=== PATIENT | female | born 1945 | race Caucasian/White ===

== ENCOUNTER → 2016-03-05 | Outpatient (CLI) | payer MEDICARE | LOC: RAD 14:49 | PROVIDERS: ATTEND Specialist | DX: M54.5 Low back pain (principal); R53.1 Weakness; S09.90XA Unspecified injury of head, initial encounter; W18.39XA Other fall on same level, initial encounter | CPT/HCPCS: 70450; 72158 ==

== ENCOUNTER → 2016-03-20 | Outpatient (CLI) | payer MEDICARE | LOC: RAD 10:24 | PROVIDERS: ATTEND Internal Medicine | DX: C34.31 Malignant neoplasm of lower lobe, right bronchus or lung (principal) | CPT/HCPCS: 78815; A9552 ==

== ENCOUNTER 2016-04-21 17:36 | Emergency (ER) | payer MEDICARE ==
--- NOTE | 2016-04-21 17:56 | ER Document Report ---
ED Medical Screen (RME) - General Stated Complaint: CHEST PAIN/CANCER PATIENT Mode of Arrival: Ambulatory Information source: Patient Notes: Patient presents with cough, chest pain and upper back pain that started yesterday. Patient reports fever of 100.4. Pt has been avised against taking ASA. hx: Lung CA chemotherapy every 2 weeks, last treatment was 10 days ago, hypertension, diabetes I have greeted and performed a rapid initial assessment of this patient. A comprehensive ED assessment and evaluation of the patient, analysis of test results and completion of the medical decision making process will be conducted by additional ED providers. TRAVEL OUTSIDE OF THE [place] IN LAST 30 DAYS: No - Related Data Allergies/Adverse Reactions: nickel [Nickel] Adverse Reaction (Severe, Verified 04/21/16 17:52) RASH Past Medical History - Past Medical History Cardiac Medical History: Reports: Hx Hypercholesterolemia, Hx Hypertension - ON MEDS Denies: Hx Coronary Artery Disease, Hx Heart Attack Pulmonary Medical History: Reports: Hx Bronchitis, Hx COPD, Hx Pneumonia Denies: Hx Asthma Neurological Medical History: Denies: Hx Cerebrovascular Accident, Hx Seizures Endocrine Medical History: Reports: Hx Diabetes Mellitus Type 2, Hx Hypothyroidism Malignancy Medical History: Reports: Hx Lung Cancer - R lower lobe GI Medical History: Reports: Hx Diverticulitis, Hx Gastroesophageal Reflux Disease, Hx Hiatal Hernia, Hx Colonoscopy, Hx Endoscopic Retrograde Cholangio, Hx Endoscopy Musculoskeltal Medical History: Reports Hx Arthritis - GENERALIZED, Reports Hx Musculoskeletal Deformity, Reports Hx Musculoskeletal Trauma Psychiatric Medical History: Reports: Hx Anxiety Past Surgical History: Reports: Hx Cardiac Catheterization, Hx Cardiac Surgery - subclavian stent, Hx Hysterectomy, Hx Nose Surgery, Hx Thyroid Surgery. Denies: Hx Pacemaker - Immunizations Immunizations up to date: Yes Hx Diphtheria, Pertussis, Tetanus Vaccination: Yes - 11/29/2006 Physical Exam - Vital signs Vitals: Temp Pulse Resp BP Pulse Ox 99.6 F 89 14 127/61 H 94 04/21/16 17:49 04/21/16 17:49 04/21/16 17:49 04/21/16 17:49 04/21/16 17:49 - Respiratory Respiratory status: No respiratory distress Breath sounds: Nonproductive cough, Rhonchi Course - Vital Signs Vital signs: Temp Pulse Resp BP Pulse Ox 99.6 F 89 14 127/61 H 94 04/21/16 17:49 04/21/16 17:49 02/21/17 17:49 04/21/16 17:49 04/21/16 17:49
[2016-04-21 18:23] LABS: ABSOLUTE BASOPHILS # (AUTO) 0.1 10^3/uL (0.0-0.2); ABSOLUTE EOSINOPHILS # (AUTO) 0.1 10^3/uL (0.0-0.6); ABSOLUTE LYMPHOCYTES (AUTO) 0.7 10^3/uL (0.5-4.7); ABSOLUTE MONOCYTES (AUTO) 0.6 10^3/uL (0.1-1.4); ABSOLUTE NEUT (AUTO) 7.3 10^3/uL (1.7-8.2); BASOPHILS % (AUTO) 1.1 % (0-2); EOSINOPHILS % (AUTO) 1.5 % (0-6); HEMATOCRIT 38.4 % (36.0-47.0); HEMOGLOBIN 13.5 g/dL (12.0-15.5); HGB HCT DIFFERENCE 2.1; LYMPHOCYTES % (AUTO) 7.9 % (13-45); MEAN CORPUSCULAR VOLUME 91 fl (80-97); RED BLOOD COUNT 4.21 10^6/uL (3.72-5.28); RED CELL DISTRIBUTION WIDTH 13.6 % (11.5-14.0); SEGMENTED NEUTROPHILS % (AUTO) 82.5 % (42-78); WHITE BLOOD COUNT 8.8 10^3/uL (4.0-10.5)
[2016-04-21 18:42] LABS: ALANINE AMINOTRANSFERASE 26 U/L (9-52); ALBUMIN 3.6 g/dL (3.5-5.0); ALKALINE PHOSPHATASE 96 U/L (38-126); ANION GAP 10 (5-19); ASPARTATE AMINO TRANSFERASE 12 U/L (14-36); BILIRUBIN,TOTAL 0.4 mg/dL (0.2-1.3); BLOOD UREA NITROGEN 15 mg/dL (7-20); CALCIUM 9.3 mg/dL (8.4-10.2); CARBON DIOXIDE 28 mmol/L (22-30); CHLORIDE 96 mmol/L (98-107); CREATINE KINASE 28 U/L (30-135); CREATININE RESULT 0.62 mg/dL (0.52-1.25); GLUCOSE 135 mg/dL (75-110); MAGNESIUM 1.4 mg/dL (1.6-2.3); POTASSIUM 3.8 mmol/L (3.6-5.0); SODIUM 134.1 mmol/L (137-145); TOTAL PROTEIN 6.5 g/dL (6.3-8.2)
[2016-04-21 18:54] LABS: CREATINE KINASE MB 0.29 ng/mL (<4.55); TROPONIN I < 0.012 ng/mL
--- NOTE | 2016-04-21 22:03 | EKG REPORT ---
SEVERITY:- NORMAL ECG - SINUS RHYTHM : Confirmed by: Latesha Elmore MD 21-Apr-2016 22:03:12
[2016-04-21] MEDS ORDERED: BENZONATATE 100 MG CAPSULE PO ONE (23:35)
[2016-04-21] MEDS ORDERED: IPRATROPIUM/ALBUTEROL 0.5-2.5 MG/3 ML AMPUL NEB ONE (23:35)
--- NOTE | 2016-04-21 23:35 | ER Document Report ---
ED General - General Chief Complaint: Cough Stated Complaint: CHEST PAIN/CANCER PATIENT Mode of Arrival: Ambulatory Notes: Patient is a 70-year-old female past medical history of stage IV metastatic lung cancer actively on chemotherapy at this time presents with 2 days of cough and increased sputum production. She probably did have a recorded oral temperature 100.3F yesterday. Was seen in urgent care earlier today and diagnosed with likely bronchitis and started on azithromycin. States this has not improved her symptoms. Nothing worsens or symptoms. States she's had similar symptoms in the past when she's had bronchitis. She does continue to smoke. Denies any shortness of breath beyond her baseline. She does use oxygen at night. Denies any history of DVT or pulmonary embolus. She denies any pleuritic pain but notes that she does have a diffuse chest wall, burning pain that is worsened by coughing or applying pressure to the chest. States this pain only started after multiple episodes of severe coughing earlier today. TRAVEL OUTSIDE OF THE [place] IN LAST 30 DAYS: No - Related Data Allergies/Adverse Reactions: nickel [Nickel] Adverse Reaction (Severe, Verified 04/21/16 17:57) RASH Home Medications: Current Home Medications Azilsartan Med/Chlorthalidone [Edarbyclor 40-12.5 mg Tablet] 1 tab PO DAILY [History] Metoprolol Tartrate [Metoprolol Tartrate] 1 tab PO BID 04/22/16 [History] Nifedipine [Nifedipine ER] 1 tab PO DAILY 04/22/16 [History] Ondansetron [Zofran Odt 4 mg Tablet] 1 tab PO Q6HP PRN 04/22/16 [History] Oxycodone HCl [Oxy-Ir 5 mg Tablet] 5 mg PO Q6HP PRN 04/22/16 [History] Promethazine HCl [Phenergan 25 mg Tablet] 25 mg PO Q6HP PRN 04/22/16 [History] Past Medical History - General Information source: Patient - Social History Smoking Status: Current Every Day Smoker Chew tobacco use (# tins/day): Yes Frequency of alcohol use: None Drug Abuse: None Lives with: Family Family History: Reviewed & Not Pertinent, Arthritis, CAD, CVA, DM, Hyperlipidemia, Hypertension, Malignancy, Thyroid Disfunction Patient has suicidal ideation: No Patient has homicidal ideation: No - Past Medical History Cardiac Medical History: Reports: Hx Hypercholesterolemia, Hx Hypertension - ON MEDS Denies: Hx Coronary Artery Disease, Hx Heart Attack Pulmonary Medical History: Reports: Hx Bronchitis, Hx COPD, Hx Pneumonia Denies: Hx Asthma Neurological Medical History: Denies: Hx Cerebrovascular Accident, Hx Seizures Endocrine Medical History: Reports: Hx Diabetes Mellitus Type 2, Hx Hypothyroidism Renal/ Medical History: Denies: Hx Peritoneal Dialysis Malignancy Medical History: Reports: Hx Lung Cancer - R lower lobe GI Medical History: Reports: Hx Diverticulitis, Hx Gastroesophageal Reflux Disease, Hx Hiatal Hernia, Hx Colonoscopy, Hx Endoscopic Retrograde Cholangio, Hx Endoscopy Musculoskeltal Medical History: Reports Hx Arthritis - GENERALIZED, Reports Hx Musculoskeletal Deformity, Reports Hx Musculoskeletal Trauma Psychiatric Medical History: Reports: Hx Anxiety Past Surgical History: Reports: Hx Cardiac Catheterization, Hx Cardiac Surgery - subclavian stent, Hx Hysterectomy, Hx Nose Surgery, Hx Thyroid Surgery. Denies: Hx Pacemaker - Immunizations Immunizations up to date: Yes Hx Diphtheria, Pertussis, Tetanus Vaccination: Yes - 11/29/2006 Hx Pneumococcal Vaccination: 03/01/12 Review of Systems - Review of Systems Notes: Constitutional: Negative for fever. HENT: Negative for sore throat. Eyes: Negative for visual changes. Cardiovascular: Negative for chest pain. Respiratory: Negative for shortness of breath. Positive for persistent cough Gastrointestinal: Negative for abdominal pain, positive for posttussive emesis Genitourinary: Negative for dysuria. Musculoskeletal: Negative for back pain. Skin: Negative for rash. Neurological: Negative for headaches, weakness or numbness. 10 point ROS negative except as marked above and in HPI. Physical Exam - Vital signs Vitals: Temp Pulse Resp BP Pulse Ox 99.6 F 89 14 127/61 H 94 04/21/16 17:49 04/21/16 17:49 04/21/16 17:49 04/21/16 17:49 04/21/16 17:49 Notes: PHYSICAL EXAMINATION: GENERAL: Well-appearing, well-nourished and in no acute distress. HEAD: Atraumatic, normocephalic. EYES: Pupils equal round and reactive to light, extraocular movements intact, sclera anicteric, conjunctiva are normal. ENT: nares patent, oropharynx clear without exudates. Moist mucous membranes. NECK: Normal range of motion, supple without lymphadenopathy LUNGS: Breath sounds clear to auscultation bilaterally and equal. Scattered wheezing in all lung laurent. HEART: Regular tachycardia without murmurs ABDOMEN: Soft, nontender, normoactive bowel sounds. No guarding, no rebound. No masses appreciated. EXTREMITIES: Normal range of motion, no pitting or edema. No cyanosis. NEUROLOGICAL: No focal neurological deficits. Moves all extremities spontaneously and on command. PSYCH: Normal mood, normal affect. SKIN: Warm, Dry, normal turgor, no rashes or lesions noted. Course - Re-evaluation Re-evalutation: 04/21/16 23:33 Patient presents with a cough and diffuse chest wall pain worsened by coughing or movement. She arrives tachycardic although she notes that she has a long- standing history of tachycardia and requires metoprolol 100 mg twice a day for this tachycardia. She has not taken this tonight. Initial pulse ox is 94% and patient does normally have a nighttime oxygen dependence all she does not have any normal daytime requirement. She is 97% on room air at the time of my assessment. No respiratory distress. Her clinical history is not consistent with ACS and a troponin is negative, EKG without any concerning ST changes. Rest x-ray shows chronic pleural effusion and scarring in the right lower lobe. I do have some degree of concern for possible pulmonary embolus given that patient is unable both chest pain, shortness of breath, is tachycardic, and is actively receiving chemotherapy at this time. I will therefore attempt to exclude this diagnosis with a d-dimer although I suspect it may be chronically elevated due to her malignancy. If this is elevated will require CT of the chest to further exclude an acute pulmonary embolus. 04/22/16 00:27 D-dimer using an age-adjusted cutoff of 0.68 is negative at 0.51. Patient's heart rate has now normalized after taking her normal home dose of metoprolol. States she feels improved after receiving Tessalon Perles and an albuterol inhaler. At this time, I suspect the patient likely has an upper respiratory infection. Have instructed her follow up very closely with her primary care physician.At this time will discharge with return precautions and follow-up recommendations. Verbal discharge instructions given a the bedside and opportunity for questions given. Medication warnings reviewed. Patient is in agreement with this plan and has verbalized understanding of return precautions and the need for primary care follow-up in the next 24-72 hours. - Vital Signs Vital signs: Temp Pulse Resp BP Pulse Ox 99.6 F 89 21 H 152/74 H 92 04/21/16 17:49 04/21/16 17:49 04/22/16 00:30 04/22/16 00:01 04/22/16 00:30 - Laboratory Result Diagrams: 04/21/16 18:05 04/21/16 18:05 Laboratory results interpreted by me: 04/21/16 04/21/16 04/21/16 18:05 18:05 18:05 Seg Neutrophils % 82.5 H Lymphocytes % 7.9 L D-Dimer 0.51 H Sodium 134.1 L Chloride 96 L Glucose 135 H Magnesium 1.4 L AST 12 L Creatine Kinase 28 L - Diagnostic Test Radiology reviewed: Image reviewed, Reports reviewed Radiology results interpreted by me: 04/22/16 04:23 Chest x-ray: Right pleural effusion - EKG Interpretation by Me Additional EKG results interpreted by me: 04/22/16 04:22 Sinus rhythm. Rate 89. No ST elevations or depressions. QTC is 429. Discharge - Discharge Clinical Impression: Cough, Chest wall discomfort Condition: Good Disposition: HOME, SELF-CARE Additional Instructions: Your symptoms today are most likely due to a viral infection and should resolve in the next several weeks. Please follow closely with her primary care doctor in the next 1-2 days. Please also notify your oncologist about your symptoms. Return to emergency department immediately if you have worsening of your cough, shortness of breath and began coughing blood, pass out, or have any other symptoms that are worrisome to you. Prescriptions: Benzonatate [Tessalon Perle 100 mg Capsule] 100 mg PO Q8HP PRN #40 cap PRN Reason: Referrals: ISABEL PEGUERO FNP [Primary Care Provider] - Follow up tomorrow
[2016-04-22 00:04] VITALS: BP 152/74
== END 2016-04-22 00:48 | disposition home or self-care (01) ==
LOC: ER 17:36
DX: R07.89 Other chest pain (principal); R05 Cough; J44.9 Chronic obstructive pulmonary disease, unspecified; R06.02 Shortness of breath; C34.31 Malignant neoplasm of lower lobe, right bronchus or lung; J90 Pleural effusion, not elsewhere classified; R00.0 Tachycardia, unspecified; Z79.899 Other long term (current) drug therapy; F17.200 Nicotine dependence, unspecified, uncomplicated; I10 Essential (primary) hypertension; E11.9 Type 2 diabetes mellitus without complications; Z87.01 Personal history of pneumonia (recurrent); Z98.61 Coronary angioplasty status; Z99.81 Dependence on supplemental oxygen
CPT/HCPCS: 93005; 94640; 99284; 36415; 87040; 87070; 87205; 82553; 82550; 83735; 85025; 80053; 84484; 85379; 87804; 71020; 93010; A9270 ×2; J7620

== ENCOUNTER 2016-04-27 13:38 | Inpatient (IN) | payer MEDICARE ==
[2016-04-27] MEDS ORDERED: IPRATROPIUM/ALBUTEROL 0.5-2.5 MG/3 ML AMPUL NEB ONE ×2 (14:29→14:30)
[2016-04-27] MEDS ORDERED: METHYLPREDNISOLONE INJ 125 MG/2 ML SDV IV ONE (15:24)
[2016-04-27 15:28] LABS: ABSOLUTE LYMPHOCYTES (AUTO) 1.7 10^3/uL (0.5-4.7); ABSOLUTE MONOCYTES (AUTO) 0.5 10^3/uL (0.1-1.4); ABSOLUTE NEUT (AUTO) 2.9 10^3/uL (1.7-8.2); BASOPHILS % (AUTO) 0.4 % (0-2); EOSINOPHILS % (AUTO) 0.8 % (0-6); HEMATOCRIT 37.7 % (36.0-47.0); HEMOGLOBIN 12.8 g/dL (12.0-15.5); HGB HCT DIFFERENCE 0.7; MEAN CORPUSCULAR HEMOGLOBIN 30.9 pg (27.0-33.4); MEAN CORPUSCULAR VOLUME 91 fl (80-97); MONOCYTES % (AUTO) 10.3 % (3-13); RED BLOOD COUNT 4.14 10^6/uL (3.72-5.28); RED CELL DISTRIBUTION WIDTH 13.3 % (11.5-14.0); SEGMENTED NEUTROPHILS % (AUTO) 56.5 % (42-78); WHITE BLOOD COUNT 5.2 10^3/uL (4.0-10.5)
[2016-04-27 15:38] LABS: ALANINE AMINOTRANSFERASE 21 U/L (9-52); ALBUMIN 3.9 g/dL (3.5-5.0); ALKALINE PHOSPHATASE 86 U/L (38-126); ANION GAP 9 (5-19); ASPARTATE AMINO TRANSFERASE 13 U/L (14-36); BILIRUBIN,TOTAL 0.5 mg/dL (0.2-1.3); BLOOD UREA NITROGEN 12 mg/dL (7-20); CALCIUM 9.4 mg/dL (8.4-10.2); CARBON DIOXIDE 36 mmol/L (22-30); CHLORIDE 92 mmol/L (98-107); CREATINE KINASE 30 U/L (30-135); CREATININE RESULT 0.68 mg/dL (0.52-1.25); GLUCOSE 155 mg/dL (75-110); SODIUM 137.2 mmol/L (137-145); TOTAL PROTEIN 6.5 g/dL (6.3-8.2)
[2016-04-27 15:52] LABS: CREATINE KINASE MB < 0.22 ng/mL (<4.55); TROPONIN I < 0.012 ng/mL
[2016-04-27] MEDS ORDERED: CEFTRIAXONE 1 GM/D5W RTU 50 ML IV ONE (15:54)
--- NOTE | 2016-04-27 16:00 | ER Document Report ---
ED General - General Chief Complaint: Breathing Difficulty Stated Complaint: SHORTNESS OF BREATH Mode of Arrival: Ambulatory Information source: Patient Notes: 62-year-old female history of COPD who was seen here one week prior told she had viral syndrome presents with continued shortness of breath wheezing difficulty breathing. Patient admits to fevers and nausea denies any vomiting TRAVEL OUTSIDE OF THE [place] IN LAST 30 DAYS: No - HPI Onset: Last week Onset/Duration: Persistent Quality of pain: No pain Severity: Moderate Pain Level: 1 Associated symptoms: Productive cough, Fever, Shortness of breath Exacerbated by: Walking Relieved by: Denies Similar symptoms previously: Yes Recently seen / treated by doctor: Yes - Related Data Allergies/Adverse Reactions: nickel [Nickel] Adverse Reaction (Severe, Verified 04/21/16 17:57) RASH Home Medications: Current Home Medications Alprazolam [Xanax 0.25 mg Tablet] 0.25 mg PO DAILYP PRN 04/27/16 [History] Azilsartan Med/Chlorthalidone [Edarbyclor 40-12.5 mg Tablet] 1 tab PO DAILY [History] Benzonatate [Tessalon Perles 100 mg Capsule] 100 mg PO Q8HP PRN 04/27/16 [ History] Fluticasone/Salmeterol [Advair 250-50 Diskus 28 dose] 1 inh IH Q12 04/27/16 [ History] Folic Acid 1 mg PO DAILY 04/27/16 [History] Metformin HCl [Glucophage] 1,000 mg PO BIDACBS 04/27/16 [History] Ondansetron [Zofran Odt 4 mg Tablet] 4 mg PO Q6HP PRN 04/27/16 [History] Oxycodone HCl [Oxy-Ir 5 mg Tablet] 5 mg PO Q6HP PRN 04/27/16 [History] Pantoprazole Sodium [Protonix] 40 mg PO DAILY 04/27/16 [History] Promethazine HCl 25 mg PO Q6HP PRN 04/27/16 [History] Past Medical History - Social History Smoking Status: Current Every Day Smoker Cigarette use (# per day): Yes Chew tobacco use (# tins/day): No Smoking Education Provided: Yes - Patient counselled regarding cessation for 4 minutes Family History: Reviewed & Not Pertinent, Arthritis, CAD, CVA, DM, Hyperlipidemia, Hypertension, Malignancy, Thyroid Disfunction - Past Medical History Cardiac Medical History: Reports: Hx Hypercholesterolemia, Hx Hypertension - ON MEDS Denies: Hx Coronary Artery Disease, Hx Heart Attack Pulmonary Medical History: Reports: Hx Bronchitis, Hx COPD, Hx Pneumonia Denies: Hx Asthma Neurological Medical History: Denies: Hx Cerebrovascular Accident, Hx Seizures Endocrine Medical History: Reports: Hx Diabetes Mellitus Type 2, Hx Hypothyroidism Renal/ Medical History: Denies: Hx Peritoneal Dialysis Malignancy Medical History: Reports: Hx Lung Cancer - R lower lobe GI Medical History: Reports: Hx Diverticulitis, Hx Gastroesophageal Reflux Disease, Hx Hiatal Hernia, Hx Colonoscopy, Hx Endoscopic Retrograde Cholangio, Hx Endoscopy Musculoskeltal Medical History: Reports Hx Arthritis - GENERALIZED, Reports Hx Musculoskeletal Deformity, Reports Hx Musculoskeletal Trauma Psychiatric Medical History: Reports: Hx Anxiety Past Surgical History: Reports: Hx Cardiac Catheterization, Hx Cardiac Surgery - subclavian stent, Hx Hysterectomy, Hx Nose Surgery, Hx Thyroid Surgery. Denies: Hx Pacemaker - Immunizations Immunizations up to date: Yes Hx Diphtheria, Pertussis, Tetanus Vaccination: Yes - 11/29/2006 Hx Pneumococcal Vaccination: 03/01/12 Review of Systems - Review of Systems Notes: REVIEW OF SYSTEMS: CONSTITUTIONAL : Admits to productive cough EENT: Denies eye, ear, throat, or mouth pain or symptoms. Denies nasal or sinus congestion or discharge. Denies throat, tongue, or mouth swelling or difficulty swallowing. CARDIOVASCULAR: Denies chest pain. Denies palpitations or racing or irregular heart beat. Denies ankle edema. RESPIRATORY: shortness breath difficulty breathing GASTROINTESTINAL: Denies abdominal pain or distention. Denies nausea, vomiting , or diarrhea. Denies blood in vomitus, stools, or per rectum. Denies black, tarry stools. Denies constipation. GENITOURINARY: Denies difficulty urinating, painful urination, burning, frequency, blood in urine, or discharge. FEMALE GENITOURINARY: Denies vaginal bleeding, heavy or abnormal periods, irregular periods. Denies vaginal discharge or odor. MUSCULOSKELETAL: Denies back or neck pain or stiffness. Denies joint pain or swelling. SKIN: Denies rash, lesions or sores. HEMATOLOGIC : Denies easy bruising or bleeding. LYMPHATIC: Denies swollen, enlarged glands. NEUROLOGICAL: Denies confusion or altered mental status. Denies passing out or loss of consciousness. Denies dizziness or lightheadedness. Denies headache. Denies weakness or paralysis or loss of use of either side. Denies problems with gait or speech. Denies sensory loss, numbness, or tingling. Denies seizures. PSYCHIATRIC: Denies anxiety or stress. Denies depression, suicidal ideation, or homicidal ideation. ALL OTHER SYSTEMS REVIEWED AND NEGATIVE. Dictation was performed using [employer] voice recognition software PHYSICAL EXAMINATION: GENERAL: Well-appearing, well-nourished and in mild respiratory distress, satting 80% on 4 L nasal cannula HEAD: Atraumatic, normocephalic. EYES: Pupils equal round and reactive to light, extraocular movements intact, conjunctiva are normal. ENT: Nares patent, oropharynx clear without exudates. Moist mucous membranes. NECK: Normal range of motion, supple without lymphadenopathy LUNGS: Coarse rhonchi all throughout HEART: Tachycardic ABDOMEN: Soft, nontender, nondistended abdomen. No guarding, no rebound. No masses appreciated. Female : deferred Musculoskeletal: Normal range of motion, no pitting or edema. No cyanosis. NEUROLOGICAL: Cranial nerves grossly intact. Normal speech, normal gait. Normal sensory, motor exams PSYCH: Normal mood, normal affect. SKIN: Warm, Dry, normal turgor, no rashes or lesions noted. Physical Exam - Vital signs Vitals: Temp Pulse Resp BP Pulse Ox 98.0 F 70 18 114/41 L 93 04/27/16 14:09 04/27/16 14:09 04/27/16 14:09 04/27/16 14:09 04/27/16 14:09 Course - Re-evaluation Re-evalutation: 04/27/16 18:37 Physical examination is concerning for pneumonia, chest x-ray does confirm this. Patient started on antibiotics will be continued on breathing treatments. Given the patient is hypoxic still on nasal cannula at rest I do believe is appropriate for inpatient admission due to respiratory distress - Vital Signs Vital signs: Temp Pulse Resp BP Pulse Ox 98.0 F 81 21 H 125/62 93 04/27/16 14:09 04/27/16 16:37 04/27/16 16:37 04/27/16 16:37 04/27/16 16:37 - Laboratory Result Diagrams: 04/27/16 15:15 04/27/16 15:15 Laboratory results interpreted by me: 04/27/16 15:15 Chloride 92 L Carbon Dioxide 36 H Glucose 155 H AST 13 L - Diagnostic Test Radiology reviewed: Image reviewed, Reports reviewed - Pneumonia - EKG Interpretation by Me EKG shows normal: Sinus rhythm, Babcock, Intervals, QRS Complexes Critical Care Note - Critical Care Note Total time excluding time spent on procedures (mins): 31 Comments: 31 minutes of critical care time spent in direct contact evaluating and reevaluating the patient, treating symptoms, reviewing labs and studies and speaking with family and consultants excluding any procedures Discharge - Discharge Clinical Impression: Hypoxemia, Encounter for smoking cessation counseling Pneumonia Qualifiers: Pneumonia type: due to unspecified organism Laterality: bilateral Lung location : lower lobe of lung Qualified Code(s): J18.9 - Pneumonia, unspecified organism Condition: Stable Disposition: ADMITTED INPATIENT Admitting Provider: Hospitalist Unit Admitted: Telemetry
[2016-04-27] MEDS ORDERED: ACETAMINOPHEN 325 MG TABLET PO PRN (17:29)
[2016-04-27] MEDS ORDERED: DEXTROSE 50%-WATER 25 GM/50 ML DISP.SYRIN IV PRN ×2 (18:10)
[2016-04-27] MEDS ORDERED: GLUCAGON,HUMAN RECOMB 1 MG INJ IM PRN (18:10)
[2016-04-27] MEDS ORDERED: DEXTROSE 40% GEL 15 GM TUBE PO PRN ×2 (18:10)
--- NOTE | 2016-04-27 18:18 | PDOC H&P ---
History of Present Illness Admission Date/PCP: 04/27/16 16:13 JERRY VELEZ Patient complains of: Cough, shortness of breath, weakness History of Present Illness: GOKUL SALAZAR is a 70 year old female presents to the emergency department from home with a one-week history of progressive cough and wheeze with worsening shortness of breath. She was seen in the emergency department on the and diagnosed with an upper respiratory viral infection and sent home after nebulizer treatments and IV fluids. She screen negative for influenza at that time. Since then though she has had progressive weakness, shortness of breath, dry hacking cough, worsening wheeze, worsening hypoxia now requiring her to utilize her nocturnal oxygen continuously upwards of 4 L/m, increased use of her home nebulizers to every 4 hours without relief. Evaluation in the emergency department shows worsening right airspace disease in the area of scar tissue from her prior lung resection for non-small cell lung cancer. She is hypoxic at 88% on 4 L according to the emergency department physician and so we were asked to admit for further evaluation and management. She is followed by Dr. Rohan Nolan, oncology and is receiving continuous cycles of biweekly chemotherapy just performed approximately 3 weeks ago having missed her last dose due to her illness. She reports a PET CT scan in August 2015 showed metastatic disease to a T10 vertebrae, previous to that the cancer had been localized to the right lower lobe. She underwent resection of a portion of the right lower lobe in 2006 and received chemotherapy at that time but no external beam radiation. She was found to have recurrence last year and began chemotherapy. She sees Dr. Hernandez as her PCP. she is not on chronic steroids and only uses nocturnal O2 usually with nebulizer's prn normally. Past Medical History Cardiac Medical History: Reports: Hyperlipidema, Hypertension - ON MEDS Denies: Coronary Artery Disease, Myocardial Infarction Pulmonary Medical History: Reports: Bronchitis, Chronic Obstructive Pulmonary Disease (COPD), Pneumonia Denies: Asthma Neurological Medical History: Denies: Seizures Endocrine Medical History: Reports: Diabetes Mellitus Type 2, Hypothyroidism Malignancy Medical History: Reports: Lung Cancer - R lower lobe GI Medical History: Reports: Diverticulitis, Gastroesophageal Reflux Disease, Hiatal Hernia Musculoskeltal Medical History: Reports: Arthritis - GENERALIZED Hematology: Denies: Anemia Past Surgical History Past Surgical History: Reports: Cardiac Catheterization, Hysterectomy Denies: Pacemaker Social History Smoking Status: Current Every Day Smoker Cigarettes Packs Per Day: 1 Frequency of Alcohol Use: Occasional Hx Recreational Drug Use: No Hx Prescription Drug Abuse: No - Advance Directive Resuscitation Status: Full Code Family History Family History: Reviewed & Not Pertinent, Arthritis, CAD, CVA, DM, Hyperlipidemia, Hypertension, Malignancy, Thyroid Disfunction Parental Family History Reviewed: Yes Children Family History Reviewed: Yes Sibling(s) Family History Reviewed.: Yes Medication/Allergy Allergies/Adverse Reactions: nickel [Nickel] Adverse Reaction (Severe, Verified 04/21/16 17:57) RASH Review of Systems Constitutional: PRESENT: chills. ABSENT: fever(s), headache(s), weight gain, weight loss Eyes: ABSENT: visual disturbances Ears: ABSENT: hearing changes Cardiovascular: PRESENT: dyspnea on exertion. ABSENT: chest pain, edema, orthropnea, palpitations Respiratory: PRESENT: cough, dyspnea. ABSENT: hemoptysis, sputum Gastrointestinal: PRESENT: nausea - Chronic and related to her chemotherapy. ABSENT: abdominal pain, constipation, diarrhea, hematemesis, hematochezia, vomiting Genitourinary: ABSENT: dysuria, hematuria Musculoskeletal: ABSENT: joint swelling Integumentary: ABSENT: rash, wounds Neurological: ABSENT: abnormal gait, abnormal speech, confusion, dizziness, focal weakness, syncope Psychiatric: ABSENT: anxiety, depression, homidical ideation, suicidal ideation Endocrine: ABSENT: cold intolerance, heat intolerance, polydipsia, polyuria Hematologic/Lymphatic: ABSENT: easy bleeding, easy bruising Physical Exam Vital Signs: Temp Pulse Resp BP Pulse Ox 98.0 F 81 21 H 125/62 93 04/27/16 14:09 04/27/16 16:37 04/27/16 16:37 04/27/16 16:37 04/27/16 16:37 PHYSICAL EXAM GENERAL: NAD; well developed, well nourished; no obese; alert and oriented to person, place, time, situation HEENT: normocephalic, atraumatic; EOMI, PERRLA, no conjunctival injection, no scleral icterus; oral mucosa moist; neck supple, no LAD, normal ROM RESPIRATORY: Intercostal accessory muscle use, mild increased WOB, poor air entry right base; no wheezes, or rhonchi; right basilar inspiratory crackles and rales CARDIO: no JVD; RRR; no systolic murmur; no tachycardia VASCULAR: no carotid bruit; no abdominal bruit; no pallor; 2+ radial, DP pulse ; normal capillary refill GI: soft; nondistended; normal bowel sounds; no hepato spleno megaly; no rebound, rigidity, guarding; nontender NEURO: normal patella reflexes; normal sensation; normal motor function; no dysarthria; no nystagmus; tongue protrudes midline; MSK: 5/5 strength; normal ROM hips; ambulatory without assistance; no tenderness EXTREMITIES: no calf tender; no palpable cords in calf; no clubbing, cyanosis , pedal edema PSYCH: normal affect, normal mood SKIN: warm; moist; no petechiae; no telengectasias; no jaundice; no rash Results Laboratory Results: Labs reviewed, CBC is within normal limits, chemistries show a mild metabolic alkalosis with a carbon dioxide of 36 and are otherwise unremarkable, her glucose is elevated at 155, LFTs are unremarkable, first set cardiac enzymes negative and bnp only 168. EKG Comments: EKG shows a normal sinus rhythm with a corrected QT interval of 426 and an axis of 35 Impressions: Chest X-Ray 04/27/16 14:16 IMPRESSION: Slight increase in right basilar airspace disease compared to prior study. Small right pleural effusion remains. Status: Image reviewed by me - Agree with radiology Assessment & Plan - Diagnosis (1) Pneumonia Qualifiers: Pneumonia type: due to unspecified organism Laterality: bilateral Lung location: lower lobe of lung Qualified Code(s): J18.9 - Pneumonia, unspecified organism Is this a current diagnosis for this admission?: YesPlan: She is immunocompromised from her lung cancer as well as recent chemotherapy and with her fixed lung disease she is at grave risk for gram-negative organisms. She warrants inpatient hospitalization for treatment against Pseudomonas and the typical community-acquired pathogens. We'll send sputum and blood cultures in an attempt to wean antibiotics. Supplemental O2, nebulizer therapy, supportive care, incentive spirometer. (2) Acute and chronic respiratory failure with hypoxia Is this a current diagnosis for this admission?: YesPlan: Continue supplemental O2, incentive spirometer, may need flutter valve, nebulizers as needed. (3) Lung cancer Qualifiers: Laterality: right Lung location: lower lobe of lung Qualified Code(s): C34.31 - Malignant neoplasm of lower lobe, right bronchus or lung Is this a current diagnosis for this admission?: YesPlan: Consult oncology who know her well. (4) Tobacco dependence Is this a current diagnosis for this admission?: YesPlan: Nicotine replacement and tobacco cessation counseling. - Time Time Spent: 50 to 70 Minutes Medications reviewed and adjusted accordingly: Yes Anticipated discharge: Home Within: within 48 hours - Inpatient Certification Medical Necessity: Significant Comorbidiites Make Outpatient Treatment Too Risky , Need For IV Fluids, Need for IV Antibiotics, Risk of Complication if Not Cared For in Hospital
[2016-04-27] MEDS ORDERED: ONDANSETRON HCL INJ/PF 4 MG/2 ML SDV ONE (18:23)
[2016-04-27] MEDS ORDERED: NICOTINE 21 MG/24 HR PATCH.TD24 TD ONE (19:30)
[2016-04-27] MEDS: IPRATROPIUM/ALBUTEROL 0.5-2.5 MG/3 ML AMPUL NEB PRN (20:32)
--- NOTE | 2016-04-27 21:04 | EKG REPORT ---
SEVERITY:- NORMAL ECG - SINUS RHYTHM : Confirmed by: Tejas Ray MD 27-Apr-2016 21:03:55
[2016-04-27] MEDS ORDERED: CEFEPIME 2 GM/D5W RTU 2 GM/50 ML RTUPB IV SCH (22:00)
[2016-04-27] MEDS: FAMOTIDINE 20 MG TABLET PO SCH (22:15)
[2016-04-27] MEDS: OXYCODONE HCL IR 5 MG TABLET PO PRN (22:20)
[2016-04-27] MEDS: INSULIN LISPRO 100 UNIT/ML 3 ML VIAL SUBCUT PRN (22:22)
[2016-04-27] MEDS: LEVOFLOXACIN 750 MG/D5W RTU 750 MG/150 ML RTUPB IV SCH (23:46)
[2016-04-28] MEDS: ONDANSETRON HCL INJ/PF 4 MG/2 ML SDV IV PRN ×2 (01:46→13:54)
[2016-04-28] MEDS: NORMAL SALINE 1000 ML 1,000 ML IV PRN ×2 (01:46→11:04)
[2016-04-28] MEDS: OXYCODONE HCL IR 5 MG TABLET PO PRN ×2 (04:30→11:05)
[2016-04-28 07:18] LABS: ABSOLUTE LYMPHOCYTES (AUTO) 1.3 10^3/uL (0.5-4.7); ABSOLUTE MONOCYTES (AUTO) 0.5 10^3/uL (0.1-1.4); ABSOLUTE NEUT (AUTO) 2.4 10^3/uL (1.7-8.2); BASOPHILS % (AUTO) 0.6 % (0-2); EOSINOPHILS % (AUTO) 0.1 % (0-6); HEMATOCRIT 34.7 % (36.0-47.0); HEMOGLOBIN 11.9 g/dL (12.0-15.5); LYMPHOCYTES % (AUTO) 31.8 % (13-45); MEAN CORPUSCULAR HGB CONC 34.4 g/dL (32.0-36.0); MEAN CORPUSCULAR VOLUME 90 fl (80-97); MONOCYTES % (AUTO) 11.1 % (3-13); RED BLOOD COUNT 3.85 10^6/uL (3.72-5.28); RED CELL DISTRIBUTION WIDTH 13.5 % (11.5-14.0); SEGMENTED NEUTROPHILS % (AUTO) 56.4 % (42-78); WHITE BLOOD COUNT 4.2 10^3/uL (4.0-10.5)
[2016-04-28] MEDS: IPRATROPIUM/ALBUTEROL 0.5-2.5 MG/3 ML AMPUL NEB PRN ×2 (08:23→15:55)
[2016-04-28] MEDS: FAMOTIDINE 20 MG TABLET PO SCH ×2 (11:05→21:22)
[2016-04-28] MEDS: NICOTINE 21 MG/24 HR PATCH.TD24 TD SCH (11:05)
[2016-04-28] MEDS: CEFEPIME HCL 2 GM in DEXTROSE 5%-WATER 50 ML IV SCH ×2 (11:06→21:23)
[2016-04-28] MEDS: ENOXAPARIN SODIUM INJ 40 MG/0.4 ML DISP.SYRIN SUBCUT SCH (11:06)
--- NOTE | 2016-04-28 11:59 | PDOC CONSULTATION ---
Consultation Consult Date: 04/28/16 Attending physician:: JEFF ACEVES Consult reason:: Pt w/ SOB/STANTON, fever, known stage IV lung ca History of Present Illness Admission Date/PCP: 04/27/16 17:25 JERRY VELEZ Patient complains of: SOB/STANTON/fever History of Present Illness: 70 y/o F w/ known hx stage IV lung ca w/ hx of pleural effusion and bone mets. She is currently on immunotherapy (OPDIVO), doing well with it, recent PET in Mar indicated overall stable dx. She comes w/ 1 wk hx of inc SOB/STANTON, fever at home, cough. Of note, her daughter now has similar sx. Was tx here in ED for viral syndrome but sx worsened and pt came back to [facility]. She is currently on broad spec antbx. Feels better today. CXR w/ opacity c/w pneumonia. CT chest done, reviewed images and results, seems to be consolidation noted c/w pneumonia. Per my view does not seem related to OPDIVO, this can cause pneumonitis but imaging not c/w this. Past Medical History Cardiac Medical History: Reports: Hyperlipidema, Hypertension - ON MEDS Denies: Coronary Artery Disease, Myocardial Infarction Pulmonary Medical History: Reports: Bronchitis, Chronic Obstructive Pulmonary Disease (COPD), Pneumonia Denies: Asthma Neurological Medical History: Denies: Seizures Endocrine Medical History: Reports: Diabetes Mellitus Type 2, Hypothyroidism Malignancy Medical History: Reports: Lung Cancer - R lower lobe GI Medical History: Reports: Diverticulitis, Gastroesophageal Reflux Disease, Hiatal Hernia Musculoskeltal Medical History: Reports: Arthritis - GENERALIZED Hematology: Denies: Anemia Past Surgical History Past Surgical History: Reports: Cardiac Catheterization, Hysterectomy Denies: Pacemaker Social History Smoking Status: Current Every Day Smoker Cigarettes Packs Per Day: 1 Number of Years Smokin Last Time Smoked: 04/25/2016 Frequency of Alcohol Use: None Hx Recreational Drug Use: Yes Drugs: None Hx Prescription Drug Abuse: No - Advance Directive Resuscitation Status: Full Code Family History Family History: Reviewed & Not Pertinent, Arthritis, CAD, CVA, DM, Hyperlipidemia, Hypertension, Malignancy, Thyroid Disfunction Parental Family History Reviewed: Yes Children Family History Reviewed: Yes Sibling(s) Family History Reviewed.: Yes Medication/Allergy Home Medications: Alprazolam [Xanax 0.25 mg Tablet] 0.25 mg PO DAILYP PRN 04/27/16 Azilsartan Med/Chlorthalidone [Edarbyclor 40-12.5 mg Tablet] 1 tab PO DAILY Benzonatate [Tessalon Perles 100 mg Capsule] 100 mg PO Q8HP PRN 04/27/16 Fluticasone/Salmeterol [Advair 250-50 Diskus 28 dose] 1 inh IH Q12 04/27/16 Folic Acid 1 mg PO DAILY 04/27/16 Metformin HCl [Glucophage] 1,000 mg PO BIDACBS 04/27/16 Metoprolol Tartrate [Lopressor 100 mg Tablet] 100 mg PO Q12 04/27/16 Nifedipine [Procardia XL 60 mg Tablet] 60 mg PO DAILY 04/27/16 Ondansetron [Zofran Odt 4 mg Tablet] 4 mg PO Q6HP PRN 04/27/16 Oxycodone HCl [Oxy-Ir 5 mg Tablet] 5 mg PO Q6HP PRN 04/27/16 Pantoprazole Sodium [Protonix] 40 mg PO DAILY 04/27/16 Promethazine HCl 25 mg PO Q6HP PRN 04/27/16 Allergies/Adverse Reactions: nickel [Nickel] Adverse Reaction (Severe, Verified 04/21/16 17:57) RASH Review of Systems Constitutional: PRESENT: chills, fever(s), weakness Cardiovascular: PRESENT: dyspnea on exertion Respiratory: PRESENT: cough Gastrointestinal: ABSENT: abdominal pain, constipation, diarrhea, hematemesis, hematochezia, nausea, vomiting Musculoskeletal: ABSENT: joint swelling Physical Exam Vital Signs: Temp Pulse Resp BP Pulse Ox 98.2 F 78 16 151/65 H 99 04/28/16 07:16 04/28/16 08:24 04/28/16 08:24 04/28/16 07:16 04/28/16 08:24 Intake & Output 04/27/16 04/28/16 04/29/16 06:59 06:59 06:59 Intake Total 400 Output Total 500 Balance -100 Weight 80 kg General appearance: PRESENT: mild distress Mouth exam: PRESENT: dry mucosa Respiratory exam: PRESENT: crackles, decreased breath sounds Cardiovascular exam: PRESENT: RRR. ABSENT: diastolic murmur, rubs, systolic murmur GI/Abdominal exam: PRESENT: normal bowel sounds, soft. ABSENT: distended, guarding, mass, organolmegaly, rebound, tenderness Rectal exam: PRESENT: deferred Neurological exam: PRESENT: alert, awake, oriented to person, oriented to place , oriented to time, oriented to situation, CN II-XII grossly intact. ABSENT: motor sensory deficit Results Laboratory Results: 04/28/16 06:58 04/28/16 06:58 WBC 4.2 RBC 3.85 Hgb 11.9 L Hct 34.7 L MCV 90 MCH 31.0 MCHC 34.4 RDW 13.5 Plt Count 251 Seg Neutrophils % 56.4 Lymphocytes % 31.8 Monocytes % 11.1 Eosinophils % 0.1 Basophils % 0.6 Absolute Neutrophils 2.4 Absolute Lymphocytes 1.3 Absolute Monocytes 0.5 Absolute Eosinophils 0.0 Absolute Basophils 0.0 Impressions: Chest X-Ray 04/27/16 14:16 IMPRESSION: Slight increase in right basilar airspace disease compared to prior study. Small right pleural effusion remains. 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 Status: Image reviewed by me Assessment & Plan - Diagnosis (1) Pneumonia Qualifiers: Pneumonia type: due to unspecified organism Laterality: bilateral Lung location: lower lobe of lung Qualified Code(s): J18.9 - Pneumonia, unspecified organism Is this a current diagnosis for this admission?: YesPlan: Appears to be a pneumonia possible viral vs bacterial, con't w/ antbx and other measures per hospitalist team (2) Lung cancer Qualifiers: Laterality: right Lung location: lower lobe of lung Qualified Code(s): C34.31 - Malignant neoplasm of lower lobe, right bronchus or lung Is this a current diagnosis for this admission?: YesPlan: Stage IV lung ca on OPDIVO, will hold rx while pt in hospital, will want full resolution of infection prior to restart. Don't believe opdivo is cause of resp compromise. - Time Time Spent: Greater than 70 Minutes Critical Time spent with patient: 35 or more minutes - Inpatient Certification Based on my medical assessment, after consideration of the patient's comorbidities, presenting symptoms, or acuity I expect that the services needed warrant INPATIENT care.: Yes I certify that my determination is in accordance with my understanding of Medicare's requirements for reasonable and necessary INPATIENT services [42 CFR 412.3e].: Yes Medical Necessity: Failure to Improve With Outpatient Therapy, Need For IV Fluids, Need For Continuous Telemetry Monitoring, Need for IV Antibiotics
[2016-04-28] MEDS ORDERED: PROMETHAZINE HCL 25 MG TABLET PO PRN (16:58)
[2016-04-28] MEDS ORDERED: ONDANSETRON 4 MG TAB.RAPDIS PO PRN (16:58)
[2016-04-28] MEDS ORDERED: BENZONATATE 100 MG CAPSULE PO PRN (16:58)
--- NOTE | 2016-04-28 17:14 | PDOC PROGRESS REPORT ---
Subjective Progress Note for:: 04/28/16 Subjective:: Patient states she feels better Shortness of breath is improved She's had no fever no chills Physical Exam Vital Signs: Temp Pulse Resp BP Pulse Ox 97.7 F 82 16 156/73 H 98 04/28/16 11:49 04/28/16 15:55 04/28/16 15:55 04/28/16 14:29 04/28/16 15:55 Intake & Output 04/27/16 04/28/16 04/29/16 00:59 00:59 00:59 Intake Total 400 Output Total 500 Balance -100 Weight 81.647 kg 80 kg General appearance: PRESENT: no acute distress, well-nourished Head exam: PRESENT: atraumatic, normocephalic Eye exam: PRESENT: conjunctiva pink, EOMI, PERRLA. ABSENT: scleral icterus Neck exam: ABSENT: carotid bruit, JVD, lymphadenopathy, thyromegaly Respiratory exam: PRESENT: decreased breath sounds, wheezes Cardiovascular exam: PRESENT: RRR. ABSENT: diastolic murmur, rubs, systolic murmur GI/Abdominal exam: PRESENT: normal bowel sounds, soft. ABSENT: distended, guarding, mass, organolmegaly, rebound, tenderness Extremities exam: PRESENT: full ROM. ABSENT: calf tenderness, clubbing, pedal edema Neurological exam: PRESENT: alert, awake, oriented to person, oriented to place , oriented to time, oriented to situation, CN II-XII grossly intact. ABSENT: motor sensory deficit Results Laboratory Results: 04/28/16 06:58 04/28/16 06:58 WBC 4.2 RBC 3.85 Hgb 11.9 L Hct 34.7 L MCV 90 MCH 31.0 MCHC 34.4 RDW 13.5 Plt Count 251 Seg Neutrophils % 56.4 Lymphocytes % 31.8 Monocytes % 11.1 Eosinophils % 0.1 Basophils % 0.6 Absolute Neutrophils 2.4 Absolute Lymphocytes 1.3 Absolute Monocytes 0.5 Absolute Eosinophils 0.0 Absolute Basophils 0.0 Impressions: Chest X-Ray 04/27/16 14:16 IMPRESSION: Slight increase in right basilar airspace disease compared to prior study. Small right pleural effusion remains. 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 Assessment & Plan - Diagnosis (1) Acute and chronic respiratory failure with hypoxia Is this a current diagnosis for this admission?: Yes (2) Pneumonia Qualifiers: Pneumonia type: due to unspecified organism Laterality: bilateral Lung location: lower lobe of lung Qualified Code(s): J18.9 - Pneumonia, unspecified organism Is this a current diagnosis for this admission?: Yes (3) Lung cancer Qualifiers: Laterality: right Lung location: lower lobe of lung Qualified Code(s): C34.31 - Malignant neoplasm of lower lobe, right bronchus or lung Is this a current diagnosis for this admission?: YesPlan: Chronic right lower lobe collapse and airway occlusion Patient may have postobstructive pneumonia Continue antibiotic management - Time Time Spent with patient: Continue present medications; overall patient's condition is stable Time Spent with patient: 25-34 minutes
[2016-04-28] MEDS: ALPRAZOLAM 0.25 MG TABLET PO PRN (17:42)
[2016-04-28] MEDS: METOPROLOL TARTRATE 100 MG TABLET PO SCH (21:22)
[2016-04-28] MEDS: LEVOFLOXACIN 750 MG/D5W RTU 750 MG/150 ML RTUPB IV SCH (21:23)
[2016-04-28] MEDS: FLUTICASONE/SALMETEROL DISKUS 250-50 MCG/DOSE IH SCH (22:04)
[2016-04-28 23:54] LABS: APPEARANCE,URINE CLEAR; BILIRUBIN,URINE NEGATIVE (NEGATIVE); GLUCOSE, URINE 50 mg/dL (NEGATIVE); KETONES,URINE NEGATIVE (NEGATIVE); LEUKOCYTE ESTERASE,URINE NEGATIVE (NEGATIVE); NITRITE,URINE NEGATIVE (NEGATIVE); PROTEIN,URINE NEGATIVE (NEGATIVE); URINE SPECIFIC GRAVITY 1.011; UROBILINOGEN,URINE NEGATIVE mg/dL (<2.0)
[2016-04-29] MEDS: OXYCODONE HCL IR 5 MG TABLET PO PRN ×2 (01:53→21:45)
[2016-04-29] MEDS: IPRATROPIUM/ALBUTEROL 0.5-2.5 MG/3 ML AMPUL NEB PRN ×2 (02:03→08:17)
[2016-04-29] MEDS: LANSOPRAZOLE 30 MG TAB.RAP.DR PO SCH (05:30)
[2016-04-29] MEDS: ENOXAPARIN SODIUM INJ 40 MG/0.4 ML DISP.SYRIN SUBCUT SCH (08:39)
[2016-04-29] MEDS ORDERED: ZOLPIDEM TARTRATE 5 MG TABLET PO PRN (09:28)
[2016-04-29] MEDS: FLUTICASONE/SALMETEROL DISKUS 250-50 MCG/DOSE IH SCH ×2 (09:53→21:47)
[2016-04-29] MEDS: FOLIC ACID 1 MG TABLET PO SCH (09:53)
[2016-04-29] MEDS: FAMOTIDINE 20 MG TABLET PO SCH ×2 (09:53→21:45)
[2016-04-29] MEDS: METOPROLOL TARTRATE 100 MG TABLET PO SCH ×2 (09:54→21:46)
[2016-04-29] MEDS: NIFEDIPINE 30 MG TAB.ER.24 PO SCH (09:54)
[2016-04-29] MEDS: CEFEPIME HCL 2 GM in DEXTROSE 5%-WATER 50 ML IV SCH ×2 (09:55→21:46)
[2016-04-29] MEDS: NICOTINE 21 MG/24 HR PATCH.TD24 TD SCH (09:55)
[2016-04-29] MEDS ORDERED: (PENDING PHARMACY ID) (Azilsartan Med/Chlorthalidone [Edarbyclor 40-12.5 Mg Tablet] 1 TAB) PO SCH (10:00)
[2016-04-29] MEDS ORDERED: (PENDING PHARMACY ID) (Nifedipine [Procardia Xl 60 Mg Tablet] 60 MG) PO SCH (10:00)
[2016-04-29] MEDS: INSULIN LISPRO 100 UNIT/ML 3 ML VIAL SUBCUT PRN ×3 (11:58→21:45)
--- NOTE | 2016-04-29 12:09 | PDOC PROGRESS REPORT ---
Subjective Progress Note for:: 04/29/16 Subjective:: Pt doing better, feeling better, energy level improving, discussed CT imaging extensively w/ pt Physical Exam Vital Signs: Temp Pulse Resp BP Pulse Ox 97.7 F 72 18 176/77 H 100 04/29/16 08:19 04/29/16 08:19 04/29/16 08:19 04/29/16 08:19 04/29/16 08:19 Intake & Output 04/28/16 04/29/16 04/30/16 06:59 06:59 06:59 Intake Total 400 2466 Output Total 500 1200 Balance -100 1266 Weight 80 kg 83.5 kg General appearance: PRESENT: no acute distress, well-developed, well-nourished Head exam: PRESENT: atraumatic, normocephalic Eye exam: PRESENT: conjunctiva pink, EOMI, PERRLA. ABSENT: scleral icterus Ear exam: PRESENT: normal external ear exam Mouth exam: PRESENT: moist, tongue midline Neck exam: ABSENT: carotid bruit, JVD, lymphadenopathy, thyromegaly Respiratory exam: PRESENT: clear to auscultation harish. ABSENT: rales, rhonchi, wheezes Cardiovascular exam: PRESENT: RRR. ABSENT: diastolic murmur, rubs, systolic murmur Pulses: PRESENT: normal dorsalis pedis pul Vascular exam: PRESENT: normal capillary refill GI/Abdominal exam: PRESENT: normal bowel sounds, soft. ABSENT: distended, guarding, mass, organolmegaly, rebound, tenderness Rectal exam: PRESENT: deferred Extremities exam: PRESENT: full ROM. ABSENT: calf tenderness, clubbing, pedal edema Neurological exam: PRESENT: alert, awake, oriented to person, oriented to place , oriented to time, oriented to situation, CN II-XII grossly intact. ABSENT: motor sensory deficit Psychiatric exam: PRESENT: appropriate affect, normal mood. ABSENT: homicidal ideation, suicidal ideation Skin exam: PRESENT: dry, intact, warm. ABSENT: cyanosis, rash Results Laboratory Results: 04/28/16 06:58 04/28/16 23:20 Urine Color STRAW Urine Appearance CLEAR Urine pH 7.0 Ur Specific Siler 1.011 Urine Protein NEGATIVE Urine Glucose (UA) 50 H Urine Ketones NEGATIVE Urine Blood NEGATIVE Urine Nitrite NEGATIVE Ur Leukocyte Esterase NEGATIVE Urine WBC (Auto) 0 Urine RBC (Auto) 0 Impressions: Chest X-Ray 04/27/16 14:16 IMPRESSION: Slight increase in right basilar airspace disease compared to prior study. Small right pleural effusion remains. 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 Assessment & Plan - Diagnosis (1) Pneumonia Qualifiers: Pneumonia type: due to unspecified organism Laterality: bilateral Lung location: lower lobe of lung Qualified Code(s): J18.9 - Pneumonia, unspecified organism Is this a current diagnosis for this admission?: YesPlan: Improving, con't atbx today, will need 1 more day atleast atbx and see how pt looks tomorrow, try to have walk today and see how she does (2) Lung cancer Qualifiers: Laterality: right Lung location: lower lobe of lung Qualified Code(s): C34.31 - Malignant neoplasm of lower lobe, right bronchus or lung Is this a current diagnosis for this admission?: YesPlan: Does not look likely recent episode STANTON/SOB related to treatment, no evidence pneumonitis on scan, so plan further chemo/rx as outpt Today spent 45 min in discussion - Time Time Spent with patient: 35 or more minutes Critical Time spent with patient: 35 or more minutes Within: within 48 hours - Inpatient Certification Based on my medical assessment, after consideration of the patient's comorbidities, presenting symptoms, or acuity I expect that the services needed warrant INPATIENT care.: Yes I certify that my determination is in accordance with my understanding of Medicare's requirements for reasonable and necessary INPATIENT services [42 CFR 412.3e].: Yes Medical Necessity: Need for IV Antibiotics
--- NOTE | 2016-04-29 15:42 | PDOC PROGRESS REPORT ---
Subjective Progress Note for:: 04/29/16 Subjective:: Patient is doing very well; Shortness of breath has improved; she has been ambulating She is feeling much better Physical Exam Vital Signs: Temp Pulse Resp BP Pulse Ox 97.7 F 72 18 176/77 H 100 04/29/16 08:19 04/29/16 08:19 04/29/16 08:19 04/29/16 08:19 04/29/16 08:19 Intake & Output 04/28/16 04/29/16 04/30/16 00:59 00:59 00:59 Intake Total 1966 1620 Output Total 500 2500 Balance 1466 -880 Weight 81.647 kg 80 kg 83.5 kg General appearance: PRESENT: no acute distress Head exam: PRESENT: atraumatic, normocephalic Eye exam: PRESENT: conjunctiva pink, EOMI, PERRLA. ABSENT: scleral icterus Neck exam: ABSENT: carotid bruit, JVD, lymphadenopathy, thyromegaly Respiratory exam: PRESENT: decreased breath sounds, wheezes - Occasional. ABSENT: accessory muscle use, rales Cardiovascular exam: PRESENT: RRR. ABSENT: diastolic murmur, rubs, systolic murmur Pulses: PRESENT: normal dorsalis pedis pul GI/Abdominal exam: PRESENT: normal bowel sounds, soft. ABSENT: distended, guarding, mass, organolmegaly, rebound, tenderness Neurological exam: PRESENT: alert, awake, oriented to person, oriented to place , oriented to time, oriented to situation, CN II-XII grossly intact. ABSENT: motor sensory deficit Results Laboratory Results: 04/28/16 06:58 04/28/16 23:20 Urine Color STRAW Urine Appearance CLEAR Urine pH 7.0 Ur Specific Breeding 1.011 Urine Protein NEGATIVE Urine Glucose (UA) 50 H Urine Ketones NEGATIVE Urine Blood NEGATIVE Urine Nitrite NEGATIVE Ur Leukocyte Esterase NEGATIVE Urine WBC (Auto) 0 Urine RBC (Auto) 0 Impressions: Chest X-Ray 04/27/16 14:16 IMPRESSION: Slight increase in right basilar airspace disease compared to prior study. Small right pleural effusion remains. 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 Assessment & Plan - Diagnosis (1) Acute and chronic respiratory failure with hypoxia Is this a current diagnosis for this admission?: YesPlan: Continue supplemental O2 Respiratory failure and hypoxemia secondary to pneumonia and chronic right lower lobe collapse (2) Pneumonia Qualifiers: Pneumonia type: due to unspecified organism Laterality: bilateral Lung location: lower lobe of lung Qualified Code(s): J18.9 - Pneumonia, unspecified organism Is this a current diagnosis for this admission?: YesPlan: Continue present antibiotics (3) Lung cancer Qualifiers: Laterality: right Lung location: lower lobe of lung Qualified Code(s): C34.31 - Malignant neoplasm of lower lobe, right bronchus or lung Is this a current diagnosis for this admission?: Yes - Time Time Spent with patient: We'll discharge patient in a.m. if she remains stable Time Spent with patient: 25-34 minutes
[2016-04-29] MEDS: ALPRAZOLAM 0.25 MG TABLET PO PRN (21:45)
[2016-04-29] MEDS: LEVOFLOXACIN 750 MG/D5W RTU 750 MG/150 ML RTUPB IV SCH (21:46)
[2016-04-30] MEDS: LANSOPRAZOLE 30 MG TAB.RAP.DR PO SCH (05:14)
[2016-04-30] MEDS: ENOXAPARIN SODIUM INJ 40 MG/0.4 ML DISP.SYRIN SUBCUT SCH (07:58)
--- NOTE | 2016-04-30 08:53 | PDOC PROGRESS REPORT ---
Subjective Progress Note for:: 04/30/16 Subjective:: No acute events overnight, pt seems ready for d/c today Physical Exam Vital Signs: Temp Pulse Resp BP Pulse Ox 98.0 F 77 12 147/69 H 98 04/30/16 07:38 04/30/16 07:38 04/30/16 07:38 04/30/16 07:38 04/30/16 07:38 Intake & Output 04/29/16 04/30/16 05/01/16 06:59 06:59 06:59 Intake Total 2466 2020 Output Total 1200 2250 Balance 1266 -230 Weight 83.5 kg 80.5 kg Results Laboratory Results: 04/28/16 06:58 Impressions: Chest X-Ray 04/27/16 14:16 IMPRESSION: Slight increase in right basilar airspace disease compared to prior study. Small right pleural effusion remains. 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 Assessment & Plan - Diagnosis (1) Pneumonia Qualifiers: Qualified Code(s): J18.9 - Pneumonia, unspecified organism Is this a current diagnosis for this admission?: YesPlan: Improved greatly, d/c home today w/ levaquin x 5 days (2) Lung cancer Qualifiers: Qualified Code(s): C34.31 - Malignant neoplasm of lower lobe, right bronchus or lung Is this a current diagnosis for this admission?: YesPlan: further rx as outpt likely next week or following week, pt will see us as outpt - Time Time Spent with patient: 15-24 minutes Critical Time spent with patient: 15-24 minutes Anticipated discharge: Home
--- NOTE | 2016-04-30 08:54 | PDOC DISCHARGE SUMMARY ---
General - Admit/Disc Date/PCP Admission Date/Primary Care Provider: 04/27/16 17:[address] BARRETO Discharge Date: 04/30/16 - Discharge Diagnosis (1) Acute and chronic respiratory failure with hypoxia Is this a current diagnosis for this admission?: YesSummary: Patient to be was admitted with acute on chronic hypoxemic respiratory failure Respiratory failure secondary to lung CA and collapsed right lower lobe, and right lobe pneumonitis Patient was admitted to medical unit, treated with broad-spectrum antibiotics CTA of the chest was negative for PE Patient's condition improved during her short hospital stay and at time of discharge O2 requirements Have decreased She is oxygenating adequately on 2 L/m nasal cannula Patient is to resume supplemental O2 at home (2) Pneumonia Is this a current diagnosis for this admission?: YesSummary: Right upper lobe pneumonia Patient was discharged on Levaquin and duonebs (3) Lung cancer Is this a current diagnosis for this admission?: YesSummary: Stage IV lung cancer with bone metastases and pleural effusion On undergoing chemotherapy - Additional Information Resuscitation Status: Full Code Discharge Diet: Other (Comments) - resume prior diet Discharge Activity: Activity As Tolerated Home Medications: Alprazolam [Xanax 0.25 mg Tablet] 0.25 mg PO DAILYP PRN 04/27/16 Azilsartan Med/Chlorthalidone [Edarbyclor 40-12.5 mg Tablet] 1 tab PO DAILY Benzonatate [Tessalon Perles 100 mg Capsule] 100 mg PO Q8HP PRN 04/27/16 Fluticasone/Salmeterol [Advair 250-50 Diskus 28 dose] 1 inh IH Q12 04/27/16 Folic Acid 1 mg PO DAILY 04/27/16 Metformin HCl [Glucophage] 1,000 mg PO BIDACBS 04/27/16 Metoprolol Tartrate [Lopressor 100 mg Tablet] 100 mg PO Q12 04/27/16 Nifedipine [Procardia XL 60 mg Tablet] 60 mg PO DAILY 04/27/16 Ondansetron [Zofran Odt 4 mg Tablet] 4 mg PO Q6HP PRN 04/27/16 Oxycodone HCl [Oxy-Ir 5 mg Tablet] 5 mg PO Q6HP PRN 04/27/16 Pantoprazole Sodium [Protonix] 40 mg PO DAILY 04/27/16 Promethazine HCl 25 mg PO Q6HP PRN 04/27/16 Acidoph/L.bulg/Bif.b/S.thermop [Bacid Caplet] 1 each PO BID #20 tablet 04/30/16 Ipratropium/Albuterol Sulfate [Duoneb 3 ml Ampul] 3 ml NEB [id number] #30 vial.neb 04/30/16 Levofloxacin [Levaquin 750 mg Tablet] 750 mg PO DAILY #5 tablet 04/30/16 History of Present Illness Patient complains of: Shortness of breath History of Present Illness: GOKUL SALAZAR is a 70 year old female resents to the emergency department from home with a one-week history of progressive cough and wheeze with worsening shortness of breath. She was seen in the emergency department on the and diagnosed with an upper respiratory viral infection and sent home after nebulizer treatments and IV fluids. She screen negative for influenza at that time. Since then though she has had progressive weakness, shortness of breath, dry hacking cough, worsening wheeze, worsening hypoxia now requiring her to utilize her nocturnal oxygen continuously upwards of 4 L/m, increased use of her home nebulizers to every 4 hours without relief. Evaluation in the emergency department shows worsening right airspace disease in the area of scar tissue from her prior lung resection for non-small cell lung cancer. She is hypoxic at 88% on 4 L according to the emergency department physician and so we were asked to admit for further evaluation and management. She is followed by Dr. Rohan Nolan, oncology and is receiving continuous cycles of biweekly chemotherapy just performed approximately 3 weeks ago having missed her last dose due to her illness. She reports a PET CT scan in August 2015 showed metastatic disease to a T10 vertebrae, previous to that the cancer had been localized to the right lower lobe. She underwent resection of a portion of the right lower lobe in 2006 and received chemotherapy at that time but no external beam radiation. She was found to have recurrence last year and began chemotherapy. She sees Dr. Hernandez as her PCP. she is not on chronic steroids and only uses nocturnal O2 usually with nebulizer's prn normally. Hospital Course Hospital Course: See above Physical Exam Vital Signs: Temp Pulse Resp BP Pulse Ox 98.0 F 77 12 147/69 H 98 04/30/16 07:38 04/30/16 07:38 04/30/16 07:38 04/30/16 07:38 04/30/16 07:38 Intake & Output 04/29/16 04/30/16 05/01/16 00:59 00:59 00:59 Intake Total 1966 1670 1250 Output Total 500 2500 950 Balance 1466 -830 300 Weight 80 kg 83.5 kg 80.5 kg General appearance: PRESENT: no acute distress, well-developed, well-nourished Head exam: PRESENT: atraumatic, normocephalic Eye exam: PRESENT: conjunctiva pink, EOMI, PERRLA. ABSENT: scleral icterus Ear exam: PRESENT: normal external ear exam Mouth exam: PRESENT: moist, tongue midline Neck exam: ABSENT: carotid bruit, JVD, lymphadenopathy, thyromegaly Respiratory exam: PRESENT: clear to auscultation harish. ABSENT: rales, rhonchi, wheezes Cardiovascular exam: PRESENT: RRR. ABSENT: diastolic murmur, rubs, systolic murmur Pulses: PRESENT: normal dorsalis pedis pul Vascular exam: PRESENT: normal capillary refill GI/Abdominal exam: PRESENT: normal bowel sounds, soft. ABSENT: distended, guarding, mass, organolmegaly, rebound, tenderness Rectal exam: PRESENT: deferred Extremities exam: PRESENT: full ROM. ABSENT: calf tenderness, clubbing, pedal edema Neurological exam: PRESENT: alert, awake, oriented to person, oriented to place , oriented to time, oriented to situation, CN II-XII grossly intact. ABSENT: motor sensory deficit Psychiatric exam: PRESENT: appropriate affect, normal mood. ABSENT: homicidal ideation, suicidal ideation Skin exam: PRESENT: dry, intact, warm. ABSENT: cyanosis, rash Results Laboratory Results: 04/28/16 06:58 Labs- Entire Visit 04/27/16 04/27/16 04/27/16 15:15 15:15 15:15 WBC 5.2 RBC 4.14 Hgb 12.8 Hct 37.7 MCV 91 MCH 30.9 MCHC 34.0 RDW 13.3 Plt Count 262 Seg Neutrophils % 56.5 Lymphocytes % 32.0 Monocytes % 10.3 Eosinophils % 0.8 Basophils % 0.4 Absolute Neutrophils 2.9 Absolute Lymphocytes 1.7 Absolute Monocytes 0.5 Absolute Eosinophils 0.0 Absolute Basophils 0.0 Sodium 137.2 Potassium 4.0 Chloride 92 L Carbon Dioxide 36 H Anion Gap 9 BUN 12 Creatinine 0.68 Est GFR ( Amer) > 60 Est GFR (Non-Af Amer) > 60 Glucose 155 H POC Glucose Hemoglobin A1c % Calcium 9.4 Total Bilirubin 0.5 Direct Bilirubin 0.0 AST 13 L ALT 21 Alkaline Phosphatase 86 Creatine Kinase 30 CK-MB (CK-2) < 0.22 Troponin I < 0.012 NT-Pro-B Natriuret Pep 168 Total Protein 6.5 Albumin 3.9 Urine Color Urine Appearance Urine pH Ur Specific [place] Urine Protein Urine Glucose (UA) Urine Ketones Urine Blood Urine Nitrite Urine Bilirubin Urine Urobilinogen Ur Leukocyte Esterase Urine WBC (Auto) Urine RBC (Auto) Squamous Epi Cells Auto Urine Ascorbic Acid 04/27/16 04/28/16 04/28/16 22:09 06:58 06:58 WBC 4.2 RBC 3.85 Hgb 11.9 L Hct 34.7 L MCV 90 MCH 31.0 MCHC 34.4 RDW 13.5 Plt Count 251 Seg Neutrophils % 56.4 Lymphocytes % 31.8 Monocytes % 11.1 Eosinophils % 0.1 Basophils % 0.6 Absolute Neutrophils 2.4 Absolute Lymphocytes 1.3 Absolute Monocytes 0.5 Absolute Eosinophils 0.0 Absolute Basophils 0.0 Sodium Potassium Chloride Carbon Dioxide Anion Gap BUN Creatinine Est GFR ( Amer) Est GFR (Non-Af Amer) Glucose POC Glucose 275 H Hemoglobin A1c % 7.1 H Calcium Total Bilirubin Direct Bilirubin AST ALT Alkaline Phosphatase Creatine Kinase CK-MB (CK-2) Troponin I NT-Pro-B Natriuret Pep Total Protein Albumin Urine Color Urine Appearance Urine pH Ur Specific [place] Urine Protein Urine Glucose (UA) Urine Ketones Urine Blood Urine Nitrite Urine Bilirubin Urine Urobilinogen Ur Leukocyte Esterase Urine WBC (Auto) Urine RBC (Auto) Squamous Epi Cells Auto Urine Ascorbic Acid 04/28/16 04/28/16 04/28/16 07:05 11:13 16:28 WBC RBC Hgb Hct MCV MCH MCHC RDW Plt Count Seg Neutrophils % Lymphocytes % Monocytes % Eosinophils % Basophils % Absolute Neutrophils Absolute Lymphocytes Absolute Monocytes Absolute Eosinophils Absolute Basophils Sodium Potassium Chloride Carbon Dioxide Anion Gap BUN Creatinine Est GFR ( Amer) Est GFR (Non-Af Amer) Glucose POC Glucose 182 H 124 H 162 H Hemoglobin A1c % Calcium Total Bilirubin Direct Bilirubin AST ALT Alkaline Phosphatase Creatine Kinase CK-MB (CK-2) Troponin I NT-Pro-B Natriuret Pep Total Protein Albumin Urine Color Urine Appearance Urine pH Ur Specific [place] Urine Protein Urine Glucose (UA) Urine Ketones Urine Blood Urine Nitrite Urine Bilirubin Urine Urobilinogen Ur Leukocyte Esterase Urine WBC (Auto) Urine RBC (Auto) Squamous Epi Cells Auto Urine Ascorbic Acid 04/28/16 04/29/16 04/29/16 23:20 06:31 11:25 WBC RBC Hgb Hct MCV MCH MCHC RDW Plt Count Seg Neutrophils % Lymphocytes % Monocytes % Eosinophils % Basophils % Absolute Neutrophils Absolute Lymphocytes Absolute Monocytes Absolute Eosinophils Absolute Basophils Sodium Potassium Chloride Carbon Dioxide Anion Gap BUN Creatinine Est GFR ( Amer) Est GFR (Non-Af Amer) Glucose POC Glucose 146 H 188 H Hemoglobin A1c % Calcium Total Bilirubin Direct Bilirubin AST ALT Alkaline Phosphatase Creatine Kinase CK-MB (CK-2) Troponin I NT-Pro-B Natriuret Pep Total Protein Albumin Urine Color STRAW Urine Appearance CLEAR Urine pH 7.0 Ur Specific [place] 1.011 Urine Protein NEGATIVE Urine Glucose (UA) 50 H Urine Ketones NEGATIVE Urine Blood NEGATIVE Urine Nitrite NEGATIVE Urine Bilirubin NEGATIVE Urine Urobilinogen NEGATIVE Ur Leukocyte Esterase NEGATIVE Urine WBC (Auto) 0 Urine RBC (Auto) 0 Squamous Epi Cells Auto <1 Urine Ascorbic Acid NEGATIVE 04/29/16 04/29/16 16:15 21:22 WBC RBC Hgb Hct MCV MCH MCHC RDW Plt Count Seg Neutrophils % Lymphocytes % Monocytes % Eosinophils % Basophils % Absolute Neutrophils Absolute Lymphocytes Absolute Monocytes Absolute Eosinophils Absolute Basophils Sodium Potassium Chloride Carbon Dioxide Anion Gap BUN Creatinine Est GFR ( Amer) Est GFR (Non-Af Amer) Glucose POC Glucose 162 H 154 H Hemoglobin A1c % Calcium Total Bilirubin Direct Bilirubin AST ALT Alkaline Phosphatase Creatine Kinase CK-MB (CK-2) Troponin I NT-Pro-B Natriuret Pep Total Protein Albumin Urine Color Urine Appearance Urine pH Ur Specific [place] Urine Protein Urine Glucose (UA) Urine Ketones Urine Blood Urine Nitrite Urine Bilirubin Urine Urobilinogen Ur Leukocyte Esterase Urine WBC (Auto) Urine RBC (Auto) Squamous Epi Cells Auto Urine Ascorbic Acid EKG Comments: Normal sinus rhythm Impressions: Chest X-Ray 04/27/16 14:16 IMPRESSION: Slight increase in right basilar airspace disease compared to prior study. Small right pleural effusion remains. 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 Plan Discharge Plan: Patient was discharged home on Levaquin ,Bacid , duo nebs She is to follow up with in 1 week Time Spent: Less than 30 Minutes
[2016-04-30] MEDS: METOPROLOL TARTRATE 100 MG TABLET PO SCH (09:09)
[2016-04-30] MEDS: FOLIC ACID 1 MG TABLET PO SCH (09:10)
[2016-04-30] MEDS: FAMOTIDINE 20 MG TABLET PO SCH (09:10)
[2016-04-30] MEDS: NIFEDIPINE 30 MG TAB.ER.24 PO SCH (09:10)
[2016-04-30] MEDS: FLUTICASONE/SALMETEROL DISKUS 250-50 MCG/DOSE IH SCH (09:11)
[2016-04-30] MEDS: CEFEPIME HCL 2 GM in DEXTROSE 5%-WATER 50 ML IV SCH (09:12)
[2016-04-30 10:46] VITALS: BP 123/62
[2016-05-01] MEDS ORDERED: LOSARTAN POTASSIUM 50 MG TABLET PO SCH (10:00)
[2016-05-01] MEDS ORDERED: CHLORTHALIDONE 25 MG TABLET PO SCH (10:00)
== END 2016-04-30 11:29 | disposition home or self-care (01) | DRG 193 ==
LOC: ER 13:38 → UNDOADMIN 16:13 → EH 16:13 → 4S 04-28 00:56
PROC: 3E0F73Z Introduction of Anti-inflammatory into Respiratory Tract, Via Natural or Artificial Opening (ICD-10-PCS; principal; 2016-04-27)
DX: J18.1 Lobar pneumonia, unspecified organism (principal); J96.21 Acute and chronic respiratory failure with hypoxia; C34.31 Malignant neoplasm of lower lobe, right bronchus or lung; C79.51 Secondary malignant neoplasm of bone; J44.9 Chronic obstructive pulmonary disease, unspecified; E78.5 Hyperlipidemia, unspecified; I10 Essential (primary) hypertension; E11.9 Type 2 diabetes mellitus without complications; K21.9 Gastro-esophageal reflux disease without esophagitis; K44.9 Diaphragmatic hernia without obstruction or gangrene; M19.90 Unspecified osteoarthritis, unspecified site; F17.210 Nicotine dependence, cigarettes, uncomplicated; E03.9 Hypothyroidism, unspecified; Z79.899 Other long term (current) drug therapy; Z82.49 Family history of ischemic heart disease and other diseases of the circulatory system; Z83.3 Family history of diabetes mellitus; Z82.3 Family history of stroke; Z88.8 Allergy status to other drugs, medicaments and biological substances; Z90.2 Acquired absence of lung [part of]; Z92.25 Personal history of immunosuppression therapy; Z90.710 Acquired absence of both cervix and uterus; Z79.84 Long term (current) use of oral hypoglycemic drugs; Z99.81 Dependence on supplemental oxygen
CPT/HCPCS: 36415; 71010; 71260; 80053; 81001; 82550; 82553; 82962; 83036; 83880; 84484; 85025; 87040; 87070; 87205; 93005; 93010; 94640; 99291; 99406; J0692; J0696; J1650; J1815; J1956; J2405; J2930; J3490; J7030; J7620

== ENCOUNTER → 2016-07-26 | Outpatient (CLI) | payer MEDICARE ==
--- NOTE | 2016-07-28 09:07 | RADIOLOGY REPORT (SQ) ---
EXAM DESCRIPTION: PET CT SKULL/THIGH COMPLETED DATE/TIME: 07/26/2016 8:27 pm REASON FOR STUDY: LUNG CANCER C34.31 MALIGNANT NEOPLASM OF LOWER LOBE, RIGHT BRONCHUS OR L COMPARISON: CT chest 04/28/2016 PET-CT 03/20/2016, 01/25/2015, 01/25/2015, 02/05/2013 RADIONUCLIDE AND DOSE: 12.7 mCi F18 FDG The route of agent administration: Intravenous FASTING BLOOD SUGAR: 100 mg/dl CONTRAST TYPE AND DOSE: No CT contrast given. TECHNIQUE: Blood glucose level was verified. Above dose of FDG was injected intravenously. 2-D seg mented attenuation correction images were obtained from the base of the skull to the midthighs. Nonc ontrast CT images were obtained for attenuation correction and fusion with emission images. CT image s were performed without oral or intravenous contrast and are not sensitive for parenchymal lesions. A series of overlapping emission PET images were obtained. Images reviewed and manipulated at [facility] work station by the radiologist. Images stored on PACS. LIMITATIONS: None. FINDINGS: HEAD AND NECK: No areas of abnormal metabolic activity in the soft tissues of the head and neck. CHEST: Again, there is a sub- carinal and right lower hilar mass obstructing the bronchus intermedius and right lower lobe bronchi with collapse of the right lower lobe. Sub-carinal mass is similar in size compared to 03/20/2016, about 3.5 x 3 cm in size. However, there is slight increase in metabolic activity today with SUV 8 (was SUV of 7 7 on 03/20/2016). In the medial aspect of the right posterior costophrenic sulcus on the staple line, a 4 cm hypermetab olic mass present with SUV of 13 (was SUV of 7 on 03/20/2016). ABDOMEN AND PELVIS: There is a mass along the posterior left mid pole kidney stable compared to 2016 in size and activity with SUV of 8. Other smaller bilateral renal lesions less than 1.5 cm in s ize are slightly more prominent than on 03/20/2016, currently with SUV of 7. PROXIMAL LOWER EXTREMITIES: No areas of abnormal metabolic activity in the soft tissues of the lower extremities. BONES: In the leftward half of the T10 vertebral body, a mixed lytic and sclerotic metastatic lesion is present with SUV of 11.9 (was SUV 7.7 on 03/20/2016). ADDITIONAL CT FINDINGS: For atherosclerotic coronary artery and arterial vascular calcifications with old left subclavian artery stent. Post right lobe thyroidectomy and hysterectomy. Right permanent central line tip superior vena cava. Colonic diverticuli without CT signs acute diverticulitis. OTHER: Blood pool activity 1.7 SUV, liver activity 2.2 SUV IMPRESSION: Increase in metabolic activity of subcarinal/right lower hilar mass, lung mass in the me dial posterior costophrenic sulcus, the T10 vertebral body, and bilateral renal parenchyma TECHNICAL DOCUMENTATION: JOB ID: [id number] [employer]- All Rights Reserved
== END ==
LOC: RAD 16:30
PROVIDERS: ATTEND Internal Medicine
DX: C34.31 Malignant neoplasm of lower lobe, right bronchus or lung (principal)
CPT/HCPCS: 78815; A9552

== ENCOUNTER → 2016-08-27 | Outpatient (CLI) | payer MEDICARE, OTHER ==
--- NOTE | 2016-08-27 14:37 | RADIOLOGY REPORT (SQ) ---
EXAM DESCRIPTION: NM GASTRIC EMPTYING STUDY COMPLETED DATE/TIME: 08/27/2016 1:22 pm REASON FOR STUDY: DYSPEPSIA (R10.13) R10.13 EPIGASTRIC PAIN COMPARISON: None. RADIONUCLIDE AND DOSE: 2.17 millicuries Tc-99m Sulfur Colloid. The route of agent administration: Oral. TECHNIQUE: Serial images acquired to 90 minutes with each image recorded over a 2-minute time frame. Image intensity values plotted with respect to time with linear regression algorithm. LIMITATIONS: None. FINDINGS: CALCULATED VALUE: 34 %. NORMAL VALUE: Greater than 50% emptying at 90 minutes. OTHER: No other significant finding. IMPRESSION: Delayed gastric emptying at 90 minutes. The ejection fraction proximally 34% TECHNICAL DOCUMENTATION: JOB ID: [id number] [employer]- All Rights Reserved
== END ==
LOC: RAD 07:54
PROVIDERS: ATTEND Internal Medicine Gastroenterology
DX: R10.13 Epigastric pain (principal)
CPT/HCPCS: 78264; A9541

== ENCOUNTER → 2016-09-17 | Outpatient (CLI) | payer MEDICARE ==
--- NOTE | 2016-09-17 10:03 | RADIOLOGY REPORT (SQ) ---
EXAM DESCRIPTION: ASIM SWALLOW COMPLETED DATE/TIME: 09/17/2016 9:19 am REASON FOR STUDY: DYSPHAGIA (R13.10) R13.10 DYSPHAGIA, UNSPECIFIED COMPARISON: None. TECHNIQUE: Videofluoroscopic swallowing examination was performed in conjunction with speech patholo gy. Videofluoroscopic imaging was obtained and reviewed and these are the findings: RADIATION DOSE: 1.8 MINUTES OF FLUOROSCOPY WAS USED. 2 Images saved to PACS. LIMITATIONS: None FINDINGS: The patient was brought into the fluoro room and placed upright on a modified barium swall ow chair. The patient was then given multiple consistencies mixed with barium to swallow under live fluoroscopic video guidance. According to the Speech Pathologist there was trace laryngeal penetrati on without aspiration with thin liquids. Patient demonstrates difficulty in initiation of swallow of tablet. IMPRESSION: TRACE LARYNGEAL PENETRATION WITHOUT ASPIRATION WITH THIN LIQUIDS.PLEASE SEE SPEECH PATHO LOGIST REPORT FOR OTHER FINDINGS AND RECOMMENDATIONS. COMMENT: Quality ID [id number]: Final reports for procedures using fluoroscopy that document radiation exp osure indices, or exposure time and number of fluorographic images (if radiation exposure indices are not available) TECHNICAL DOCUMENTATION: JOB ID: [id number] [employer]- All Rights Reserved
--- NOTE | 2016-09-17 11:20 | ST Modified Barium Swallow ---
Recommendation - Recommendations Recommendations: 1) Recommend continued current diet recommended by treating GI , pt reports modified diet (no skins, soft and pureed foods). 2) STRATEGIES: pt reports difficulty swallowing pills. ST recommends crushing pills in puree as able. Pill observed to stick at the level of the valleculae initially, pt coughed and cleared to oral cavity. With second swallow pt able to transition pill from oral cavity through pharyngeal cavity without difficulty. 3) TREATMENT: follow-up with treating ST for brief course of dysphagia treatment to establish home program for swallowing exercises due to mildly reduced base of tongue and to further educate regarding safe feeding recommendations. 4) Follow-up with treating GI. Medical Diagnoses - Medical Diagnoses Medical Diagnosis Description & ICD-10 Code(s): dysphagia r13.10 Other Medical Diagnoses/Co-Morbidities: lung CA, schatcki ring, EGD with dialation. - ICD-10 Tx Diagnosis Coding (1) Dysphagia, oropharyngeal phase ICD-10 Code(s): R13.12 - DYSPHAGIA, OROPHARYNGEAL PHASE ST Modified Barium Swallow - General Date: 09/17/16 Referring Physician: Dr Thompson Risks/Precautions: None Date of Onset: 04/20/16 Reason for Referral: dysphagia - History History obtained from: Patient -: Medical - Pt reports difficulty swallowing began 2016. Pt states was admitted to hospital due to PNA end of April states was discharged on April 30, states symptoms became worse after discharge. Pt referred by Jhon pepper, pt reports has Schatzki's ring. Pt reports has completed EGD with dialation. States had gastric emptying test and states digestion is "slow" and was placed on special diet. Pt provided paperwork for diet, recommended soft and pureed foods. States solids and liquids get stuck in neck resulting in throwing up. Noted pills getting stuck in throat initially, however states has reduced. Pt states improvement in swallowing since EGD with dialation. Reports pills "once in a while get stuck in throat" states not as often. Notes not the same location as the pain that was initially in esophagus which led to the esophageal dialation. Pt reports coughing with solids and liquids. Reports "sometimes" chokes with PO however states is only during times where she needs to "throw up". Pt states after throwing up she feels "normal". States most recent bronchitis was approximately 1 year ago. PMHx: gastroparesis, reflux, lung CA pt reports has moved to T10 was diagnosed 2 years ago; chemo no radiation surgery x1, HTN, anxiety, chronic sinusitis, diabetes Medications: protonix, diovan, advair, albuterol, blood glucose monitor, flonase , lancets, metformin, metoprolol, nifedipine, percocet, proair, xanex, zofran. Pt reports nausea medication however unsure of name. Allergies: nickel - Functional Status Prior Functional Status: INDEPENDENT: feeding Current Functional Limitations: feeding - Subjective Patient/caregiver goal(s): safe swallow, r/o aspiration Cognitive-Linguistic Function: WNL Speech Intelligibility: WNL Current Nutritional Means: PO Current PO diet: Pureed, Mechanical - cut Current symptoms: Coughing, Pneumonia, c/o Globus sensation Pain: 2/5 - "all over" pain - Objective Assessment: Upright, Left Lateral - Food Trials Used Food trials used: Thin liquids, Pureed, Soft solids The patient: Was Able to Self Feed - Oral-Motor Skills Dentition: Partial Velo-pharyngeal function: Unremarkable Laryngeal Function: Volitional Cough, Volitional Swallow - Assessment Oral prep: Normal Labial closure: Adequate Leakage: None Mastication: Adequate Lingual Movement: Normal Oral stage: Normal for this Procedure - Pharyngeal Stage Initiation of Pharyngeal Stage Reflex: Normal Decreased laryngeal elevation: No Reduced Velopharyngeal Closure: no Reduced pressure generation: Yes - mild reduced tongue-based retraction: Yes - mild Pre-swallow pooling in valleculae: None Pre-Swallow pooling in pyriforms: None Reduced Thyro-Hyoid approximation: No Reduced epiglottic excursion: No Reduced pharyngeal peristalsis/contraction: No Post-swallow residulas vallecular: Mild - trace to mild on puree only Post-Swallow residuals in pyriforms: None Reduced Cricopharyngeal opening: No - Fall Risk Assessment Medications/Conditions that increase fall risks include: Antidepressants, sedatives, anti-arrhythmic, diuretic, benzodiazipenes, neuroleptics. BP regulation problems, cardiac problems, balance or gait deficits, neurological problems. Is patient considered at risk for falls: no Fall Risk Actions Taken: No action needed - Behavioral Observations During evaluation process patient: was pleasant, was cooperative, able to answer questions, provided medical history - Treatment / Educational Needs: Treatment/Education Needs: Treatment consisted of patient education on the role of the Speech Pathologist. Patient's plan of care and golas were communicated as well as scheduling and attendance policies. Recommendations for initial home program were shared. Patient demonstrated understanding and verbalized agreement. Initial home program recommendations: ST provided pt with verbal and written education on recommendations from study and for following up with treating ST and GI. - Impression/Summary Laryngeal Penetration: Yes, Flash - x2, Cleared, during swallow Consistency: Thin Tracheal Aspiration: no Productive cough: Yes Patient presents with: Oral-Pharyngeal dysph. - mild Risk of Aspiration: Mild - min-mild - Recommendations NPO: no Pt/Family education and followup with MD: Yes Dysphagia therapy with CHECKER/STOCKER: yes, dysphagia therapy Recommended techniques: Fully Upright During Meal - , second swallow with purees to clear residuals at the level of the valleculae, crushed pill if able. Supervision: Independent Information, Precautions and Recommendations: Patient (Written), Patient (Verbal ) - Time Total Time: 25 - Plan of Care Strategies to optimize patient understanding include:: ongoing assessment of educational needs, implementation of educational strategies, and re-education. - - -: Thank you for the opportunity to work with this patient and his/her family. Should you have any questions about this patient's plan or progress, I can be reached at [phone]. Charge G Code? - - -: Yes [facility] Impairment Category - Rationale Based On Rationale Based On: Clin Find., Obj Measures - Swallowing Current G8996: CI 1-19% Impaired Goal G8997: CI 1-19% Impaired
== END ==
LOC: RAD 08:12
PROVIDERS: ATTEND Internal Medicine Gastroenterology
DX: R13.10 Dysphagia, unspecified (principal); C34.90 Malignant neoplasm of unspecified part of unspecified bronchus or lung
CPT/HCPCS: 74230; 92611; G8996; G8997

== ENCOUNTER → 2016-10-26 | Outpatient (CLI) | payer MEDICARE, OTHER ==
--- NOTE | 2016-10-26 11:54 | RADIOLOGY REPORT (SQ) ---
EXAM DESCRIPTION: CT CHEST WITH COMPLETED DATE/TIME: 10/26/2016 9:32 am REASON FOR STUDY: LUNG CA C34.31 MALIGNANT NEOPLASM OF LOWER LOBE, RIGHT BRONCHUS OR L COMPARISON: 04/28/2016. Correlation: PET-CT 07/26/2016. TECHNIQUE: CT scan of the chest performed using helical scanning technique with dynamic intravenous contrast injection. Images reviewed with lung, soft tissue and bone windows. Reconstructed coronal and sagittal MPR images reviewed. All images stored on PACS. All CT scanners at this facility use dose modulation, iterative reconstruction, and/or weight based d osing when appropriate to reduce radiation dose to as low as reasonably achievable (ALARA). [facility]: Dose Right [facility]: CareDose [facility]: Dose Right [facility]: Teradose 4D [facility]: [employer] CONTRAST TYPE AND DOSE: See separate report of the same date. RENAL FUNCTION: BUN 13 creatinine 0.8 RADIATION DOSE: Up-to-date CT equipment and radiation dose reduction techniques were employed. CTDIv ol: 5.1 - 6.6 mGy. DLP: 851 mGy-cm. . LIMITATIONS: None. FINDINGS: LUNGS AND PLEURA: Postsurgical changes right lower lobectomy. Partially calcified right p osteromedial lung mass contiguous with enlarged subcarinal node measures roughly 7.2 x 5.3 cm. Previ ous 7.3 x 3.8 cm. No new lesions. HILAR AND MEDIASTINAL STRUCTURES: See above. HEART AND VASCULAR STRUCTURES: No aneurysm or dissection. No central pulmonary emboli. No pericardi al effusion. HARDWARE: Right-sided port tip in the SVC. UPPER ABDOMEN: See separate report of the CT of the abdomen. THYROID AND OTHER SOFT TISSUES: No masses. No adenopathy. BONES: Mixed lytic and sclerotic lesion T10 to left of midline unchanged from the PET-CT. OTHER: No other significant finding. IMPRESSION: 1. Slight increase in size of right subcarinal/medial lower lung mass. 2. Stable suspected bone metastasis T10. TECHNICAL DOCUMENTATION: JOB ID: [id number] Quality ID # 436: Final reports with documentation of one or more dose reduction techniques (e.g., Au tomated exposure control, adjustment of the mA and/or kV according to patient size, use of iterative reconstruction technique) 2010 [employer]- All Rights Reserved
--- NOTE | 2016-10-26 13:12 | RADIOLOGY REPORT (SQ) ---
EXAM DESCRIPTION: CT ABD/PELVIS WITH IV ONLY COMPLETED DATE/TIME: 10/26/2016 9:32 am REASON FOR STUDY: LUNG CA C34.31 MALIGNANT NEOPLASM OF LOWER LOBE, RIGHT BRONCHUS OR L COMPARISON: None. TECHNIQUE: CT scan of the abdomen and pelvis performed using helical scanning technique with dynamic intravenous contrast injection. No oral contrast. Images reviewed with lung, soft tissue, and bone windows. Reconstructed coronal and sagittal MPR images reviewed. Delayed images for evaluation of the urinary system also acquired. All images stored on PACS. All CT scanners at this facility use dose modulation, iterative reconstruction, and/or weight based d osing when appropriate to reduce radiation dose to as low as reasonably achievable (ALARA). [facility]: Dose Right [facility]: CareDose [facility]: Dose Right [facility]: Teradose 4D [facility]: [employer] CONTRAST TYPE AND DOSE: contrast/concentration: Isovue 370.00 mg/ml; Total Contrast Delivered: 79.0 ml; Total Saline Delivered: 68.0 ml RENAL FUNCTION: See separate report of the same date. RADIATION DOSE: . LIMITATIONS: None. FINDINGS: LOWER CHEST: See separate report of the CT of the chest. LIVER: Normal size. No masses. No dilated ducts. SPLEEN: Normal size. No focal lesions. PANCREAS: No masses. No significant calcifications. No adjacent inflammation or peripancreatic fluid collections. Pancreatic duct not dilated. GALLBLADDER: No change. ADRENAL GLANDS: Bilateral adrenal nodules are unchanged. RIGHT KIDNEY AND URETER: No solid masses. No significant calcifications. No hydronephrosis or hyd roureter. LEFT KIDNEY AND URETER: No solid masses. No significant calcifications. No hydronephrosis or hydr oureter. AORTA AND VESSELS: No aneurysm. RETROPERITONEUM: No retroperitoneal adenopathy, hemorrhage or masses. BOWEL AND PERITONEAL CAVITY: No masses or inflammatory changes. No free fluid or peritoneal masses. APPENDIX: Normal. PELVIS: No mass. No free fluid. Normal bladder. ABDOMINAL WALL: No masses. No hernias. BONES: No significant or acute findings. OTHER: No other significant finding. IMPRESSION: Stable appearance. No significant change from 11/23/2014. TECHNICAL DOCUMENTATION: JOB ID: [id number] Quality ID # 436: Final reports with documentation of one or more dose reduction techniques (e.g., Au tomated exposure control, adjustment of the mA and/or kV according to patient size, use of iterative reconstruction technique) 2010 [employer]- All Rights Reserved
== END ==
LOC: RAD 08:47
PROVIDERS: ATTEND Internal Medicine
DX: C34.31 Malignant neoplasm of lower lobe, right bronchus or lung (principal)
CPT/HCPCS: 71260; 74177

== ENCOUNTER → 2017-02-05 | Outpatient (CLI) | payer MEDICARE ==
--- NOTE | 2017-02-05 13:11 | RADIOLOGY REPORT (SQ) ---
EXAM DESCRIPTION: CT CHEST WITH COMPLETED DATE/TIME: 02/05/2017 10:02 am REASON FOR STUDY: LUNG CA (C34.31) C34.31 MALIGNANT NEOPLASM OF LOWER LOBE, RIGHT BRONCHUS OR L COMPARISON: September 2016 TECHNIQUE: CT scan of the chest performed using helical scanning technique with dynamic intravenous contrast injection. Images reviewed with lung, soft tissue and bone windows. Reconstructed coronal and sagittal MPR images reviewed. All images stored on PACS. All CT scanners at this facility use dose modulation, iterative reconstruction, and/or weight based d osing when appropriate to reduce radiation dose to as low as reasonably achievable (ALARA). [facility]: Dose Right [facility]: CareDose [facility]: Dose Right [facility]: Teradose 4D [facility]: [employer] CONTRAST TYPE AND DOSE: 77 mL Isovue 370 RENAL FUNCTION: Creatinine 0.4 RADIATION DOSE: . LIMITATIONS: None. FINDINGS: LUNGS AND PLEURA: The previously described right subcarinal/medial lower lobe mass shows o verall interval decrease in size but appears more confluent on the current study. While this may all be related to pleural and parenchymal scarring, I cannot exclude residual or recurrent neoplasm. PE T-CT scan may be of value for further evaluation. Small right pleural effusion is again identified. No acute consolidations are identified. No pneumothorax is seen. Chronic appearing emphysematous c hanges are again identified. HILAR AND MEDIASTINAL STRUCTURES: The previously described subcarinal and right hilar mass shows over all interval decrease in size HEART AND VASCULAR STRUCTURES: No aneurysm or dissection. No central pulmonary emboli. No pericardi al effusion. HARDWARE: None in the chest. UPPER ABDOMEN: See results under abdominal CT scan THYROID AND OTHER SOFT TISSUES: Status post removal of the right thyroid lobe. BONES: The previously described mixed lytic and sclerotic lesion involving the T10 vertebra to the le ft of midline appears unchanged. OTHER: No other significant finding. IMPRESSION: The previously described right subcarinal/ medial lower lobe mass shows overall interval decrease in size but appears more confluent on the current study. While this may all be related to pleural and parenchymal scarring, I cannot exclude residual or recurrent neoplasm. PET-CT scan may b e of value for further evaluation. Small right pleural effusion is again identified. The previously described mixed lytic and sclerotic lesion involving the T10 vertebra appears unchanged. Other find ings as noted above TECHNICAL DOCUMENTATION: JOB ID: [id number] Quality ID # 436: Final reports with documentation of one or more dose reduction techniques (e.g., Au tomated exposure control, adjustment of the mA and/or kV according to patient size, use of iterative reconstruction technique) 2010 [employer] All Rights Reserved
--- NOTE | 2017-02-05 13:20 | RADIOLOGY REPORT (SQ) ---
EXAM DESCRIPTION: CT ABD/PELVIS WITH IV ONLY COMPLETED DATE/TIME: 02/05/2017 10:02 am REASON FOR STUDY: LUNG CA (C34.31) C34.31 MALIGNANT NEOPLASM OF LOWER LOBE, RIGHT BRONCHUS OR L COMPARISON: 10/26/2016 TECHNIQUE: CT scan of the abdomen and pelvis performed using helical scanning technique with dynamic intravenous contrast injection. No oral contrast. Images reviewed with lung, soft tissue, and bone windows. Reconstructed coronal and sagittal MPR images reviewed. Delayed images for evaluation of the urinary system also acquired. All images stored on PACS. All CT scanners at this facility use dose modulation, iterative reconstruction, and/or weight based d osing when appropriate to reduce radiation dose to as low as reasonably achievable (ALARA). [facility]: Dose Right [facility]: CareDose [facility]: Dose Right [facility]: Teradose 4D [facility]: [employer] CONTRAST TYPE AND DOSE: contrast/concentration: Isovue 370.00 mg/ml; Total Contrast Delivered: 76.0 ml; Total Saline Delivered: 67.0 ml RENAL FUNCTION: Creatinine 0.4 RADIATION DOSE: CT Rad equipment meets quality standard of care and radiation dose reduction techniq ues were employed. CTDIvol: 8.2 - 10.7 mGy. DLP: 1401 mGy-cm.. LIMITATIONS: None. FINDINGS: LOWER CHEST: See results under chest CT scan LIVER: Normal size. No masses. No dilated ducts. SPLEEN: Normal size. No focal lesions. PANCREAS: No masses. No significant calcifications. No adjacent inflammation or peripancreatic fluid collections. Pancreatic duct not dilated. GALLBLADDER: No identified stones by CT criteria. No inflammatory changes to suggest cholecystitis. The previously described fundal polyp or soft tissue mass appears unchanged. ADRENAL GLANDS: The previously described bilateral relative low density adrenal masses appear unchang ed. RIGHT KIDNEY AND URETER: No solid masses. No significant calcifications. No hydronephrosis or hyd roureter. LEFT KIDNEY AND URETER: No solid masses. No significant calcifications. No hydronephrosis or hydr oureter. AORTA AND VESSELS: No aneurysm. Again there is some ectasia of the abdominal aorta and iliac vessels with vascular calcifications. No dissection. Renal arteries, SMA, celiac without stenosis. RETROPERITONEUM: No retroperitoneal adenopathy, hemorrhage or masses. BOWEL AND PERITONEAL CAVITY: No masses or inflammatory changes. No free fluid or peritoneal masses. APPENDIX: Normal. PELVIS: No mass. No free fluid. Normal bladder. ABDOMINAL WALL: No masses. No hernias. BONES: No significant or acute findings. OTHER: No other significant finding. IMPRESSION: No significant interval changes compared to the previous study. No evidence for intra-a bdominal or pelvic metastatic disease. Other findings as noted above TECHNICAL DOCUMENTATION: JOB ID: [id number] Quality ID # 436: Final reports with documentation of one or more dose reduction techniques (e.g., Au tomated exposure control, adjustment of the mA and/or kV according to patient size, use of iterative reconstruction technique) 2010 [employer]- All Rights Reserved
== END ==
LOC: RAD 09:10
PROVIDERS: ATTEND Internal Medicine
DX: C34.31 Malignant neoplasm of lower lobe, right bronchus or lung (principal)
CPT/HCPCS: 71260; 74177

== ENCOUNTER → 2017-04-09 | Outpatient (CLI) | payer MEDICARE ==
--- NOTE | 2017-04-09 15:11 | RADIOLOGY REPORT (SQ) ---
EXAM DESCRIPTION: WRIST LEFT 3 VIEWS COMPLETED DATE/TIME: 04/09/2017 2:03 pm REASON FOR STUDY: M25.539 PAIN IN UNSPECIFIED WRIST C34.31 MALIGNANT NEOPLASM OF LOWER LOBE, RIGHT BRONCHUS OR L M25.539 PAIN IN UNSPECIFIED WRIST COMPARISON: None. NUMBER OF VIEWS: Three views. TECHNIQUE: AP, lateral, and oblique radiographic images acquired of the left wrist. LIMITATIONS: None. FINDINGS: MINERALIZATION: Normal. BONES: No acute fracture or dislocation. No worrisome bone lesions. Normal alignment. SOFT TISSUES: No soft tissue swelling. No foreign body. OTHER: No other significant finding. IMPRESSION: NO RADIOGRAPHIC EVIDENCE OF ACUTE INJURY. TECHNICAL DOCUMENTATION: JOB ID: [id number] [place]-72 2010 [employer]- All Rights Reserved
== END ==
LOC: RAD 13:34
PROVIDERS: ATTEND Internal Medicine
DX: C34.31 Malignant neoplasm of lower lobe, right bronchus or lung (principal)

== ENCOUNTER → 2017-04-27 | Outpatient (CLI) | payer MEDICARE ==
--- NOTE | 2017-04-27 15:22 | RADIOLOGY REPORT (SQ) ---
EXAM DESCRIPTION: CT CHEST WITH; CT ABD/PELVIS WITH IV ONLY COMPLETED DATE/TIME: 04/27/2017 1:45 pm REASON FOR STUDY: LUNG CA (C34.31) C34.31 MALIGNANT NEOPLASM OF LOWER LOBE, RIGHT BRONCHUS OR L COMPARISON: PET-CT 03/20/2016, 07/26/2016 CT chest abdomen pelvis 10/26/2016, 02/05/2017 CONTRAST TYPE AND DOSE: contrast/concentration: Isovue 370.00 mg/ml; Total Contrast Delivered: 76.0 ml; Total Saline Delivered: 67.0 ml RENAL FUNCTION: Creatinine 0.5 TECHNIQUE: CT scan of the chest performed using helical scanning technique with dynamic intravenous contrast injection. Images reviewed with lung, soft tissue and bone windows. Reconstructed coronal a nd sagittal MPR images reviewed. All images stored on PACS. CT scan of the abdomen and pelvis performed with intravenous and without oral contrastusing helical s kang technique with dynamic intravenous contrast injection. Images reviewed with lung, soft tissu e and bone windows. Reconstructed coronal and sagittal MPR images reviewed. Delayed images for eval uation of the urinary system also acquired and evaluated. All images stored on PACS. All CT scanners at this facility use dose modulation, iterative reconstruction, and/or weight based d osing when appropriate to reduce radiation dose to as low as reasonably achievable (ALARA). [facility]: Dose Right [facility]: CareDose [facility]: Dose Right [facility]: Teradose 4D [facility]: [employer] RADIATION DOSE: CT Rad equipment meets quality standard of care and radiation dose reduction techniq ues were employed. CTDIvol: 4.5 - 5.6 mGy. DLP: 761 mGy-cm. . LIMITATIONS: None. FINDINGS: CHEST: LUNGS AND PLEURA: Right bronchus intermedius is occluded with right lower lobe collapse. This is unc hanged from 02/05/2017. There has been further volume loss and collapse of the right lower lobe as co mpared to 10/26/2016. On the right side, no significant pleural effusion is present. The right middle and upper lobe are w ell inflated with Camron lines around the periphery, which could indicate inter still shoulder fibros is or edema. Left lung well inflated free of focal infiltrates. No abnormal increased interstitial markings. No left pleural effusion or pneumothorax. HILAR AND MEDIASTINAL STRUCTURES: No identified masses or abnormal nodes. HEART AND VASCULAR STRUCTURES: No aneurysm or dissection. No central pulmonary emboli. No pericardi al effusion. HARDWARE: Right permanent central line tip superior vena cava THYROID AND OTHER SOFT TISSUES: Clips post right lobe thyroidectomy BONES: Unchanged diffuse sclerosis throughout the T12 vertebral body from metastatic disease OTHER: No other significant finding. ABDOMEN AND PELVIS: LIVER: Normal size. No masses. No dilated ducts. SPLEEN: Normal size. No focal lesions. PANCREAS: No masses. No significant calcifications. No adjacent inflammation or peripancreatic fluid collections. Pancreatic duct not dilated. GALLBLADDER: Focal thickening along the gallbladder fundus unchanged from multiple prior studies ADRENAL GLANDS: Diffuse bilateral adrenal gland enlargement is stable RIGHT KIDNEY AND URETER: No solid masses. No significant calcification. No hydronephrosis or hydroure ter. LEFT KIDNEY AND URETER: No solid masses. No significant calcification. No hydronephrosis or hydrouret er. AORTA AND VESSELS: No aneurysm. No dissection. Renal arteries, SMA, celiac without stenosis. RETROPERITONEUM: No retroperitoneal adenopathy, hemorrhage or masses. BOWEL AND PERITONEAL CAVITY: No masses or inflammatory changes. No free fluid or peritoneal masses. APPENDIX: Normal. ABDOMINAL WALL: No masses. No hernias. PELVIS: No mass or free fluid. Normal bladder. Post hysterectomy BONES: Unremarkable lumbar spine and bony pelvis OTHER: No other significant finding. IMPRESSION: Stable appearance of the chest abdomen and pelvis compared to 02/05/2017 TECHNICAL DOCUMENTATION: JOB ID: [id number] Quality ID # 436: Final reports with documentation of one or more dose reduction techniques (e.g., Au tomated exposure control, adjustment of the mA and/or kV according to patient size, use of iterative reconstruction technique) 2010 [employer]- All Rights Reserved Reading location - IP/workstation name: [email or web address]
== END ==
LOC: RAD 13:06
PROVIDERS: ATTEND Internal Medicine
DX: C34.31 Malignant neoplasm of lower lobe, right bronchus or lung (principal)
CPT/HCPCS: 71260; 74177

== ENCOUNTER → 2017-06-15 | Outpatient (CLI) | payer MEDICARE ==
--- NOTE | 2017-06-15 11:24 | RADIOLOGY REPORT (SQ) ---
EXAM DESCRIPTION: MRI CERVICAL SPINE COMBO COMPLETED DATE/TIME: 06/15/2017 9:14 am REASON FOR STUDY: BACK PAIN, LUNG CANCER M54.2 CERVICALGIA C34.31 MALIGNANT NEOPLASM OF LOWER LOBE , RIGHT BRONCHUS OR L COMPARISON: None. TECHNIQUE: Sagittal and Axial imaging includes T1, T2, STIR and gradient echo sequences. T1 post guillermo olinium sequences. CONTRAST TYPE AND DOSE: 15 mL Prohance. RENAL FUNCTION: GFR > 60. LIMITATIONS: None. FINDINGS: ALIGNMENT: Reversal of cervical curvature related to multilevel degenerative disc changes. Minimal grade 1 anterolisthesis of C7 over T1 related to bulky bilateral facet arthropathy VERTEBRAE: Intact. BONE MARROW: Fatty reactive vertebral body endplate changes from the C3-4 through C7-T1 disc. DISCS: Normal. No significant abnormal signal or loss of height. HARDWARE: None in the spine. CORD AND BASE OF BRAIN: Normal in size and signal intensity. No abnormal contrast enhancement SOFT TISSUES: No soft tissue masses. C1-C2: No significant spinal stenosis. C2-C3: Small central posterior disc bulge. No significant central or foraminal encroachment. C3-C4: Mild diffuse posterior disc bulging partially effaces the ventral thecal sac and abuts the gal tral cord without cord flattening or abnormal intrinsic cord signal. No significant central or cynthia inal stenosis C4-C5: Mild diffuse posterior disc bulge and bony spurring partly effaces the ventral thecal sac and abuts the cord without cord flattening or abnormal intrinsic cord signal. No significant central or foraminal stenosis. C5-C6: Moderate-sized left paracentral disc herniation, mildly flattening the leftward ventral cord w ithout abnormal intrinsic cord signal. High-grade left, mild right foraminal narrowing. C6-C7: Asymmetric left facet and uncovertebral hypertrophy causes high-grade left C6-7 foraminal narr owing. No central canal stenosis or right foraminal stenosis C7-T1: Grade 1 anterolisthesis of C7 over T1 is present related to advanced facet arthropathy. Broad diffuse disc bulge and bony spurring. Borderline central canal narrowing. Mild right, moderate to high-grade left foraminal stenosis. UPPER THORACIC: Incompletely imaged. No significant spinal stenosis or exit foraminal stenosis. ENHANCEMENT: No abnormal vertebral body, intervertebral disc, or spinal cord enhancement. OTHER: No other significant finding. IMPRESSION: Degenerative disc changes most pronounced at C5-6 and C6-7 as above COMMENT: None. TECHNICAL DOCUMENTATION: JOB ID: [id number] [employer]- All Rights Reserved Reading location - IP/workstation name: [email or web address]
== END ==
LOC: RAD 08:08
PROVIDERS: ATTEND Internal Medicine
DX: M50.222 Other cervical disc displacement at C5-C6 level (principal); C34.31 Malignant neoplasm of lower lobe, right bronchus or lung
CPT/HCPCS: 82565; 72156; A9577

== ENCOUNTER → 2017-07-21 | Outpatient (CLI) | payer MEDICARE ==
--- NOTE | 2017-07-21 16:02 | RADIOLOGY REPORT (SQ) ---
EXAM DESCRIPTION: CT CHEST WITH COMPLETED DATE/TIME: 07/21/2017 1:51 pm REASON FOR STUDY: C34.31 MALIGNANT NEOPLASM OF LOWER LOBE, RIGHT BRONCHUS OR LUNG C34.31 MALIGNANT NEOPLASM OF LOWER LOBE, RIGHT BRONCHUS OR L COMPARISON: 04/27/2017 TECHNIQUE: CT scan of the chest performed using helical scanning technique with dynamic intravenous contrast injection. Images reviewed with lung, soft tissue and bone windows. Reconstructed coronal and sagittal MPR images reviewed. All images stored on PACS. All CT scanners at this facility use dose modulation, iterative reconstruction, and/or weight based d osing when appropriate to reduce radiation dose to as low as reasonably achievable (ALARA). [facility]: Dose Right [facility]: CareDose [facility]: Dose Right [facility]: Teradose 4D [facility]: [email or web address] CONTRAST TYPE AND DOSE: 74 mL type not recorded here. RENAL FUNCTION: Not recorded here. RADIATION DOSE: . LIMITATIONS: None. FINDINGS: LUNGS AND PLEURA: Centrilobular emphysematous changes. Persistent occlusion of the right lower lobe bronchus with atelectasis of the right lower lobe. Right upper lobe and right middle lobe or well expanded. There is no change in this appearance compared to the earlier study. There is a minimal right pleural effusion. HILAR AND MEDIASTINAL STRUCTURES: Right lower lobe bronchus is obstructed. Confluent soft tissue den sity from this point inferiorly where the lower lobe is atelectatic HEART AND VASCULAR STRUCTURES: No aneurysm or dissection. No central pulmonary emboli. No pericardi al effusion. HARDWARE: None in the chest. UPPER ABDOMEN: See separate report of the CT of the abdomen. THYROID AND OTHER SOFT TISSUES: Surgical clips in the area of the right lobe of the thyroid. The rig ht lobe is absent BONES: Part lytic part sclerotic lesion in the T10 vertebral body that was present on prior study. N o other osseous lesions are seen. OTHER: No other significant finding. IMPRESSION: Stable findings in the thorax with occlusion of the right lower lobe bronchus and atelec tasis in the lower lobes. Pulmonary emphysema is present. Apparent metastatic lesion in the T10 bernarda tebral body. Absence of the right lobe of the thyroid. TECHNICAL DOCUMENTATION: JOB ID: [id number] Quality ID # 436: Final reports with documentation of one or more dose reduction techniques (e.g., Au tomated exposure control, adjustment of the mA and/or kV according to patient size, use of iterative reconstruction technique) 2010 [employer]- All Rights Reserved Reading location - IP/workstation name: [email or web address]
--- NOTE | 2017-07-21 16:11 | RADIOLOGY REPORT (SQ) ---
EXAM DESCRIPTION: CT ABD/PELVIS WITH IV ONLY COMPLETED DATE/TIME: 07/21/2017 1:51 pm REASON FOR STUDY: C34.31 C34.31 MALIGNANT NEOPLASM OF LOWER LOBE, RIGHT BRONCHUS OR L COMPARISON: 04/27/2017 TECHNIQUE: CT scan of the abdomen and pelvis performed using helical scanning technique with dynamic intravenous contrast injection. No oral contrast. Images reviewed with lung, soft tissue, and bone windows. Reconstructed coronal and sagittal MPR images reviewed. Delayed images for evaluation of the urinary system also acquired. All images stored on PACS. All CT scanners at this facility use dose modulation, iterative reconstruction, and/or weight based d osing when appropriate to reduce radiation dose to as low as reasonably achievable (ALARA). [facility]: Dose Right [facility]: CareDose [facility]: Dose Right [facility]: Teradose 4D [facility]: [employer] CONTRAST TYPE AND DOSE: contrast/concentration: Isovue mg/ml; Total Contrast Delivered: 74.0 ml; To nora Saline Delivered: 66.0 ml RENAL FUNCTION: Not recorded here RADIATION DOSE: CT Rad equipment meets quality standard of care and radiation dose reduction techniq ues were employed. CTDIvol: 4.6 - 5.8 mGy. DLP: 784 mGy-cm.. LIMITATIONS: None. FINDINGS: LOWER CHEST: See separate report of the CT of the chest. LIVER: Normal size. No masses. No dilated ducts. SPLEEN: Normal size. No focal lesions. PANCREAS: No masses. No significant calcifications. No adjacent inflammation or peripancreatic fluid collections. Pancreatic duct not dilated. GALLBLADDER: The gallbladder is contracted. There is somewhat nodular appearance of the gallbladder wall possibly suggesting polyps. ADRENAL GLANDS: Stable adrenal enlargement. RIGHT KIDNEY AND URETER: No solid masses. No significant calcifications. No hydronephrosis or hyd roureter. LEFT KIDNEY AND URETER: No solid masses. No significant calcifications. No hydronephrosis or hydr oureter. AORTA AND VESSELS: No aneurysm. No dissection. Renal arteries, SMA, celiac without stenosis. RETROPERITONEUM: No retroperitoneal adenopathy, hemorrhage or masses. BOWEL AND PERITONEAL CAVITY: Sigmoid diverticulosis with no acute inflammatory changes. No bowel mas ses. APPENDIX: Normal. PELVIS: The uterus is absent. The urinary bladder is normal. ABDOMINAL WALL: No masses. No hernias. BONES: Mixed lytic/ sclerotic lesion at T10 is stable. Lumbar degenerative disc changes and spondylo sis. OTHER: No other significant finding. IMPRESSION: Stable findings in the abdomen and pelvis with nodular appearance of the gallbladder wal l, adrenal enlargement, diverticulosis coli, lytic/sclerotic lesion at T10. TECHNICAL DOCUMENTATION: JOB ID: [id number] Quality ID # 436: Final reports with documentation of one or more dose reduction techniques (e.g., Au tomated exposure control, adjustment of the mA and/or kV according to patient size, use of iterative reconstruction technique) 2010 [employer]- All Rights Reserved Reading location - IP/workstation name: [email or web address]
== END ==
LOC: RAD 13:15
PROVIDERS: ATTEND Internal Medicine
DX: C34.31 Malignant neoplasm of lower lobe, right bronchus or lung (principal)
CPT/HCPCS: 71260; 74177

== ENCOUNTER 2017-09-17 21:21 | Emergency (ER) | payer MEDICARE ==
[2017-09-17 21:50] LABS: ABSOLUTE LYMPHOCYTES (AUTO) 0.6 10^3/uL (0.5-4.7); ABSOLUTE NEUT (AUTO) 5.9 10^3/uL (1.7-8.2); BASOPHILS % (AUTO) 0.6 % (0-2); HEMATOCRIT 43.2 % (36.0-47.0); HEMOGLOBIN 14.5 g/dL (12.0-15.5); LYMPHOCYTES % (AUTO) 8.7 % (13-45); MEAN CORPUSCULAR HEMOGLOBIN 30.3 pg (27.0-33.4); MEAN CORPUSCULAR HGB CONC 33.6 g/dL (32.0-36.0); MEAN CORPUSCULAR VOLUME 90 fl (80-97); MONOCYTES % (AUTO) 0.5 % (3-13); PLATELET COUNT 376 10^3/uL (150-450); RED CELL DISTRIBUTION WIDTH 13.6 % (11.5-14.0); SEGMENTED NEUTROPHILS % (AUTO) 90.2 % (42-78); TOTAL CELLS COUNTED % (AUTO) 100 %; WHITE BLOOD COUNT 6.6 10^3/uL (4.0-10.5)
[2017-09-17] MEDS ORDERED: INSULIN REG, HUMAN 100 UNIT/ML 3 ML VIAL (PYX) IV ONE (21:53)
[2017-09-17] MEDS ORDERED: NORMAL SALINE 1000 ML 1,000 ML IV ONE (21:54)
[2017-09-17 22:06] LABS: ALANINE AMINOTRANSFERASE 14 U/L (9-52); ALBUMIN 4.4 g/dL (3.5-5.0); ALKALINE PHOSPHATASE 102 U/L (38-126); ANION GAP 15 (5-19); ASPARTATE AMINO TRANSFERASE 14 U/L (14-36); BILIRUBIN,DIRECT 0.2 mg/dL (0.0-0.4); BILIRUBIN,TOTAL 0.3 mg/dL (0.2-1.3); BLOOD UREA NITROGEN 15 mg/dL (7-20); CALCIUM 9.7 mg/dL (8.4-10.2); CARBON DIOXIDE 27 mmol/L (22-30); CHLORIDE 98 mmol/L (98-107); CREATINE KINASE 28 U/L (30-135); POTASSIUM 4.9 mmol/L (3.6-5.0); SODIUM 140.1 mmol/L (137-145); TOTAL PROTEIN 7.4 g/dL (6.3-8.2)
--- NOTE | 2017-09-17 22:09 | ER Document Report ---
ED General - General Chief Complaint: High Blood Sugar Stated Complaint: CHEST PAIN Time Seen by Provider: 09/17/17 21:33 TRAVEL OUTSIDE OF THE [place] IN LAST 30 DAYS: No - HPI Notes: 71-year-old female with a history of diabetes, hypertension, lung cancer, and COPD presents with elevated blood sugar. She was taking prednisone for about a month for carpal tunnel. She stopped taking this 2 months ago. She received a cortisone injection in her left knee today for swelling and Ramon's cyst. She admits to eating a large dinner with soup, sandwich, and candy. 2 hours later, she developed lightheadedness, chest tightness, and diaphoresis. She checked her blood sugar and it was elevated in the 400's. EMS was called. She was given aspirin and 2 nitroglycerin with resolution of symptoms. Denies similar blood sugar elevations in the past. No recent antibiotics. No nausea, vomiting , diarrhea. No history of coronary disease. - Related Data Allergies/Adverse Reactions: nickel [Nickel] Adverse Reaction (Severe, Verified 04/21/16 17:57) RASH Past Medical History - Social History Smoking Status: Unknown if Ever Smoked Family History: Reviewed & Not Pertinent, Arthritis, CAD, CVA, DM, Hyperlipidemia, Hypertension, Malignancy, Thyroid Disfunction - Past Medical History Cardiac Medical History: Reports: Hx Hypercholesterolemia, Hx Hypertension - ON MEDS Denies: Hx Coronary Artery Disease, Hx Heart Attack Pulmonary Medical History: Reports: Hx Bronchitis, Hx COPD, Hx Pneumonia Denies: Hx Asthma Neurological Medical History: Denies: Hx Cerebrovascular Accident, Hx Seizures Endocrine Medical History: Reports: Hx Diabetes Mellitus Type 2, Hx Hypothyroidism Renal/ Medical History: Denies: Hx Peritoneal Dialysis Malignancy Medical History: Reports: Hx Lung Cancer - R lower lobe GI Medical History: Reports: Hx Diverticulitis, Hx Gastroesophageal Reflux Disease, Hx Hiatal Hernia, Hx Pancreatitis, Hx Colonoscopy, Hx Endoscopic Retrograde Cholangio, Hx Endoscopy Musculoskeletal Medical History: Reports Hx Arthritis - GENERALIZED, Reports Hx Musculoskeletal Deformity, Reports Hx Musculoskeletal Trauma Psychiatric Medical History: Reports: Hx Anxiety Past Surgical History: Reports: Hx Cardiac Catheterization, Hx Cardiac Surgery - subclavian stent, Hx Hysterectomy, Hx Nose Surgery, Hx Thyroid Surgery. Denies: Hx Pacemaker - Immunizations Immunizations up to date: Yes Hx Diphtheria, Pertussis, Tetanus Vaccination: Yes - 11/29/2006 Hx Pneumococcal Vaccination: 03/01/12 Review of Systems - Review of Systems Notes: REVIEW OF SYSTEMS: CONSTITUTIONAL: -fevers, -chills, + fatigue, + lightheadedness EENT: -eye pain, -difficulty swallowing, -nasal congestion CARDIOVASCULAR: +chest pain, -syncope. RESPIRATORY: -cough, -SOB GASTROINTESTINAL: -abdominal pain, -nausea, -vomiting, -diarrhea GENITOURINARY: -dysuria, -hematuria MUSCULOSKELETAL: +back pain, -neck pain, + left knee pain SKIN: -rash or skin lesions. HEMATOLOGIC: -easy bruising or bleeding. LYMPHATIC: -swollen, enlarged glands. NEUROLOGICAL: -altered mental status or loss of consciousness, -headache, - neurologic symptoms PSYCHIATRIC: -anxiety, -depression. Physical Exam - Vital signs Vitals: Resp Pulse Ox 18 95 09/17/17 21:36 09/17/17 21:36 - Notes Notes: PHYSICAL EXAMINATION: GENERAL: Well-appearing, well-nourished and in no acute distress. HEAD: Atraumatic, normocephalic. EYES: Pupils equal round and reactive to light, extraocular movements intact, conjunctiva are normal. ENT: nares patent, oropharynx clear without exudates. Moist mucous membranes. NECK: Normal range of motion, supple without lymphadenopathy LUNGS: Breath sounds clear to auscultation bilaterally and equal. Few scattered wheezes. HEART: Regular rate and rhythm, no chest wall tenderness ABDOMEN: Soft, nontender, normoactive bowel sounds. No guarding, no rebound. No masses appreciated. EXTREMITIES: Normal range of motion, no pitting or edema. No cyanosis. Mild swelling left knee. Band-Aid in place. No erythema or warmth NEUROLOGICAL: Cranial nerves grossly intact. Normal speech, normal gait. Normal sensory and motor exams. PSYCH: Normal mood, normal affect. SKIN: Warm, Dry, normal turgor, no rashes or lesions noted. Course - Re-evaluation Re-evalutation: 09/18/17 00:06 Blood sugar improved. 2 normal troponins. EKG shows sinus tachycardia with QTc 454. No ST depression or elevation. No significant change from prior EKG April 2016 except for elevated rate. She remains asymptomatic. Advise close monitoring of blood sugar at home. No history of coronary disease. Will discharge home with close follow-up. At this time will discharge with return precautions and follow-up recommendations. Verbal discharge instructions given a the bedside and opportunity for questions given. Medication warnings reviewed. Patient is in agreement with this plan and has verbalized understanding of return precautions and the need for primary care follow-up in the next 24-72 hours. - Vital Signs Vital signs: Temp Pulse Resp BP Pulse Ox 16 120/74 95 09/17/17 23:11 09/17/17 23:11 09/17/17 23:11 - Laboratory Result Diagrams: 09/17/17 20:52 09/17/17 20:52 Laboratory results interpreted by me: 09/17/17 09/17/17 09/17/17 20:52 20:52 23:13 Seg Neutrophils % 90.2 H Lymphocytes % 8.7 L Monocytes % 0.5 L Absolute Monocytes 0.0 L Glucose 415 H* POC Glucose 266 H Creatine Kinase 28 L Discharge - Discharge Clinical Impression: Hyperglycemia Chest pain Qualifiers: Chest pain type: unspecified Qualified Code(s): R07.9 - Chest pain, unspecified Condition: Good Disposition: HOME, SELF-CARE Additional Instructions: Monitor blood sugar closely. Return for worsening or concerning symptoms. Follow-up with your doctor for further treatment recommendations. Hyperglycemia (High Blood Sugar) You have an abnormally high blood sugar. Not all high blood sugar requires long-term treatment. High blood sugar can be due to medications, , or the stress of illness. (These cases are "borderline diabetes.") If the doctor feels your high blood sugar might resolve with time, you may not require treatment now. You will be scheduled for further evaluation. It's very important that you follow through, to see if the blood sugar returns to normal levels. Uncontrolled high blood sugar leads to early heart disease, strokes, nerve damage, eye damage, and kidney damage. Call the physician if there is faintness, excess sleepiness, or very rapid breathing. CHEST PAIN OF UNCLEAR CAUSE: The exact cause of your chest pain isn't clear. Fortunately, there is no evidence of a dangerous medical condition. Further testing may be required to find the source of the pain. Most often, we find that this pain is coming from the chest wall -- the muscles or rib joints in the chest. But chest pain can come from the lung and lung lining, the esophagus, the heart valves or heart lining, and even the stomach or gallbladder. Rest. Eat lightly until the pain is gone. We may prescribe medicine for pain and inflammation. You should call the physician immediately if the pain radiates to the shoulder, jaw or arms; if you start to run a fever or develop a cough; or if you develop shortness of breath, or other new or alarming symptoms. NORMAL EXAM AND WORKUP: At this time, your examination and workup show no significant abnormality. No significant abnormal physical findings were noted. All laboratory, EKG, and imaging (x-ray, CT scans, ultrasound) studies that were ordered show no significant abnormality. Although your examination and all studies that were ordered showed no significant abnormal finding, there are no examinations and no studies that are 100% accurate. There is always the possibility that some abnormality could exist and not be detected with physical examination or within the limits and capabilities of laboratory and other studies. You should return or follow up as you were instructed on your visit today for further evaluation if your symptoms do not resolve. FOLLOW-UP CARE: If you have been referred to a physician for follow-up care, call the physician s office for an appointment as you were instructed or within the next two days. If you experience worsening or a significant change in your symptoms, notify the physician immediately or return to the Emergency Department at any time for re-evaluation. Referrals: DARLIN CHAVEZ PA-C [Primary Care Provider] - Follow up as needed
--- NOTE | 2017-09-17 22:14 | EKG REPORT ---
SEVERITY:- OTHERWISE NORMAL ECG - SINUS TACHYCARDIA : Confirmed by: Dejah Ruano 17-Sep-2017 22:13:44
[2017-09-17 22:16] LABS: INTERNATIONAL RATION (INR) 0.91; PROTHROMBIN TIME 12.8 SEC (11.4-15.4)
[2017-09-17 22:17] LABS: CREATINE KINASE MB 0.54 ng/mL (<4.55); TROPONIN I < 0.012 ng/mL
--- NOTE | 2017-09-17 22:23 | RADIOLOGY REPORT (SQ) ---
EXAM DESCRIPTION: CHEST 2 VIEWS COMPLETED DATE/TIME: 09/17/2017 10:10 pm REASON FOR STUDY: chest pain COMPARISON: 07/21/2017 EXAM PARAMETERS: NUMBER OF VIEWS: two views TECHNIQUE: Digital Frontal and Lateral radiographic views of the chest acquired. RADIATION DOSE: NA LIMITATIONS: none FINDINGS: LUNGS AND PLEURA: Stable appearance of right lower lobe atelectasis -effusion. No acute f indings. MEDIASTINUM AND HILAR STRUCTURES: Stable. HEART AND VASCULAR STRUCTURES: Stable. BONES: No acute findings. HARDWARE: Right chest port. OTHER: No other significant finding. IMPRESSION: NO ACUTE RADIOGRAPHIC FINDING IN THE CHEST. TECHNICAL DOCUMENTATION: JOB ID: [id number] [place]-72 2010 [employer]- All Rights Reserved Reading location - IP/workstation name: [email or web address]
[2017-09-17 22:29] LABS: GLUCOSE 415 mg/dL (75-110)
[2017-09-18 00:33] VITALS: BP 152/83
== END 2017-09-18 00:05 | disposition home or self-care (01) ==
LOC: ER 21:21
DX: E11.65 Type 2 diabetes mellitus with hyperglycemia (principal); I10 Essential (primary) hypertension; J44.9 Chronic obstructive pulmonary disease, unspecified; M71.22 Synovial cyst of popliteal space [Baker], left knee; R07.89 Other chest pain; R61 Generalized hyperhidrosis; R42 Dizziness and giddiness; R00.0 Tachycardia, unspecified; R53.83 Other fatigue; M54.9 Dorsalgia, unspecified; Z98.890 Other specified postprocedural states; Z85.118 Personal history of other malignant neoplasm of bronchus and lung
CPT/HCPCS: 93005; 99285; 96360; 96361; 36415; 82553; 82962; 82550; 85025; 85610; 80053; 84484; 71046; 93010; A9270; J7030; J1815

== ENCOUNTER → 2017-10-27 | Outpatient (CLI) | payer MEDICARE ==
--- NOTE | 2017-10-27 14:53 | RADIOLOGY REPORT (SQ) ---
EXAM DESCRIPTION: CT CHEST WITH; CT ABD/PELVIS WITH IV ONLY COMPLETED DATE/TIME: 10/27/2017 2:19 pm REASON FOR STUDY: C34.31 MALIGNANT NEOPLASM OF LOWER LOBE, RIGHT BRONCHUS OR LUNG; C34.31 C34.31 MA LIGNANT NEOPLASM OF LOWER LOBE, RIGHT BRONCHUS OR L COMPARISON: CT chest abdomen and pelvis 07/21/2017, 04/27/2017, 02/05/2017, 10/26/2016 PET-CT 07/26/2016 CONTRAST TYPE AND DOSE: 72 mL of IV Omnipaque 350- low osmolar. RENAL FUNCTION: Creatinine 0.6 TECHNIQUE: CT scan of the chest performed using helical scanning technique with dynamic intravenous contrast injection. Images reviewed with lung, soft tissue and bone windows. Reconstructed coronal a nd sagittal MPR images reviewed. All images stored on PACS. CT scan of the abdomen and pelvis performed with intravenous and without oral contrastusing helical s kang technique with dynamic intravenous contrast injection. Images reviewed with lung, soft tissu e and bone windows. Reconstructed coronal and sagittal MPR images reviewed. Delayed images for eval uation of the urinary system also acquired and evaluated. All images stored on PACS. All CT scanners at this facility use dose modulation, iterative reconstruction, and/or weight based d osing when appropriate to reduce radiation dose to as low as reasonably achievable (ALARA). [facility]: Dose Right [facility]: CareDose [facility]: Dose Right [facility]: Teradose 4D [facility]: [employer] RADIATION DOSE: 15 mGy . LIMITATIONS: None. FINDINGS: CHEST: LUNGS AND PLEURA: New 6 mm spiculated nodule left lung apex image 16. Unchanged chronic appearing collapse and consolidation in the right lower lobe from bronchus intermed ius obstruction. Spotty enlarged airspaces both lungs from obstructive disease. No pleural effusion. No pneumothorax . HILAR AND MEDIASTINAL STRUCTURES: Persistent soft tissue at the right lower hilum, 3.5 x 3 cm in size . This is similar compared to multiple previous studies HEART AND VASCULAR STRUCTURES: No aneurysm or dissection. No central pulmonary emboli. No pericardi al effusion. Moderate coronary artery calcifications. HARDWARE: None. THYROID AND OTHER SOFT TISSUES: Post right lobe thyroidectomy BONES: Stable sclerotic bony metastatic lesion in the left half of the T10 vertebral body. OTHER: No other significant finding. ABDOMEN AND PELVIS: LIVER: Normal size. No masses. No dilated ducts. SPLEEN: Normal size. No focal lesions. PANCREAS: No masses. No significant calcifications. No adjacent inflammation or peripancreatic fluid collections. Pancreatic duct not dilated. GALLBLADDER: Faintly radiopaque stones without gallbladder wall thickening or pericholecystic fluid. ADRENAL GLANDS: Mild bilateral adrenal enlargement, stable stable focal cortical scarring along the RIGHT KIDNEY AND URETER: No solid masses. No significant calcification. No hydronephrosis or hydroure ter. Stable focal cortical scarring along the Right lower pole kidney. LEFT KIDNEY AND URETER: No solid masses. No significant calcification. No hydronephrosis or hydrouret er. Stable focal cortical scarring along the left lower pole kidney. AORTA AND VESSELS: No aneurysm. No dissection. Renal arteries, SMA, celiac without stenosis. RETROPERITONEUM: No retroperitoneal adenopathy, hemorrhage or masses. BOWEL AND PERITONEAL CAVITY: No masses or inflammatory changes. No free fluid or peritoneal masses. APPENDIX: Normal. ABDOMINAL WALL: No masses. No hernias. PELVIS: No mass or free fluid. Normal bladder. Post hysterectomy BONES: No lytic or sclerotic lesions over the lumbar spine bony pelvis or proximal femurs in the fiel d of view. Advanced degenerative disc changes at L3-4 OTHER: No other significant finding. IMPRESSION: Stable appearance of the chest abdomen pelvis TECHNICAL DOCUMENTATION: JOB ID: [id number] Quality ID # [id number]: Final reports with documentation of one or more dose reduction techniques (e.g., Au tomated exposure control, adjustment of the mA and/or kV according to patient size, use of iterative reconstruction technique) 2010 [employer]- All Rights Reserved Reading location - IP/workstation name: [email or web address]
== END ==
LOC: RAD 14:55
PROVIDERS: ATTEND Internal Medicine
DX: C34.31 Malignant neoplasm of lower lobe, right bronchus or lung (principal); I25.10 Atherosclerotic heart disease of native coronary artery without angina pectoris
CPT/HCPCS: 71260; 74177; 82565

== ENCOUNTER 2017-12-19 21:59 | Observation (INO) | payer MEDICARE ==
[2017-12-19] MEDS ORDERED: IPRATROPIUM/ALBUTEROL 0.5-2.5 MG/3 ML AMPUL NEB ONE (22:45)
[2017-12-19] MEDS ORDERED: METHYLPREDNISOLONE INJ 125 MG/2 ML SDV IV ONE (22:45)
--- NOTE | 2017-12-19 22:49 | ER Document Report ---
ED Respiratory Problem - General Chief Complaint: Chest Pain > 30 Stated Complaint: DIFFICULTY BREATHING Time Seen by Provider: 12/19/17 22:30 Mode of Arrival: Ambulatory Information source: Patient, [facility] Records Notes: 9-year-old female patient with past medical history of COPD comes emergency room complaining of pain across her lower posterior thoracic ribs since this morning. She reports she has not been breathing good since this afternoon. She normally uses oxygen 2 L nasal cannula at bedtime only. She has been using her oxygen today. He found her oxygen saturations dropped as low as 88% if she was up walking around. She also notes some pain into her anterior chest when she coughs. She does have recurrent right lower lobe lung cancer and is currently on immunotherapy. She did have a right lower lobe lobectomy in 2006, previously had a scan showing a T10 bony metastasis, did have a CT scan of the chest abdomen and pelvis on 10/27/2017 which was read as stable compared to previous studies. She does not have known coronary artery disease, she did in the past have a cardiac catheterization which did not show coronary artery problems, but was done primarily because of a left subclavian artery stenosis and did have a left subclavian stent placed. She is known to have iliac artery plaque buildup. TRAVEL OUTSIDE OF THE [place] IN LAST 30 DAYS: No - Related Data Allergies/Adverse Reactions: nickel [Nickel] Adverse Reaction (Severe, Verified 04/21/16 17:57) RASH Past Medical History - General Information source: Patient, [facility] Records - Social History Smoking Status: Current Every Day Smoker Cigarette use (# per day): Yes Chew tobacco use (# tins/day): No Smoking Education Provided: No Frequency of alcohol use: Occasional Drug Abuse: None Occupation: Retired Lives with: Family Family History: Reviewed & Not Pertinent, Arthritis, CAD, CVA, DM, Hyperlipidemia, Hypertension, Malignancy, Thyroid Disfunction - Past Medical History Cardiac Medical History: Reports: Hx Hypercholesterolemia, Hx Hypertension Pulmonary Medical History: Reports: Hx Bronchitis, Hx COPD, Hx Pneumonia EENT Medical History: Reports: None Neurological Medical History: Reports: None Endocrine Medical History: Reports: Hx Diabetes Mellitus Type 2 Renal/ Medical History: Reports: None Malignancy Medical History: Reports: Hx Lung Cancer - R lower lobe GI Medical History: Reports: Hx Diverticulitis, Hx Gastroesophageal Reflux Disease, Hx Hiatal Hernia, Hx Pancreatitis, Hx Colonoscopy, Hx Endoscopic Retrograde Cholangio, Hx Endoscopy Musculoskeletal Medical History: Reports Hx Arthritis - GENERALIZED, Reports Hx Musculoskeletal Deformity, Reports Hx Musculoskeletal Trauma Psychiatric Medical History: Reports: Hx Anxiety Past Surgical History: Reports: Hx Cardiac Catheterization - Patient denies CAD seen, cath was related to the L subclavian artery stent., Hx Hysterectomy, Hx Nose Surgery - Nasal septal straightening when sinus surgery was performed, Hx Thyroid Surgery - Thyroid nodule resected, Hx Vascular Surgery - Left subclavian artery stent - Immunizations Immunizations up to date: Yes Hx Diphtheria, Pertussis, Tetanus Vaccination: Yes - 11/29/2006 Hx Pneumococcal Vaccination: 03/01/12 Review of Systems - Review of Systems Constitutional: Weakness EENT: No symptoms reported Cardiovascular: No symptoms reported Respiratory: Cough, Hurts to breathe, Short of breath, Wheezing Gastrointestinal: No symptoms reported Genitourinary: No symptoms reported Female Genitourinary: Post menopausal Musculoskeletal: Back pain Skin: No symptoms reported Hematologic/Lymphatic: No symptoms reported Neurological/Psychological: No symptoms reported Physical Exam - Vital signs Vitals: Temp Pulse BP Pulse Ox 98.0 F 96 131/74 H 95 12/19/17 22:17 12/19/17 22:17 12/19/17 22:17 12/19/17 22:17 Interpretation: Tachypneic - General General appearance: Alert In distress: Mild - HEENT Head: Normocephalic, Atraumatic Eyes: Normal Pupils: PERRL Neck: Normal - Respiratory Respiratory status: Tachypnea Chest status: Tender Breath sounds: Nonproductive cough, Rhonchi - There is a lot of rhonchi and wheezes noted when the patient coughs, Wheezing - There is some air trapping with end expiratory wheezes., Other - There is a percussion dullness and decreased sounds of air movement in the right lower lung area. - Cardiovascular Rhythm: Regular Heart sounds: Normal auscultation Murmur: No - Abdominal Inspection: Normal Bowel sounds: Normal Tenderness: Tender - Patient does complain of a lot of gas - Back Back: Tender - There is some tenderness to palpate across the back in the region of the inferior ribs. She does have a known T10 bony metastasis. - Extremities General upper extremity: Normal inspection General lower extremity: Normal inspection - Neurological Neuro grossly intact: Yes - Psychological Associated symptoms: Normal affect, Normal mood - Skin Skin Temperature: Warm Skin Moisture: Dry Skin Color: Normal Course - Re-evaluation Re-evalutation: 12/20/17 02:00 Patient reports her breathing is better after breathing treatments. The wheezes and rhonchi are much improved, there continues to be decreased breath sounds and dullness in the right lower lung field. - Vital Signs Vital signs: Temp Pulse Resp BP Pulse Ox 98.0 F 96 14 128/66 H 95 12/19/17 22:17 12/19/17 22:17 12/20/17 02:01 12/20/17 02:01 12/20/17 02:01 - Laboratory Result Diagrams: 12/19/17 23:20 12/19/17 23:20 Laboratory results interpreted by me: 12/19/17 12/19/17 12/19/17 23:20 23:20 23:20 Glucose 160 H Hemoglobin A1c % 6.2 H AST 12 L Creatine Kinase < 20 L Ur Leukocyte Esterase SMALL H - Diagnostic Test Radiology reviewed: Image reviewed, Reports reviewed - PA chest x-ray and then a lateral decubitus shows a large right pleural effusion which is partially free -flowing. - EKG Interpretation by Me EKG shows normal: Sinus rhythm, [place], Intervals, QRS Complexes, ST-T Waves Rate: Tachycardia - 102 Rhythm: PVC's P Waves: LAE When compared to previous EKG there are: No significant change - Consults Dr. Barreto Time consulted: 03:10 Consulted provider: will see as inpatient - Requests the patient be admitted to the hospitalist service and he will be consulted. Dr. Garduno Time consulted: 03:15 Consulted provider: will come to ER Critical Care Note - Critical Care Note Total time excluding time spent on procedures (mins): 35 Discharge - Discharge Clinical Impression: COPD exacerbation, Large pleural effusion Condition: Stable Disposition: ADMITTED INPATIENT Admitting Provider: Hospitalist Unit Admitted: Telemetry Referrals: MOHIT BARRETO MD [Primary Care Provider] - Follow up as needed
[2017-12-19 23:47] LABS: ABSOLUTE BASOPHILS # (AUTO) 0.1 10^3/uL (0.0-0.2); ABSOLUTE EOSINOPHILS # (AUTO) 0.3 10^3/uL (0.0-0.6); ABSOLUTE MONOCYTES (AUTO) 0.6 10^3/uL (0.1-1.4); ABSOLUTE NEUT (AUTO) 5.8 10^3/uL (1.7-8.2); BASOPHILS % (AUTO) 0.8 % (0-2); EOSINOPHILS % (AUTO) 3.9 % (0-6); HEMATOCRIT 39.3 % (36.0-47.0); HEMOGLOBIN 13.3 g/dL (12.0-15.5); LYMPHOCYTES % (AUTO) 22.6 % (13-45); MEAN CORPUSCULAR HEMOGLOBIN 29.7 pg (27.0-33.4); MEAN CORPUSCULAR HGB CONC 33.9 g/dL (32.0-36.0); MEAN CORPUSCULAR VOLUME 87 fl (80-97); MONOCYTES % (AUTO) 6.8 % (3-13); PLATELET COUNT 334 10^3/uL (150-450); RED BLOOD COUNT 4.49 10^6/uL (3.72-5.28); SEGMENTED NEUTROPHILS % (AUTO) 65.9 % (42-78); TOTAL CELLS COUNTED % (AUTO) 100 %; WHITE BLOOD COUNT 8.8 10^3/uL (4.0-10.5)
--- NOTE | 2017-12-19 23:54 | RADIOLOGY REPORT (SQ) ---
CLINICAL HISTORY: COPD exacerbation COMPARISON: None. TECHNIQUE: XR CHEST 1 VIEW 12/19/2017 10:44 PM CDT FINDINGS: Cardiac silhouette is enlarged. There is right basilar presumed atelectasis or volume loss with shift of the mediastinum to the right. Right basilar airspace disease is not excluded. Hilar mass. There is a large right pleural effusion. There is no pneumothorax. There are no acute osseous findings. Right chest port catheter tip is in the upper SVC. IMPRESSION: Extensive opacity involving the lower right chest likely combination of atelectasis, effusion and underlying airspace disease. A mass in the right hilar region is possible as well.
[2017-12-19] MEDS ORDERED: ALBUTEROL SULFATE 0.083% NEB 2.5 MG/3 ML AMPUL NEB ONE (23:56)
[2017-12-19 23:59] LABS: ALANINE AMINOTRANSFERASE 9 U/L (9-52); ALBUMIN 3.8 g/dL (3.5-5.0); ALKALINE PHOSPHATASE 83 U/L (38-126); ANION GAP 11 (5-19); ASPARTATE AMINO TRANSFERASE 12 U/L (14-36); BILIRUBIN,DIRECT 0.2 mg/dL (0.0-0.4); BILIRUBIN,TOTAL 0.3 mg/dL (0.2-1.3); BLOOD UREA NITROGEN 13 mg/dL (7-20); CALCIUM 9.1 mg/dL (8.4-10.2); CARBON DIOXIDE 27 mmol/L (22-30); CHLORIDE 100 mmol/L (98-107); GLUCOSE 160 mg/dL (75-110); POTASSIUM 4.4 mmol/L (3.6-5.0); SODIUM 138.3 mmol/L (137-145); TOTAL PROTEIN 6.3 g/dL (6.3-8.2)
[2017-12-20] LABS: CREATINE KINASE < 20 U/L (30-135)
[2017-12-20] MEDS ORDERED: HYDROMORPHONE HCL INJ/PF 2 MG/ML AMPULE IV ONE ×2 (00:02→03:26)
[2017-12-20 00:11] LABS: CREATINE KINASE MB 0.58 ng/mL (<4.55); TROPONIN I 0.012 ng/mL
[2017-12-20 00:15] LABS: APPEARANCE,URINE SLIGHTLY-CLOUDY; BILIRUBIN,URINE NEGATIVE (NEGATIVE); COLOR,URINE YELLOW; GLUCOSE, URINE NEGATIVE (NEGATIVE); KETONES,URINE NEGATIVE (NEGATIVE); LEUKOCYTE ESTERASE,URINE SMALL (NEGATIVE); NITRITE,URINE NEGATIVE (NEGATIVE); PROTEIN,URINE NEGATIVE (NEGATIVE); URINE SPECIFIC GRAVITY 1.011; UROBILINOGEN,URINE NEGATIVE mg/dL (<2.0)
[2017-12-20] MEDS ORDERED: ALBUTEROL SULFATE 0.083% NEB 2.5 MG/3 ML AMPUL NEB ONE (01:08)
--- NOTE | 2017-12-20 02:52 | RADIOLOGY REPORT (SQ) ---
CLINICAL HISTORY: Right lateral decubitus COMPARISON: 12/19/2012. TECHNIQUE: XR CHEST 1 VIEW 12/20/2017 1:56 AM CDT FINDINGS: Cardiac silhouette is normal in size. Right basilar opacity is unchanged. Again noted is the large right pleural effusion which is partially free flowing. There is no pneumothorax. There are no acute osseous findings. Right chest port is present. IMPRESSION: Large right pleural effusion, partially free flowing.
[2017-12-20] MEDS ORDERED: MAG HYDROX/AL HYDROX/SIMETH SUSP 30 ML UDCUP PO PRN (03:51)
[2017-12-20] MEDS ORDERED: PROMETHAZINE HCL 25 MG TABLET PO PRN (03:51)
[2017-12-20] MEDS ORDERED: ACETAMINOPHEN 325 MG TABLET PO PRN (03:51)
[2017-12-20] MEDS ORDERED: PROMETHAZINE HCL INJ 25 MG/1 ML VIAL IV PRN (03:51)
[2017-12-20 05:32] LABS: INTERNATIONAL RATION (INR) 0.92; PROTHROMBIN TIME 12.8 SEC (11.4-15.4)
[2017-12-20 05:33] LABS: PARTIAL THROMBOPLASTIN TIME 28.1 SEC (23.5-35.8)
--- NOTE | 2017-12-20 06:15 | EKG REPORT ---
SEVERITY:- ABNORMAL ECG - SINUS TACHYCARDIA VENTRICULAR BIGEMINY PROBABLE LEFT ATRIAL ABNORMALITY : Confirmed by: Tejas Ray MD 20-Dec-2017 06:14:19
--- NOTE | 2017-12-20 06:20 | PDOC H&P ---
History of Present Illness Admission Date/PCP: 12/20/17 04:[address] [facility] Patient complains of: Right flank pain History of Present Illness: GOKUL SALAZAR is a 72 year old female who comes to the emergency department complaining of pain across her lower posterior thoracic ribs for the last 2 weeks, initially she thought it was a pulled muscle or that it was her right kidney so last Wednesday she went to her primary care physician, she had done x- ray of the hips, urinalysis and blood work and everything was negative. She also noted that she has started being progressively short of breath, tells me that she did not pay attention initially. Patient has chronic respiratory failure on 2 L oxygen at night and today she noted that her oxygenation dropped to 85% on room air associated with worsening right thoracic pain going up to 10/ 10 in intensity related with her breathing. Denies cough, phlegm, nausea, vomiting, fever but complains of chills she had mild wheezing. Patient has history of right lower lobe cancer currently on chemotherapy on Fridays and has a Port-A-Cath. 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 Initially patient diagnosed with COPD exacerbation, treatment given in the ED and patient improved who is patient's oncologist was called and requested admission to the hospitalist service Past Medical History Cardiac Medical History: Reports: Hyperlipidema, Hypertension Pulmonary Medical History: Reports: Bronchitis, Chronic Obstructive Pulmonary Disease (COPD), Pneumonia EENT Medical History: Reports: None Neurological Medical History: Reports: None Endocrine Medical History: Reports: Diabetes Mellitus Type 2 Renal/ Medical History: Reports: None Malignancy Medical History: Reports: Lung Cancer - R lower lobe GI Medical History: Reports: Diverticulitis, Gastroesophageal Reflux Disease, Hiatal Hernia Musculoskeltal Medical History: Reports: Arthritis - GENERALIZED Hematology: Denies: Anemia Past Surgical History Past Surgical History: Reports: Cardiac Catheterization - Patient denies CAD seen, cath was related to the L subclavian artery stent., Hysterectomy, Vascular Surgery - Left subclavian artery stent Denies: Pacemaker Social History Lives with: Family Smoking Status: Current Every Day Smoker Frequency of Alcohol Use: None Hx Recreational Drug Use: Yes Drugs: None Hx Prescription Drug Abuse: No Family History Family History: Reviewed & Not Pertinent, Arthritis, CAD, CVA, DM, Hyperlipidemia, Hypertension, Malignancy, Thyroid Disfunction Parental Family History Reviewed: Yes - As above Children Family History Reviewed: NA Sibling(s) Family History Reviewed.: NA Medication/Allergy Home Medications: Alprazolam [Xanax 0.25 mg Tablet] 0.25 mg PO DAILYP PRN 04/27/16 Azilsartan Med/Chlorthalidone [Edarbyclor 40-12.5 mg Tablet] 1 tab PO DAILY Benzonatate [Tessalon Perles 100 mg Capsule] 100 mg PO Q8HP PRN 04/27/16 Fluticasone/Salmeterol [Advair 250-50 Diskus 28 dose] 1 inh IH Q12 04/27/16 Folic Acid 1 mg PO DAILY 04/27/16 Metformin HCl [Glucophage] 1,000 mg PO BIDACBS 04/27/16 Metoprolol Tartrate [Lopressor 100 mg Tablet] 100 mg PO Q12 04/27/16 Nifedipine [Procardia XL 60 mg Tablet] 60 mg PO DAILY 04/27/16 Ondansetron [Zofran Odt 4 mg Tablet] 4 mg PO Q6HP PRN 04/27/16 Oxycodone HCl [Oxy-Ir 5 mg Tablet] 5 mg PO Q6HP PRN 04/27/16 Pantoprazole Sodium [Protonix] 40 mg PO DAILY 04/27/16 Promethazine HCl 25 mg PO Q6HP PRN 04/27/16 Acidoph/L.bulg/Bif.b/S.thermop [Bacid Caplet] 1 each PO BID #20 tablet 04/30/16 Ipratropium/Albuterol Sulfate [Duoneb 3 ml Ampul] 3 ml [facility] [id number] #[id number] [email or web address] 04/30/16 Levofloxacin [Levaquin 750 mg Tablet] 750 mg PO DAILY #5 tablet 04/30/16 Allergies/Adverse Reactions: nickel [Nickel] Adverse Reaction (Severe, Verified 04/21/16 17:57) RASH Review of Systems Review of Systems: As outlined in the HPI, others negative Physical Exam Vital Signs: Temp Pulse Resp BP Pulse Ox 98.7 F 105 H 17 113/61 96 12/20/17 05:20 12/20/17 05:20 12/20/17 05:20 12/20/17 05:20 12/20/17 05:20 Intake & Output 12/18/17 12/19/17 12/20/17 06:59 06:59 06:59 Intake Total 0 Balance 0 Weight 66.2 kg Additional comments: General appearance: Well-developed, well-nourished, alert and cooperative, and appears to be in no acute distress Head: Normocephalic Eyes: PEERL, EOMI, vision is grossly intact. Ears: External auditory canal and tympanic membranes clear, hearing grossly intact. Nose: No nasal discharge. Throat: Oral cavity and pharynx normal. No inflammation, swelling, exudate or lesions. Neck: Neck supple, nontender without lymphadenopathy, masses or thyromegaly. Cardiac: Normal S1 and S2. No S3, S4 or murmurs. Rhythm is regular and mildly tachycardic. There is no peripheral edema, cyanosis or pallor. Extremities are warm and well perfused. Capillary refill is less than 2 seconds. No carotid bruits. Lungs: Bilateral decreased breath sounds with decreased inspiratory effort, right lower lobe decreased breath sounds with crackles and decreased precaution. Not using accessory muscles. Abdomen: Positive bowel sounds. Soft. Nondistended, nontender. No guarding or rebound. No masses. No hepatosplenomegaly Extremities: No significant deformity or joint abnormality. No edema. Peripheral pulses intact. No varicosities. Neurological: Cranial nerves II through XII grossly intact. Strength and sensation symmetric and intact throughout. Reflexes 2+ throughout. Skin: Skin normal color, texture and turgor with no lesions or eruptions, warm and dry. Psychiatric: The mental examination revealed the patient was oriented to person , place, and time. The patient was able to demonstrate good judgment on recent , without hallucinations, abnormal affect or abnormal behaviors. Results Laboratory Results: 12/19/17 12/19/17 12/19/17 23:20 23:20 23:20 WBC 8.8 RBC 4.49 Hgb 13.3 Hct 39.3 MCV 87 MCH 29.7 MCHC 33.9 RDW 13.0 Plt Count 334 Seg Neutrophils % 65.9 Lymphocytes % 22.6 Monocytes % 6.8 Eosinophils % 3.9 Basophils % 0.8 Absolute Neutrophils 5.8 Absolute Lymphocytes 2.0 Absolute Monocytes 0.6 Absolute Eosinophils 0.3 Absolute Basophils 0.1 PT INR APTT Sodium 138.3 Potassium 4.4 Chloride 100 Carbon Dioxide 27 Anion Gap 11 BUN 13 Creatinine 0.62 Est GFR ( Amer) > 60 Est GFR (Non-Af Amer) > 60 Glucose 160 H Hemoglobin A1c % Calcium 9.1 Total Bilirubin 0.3 Direct Bilirubin 0.2 AST 12 L ALT 9 Alkaline Phosphatase 83 Lactate Dehydrogenase Creatine Kinase < 20 L CK-MB (CK-2) 0.58 Troponin I 0.012 NT-Pro-B Natriuret Pep 176 Total Protein 6.3 Albumin 3.8 Urine Color Urine Appearance Urine pH Ur Specific Freeman Urine Protein Urine Glucose (UA) Urine Ketones Urine Blood Urine Nitrite Urine Bilirubin Urine Urobilinogen Ur Leukocyte Esterase Urine WBC (Auto) Urine RBC (Auto) Urine Bacteria (Auto) Squamous Epi Cells Auto Urine Mucus (Auto) Urine Ascorbic Acid 12/19/17 12/19/17 12/20/17 23:20 23:20 04:57 WBC RBC Hgb Hct MCV MCH MCHC RDW Plt Count Seg Neutrophils % Lymphocytes % Monocytes % Eosinophils % Basophils % Absolute Neutrophils Absolute Lymphocytes Absolute Monocytes Absolute Eosinophils Absolute Basophils PT 12.8 INR 0.92 APTT 28.1 Sodium Potassium Chloride Carbon Dioxide Anion Gap BUN Creatinine Est GFR ( Amer) Est GFR (Non-Af Amer) Glucose Hemoglobin A1c % 6.2 H Calcium Total Bilirubin Direct Bilirubin AST ALT Alkaline Phosphatase Lactate Dehydrogenase Creatine Kinase CK-MB (CK-2) Troponin I NT-Pro-B Natriuret Pep Total Protein Albumin Urine Color YELLOW Urine Appearance SLIGHTLY-CLOUDY Urine pH 6.0 Ur Specific Freeman 1.011 Urine Protein NEGATIVE Urine Glucose (UA) NEGATIVE Urine Ketones NEGATIVE Urine Blood NEGATIVE Urine Nitrite NEGATIVE Urine Bilirubin NEGATIVE Urine Urobilinogen NEGATIVE Ur Leukocyte Esterase SMALL H Urine WBC (Auto) 13 Urine RBC (Auto) 1 Urine Bacteria (Auto) TRACE Squamous Epi Cells Auto 7 Urine Mucus (Auto) RARE Urine Ascorbic Acid NEGATIVE 12/20/17 04:57 WBC RBC Hgb Hct MCV MCH MCHC RDW Plt Count Seg Neutrophils % Lymphocytes % Monocytes % Eosinophils % Basophils % Absolute Neutrophils Absolute Lymphocytes Absolute Monocytes Absolute Eosinophils Absolute Basophils PT INR APTT Sodium Potassium Chloride Carbon Dioxide Anion Gap BUN Creatinine Est GFR ( Amer) Est GFR (Non-Af Amer) Glucose Hemoglobin A1c % Calcium Total Bilirubin Direct Bilirubin AST ALT Alkaline Phosphatase Lactate Dehydrogenase 165 Creatine Kinase CK-MB (CK-2) Troponin I NT-Pro-B Natriuret Pep Total Protein Albumin Urine Color Urine Appearance Urine pH Ur Specific Freeman Urine Protein Urine Glucose (UA) Urine Ketones Urine Blood Urine Nitrite Urine Bilirubin Urine Urobilinogen Ur Leukocyte Esterase Urine WBC (Auto) Urine RBC (Auto) Urine Bacteria (Auto) Squamous Epi Cells Auto Urine Mucus (Auto) Urine Ascorbic Acid EKG Comments: Sinus tachycardia at 102 bpm, some PVCs, not different from prior Impressions: Chest X-Ray 12/20/17 01:56 IMPRESSION: Large right pleural effusion, partially free flowing. Assessment & Plan - Diagnosis (1) Large pleural effusion Is this a current diagnosis for this admission?: Yes Plan: Patient comes with respiratory symptoms and right lower rib cage pleuritic pain secondary to a large pleural effusion, also decided she had lobectomy for lung cancer. We will go ahead and place an order for right thoracentesis with pleural effusion laboratory. Patient tells me that she had thoracentesis 2 or 3 times in the past the last one in [place] more than 1 year ago. Pain medication as needed. Consult for from the oncology service. (2) COPD exacerbation Is this a current diagnosis for this admission?: Yes Plan: The initial diagnosis was COPD exacerbation, after treatment given in the emergency department it has improved, by the time I went to see her she was not in respiratory distress and had minimal expiratory wheezing. Continue with home medications. Nebulizer treatments as needed. (3) Acute and chronic respiratory failure with hypoxia Is this a current diagnosis for this admission?: Yes Plan: Patient has chronic respiratory failure on 2 L oxygen at night and tells me that when she woke saturates 88%, today she was 85% on room air. As above (4) Lung cancer Qualifiers: Laterality: right Lung location: lower lobe of lung Qualified Code(s): C34.31 - Malignant neoplasm of lower lobe, right bronchus or lung Is this a current diagnosis for this admission?: Yes Plan: Patient with diagnosis of lung cancer initially diagnosed in 2006 with recurrence in 2014, currently on chemotherapy. As per oncology CT of the chest done in October 14 showed a new 6mm spiculated mass in the left upper lobe. (5) Tobacco dependence Is this a current diagnosis for this admission?: Yes Plan: Nicotine patch - Time Time Spent: 50 to 70 Minutes Anticipated discharge: Home - Inpatient Certification Based on my medical assessment, after consideration of the patient's comorbidities, presenting symptoms, or acuity I expect that the services needed warrant INPATIENT care.: Yes I certify that my determination is in accordance with my understanding of Medicare's requirements for reasonable and necessary INPATIENT services [42 CFR 412.3e].: Yes Medical Necessity: Risk of Complication if Not Cared For in Hospital
--- NOTE | 2017-12-20 08:25 | PDOC CONSULTATION ---
Consultation Consult Date: 12/20/17 Attending physician:: JOSSIE CONNORS Consult reason:: And history of stage IV lung cancer with malignant pleural effusion history here with increased shortness of breath dyspnea on exertion History of Present Illness Admission Date/PCP: 12/20/17 04:07 MOHIT BARRETO MD Patient complains of: Shortness of breath/dyspnea on exertion History of Present Illness: GOKUL SALAZAR is a 72 year old female with known history of stage IV lung cancer , who presented with disease noted in 2014 with right pleural effusion, at that time there was also mediastinal adenopathy. Cytology was positive at that time for adenocarcinoma, initially patient was on systemic chemotherapy with carbo/ Alimta, and was on that for about 6 months. Thereafter she progressed and we initiated the immunotherapy called ODPIVO, and she is actually had a stable partial response since that time. So she has been stable on immunotherapy for about 2-1/2 years. She has had noted bone metastasis as well. She has been on bone modifying therapy with Zometa/Xgeva. She presents with a 3-day history of increasing shortness of breath, dyspnea on exertion. She was starting to have pain in the right chest. Upon admission chest x-ray was done, which indicated right pleural effusion. She had imaging done 10/27/2017 which indicated stable changes in the right lower lobe, very small right pleural effusion that was stable over the last year. So this is a new finding. The effusion does layer on lateral x-ray so the plan was to do a thoracentesis this morning. Past Medical History Cardiac Medical History: Reports: Hyperlipidema, Hypertension Pulmonary Medical History: Reports: Bronchitis, Chronic Obstructive Pulmonary Disease (COPD), Pneumonia EENT Medical History: Reports: None Neurological Medical History: Reports: None Endocrine Medical History: Reports: Diabetes Mellitus Type 2 Renal/ Medical History: Reports: None Malignancy Medical History: Reports: Lung Cancer - R lower lobe GI Medical History: Reports: Diverticulitis, Gastroesophageal Reflux Disease, Hiatal Hernia Musculoskeltal Medical History: Reports: Arthritis - GENERALIZED Psychiatric Medical History: Denies: Depression Hematology: Denies: Anemia Past Surgical History Past Surgical History: Reports: Cardiac Catheterization - Patient denies CAD seen, cath was related to the L subclavian artery stent., Hysterectomy, Vascular Surgery - Left subclavian artery stent Denies: Pacemaker Social History Information Source: Patient Lives with: Family Smoking Status: Current Every Day Smoker Cigarettes Packs Per Day: 1 Number of Years Smokin Frequency of Alcohol Use: None Hx Recreational Drug Use: Yes Drugs: None Hx Prescription Drug Abuse: No - Advance Directive Resuscitation Status: Full Code Family History Family History: Reviewed & Not Pertinent, Arthritis, CAD, CVA, DM, Hyperlipidemia, Hypertension, Malignancy, Thyroid Disfunction Parental Family History Reviewed: Yes Children Family History Reviewed: Yes Sibling(s) Family History Reviewed.: Yes Medication/Allergy Allergies/Adverse Reactions: nickel [Nickel] Adverse Reaction (Severe, Verified 04/21/16 17:57) RASH Review of Systems Constitutional: PRESENT: anorexia, fatigue, weakness, weight loss Cardiovascular: PRESENT: chest pain, dyspnea on exertion Respiratory: PRESENT: cough, dyspnea Gastrointestinal: ABSENT: abdominal pain, constipation, diarrhea, hematemesis, hematochezia, nausea, vomiting Neurological: ABSENT: abnormal gait, abnormal speech, confusion, dizziness, focal weakness, syncope Psychiatric: PRESENT: anxiety Physical Exam Vital Signs: Temp Pulse Resp BP Pulse Ox 98.7 F 111 H 17 113/61 96 12/20/17 05:20 12/20/17 07:00 12/20/17 05:20 12/20/17 05:20 12/20/17 05:20 Intake & Output 12/19/17 12/20/17 12/21/17 06:59 06:59 06:59 Intake Total 0 Output Total 500 Balance -500 Weight 66.2 kg General appearance: PRESENT: no acute distress Head exam: PRESENT: atraumatic Mouth exam: PRESENT: dry mucosa Respiratory exam: PRESENT: crackles, decreased breath sounds Cardiovascular exam: PRESENT: RRR. ABSENT: diastolic murmur, rubs, systolic murmur GI/Abdominal exam: PRESENT: normal bowel sounds, soft. ABSENT: distended, guarding, mass, organolmegaly, rebound, tenderness Rectal exam: PRESENT: deferred Musculoskeletal exam: PRESENT: ambulatory Neurological exam: PRESENT: alert, awake, oriented to person, oriented to place , oriented to time, oriented to situation, CN II-XII grossly intact. ABSENT: motor sensory deficit Results Impressions: Chest X-Ray 12/20/17 01:56 IMPRESSION: Large right pleural effusion, partially free flowing. Status: Image reviewed by me Assessment & Plan - Diagnosis (1) Malignant pleural effusion Is this a current diagnosis for this admission?: Yes Plan: Likely once again to be a malignant pleural effusion, ultrasound-guided thoracentesis has been ordered, radiology may change it to CT-guided thoracentesis. Cytology has been ordered. Other studies have been ordered. (2) Lung cancer Qualifiers: Laterality: right Lung location: lower lobe of lung Qualified Code(s): C34.31 - Malignant neoplasm of lower lobe, right bronchus or lung Is this a current diagnosis for this admission?: Yes Plan: History of recurrent right lung cancer, stage IV disease, awaiting above studies , plan to continue therapy as an outpatient. She has had an excellent response thus far. - Time Time Spent: Greater than 70 Minutes - Inpatient Certification Based on my medical assessment, after consideration of the patient's comorbidities, presenting symptoms, or acuity I expect that the services needed warrant INPATIENT care.: Yes I certify that my determination is in accordance with my understanding of Medicare's requirements for reasonable and necessary INPATIENT services [42 CFR 412.3e].: Yes Medical Necessity: Need for Nebulizer Therapy and Monitoring of Response, Need for Surgery, Risk of Complication if Not Cared For in Hospital
--- NOTE | 2017-12-20 09:19 | Physician Advisory Note ---
Physician Advisor ProgressNote .: Pursuant to the plan for [facility], I have reviewed the medical record for this patient. Physician Advisor Statement: Addendum 12/21/17 at 7:46AM: Status - Pt w/persistent tachycardia throughout the PM 12/21, despite beta amy, evidencing clinical reason for continued hospital care & monitoring. - Appropriate to change to Inpatient status w/documentation of reason(s) pt still needed to stay in hospital 2nd MN (12/20 PM). Nice documentation of Ac on chr Resp Failure in chart - chr 2L O2 at night at home, came in w/sats 80s RA while awake, (+) labored breathing per nurse & speaking "in short sentences", was tachypneic - & tachycardic despite beta amy. Please consider documenting, if you agree: 1. "Post paracentesis, I am still concerned about - feel pt needs cont 'd hospitalization because " - " not yet back to baseline ..." 2. "tobacco abuse & dependence" Status: 72yo [employer] pt w/DM-2, COPD/chr resp F, ongoing tobacco abuse/ dependence, RLL lung CA w/recurrence on chemotx currently, in w/COPD exac/lg pl effusion w/assoc'd Ac Resp F. Despite tx, having worsening tachycardia this AM so far. For paracentesis today, studies on fluid to incl cytology. If pt, after paracentesis, is not felt safe for d/c w/outpt f/u, (continued acute issues needing ongoing monitoring?, additional w/u needed?, further tx that cannot be done outpt?, O2 needs/___ not back to baseline?, ... ) - please document the continued attending concerns/reasons needing cont'd hospitalization - may become appropriate to change to Inpatient status. Will plan to re-ck case tomorrow AM for status re-determination. Thanks! CK
[2017-12-20] MEDS ORDERED: RINGERS SOLUTION,LACTATED 1,000 ML IV PRN (09:40)
[2017-12-20] MEDS ORDERED: GLUCAGON,HUMAN RECOMB 1 MG INJ IM PRN (11:49)
[2017-12-20] MEDS ORDERED: INSULIN LISPRO 100 UNIT/ML 3 ML VIAL SUBCUT PRN (11:49)
[2017-12-20] MEDS ORDERED: DEXTROSE 50%-WATER 25 GM/50 ML DISP.SYRIN IV PRN ×2 (11:49)
[2017-12-20] MEDS ORDERED: DEXTROSE 40% GEL 15 GM TUBE PO PRN ×2 (11:49)
[2017-12-20] MEDS: ENOXAPARIN SODIUM INJ 40 MG/0.4 ML DISP.SYRIN SUBCUT SCH (12:21)
--- NOTE | 2017-12-20 12:28 | RADIOLOGY REPORT (SQ) ---
EXAM DESCRIPTION: U/S CHEST COMPLETED DATE/TIME: 12/20/2017 10:49 am REASON FOR STUDY: Large right pleural effusion COMPARISON: None. TECHNIQUE: Dynamic and static grayscale images acquired of the localized site of clinical concern an d recorded on PACS. Additional selected color Doppler and spectral images recorded. SITE OF CONCERN: Right pleural space. LIMITATIONS: None. FINDINGS: Patient scheduled for right thoracentesis. No pleural fluid is identified and procedure c anceled. Findings on recent chest x-ray more likely due to consolidation. IMPRESSION: No pleural effusion identified. TECHNICAL DOCUMENTATION: JOB ID: [id number] [employer]- All Rights Reserved Reading location - IP/workstation name: [facility]-[email or web address]
[2017-12-20] MEDS ORDERED: (PENDING PHARMACY ID) (Ondansetron Hcl [Zofran 4 Mg Tablet] 4 MG) PO PRN (17:41)
[2017-12-20] MEDS ORDERED: ONDANSETRON 4 MG TAB.RAPDIS PO PRN (18:01)
[2017-12-20] MEDS: IPRATROPIUM/ALBUTEROL 0.5-2.5 MG/3 ML AMPUL NEB PRN (18:13)
[2017-12-20] MEDS: OXYCODONE HCL IR 5 MG TABLET PO PRN (18:22)
[2017-12-20] MEDS: METFORMIN HCL 500 MG TABLET PO SCH (19:29)
[2017-12-20] MEDS: LANSOPRAZOLE 30 MG TAB.RAP.DR PO SCH (19:29)
[2017-12-20] MEDS: ALPRAZOLAM 0.5 MG TABLET PO PRN (21:39)
[2017-12-20] MEDS: METOPROLOL TARTRATE 50 MG TABLET PO SCH (21:39)
--- NOTE | 2017-12-21 08:13 | PDOC PROGRESS REPORT ---
Subjective Progress Note for:: 12/21/17 Subjective:: Yesterday patient went for chest ultrasound, unfortunately, felt by radiology to be more of a consolidation than pleural fluid so thoracentesis could not be done. Today discussed her case extensively with thoracic surgery, Dr. Kurt Jeter, in [place]. She suggested doing a CT of the chest, I will add CT of the abdomen pelvis so we can go ahead and complete restaging of the lung cancer. And we will get her an outpatient appointment to see them. I believe there is probably either something going on like a mucous plugging or loculated pleural effusion or less likely true pneumonic consolidation. However, she just completed a course of Levaquin just 2 weeks ago. Reason For Visit: RIGHT PLEURAL EFFUSION Physical Exam Vital Signs: Temp Pulse Resp BP Pulse Ox 97.4 F 82 17 135/64 H 97 12/20/17 23:22 12/21/17 07:00 12/20/17 23:22 12/20/17 23:22 12/21/17 01:14 Intake & Output 12/20/17 12/21/17 12/22/17 06:59 06:59 06:59 Intake Total 0 1015 Output Total 500 900 Balance -500 115 Weight 66.2 kg 65.2 kg General appearance: PRESENT: no acute distress, well-developed, well-nourished Head exam: PRESENT: atraumatic, normocephalic Eye exam: PRESENT: conjunctiva pink, EOMI, PERRLA. ABSENT: scleral icterus Ear exam: PRESENT: normal external ear exam Mouth exam: PRESENT: moist, tongue midline Neck exam: ABSENT: carotid bruit, JVD, lymphadenopathy, thyromegaly Respiratory exam: PRESENT: clear to auscultation harish. ABSENT: rales, rhonchi, wheezes Cardiovascular exam: PRESENT: RRR. ABSENT: diastolic murmur, rubs, systolic murmur Pulses: PRESENT: normal dorsalis pedis pul Vascular exam: PRESENT: normal capillary refill GI/Abdominal exam: PRESENT: normal bowel sounds, soft. ABSENT: distended, guarding, mass, organolmegaly, rebound, tenderness Rectal exam: PRESENT: deferred Extremities exam: PRESENT: full ROM. ABSENT: calf tenderness, clubbing, pedal edema Neurological exam: PRESENT: alert, awake, oriented to person, oriented to place , oriented to time, oriented to situation, CN II-XII grossly intact. ABSENT: motor sensory deficit Psychiatric exam: PRESENT: appropriate affect, normal mood. ABSENT: homicidal ideation, suicidal ideation Skin exam: PRESENT: dry, intact, warm. ABSENT: cyanosis, rash Results Impressions: Chest X-Ray 12/20/17 01:56 IMPRESSION: Large right pleural effusion, partially free flowing. Chest Ultrasound 12/20/17 03:58 IMPRESSION: No pleural effusion identified. Assessment & Plan - Diagnosis (1) Malignant pleural effusion Is this a current diagnosis for this admission?: Yes Plan: I still believe it is most likely going to be a malignant pleural effusion is the most likely cause, probably loculated, will need thoracic surgery evaluation , I will set this up as an outpatient. (2) Lung cancer Qualifiers: Laterality: right Lung location: lower lobe of lung Qualified Code(s): C34.31 - Malignant neoplasm of lower lobe, right bronchus or lung Is this a current diagnosis for this admission?: Yes Plan: Restaging imaging pending today. (3) Acute and chronic respiratory failure with hypoxia Is this a current diagnosis for this admission?: Yes Plan: Multifactorial, could be secondary to COPD exacerbation versus pleural effusion versus consolidation versus loculated pleural effusion. She has had nebulizer therapy, is doing much better with nebulizer therapy. She does have a nebulizer at home but needs duo nebs. I believe she would also and if it from a tapering dose of steroid, may be a Medrol Dosepak. I discussed this with hospitalist team. - Time Time Spent with patient: 35 or more minutes
[2017-12-21] MEDS: METFORMIN HCL 500 MG TABLET PO SCH (09:51)
[2017-12-21] MEDS: OXYCODONE HCL IR 5 MG TABLET PO PRN (09:51)
[2017-12-21] MEDS: METOPROLOL TARTRATE 50 MG TABLET PO SCH (09:51)
[2017-12-21] MEDS: LANSOPRAZOLE 30 MG TAB.RAP.DR PO SCH (09:51)
[2017-12-21] MEDS: ENOXAPARIN SODIUM INJ 40 MG/0.4 ML DISP.SYRIN SUBCUT SCH (09:52)
[2017-12-21] MEDS: IPRATROPIUM/ALBUTEROL 0.5-2.5 MG/3 ML AMPUL NEB PRN (09:52)
[2017-12-21] MEDS ORDERED: FLUTICASONE NASAL SPRAY 50 MCG/SPRY 120 SPRAY/16 GM NASL SCH (10:00)
[2017-12-21] MEDS ORDERED: (PENDING PHARMACY ID) (Nifedipine [Nifedipine Er] 90 MG) PO SCH (10:00)
[2017-12-21] MEDS ORDERED: FOLIC ACID 1 MG TABLET PO SCH (10:00)
[2017-12-21] MEDS ORDERED: NIFEDIPINE 30 MG TAB.ER.24 PO SCH (10:00)
--- NOTE | 2017-12-21 11:41 | PDOC DISCHARGE SUMMARY ---
General - Admit/Disc Date/PCP Admission Date/Primary Care Provider: 12/20/17 04:07 MOHIT BARRETO MD Discharge Date: 12/21/17 - Discharge Diagnosis (1) Acute and chronic respiratory failure with hypoxia Is this a current diagnosis for this admission?: Yes (2) Malignant pleural effusion Is this a current diagnosis for this admission?: Yes (3) COPD exacerbation Is this a current diagnosis for this admission?: Yes (4) Hypertension Is this a current diagnosis for this admission?: Yes (5) Diabetes mellitus type 2 in nonobese Is this a current diagnosis for this admission?: Yes (6) Tobacco dependence Is this a current diagnosis for this admission?: Yes - Additional Information Resuscitation Status: Full Code Discharge Activity: Activity As Tolerated Prescriptions: Ipratropium/Albuterol Sulfate [Duoneb 3 ml Ampul] 3 ml NEB RTQ6 #120 vial.neb Methylprednisolone [Medrol Dosepack (4 mg/Tab) 21 Tab/Dosepak] 4 mg PO ASDIR PRN #21 tab.ds.pk PRN Reason: Home Medications: Alprazolam [Xanax 0.5 mg Tablet] 0.5 mg PO Q8HP PRN 12/20/17 Fluticasone Propionate [Flonase Nasal [place] 50 Mcg/[place] 16 gm] 2 sprays NASL DAILY 12/20/17 Folic Acid [Folvite 1 mg Tablet] 1 mg PO DAILY 12/20/17 Hydrocodone/Acetaminophen [Hydrocodone-Acetamin 5-325 mg] 1 tab PO Q6HP PRN Metformin HCl [Glucophage] 1,000 mg PO BIDBS 12/20/17 Metoprolol Tartrate [Lopressor 50 mg Tablet] 50 mg PO Q12 12/20/17 Nifedipine [Nifedipine ER] 90 mg PO DAILY 12/20/17 Ondansetron HCl [Zofran 4 mg Tablet] 4 mg PO Q8HP PRN 12/20/17 Oxycodone HCl [Oxy-Ir 5 mg Tablet] 5 mg PO Q6HP PRN 12/20/17 Pantoprazole Sodium [Protonix] 40 mg PO BID 12/20/17 Acetaminophen [Tylenol 325 mg Tablet] 650 mg PO Q4HP PRN tablet 12/21/17 Ipratropium/Albuterol Sulfate [Duoneb 3 ml Ampul] 3 ml NEB RTQ6 #120 vial.neb Methylprednisolone [Medrol Dosepack (4 mg/Tab) 21 Tab/Dosepak] 4 mg PO ASDIR PRN #21 tab.ds.pk 12/21/17 History of Present Illness Patient complains of: Shortness of breath History of Present Illness: GOKUL SALAZAR is a 72 year old female who comes to the emergency department complaining of pain across her lower posterior thoracic ribs for the last 2 weeks, initially she thought it was a pulled muscle or that it was her right kidney so last Wednesday she went to her primary care physician, she had done x- ray of the hips, urinalysis and blood work and everything was negative. She also noted that she has started being progressively short of breath, tells me that she did not pay attention initially. Patient has chronic respiratory failure on 2 L oxygen at night and today she noted that her oxygenation dropped to 85% on room air associated with worsening right thoracic pain going up to 10/ 10 in intensity related with her breathing. Denies cough, phlegm, nausea, vomiting, fever but complains of chills she had mild wheezing. Patient has history of right lower lobe cancer currently on chemotherapy on Fridays and has a Port-A-Cath. 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 Initially patient diagnosed with COPD exacerbation, treatment given in the ED and patient improved who is patient's oncologist was called and requested admission to the hospitalist service Hospital Course Hospital Course: Patient was admitted to a telemetry bed and a consultation with her treating oncologist Dr. Barreto. Patient was scheduled to undergo a thoracentesis of a suspected right malignant effusion. X-ray showed portions of it free-flowing. An ultrasound was done at the time of the thoracentesis was to be done which could not identify clearly the effusion. A CT of the chest was ordered to define the effusion. Patient had received nebulizing treatments and steroids while in the hospital. It was Dr. Barreto's opinion the patient can be discharged after the CAT scan performed and would follow-up in the office for referral to thoracic surgery for drainage and treatment of the effusion. The patient was at her baseline O2 requirements of 2 L/min without any complaints and was agreeable to this plan. She was discharged on a Medrol Dosepak and was given a prescription for DuoNeb's which her COPD appeared to respond better to than just albuterol neb Physical Exam Vital Signs: Temp Pulse Resp BP Pulse Ox 97.7 F 85 18 174/82 H 97 12/21/17 07:48 12/21/17 09:52 12/21/17 09:52 12/21/17 07:48 12/21/17 09:52 Intake & Output 12/20/17 12/21/17 12/22/17 06:59 06:59 06:59 Intake Total 0 1015 Output Total 500 900 Balance -500 115 Weight 66.2 kg 65.2 kg General appearance: PRESENT: no acute distress, well-developed, well-nourished Eye exam: PRESENT: conjunctiva pink, EOMI, PERRLA. ABSENT: scleral icterus Neck exam: ABSENT: carotid bruit, JVD, lymphadenopathy, thyromegaly Respiratory exam: PRESENT: clear to auscultation harish, decreased breath sounds, other - Diminished breath sounds right base. ABSENT: rales, rhonchi, wheezes Cardiovascular exam: PRESENT: RRR. ABSENT: diastolic murmur, rubs, systolic murmur GI/Abdominal exam: PRESENT: normal bowel sounds, soft. ABSENT: distended, guarding, mass, organolmegaly, rebound, tenderness Neurological exam: PRESENT: alert, awake, oriented to person, oriented to place , oriented to time, oriented to situation, CN II-XII grossly intact. ABSENT: motor sensory deficit Skin exam: PRESENT: dry, intact, warm. ABSENT: cyanosis, rash Results Impressions: Chest X-Ray 12/20/17 01:56 IMPRESSION: Large right pleural effusion, partially free flowing. Chest Ultrasound 12/20/17 03:58 IMPRESSION: No pleural effusion identified. Qualifiers - * PATIENT BEING DISCHARGED WITH ANY OF THE FOLLOWING DIAGNOSIS: No Plan Discharge Plan: Outpatient follow-up for thoracic surgical referral Time Spent: Greater than 30 Minutes
[2017-12-21] MEDS: ALPRAZOLAM 0.5 MG TABLET PO PRN (13:58)
[2017-12-21 14:29] VITALS: BP 113/61
--- NOTE | 2017-12-21 15:38 | RADIOLOGY REPORT (SQ) ---
EXAM DESCRIPTION: CT CHEST WITH COMPLETED DATE/TIME: 12/21/2017 2:38 pm REASON FOR STUDY: lung ca R10.10 UPPER ABDOMINAL PAIN, UNSPECIFIED J90 PLEURAL EFFUSION, NOT ELSEW HERE CLASSIFIED COMPARISON: 10/27/2017 TECHNIQUE: CT scan of the chest performed using helical scanning technique with dynamic intravenous contrast injection. Images reviewed with lung, soft tissue and bone windows. Reconstructed coronal and sagittal MPR and MIP images reviewed. All images stored on PACS. All CT scanners at this facility use dose modulation, iterative reconstruction, and/or weight based d osing when appropriate to reduce radiation dose to as low as reasonably achievable (ALARA). [facility]: Dose Right [facility]: CareDose [facility]: Dose Right [facility]: Teradose 4D [facility]: [employer] CONTRAST TYPE AND DOSE: See separate report of the same date. RENAL FUNCTION: See separate report of the same date. RADIATION DOSE: CT Rad equipment meets quality standard of care and radiation dose reduction techniq ues were employed. CTDIvol: 4.5 - 5.2 mGy. DLP: 722 mGy-cm. . LIMITATIONS: None. FINDINGS: LUNGS AND PLEURA: Left upper lobe spiculated nodule measures 8 mm, previously about 6 mm. New right upper lung pleural-based nodule 1.0 x 2.7 cm. Increasing consolidation in the right lower lung with increasing volume loss. No significant pleural fluid. HILAR AND MEDIASTINAL STRUCTURES: No identified masses or abnormal nodes. HEART AND VASCULAR STRUCTURES: No aneurysm or dissection. No central pulmonary emboli. No pericardi al effusion. HARDWARE: None in the chest. UPPER ABDOMEN: See separate report of the CT of the abdomen. THYROID AND OTHER SOFT TISSUES: No masses. No adenopathy. BONES: Stable sclerotic lesion T10. OTHER: No other significant finding. IMPRESSION: New right upper lobe nodule and increasing size of left upper lobe nodule worrisome for metastatic disease. Increasing consolidation right lower lobe cannot exclude local recurrence. No s ignificant pleural effusion. TECHNICAL DOCUMENTATION: JOB ID: [id number] Quality ID # [id number]: Final reports with documentation of one or more dose reduction techniques (e.g., Au tomated exposure control, adjustment of the mA and/or kV according to patient size, use of iterative reconstruction technique) 2010 [employer]- All Rights Reserved Reading location - IP/workstation name: [email or web address]
--- NOTE | 2017-12-21 15:48 | RADIOLOGY REPORT (SQ) ---
EXAM DESCRIPTION: CT ABD/PELVIS WITH IV ONLY COMPLETED DATE/TIME: 12/21/2017 2:38 pm REASON FOR STUDY: lung ca R10.10 UPPER ABDOMINAL PAIN, UNSPECIFIED J90 PLEURAL EFFUSION, NOT ELSEW HERE CLASSIFIED COMPARISON: PET-CT 07/26/2016 CT ABDOMEN PELVIS 02/05/2017, 04/27/2017, 07/21/2017, 10/27/2017 TECHNIQUE: CT scan of the abdomen and pelvis performed using helical scanning technique with dynamic intravenous contrast injection. No oral contrast. Images reviewed with lung, soft tissue, and bone windows. Reconstructed coronal and sagittal MPR images reviewed. Delayed images for evaluation of the urinary system also acquired. All images stored on PACS. All CT scanners at this facility use dose modulation, iterative reconstruction, and/or weight based d osing when appropriate to reduce radiation dose to as low as reasonably achievable (ALARA). [facility]: Dose Right [facility]: CareDose [facility]: Dose Right [facility]: Teradose 4D [facility]: [employer] CONTRAST TYPE AND DOSE: contrast/concentration: Isovue 350.00 mg/ml; Total Contrast Delivered: 70.0 ml; Total Saline Delivered: 66.0 ml RENAL FUNCTION: Creatinine 0.62 RADIATION DOSE: Reported with the CT chest today LIMITATIONS: None. FINDINGS: LOWER CHEST: Please see CT chest dictation for further details LIVER: Normal size. No masses. No dilated ducts. SPLEEN: Normal size. No focal lesions. PANCREAS: No masses. No significant calcifications. No adjacent inflammation or peripancreatic fluid collections. Pancreatic duct not dilated. GALLBLADDER: Stones in the gallbladder without gallbladder wall thickening or pericholecystic fluid. ADRENAL GLANDS: Right adrenal gland unremarkable. Stable left 2.5 x 1.7 cm adrenal adenoma RIGHT KIDNEY AND URETER: No solid masses. No significant calcifications. No hydronephrosis or hyd roureter. LEFT KIDNEY AND URETER: No solid masses. No significant calcifications. No hydronephrosis or hydr oureter. AORTA AND VESSELS: No aneurysm. No dissection. Renal arteries, SMA, celiac without stenosis. RETROPERITONEUM: No retroperitoneal adenopathy, hemorrhage or masses. BOWEL AND PERITONEAL CAVITY: No CT evidence of bowel obstruction or free intraperitoneal air or fluid . Colonic diverticulosis. Moderate stool throughout the colon. APPENDIX: Normal. PELVIS: No mass. No free fluid. Normal bladder. Post hysterectomy ABDOMINAL WALL: No masses. No hernias. BONES: T10 sclerotic metastatic lesion similar compared to previous studies OTHER: No other significant finding. IMPRESSION: Stable T10 sclerotic metastatic lesion. Gallstones in the gallbladder without gallbladder wall thickening or pericholecystic fluid. TECHNICAL DOCUMENTATION: JOB ID: [id number] Quality ID # 436: Final reports with documentation of one or more dose reduction techniques (e.g., Au tomated exposure control, adjustment of the mA and/or kV according to patient size, use of iterative reconstruction technique) 2010 [employer]- All Rights Reserved Reading location - IP/workstation name: [email or web address]
== END 2017-12-21 15:50 | disposition home or self-care (01) ==
LOC: ER 21:59 → EH 12-20 04:07 → 5 12-20 05:13
PROVIDERS: ADMIT Internal Medicine; ATTEND Internal Medicine
DX: J96.21 Acute and chronic respiratory failure with hypoxia (principal); C34.31 Malignant neoplasm of lower lobe, right bronchus or lung; J91.0 Malignant pleural effusion; J44.1 Chronic obstructive pulmonary disease with (acute) exacerbation; I10 Essential (primary) hypertension; E11.9 Type 2 diabetes mellitus without complications; F17.210 Nicotine dependence, cigarettes, uncomplicated; C79.51 Secondary malignant neoplasm of bone; F41.9 Anxiety disorder, unspecified; R68.83 Chills (without fever); R00.0 Tachycardia, unspecified; I49.3 Ventricular premature depolarization; R14.3 Flatulence; Z99.81 Dependence on supplemental oxygen; Z79.899 Other long term (current) drug therapy; Z95.828 Presence of other vascular implants and grafts; Z90.2 Acquired absence of lung [part of]; Z82.49 Family history of ischemic heart disease and other diseases of the circulatory system; Z79.84 Long term (current) use of oral hypoglycemic drugs
CPT/HCPCS: 93005; 36591; 96376; 94640 ×4; 99291; 96374; 96375; 36415 ×2; 87086; 82553; 82962 ×2; 82550; 83615; 85025; 85610; 85730; 80053; 81001; 84484; 83036; 83880; 71045 ×2; 76604; 71260; 74177; 93010; G0378 ×2; A9270 ×19; J2930; J1650 ×2; J1170; J2550; J7120; J1815; J7620

== ENCOUNTER → 2018-03-14 | Outpatient (CLI) | payer MEDICARE ==
--- NOTE | 2018-03-14 15:52 | RADIOLOGY REPORT (SQ) ---
EXAM DESCRIPTION: CT CHEST WITH COMPLETED DATE/TIME: 03/14/2018 3:31 pm REASON FOR STUDY: C34.31 MALIGNANT NEOPLASM OF LOWER LOBE, RIGHT BRONCHUS OR LUNG C34.31 MALIGNANT NEOPLASM OF LOWER LOBE, RIGHT BRONCHUS OR L COMPARISON: 12/21/2017 TECHNIQUE: CT scan of the chest performed using helical scanning technique with dynamic intravenous contrast injection. Images reviewed with lung, soft tissue and bone windows. Reconstructed coronal and sagittal MPR and MIP images reviewed. All images stored on PACS. All CT scanners at this facility use dose modulation, iterative reconstruction, and/or weight based d osing when appropriate to reduce radiation dose to as low as reasonably achievable (ALARA). [facility]: Dose Right [facility]: CareDose [facility]: Dose Right [facility]: Teradose 4D [facility]: [employer] CONTRAST TYPE AND DOSE: 75 mL Omnipaque 350- low osmolar. RENAL FUNCTION: Creatinine 0.6 RADIATION DOSE: . LIMITATIONS: None. FINDINGS: LUNGS AND PLEURA: Reduced volume in the right lung compared to the left. There is conflue nt relatively low density opacification in the medial right base. Spiculated left upper lung nodule is slightly larger and better defined. HILAR AND MEDIASTINAL STRUCTURES: No identified masses or abnormal nodes. HEART AND VASCULAR STRUCTURES: No aneurysm or dissection. Coronary atherosclerosis. HARDWARE: None in the chest. UPPER ABDOMEN: Cholelithiasis. THYROID AND OTHER SOFT TISSUES: No masses. No adenopathy. BONES: There is a sclerotic lesion at T10. OTHER: No other significant finding. IMPRESSION: 1. Reduced volume in the right lung with considerable confluent density in the right ba se medially that likely represents atelectasis versus neoplasm. The right hemithorax generally appea rs better aerated than on the prior study. 2. Left upper lobe spiculated nodule is slightly more prominent than on the prior study. 3. Sclerotic lesion in the L2 in vertebral body. 4. Cholelithiasis. TECHNICAL DOCUMENTATION: JOB ID: [id number] Quality ID # 436: Final reports with documentation of one or more dose reduction techniques (e.g., Au tomated exposure control, adjustment of the mA and/or kV according to patient size, use of iterative reconstruction technique) 2010 [employer]- All Rights Reserved Reading location - IP/workstation name: [email or web address]
--- NOTE | 2018-03-14 16:06 | RADIOLOGY REPORT (SQ) ---
EXAM DESCRIPTION: CT ABD/PELVIS WITH IV ONLY COMPLETED DATE/TIME: 03/14/2018 3:32 pm REASON FOR STUDY: C34.31 MALIGNANT NEOPLASM OF LOWER LOBE, RIGHT BRONCHUS OR LUNG C34.31 MALIGNANT NEOPLASM OF LOWER LOBE, RIGHT BRONCHUS OR L COMPARISON: 12/21/2017 TECHNIQUE: CT scan of the abdomen and pelvis performed using helical scanning technique with dynamic intravenous contrast injection. No oral contrast. Images reviewed with lung, soft tissue, and bone windows. Reconstructed coronal and sagittal MPR images reviewed. Delayed images for evaluation of the urinary system also acquired. All images stored on PACS. All CT scanners at this facility use dose modulation, iterative reconstruction, and/or weight based d osing when appropriate to reduce radiation dose to as low as reasonably achievable (ALARA). [facility]: Dose Right [facility]: CareDose [facility]: Dose Right [facility]: Teradose 4D [facility]: [employer] CONTRAST TYPE AND DOSE: contrast/concentration: Isovue 350.00 mg/ml; Total Contrast Delivered: 75.0 ml; Total Saline Delivered: 57.0 ml RENAL FUNCTION: Creatinine 0.6 RADIATION DOSE: CT Rad equipment meets quality standard of care and radiation dose reduction techniq ues were employed. CTDIvol: 4.4 - 4.9 mGy. DLP: 667 mGy-cm.. LIMITATIONS: None. FINDINGS: LOWER CHEST: See separate report of the CT of the chest. LIVER: Normal size. No masses. No dilated ducts. SPLEEN: Normal size. No focal lesions. PANCREAS: No masses. No significant calcifications. No adjacent inflammation or peripancreatic fluid collections. Pancreatic duct not dilated. GALLBLADDER: Some small gallstones are present. ADRENAL GLANDS: Stable left adrenal nodule. RIGHT KIDNEY AND URETER: No solid masses. No significant calcifications. No hydronephrosis or hyd roureter. LEFT KIDNEY AND URETER: No solid masses. No significant calcifications. No hydronephrosis or hydr oureter. AORTA AND VESSELS: No aneurysm. Atherosclerosis. There is atherosclerosis at the origins of the charlette al arteries. RETROPERITONEUM: No retroperitoneal adenopathy, hemorrhage or masses. BOWEL AND PERITONEAL CAVITY: Sigmoid diverticulosis. No acute inflammation. No obvious osseous lesi on. APPENDIX: Normal. PELVIS: No mass. No free fluid. Normal bladder. ABDOMINAL WALL: No mass. No abdominal wall hernia. BONES: There is sclerosis at T10. Lower lumbar degenerative changes are present. OTHER: No other significant finding. IMPRESSION: Stable left adrenal nodule. Cholelithiasis. Sclerotic lesion at T10. Lower lumbar deg enerative changes. TECHNICAL DOCUMENTATION: JOB ID: [id number] Quality ID # 436: Final reports with documentation of one or more dose reduction techniques (e.g., Au tomated exposure control, adjustment of the mA and/or kV according to patient size, use of iterative reconstruction technique) 2010 [employer]- All Rights Reserved Reading location - IP/workstation name: [email or web address]
== END ==
LOC: RAD 16:23
PROVIDERS: ATTEND Physician Assistant Medical
DX: C34.31 Malignant neoplasm of lower lobe, right bronchus or lung (principal)
CPT/HCPCS: 71260; 74177; 82565

== ENCOUNTER 2018-04-20 21:08 | Emergency (ER) | payer MEDICARE ==
[2018-04-20] MEDS ORDERED: LEVALBUTEROL HCL NEB 0.63 MG/3 ML AMPUL NEB ONE (23:24)
--- NOTE | 2018-04-20 23:27 | ER Document Report ---
ED General - General Chief Complaint: Irregular Pulse Stated Complaint: WEAKNESS Time Seen by Provider: 04/20/18 23:11 Primary Care Provider: JILLIAN TOWNSEND PA-C [Primary Care Provider] - Follow up as needed Notes: Patient is a 72-year-old female presents with complaint of feeling more short of breath than usual. Initial chief complaint was weakness and low heart rate. She says her heart rate usually runs in the 90s to low 100s. She says that she noticed the other day that her heart rate was in the 60s and her blood pressure was 110 over 70s. She said this is little bit lower than normal for her. She called her oncologist, Dr. Esqueda this morning who told her to hold her nighttime dose of metoprolol. She did not take her nighttime dose of metoprolol and her heart rate is in the 90s and her blood pressure is elevated again. No fevers. No vomiting. No chest pain. No abdominal pain. She says she feels more short of breath than normal over last 4 days. She has had some mucousy type cough. She does still smoke. She has a history of lung cancer is on chemotherapy once every 3 weeks. She does have a history of pleural effusion. TRAVEL OUTSIDE OF THE [place] IN LAST 30 DAYS: No - Related Data Allergies/Adverse Reactions: nickel [Nickel] Adverse Reaction (Severe, Verified 04/21/16 17:57) RASH Past Medical History - Social History Smoking Status: Current Every Day Smoker Frequency of alcohol use: None Drug Abuse: None Family History: Reviewed & Not Pertinent, Arthritis, CAD, CVA, DM, Hyperlipidemia, Hypertension, Malignancy, Thyroid Disfunction - Past Medical History Cardiac Medical History: Reports: Hx Hypercholesterolemia, Hx Hypertension Pulmonary Medical History: Reports: Hx Bronchitis, Hx COPD, Hx Pneumonia Endocrine Medical History: Reports: Hx Diabetes Mellitus Type 2 Renal/ Medical History: Denies: Hx Peritoneal Dialysis Malignancy Medical History: Reports: Hx Lung Cancer - R lower lobe GI Medical History: Reports: Hx Diverticulitis, Hx Gastroesophageal Reflux Disease, Hx Hiatal Hernia, Hx Pancreatitis, Hx Colonoscopy, Hx Endoscopic Retrograde Cholangio, Hx Endoscopy Musculoskeletal Medical History: Reports Hx Arthritis - GENERALIZED, Reports Hx Musculoskeletal Deformity, Reports Hx Musculoskeletal Trauma Psychiatric Medical History: Reports: Hx Anxiety Denies: Hx Depression Past Surgical History: Reports: Hx Cardiac Catheterization - Patient denies CAD seen, cath was related to the L subclavian artery stent., Hx Cardiac Surgery - subclavian stent, Hx Hysterectomy, Hx Nose Surgery - Nasal septal straightening when sinus surgery was performed, Hx Thyroid Surgery - Thyroid nodule resected, Hx Vascular Surgery - Left subclavian artery stent. Denies: Hx Pacemaker - Immunizations Immunizations up to date: Yes Hx Diphtheria, Pertussis, Tetanus Vaccination: Yes - 11/29/2006 Hx Pneumococcal Vaccination: 03/01/12 Review of Systems - Review of Systems Notes: My Normal Review Basic REVIEW OF SYSTEMS: CONSTITUTIONAL : Denies fever, chills, or sweats. Denies recent illness. CARDIOVASCULAR: Denies chest pain. RESPIRATORY: Cough. Sensation of difficulty breathing. GASTROINTESTINAL: Denies abdominal pain. Denies nausea, vomiting, or diarrhea. MUSCULOSKELETAL: Denies neck or back pain or joint pain or swelling. SKIN: Denies rash or skin lesions. NEUROLOGICAL: Denies altered mental status or loss of consciousness. Denies headache. Denies weakness or paralysis or loss of use of either side. Denies problems with gait or speech. Denies sensory or motor loss. ALL OTHER SYSTEMS REVIEWED AND NEGATIVE. Physical Exam - Vital signs Vitals: Temp Pulse Resp BP Pulse Ox 98.8 F 100 24 H 134/73 H 98 04/20/18 21:39 04/20/18 21:39 04/20/18 21:39 04/20/18 21:39 04/20/18 21:39 - Notes Notes: General Appearance: Well nourished, alert, cooperative, no acute distress, no obvious discomfort. Well-appearing. Vitals: reviewed, See vital signs table. Head: no swelling or tenderness to the head Eyes: PERRL, EOMI, Conjuctiva clear Mouth: No decreasd moisture Throat: No tonsillar inflammation, No airway obstruction, Neck: Supple, no neck tenderness, No thyromegaly Lungs: No wheezing, No rales, initial rhonchorous breath sounds in the right upper lobe which cleared with coughing. Lungs otherwise clear. Heart: Normal rate, Regular rythm, No murmur, no rub Abdomen: Normal BS, soft, No rigidity, No abdominal tenderness, No guarding, no rebound Extremities: strength 5/5 in all extremities, good pulses in all extremities, no swelling or tenderness in the extremities, no edema. Skin: warm, dry, appropriate color, no rash Neuro: speech clear, oriented x 3, normal affect, responds appropriately to questions. Course - Re-evaluation Re-evalutation: 04/21/18 02:00 On reevaluation Xopenex treatment made her feel much improved. She says Xopenex definitely makes her feel less tremulous than she likes better than albuterol she uses at home. She says since receiving this her breathing feels much better. Vital signs remained stable. She is slightly tachycardic which says is actually her normal. Chest x-ray just shows a very small pleural effusion. I am waiting for chemistry panel come back. 04/21/18 02:45 Patient's chemistry panel did not show any concerning findings. Patient continues to feel improved. She looks well. I informed her she should start taking her metoprolol again. Her heart rate was 60s and she had normal blood pressure with it and therefore does not indication to stop the medication at this time. I suspect she is feeling weak but she felt more short of breath which seemed to be related to her rhonchorous breath sounds which improved with the Xopenex. I did speak with Dr. Levy, patient's oncologist, and she is agreeable with plan has no further recommendations at this time. I informed patient to return to ER immediately if she has difficulty breathing, fevers, or if she is feeling worse in any way. Patient agrees with plan will be discharged home. Dictation of this chart was performed using voice recognition software; therefore, there may be some unintended grammatical errors. - Vital Signs Vital signs: Temp Pulse Resp BP Pulse Ox 98.1 F 100 24 H 134/73 H 98 04/21/18 01:44 04/20/18 21:39 04/20/18 21:39 04/20/18 21:39 04/20/18 21:39 - Laboratory Result Diagrams: 04/21/18 00:53 04/21/18 00:53 Laboratory results interpreted by me: 04/21/18 04/21/18 00:53 00:53 WBC 3.0 L RDW 15.2 H Seg Neuts % (Manual) 11 L Band Neutrophils % 1 L Lymphocytes % (Manual) 67 H Monocytes % (Manual) 17 H Abs Neuts (Manual) 0.4 L Carbon Dioxide 33 H Anion Gap 4 L Creatinine 0.51 L Glucose 120 H Total Protein 5.4 L Albumin 3.3 L - EKG Interpretation by Me Additional EKG results interpreted by me: 04/21/18 01:55 EKG is reviewed and interpreted by me. EKG shows sinus tachycardia with a rate of [address] segment elevation or depression. No ischemic T wave inversions. WV interval, QRS duration, QT intervals are within normal range. Old EKG for comparison is from December 19, 2017. Discharge - Discharge Clinical Impression: Weakness Dyspnea Qualifiers: Dyspnea type: unspecified Qualified Code(s): R06.00 - Dyspnea, unspecified Condition: Good Disposition: HOME, SELF-CARE Additional Instructions: I have prescribed you Xopenex. This will help with your intermittent shortness of breath. Please use your nebulizer machine to take it just like you would with your albuterol. Please continue to take your metoprolol twice a day as prescribed. Please return to the ER immediately if you have fevers, chest pain, worsening difficulty breathing, or if you feel that you are worsening in any way. Please follow-up with Dr. Levy in the next couple of days. Prescriptions: Levalbuterol HCl [Xopenex Neb 0.63 mg/3 ml Ampul] 0.63 mg NEB [id number] PRN #[id number] [email or web address] PRN Reason: Referrals: ASHLY LEVY MD [ACTIVE STAFF] - 04/22/18
--- NOTE | 2018-04-20 23:54 | RADIOLOGY REPORT (SQ) ---
EXAM DESCRIPTION: XR CHEST 1 VIEW COMPLETED DATE/TME: 04/20/2018 23:23 CLINICAL HISTORY: 72 years, Female, cough COMPARISON: 12/20/2017 chest x-ray NUMBER OF VIEWS: 1 TECHNIQUE: Portable chest LIMITATIONS: None. FINDINGS: Heart size is normal. Underlying COPD. Atheromatous change thoracic ureter. [id number] catheter in place. Surgical clips in the right neck. Elevation of the right hemidiaphragm. Small right pleural effusion. No pneumothorax. IMPRESSION: Small right pleural effusion. Underlying COPD. Postsurgical change as above copyright 2010 [employer]- All Rights Reserved
[2018-04-21 01:08] LABS: APPEARANCE,URINE CLEAR; BILIRUBIN,URINE NEGATIVE (NEGATIVE); COLOR,URINE STRAW; GLUCOSE, URINE NEGATIVE (NEGATIVE); KETONES,URINE NEGATIVE (NEGATIVE); LEUKOCYTE ESTERASE,URINE NEGATIVE (NEGATIVE); NITRITE,URINE NEGATIVE (NEGATIVE); PROTEIN,URINE NEGATIVE (NEGATIVE); URINE SPECIFIC GRAVITY 1.005; UROBILINOGEN,URINE NEGATIVE mg/dL (<2.0)
[2018-04-21 01:14] LABS: HEMATOCRIT 36.5 % (36.0-47.0); HEMOGLOBIN 12.3 g/dL (12.0-15.5); MEAN CORPUSCULAR HEMOGLOBIN 29.6 pg (27.0-33.4); MEAN CORPUSCULAR HGB CONC 33.7 g/dL (32.0-36.0); MEAN CORPUSCULAR VOLUME 88 fl (80-97); PLATELET COUNT 292 10^3/uL (150-450); RED BLOOD COUNT 4.15 10^6/uL (3.72-5.28); RED CELL DISTRIBUTION WIDTH 15.2 % (11.5-14.0)
[2018-04-21 01:51] LABS: ABSOLUTE LYMPHOCYTES# (MANUAL) 2.1 10^3/uL (0.5-4.7); ABSOLUTE MONOCYTES # (MANUAL) 0.5 10^3/uL (0.1-1.4); ABSOLUTE NEUTROPHILS# (MANUAL) 0.4 10^3/uL (1.7-8.2); ANISOCYTOSIS SLIGHT; BAND NEUTROPHILS % (MANUAL) 1 % (3-5); BASOPHILS % (MANUAL) 0 % (0-2); EOSINOPHILS % (MANUAL) 2 % (0-6); LYMPHOCYTES % (MANUAL) 67 % (13-45); MONOCYTES % (MANUAL) 17 % (3-13); SEGMENTED NEUTROPHILS % (MAN) 11 % (42-78); TOTAL CELLS COUNTED 100
[2018-04-21 01:52] LABS: HYPOCHROMASIA SLIGHT; PLATELET COMMENT ADEQUATE
[2018-04-21 01:57] LABS: CALCIUM 8.8 mg/dL (8.4-10.2); GLUCOSE 120 mg/dL (75-110)
[2018-04-21 01:58] LABS: ALANINE AMINOTRANSFERASE 38 U/L (9-52); ALBUMIN 3.3 g/dL (3.5-5.0); ALKALINE PHOSPHATASE 80 U/L (38-126); ASPARTATE AMINO TRANSFERASE 18 U/L (14-36); BILIRUBIN,DIRECT 0.1 mg/dL (0.0-0.4); BILIRUBIN,TOTAL 0.2 mg/dL (0.2-1.3); BLOOD UREA NITROGEN 9 mg/dL (7-20); CARBON DIOXIDE 33 mmol/L (22-30); CHLORIDE 100 mmol/L (98-107); POTASSIUM 4.1 mmol/L (3.6-5.0); SODIUM 137.2 mmol/L (137-145)
[2018-04-21 01:59] LABS: TOTAL PROTEIN 5.4 g/dL (6.3-8.2)
[2018-04-21 02:00] LABS: ANION GAP 4 (5-19)
[2018-04-21 06:18] VITALS: BP 163/82
--- NOTE | 2018-04-21 07:43 | EKG REPORT ---
SEVERITY:- OTHERWISE NORMAL ECG - SINUS TACHYCARDIA : Confirmed by: Tejas Ray MD 21-Apr-2018 07:42:09
[2018-04-21 11:35] LABS: PATH REVIEW PATHOLOGIST REVIEWED
== END 2018-04-21 03:25 | disposition home or self-care (01) ==
LOC: ER 21:08
DX: J44.9 Chronic obstructive pulmonary disease, unspecified (principal); C34.90 Malignant neoplasm of unspecified part of unspecified bronchus or lung; J90 Pleural effusion, not elsewhere classified; I10 Essential (primary) hypertension; Z79.899 Other long term (current) drug therapy; R06.02 Shortness of breath; R53.1 Weakness; R00.0 Tachycardia, unspecified; R05 Cough; E11.9 Type 2 diabetes mellitus without complications; F17.200 Nicotine dependence, unspecified, uncomplicated; Z87.01 Personal history of pneumonia (recurrent)
CPT/HCPCS: 93005; 36591; 94640; 99284; 36415; 85025; 80053; 81001; 84484; 71045; 93010; A9270; J7614

== ENCOUNTER → 2018-05-24 | Outpatient (CLI) | payer MEDICARE ==
--- NOTE | 2018-05-24 16:01 | RADIOLOGY REPORT (SQ) ---
EXAM DESCRIPTION: CT CHEST WITH COMPLETED DATE/TIME: 05/24/2018 3:26 pm REASON FOR STUDY: MALIGNANT NEOPLASM OF LOWER LOBE, RIGHT BRONCHUS OR LUNG C34.31 MALIGNANT NEOPLAS M OF LOWER LOBE, RIGHT BRONCHUS OR L COMPARISON: 03/14/2018 TECHNIQUE: CT scan of the chest performed using helical scanning technique with dynamic intravenous contrast injection. Images reviewed with lung, soft tissue and bone windows. Reconstructed coronal and sagittal MPR and MIP images reviewed. All images stored on PACS. All CT scanners at this facility use dose modulation, iterative reconstruction, and/or weight based d osing when appropriate to reduce radiation dose to as low as reasonably achievable (ALARA). [facility]: Dose Right [facility]: CareDose [facility]: Dose Right [facility]: Teradose 4D [facility]: [email or web address] CONTRAST TYPE AND DOSE: 74 ML Omnipaque 300- low osmolar. RENAL FUNCTION: CREATININE 0.6 RADIATION DOSE: . LIMITATIONS: None. FINDINGS: LUNGS AND PLEURA: THE LEFT APICAL LESION HAS SLIGHTLY INCREASED IN SIZE AND NOW MEASURES 1 0.6 MM. BILATERAL EMPHYSEMATOUS CHANGES ARE STABLE. DENSE CONSOLIDATION IN THE RIGHT LOWER LOBE IS STABLE. RIGHT PLEURAL EFFUSION IS SLIGHTLY LARGER IN SIZE. HILAR AND MEDIASTINAL STRUCTURES: SUB- CARINAL FULLNESS REMAINS. HEART AND VASCULAR STRUCTURES: STABLE IN APPEARANCE. HARDWARE: [id number] REMAINS IN PLACE. UPPER ABDOMEN: HETEROGENEOUS ATTENUATION THROUGHOUT THE LIVER. THYROID AND OTHER SOFT TISSUES: THE RIGHT LOBE OF THE THYROID GLAND IS BEEN REMOVED. THE LEFT IS UNR EMARKABLE. BONES: SCLEROTIC L2 LESION IS AGAIN NOTED. OTHER: NONE. IMPRESSION: 1. THE LEFT APICAL NODULE HAS INCREASED IN SIZE AND NOW MEASURES 10.6 MM. NEOPLASM IS SUSPECTED. 2. DENSE CONSOLIDATION IN THE RIGHT LOWER LOBE REMAINS. PERSISTENT RIGHT SIDED VOLUME LOSS. 3. SCLEROTIC LESION IN THE BODY OF L2 IS UNCHANGED. TECHNICAL DOCUMENTATION: JOB ID: [id number] Quality ID # [id number]: Final reports with documentation of one or more dose reduction techniques (e.g., Au tomated exposure control, adjustment of the mA and/or kV according to patient size, use of iterative reconstruction technique) 2010 [employer]- All Rights Reserved Reading location - IP/workstation name: [email or web address]
--- NOTE | 2018-05-24 16:04 | RADIOLOGY REPORT (SQ) ---
EXAM DESCRIPTION: CT ABD/PELVIS WITH IV ONLY COMPLETED DATE/TIME: 05/24/2018 3:26 pm REASON FOR STUDY: MALIGNANT NEOPLASM OF LOWER LOBE, RIGHT BRONCHUS OR LUNG C34.31 MALIGNANT NEOPLAS M OF LOWER LOBE, RIGHT BRONCHUS OR L COMPARISON: 03/14/2018 TECHNIQUE: CT scan of the abdomen and pelvis performed using helical scanning technique with dynamic intravenous contrast injection. No oral contrast. Images reviewed with lung, soft tissue, and bone windows. Reconstructed coronal and sagittal MPR images reviewed. Delayed images for evaluation of the urinary system also acquired. All images stored on PACS. All CT scanners at this facility use dose modulation, iterative reconstruction, and/or weight based d osing when appropriate to reduce radiation dose to as low as reasonably achievable (ALARA). [facility]: Dose Right [facility]: CareDose [facility]: Dose Right [facility]: Teradose 4D [facility]: [place] CONTRAST TYPE AND DOSE: contrast/concentration: Isovue 350.00 mg/ml; Total Contrast Delivered: 74.0 ml; Total Saline Delivered: 67.0 ml RENAL FUNCTION: Creatinine 0.6 RADIATION DOSE: CT Rad equipment meets quality standard of care and radiation dose reduction techniq ues were employed. CTDIvol: 4.4 - 4.6 mGy. DLP: 663 mGy-cm.. LIMITATIONS: None. FINDINGS: LOWER CHEST: Dense consolidation in the right base. Please refer to the chest CT for furt her discussion. LIVER: Mild heterogeneous attenuation. No focal masses. SPLEEN: Normal size. No focal lesions. PANCREAS: No masses. No significant calcifications. No adjacent inflammation or peripancreatic fluid collections. Pancreatic duct not dilated. GALLBLADDER: No identified stones by CT criteria. No inflammatory changes to suggest cholecystitis. ADRENAL GLANDS: There is a stable left adrenal lesion. RIGHT KIDNEY AND URETER: No solid masses. There is a simple right renal cyst. No significant calci fications. No hydronephrosis or hydroureter. LEFT KIDNEY AND URETER: No solid masses. No significant calcifications. No hydronephrosis or hydr oureter. AORTA AND VESSELS: Aorta demonstrates atherosclerotic change. No aneurysmal dilatation. Celiac axis and SMA are widely patent. RETROPERITONEUM: No retroperitoneal adenopathy, hemorrhage or masses. BOWEL AND PERITONEAL CAVITY: Scattered diverticuli. No acute diverticulitis. APPENDIX: Normal. PELVIS: No mass. No free fluid. Normal bladder. ABDOMINAL WALL: No masses. No hernias. BONES: Sclerotic lesion in the body of T10 is unchanged. No additional findings. OTHER: No other significant finding. IMPRESSION: Stable CT abdomen pelvis with persistent left adrenal mass. Sclerotic lesion in the T10 vertebral body is unchanged. TECHNICAL DOCUMENTATION: JOB ID: [id number] Quality ID # [id number]: Final reports with documentation of one or more dose reduction techniques (e.g., Au tomated exposure control, adjustment of the mA and/or kV according to patient size, use of iterative reconstruction technique) 2010 [email or web address]- All Rights Reserved Reading location - IP/workstation name: [email or web address]
== END ==
LOC: RAD 14:52
PROVIDERS: ATTEND Internal Medicine
DX: C34.31 Malignant neoplasm of lower lobe, right bronchus or lung (principal)
CPT/HCPCS: 71260; 74177; 82565

== ENCOUNTER 2018-06-11 19:31 | Emergency (ER) | payer MEDICARE ==
[2018-06-11 20:06] LABS: ABSOLUTE BASOPHILS # (AUTO) 0.2 10^3/uL (0.0-0.2); ABSOLUTE EOSINOPHILS # (AUTO) 0.2 10^3/uL (0.0-0.6); ABSOLUTE LYMPHOCYTES (AUTO) 1.5 10^3/uL (0.5-4.7); BASOPHILS % (AUTO) 0.8 % (0-2); EOSINOPHILS % (AUTO) 0.8 % (0-6); HEMATOCRIT 41.6 % (36.0-47.0); HEMOGLOBIN 13.9 g/dL (12.0-15.5); LYMPHOCYTES % (AUTO) 7.8 % (13-45); MEAN CORPUSCULAR HEMOGLOBIN 29.7 pg (27.0-33.4); MEAN CORPUSCULAR HGB CONC 33.4 g/dL (32.0-36.0); MEAN CORPUSCULAR VOLUME 89 fl (80-97); MONOCYTES % (AUTO) 5.3 % (3-13); PLATELET COUNT 285 10^3/uL (150-450); RED BLOOD COUNT 4.69 10^6/uL (3.72-5.28); RED CELL DISTRIBUTION WIDTH 15.6 % (11.5-14.0); SEGMENTED NEUTROPHILS % (AUTO) 85.3 % (42-78); TOTAL CELLS COUNTED % (AUTO) 100 %; WHITE BLOOD COUNT 19.9 10^3/uL (4.0-10.5)
[2018-06-11 20:18] LABS: ALANINE AMINOTRANSFERASE 26 U/L (9-52); ALBUMIN 3.4 g/dL (3.5-5.0); ALKALINE PHOSPHATASE 76 U/L (38-126); ANION GAP 9 (5-19); ASPARTATE AMINO TRANSFERASE 11 U/L (14-36); BILIRUBIN,DIRECT 0.3 mg/dL (0.0-0.4); BILIRUBIN,TOTAL 0.4 mg/dL (0.2-1.3); BLOOD UREA NITROGEN 16 mg/dL (7-20); CALCIUM 9.3 mg/dL (8.4-10.2); CARBON DIOXIDE 27 mmol/L (22-30); CHLORIDE 97 mmol/L (98-107); GLUCOSE 179 mg/dL (75-110); POTASSIUM 4.4 mmol/L (3.6-5.0); SODIUM 132.5 mmol/L (137-145)
[2018-06-11 20:19] LABS: TOTAL PROTEIN 5.9 g/dL (6.3-8.2)
[2018-06-11 20:20] LABS: CREATINE KINASE < 20 U/L (30-135)
--- NOTE | 2018-06-11 20:22 | RADIOLOGY REPORT (SQ) ---
EXAM DESCRIPTION: XR CHEST 1 VIEW COMPLETED DATE/TME: 06/11/2018 19:47 CLINICAL HISTORY: 72 years, Female, cp COMPARISON: Multiple priors, most recent from 04/20/2018 NUMBER OF VIEWS: One TECHNIQUE: Single frontal view of the chest was obtained portably LIMITATIONS: None. FINDINGS: Surgical clips project about the rightward aspect of the neck. A right IJ approach central venous port catheter is in position with its tip located in the upper SVC. Patient is substantially rotated towards the right, accentuating the right paratracheal stripe. However, the cardiopericardial silhouette appears stable. There is a large right pleural effusion with near-complete passive collapse of the right lung. The left lung is overall clear. No pneumothorax. IMPRESSION: Large right pleural effusion with near complete passive collapse of the right lung. copyright 2010 [employer]- All Rights Reserved
[2018-06-11] MEDS ORDERED: PROMETHAZINE HCL 25 MG TABLET PO ONE (20:23)
[2018-06-11] MEDS ORDERED: LEVALBUTEROL HCL NEB 1.25 MG/3 ML AMPUL NEB ONE (20:23)
[2018-06-11] MEDS ORDERED: MORPHINE SULFATE 10 MG/ML INJ IV ONE ×2 (20:23→23:07)
[2018-06-11 20:29] LABS: CREATINE KINASE MB < 0.22 ng/mL (<4.55); TROPONIN I < 0.012 ng/mL
[2018-06-11] MEDS ORDERED: VANCOMYCIN HCL INJ 1000 MG VIAL IV ONE (20:34)
[2018-06-11] MEDS ORDERED: CEFEPIME 2 GM/D5W RTU 2 GM/50 ML RTUPB IV ONE (20:34)
--- NOTE | 2018-06-11 20:38 | ER Document Report ---
ED Cardiac - General Chief Complaint: Chest Pain Stated Complaint: TROUBLE BREATHING Time Seen by Provider: 06/11/18 20:05 Primary Care Provider: MOHIT TORRES MD [ACTIVE STAFF] - Follow up as needed TRAVEL OUTSIDE OF THE [place] IN LAST 30 DAYS: No - HPI Notes: Patient is a 72-year-old female who presents to the emergency department via EMS with a chief complaint of chest pain and shortness of breath. EMS had given 324 mg of aspirin, 2 sublingual nitro, Zofran. Patient states that the 2 sublingual nitro helped briefly than the chest pain returned. Complaints of midsternal chest pain that started around 9 AM this morning, nonradiating, states nothing has seemed to make it better or worse. Describes the chest pain is sharp in nature. Patient is currently being treated for right lung cancer, with a history of a right lower lobectomy, last chemo treatment was 2 weeks ago. Patient states that she has had a cough with clear sputum, chills, and a fever of 99.3 at home. She also complains of generalized abdominal discomfort, states it feels like gas, did have nausea at home with 6 episodes of vomiting. - Related Data Allergies/Adverse Reactions: nickel [Nickel] Adverse Reaction (Severe, Verified 04/21/16 17:57) RASH Past Medical History - Social History Smoking Status: Unknown if Ever Smoked Family History: Reviewed & Not Pertinent, Arthritis, CAD, CVA, DM, Hyperlipidemia, Hypertension, Malignancy, Thyroid Disfunction - Past Medical History Cardiac Medical History: Reports: Hx Hypercholesterolemia, Hx Hypertension Pulmonary Medical History: Reports: Hx Bronchitis, Hx COPD, Hx Pneumonia Endocrine Medical History: Reports: Hx Diabetes Mellitus Type 2 Renal/ Medical History: Denies: Hx Peritoneal Dialysis Malignancy Medical History: Reports: Hx Lung Cancer - R lower lobe GI Medical History: Reports: Hx Diverticulitis, Hx Gastroesophageal Reflux Disease, Hx Hiatal Hernia, Hx Pancreatitis, Hx Colonoscopy, Hx Endoscopic Retrograde Cholangio, Hx Endoscopy Musculoskeletal Medical History: Reports Hx Arthritis - GENERALIZED, Reports Hx Musculoskeletal Deformity, Reports Hx Musculoskeletal Trauma Psychiatric Medical History: Reports: Hx Anxiety Denies: Hx Depression Past Surgical History: Reports: Hx Cardiac Catheterization - Patient denies CAD seen, cath was related to the L subclavian artery stent., Hx Cardiac Surgery - subclavian stent, Hx Hysterectomy, Hx Nose Surgery - Nasal septal straightening when sinus surgery was performed, Hx Thyroid Surgery - Thyroid nodule resected, Hx Vascular Surgery - Left subclavian artery stent. Denies: Hx Pacemaker - Immunizations Immunizations up to date: Yes Hx Diphtheria, Pertussis, Tetanus Vaccination: Yes - 11/29/2006 Hx Pneumococcal Vaccination: 03/01/12 Review of Systems - Review of Systems Constitutional: See HPI EENT: No symptoms reported Cardiovascular: See HPI Respiratory: See HPI Gastrointestinal: See HPI Genitourinary: No symptoms reported Female Genitourinary: No symptoms reported Musculoskeletal: No symptoms reported Skin: No symptoms reported Hematologic/Lymphatic: No symptoms reported Neurological/Psychological: No symptoms reported Physical Exam - Vital signs Vitals: Resp BP Pulse Ox 25 H 118/70 92 06/11/18 19:36 06/11/18 19:36 06/11/18 19:36 Interpretation: Tachycardic, Tachypneic - Notes Notes: PHYSICAL EXAMINATION: GENERAL: Well-nourished, somewhat ill appearing but not in distress. HEAD: Atraumatic, normocephalic. EYES: Pupils equal round and reactive to light, extraocular movements intact, sclera anicteric, conjunctiva are normal. ENT: nares patent, oropharynx clear without exudates. Moist mucous membranes. NECK: Normal range of motion, supple without lymphadenopathy LUNGS: Tachypneic, lung sounds diminished throughout right lung field. Left lung field clear. No wheezes rales or rhonchi. HEART: Tachycardic rate and rhythm without murmurs. ABDOMEN: Soft, minimally tender throughout, normoactive bowel sounds. No guarding, no rebound. No masses appreciated. EXTREMITIES: Normal range of motion, no pitting or edema. No cyanosis. NEUROLOGICAL: No focal neurological deficits. Moves all extremities spontaneously and on command. PSYCH: Normal mood, normal affect. SKIN: Warm, Dry, normal turgor, no rashes or lesions noted. Course - Re-evaluation Re-evalutation: Chest x-ray showed a large pleural effusion with near complete passive collapse of the right lung. Consulted Dr. Kerr with surgery, who would like a CT without contrast ordered on patient prior to possible thoracentesis. She does report having this procedure done in the past for pleural effusion. Consulted Dr. Owen with hospitalist service for admission, would like intervention for pleural effusion prior to admission. 06/11/18 23:[address] Kerr regarding results of CT scan, to include right pleural effusion which is larger than previous, 1.5 cm AP thickness. Patient also was noted to have broncho-pneumonia, superimposed on the chronic consolidation and atelectasis of the right lower lobe seen on prior exam. Dr. Kerr to come to the ER for thoracentesis procedure. Spoke with Dr. Owen with the hospitalist service to report results of CT. I have also spoken with Dr. Torres, patient's oncologist, is aware that the patient is being seen in the emergency department, aware of plan of care and admission. Dr. Torrse in agreement with plan. 06/12/18 00:[address] with patient and son-in-law. States that she had a thoracentesis here a little over a year ago. Patient agrees with plan of care at this time. 06/12/[address] Kerr at bedside to evaluate patient. States that he spoke with the radiologist and that at this time he does not feel like a thoracentesis is appropriate. States that patient needs to be admitted for pneumonia and potentially have a bronchoscopy. 06/12/18 0222 Spoke with admitting hospitalist Dr. Owen regarding patient's CAT scan and Dr. Kerr's evaluation results. Dr. Owen agrees that patient is going to need pulmonology. Pulmonology is not available at this time at this facility and per Dr. Owen patient needs to be transferred. 06/12/18 03:00 after speaking with patient and son-in-law, they are aware that pulmonology is needed. Patient agrees to be transferred for further care that is not available at this facility. Contacted [facility] for potential transfer. 06/12/18 03:[address] Rhina Rome at [facility], discussed case and patient accepted. 06/12/18 04:15 Patient updated on plan of care, aware that she is accepted at [facility]. Denies questions at this time. 06/12/18 07:57 [facility] at bedside. I personally evaluated this patient prior to transfer, patient in no acute distress at time of transfer. She did complain of chest pain, morphine has been working for her and another dose ordered prior to transport. Patient stable for transport. 06/12/18 08:00 - Vital Signs Vital signs: Temp Pulse Resp BP Pulse Ox 98 F 14 124/73 94 06/12/18 05:42 06/12/18 06:00 06/12/18 06:00 06/12/18 06:00 - Laboratory Result Diagrams: 06/11/18 19:43 06/11/18 19:43 Laboratory results interpreted by me: 06/11/18 06/11/18 19:43 19:43 WBC 19.9 H RDW 15.6 H Seg Neutrophils % 85.3 H Lymphocytes % 7.8 L Absolute Neutrophils 17.0 H Sodium 132.5 L Chloride 97 L Glucose 179 H AST 11 L Creatine Kinase < 20 L Total Protein 5.9 L Albumin 3.4 L - Diagnostic Test Radiology reviewed: Image reviewed, Reports reviewed Discharge - Discharge Clinical Impression: Pleural effusion associated with pulmonary infection, Tachycardia, Hypoxemia Pneumonia Qualifiers: Pneumonia type: due to unspecified organism Laterality: right Lung location: unspecified part of lung Qualified Code(s): J18.9 - Pneumonia, unspecified organism Lung cancer Qualifiers: Laterality: right Lung location: unspecified part of lung Qualified Code(s): C34.91 - Malignant neoplasm of unspecified part of right bronchus or lung Condition: Stable Disposition: [facility] Admitting Provider: DR. RHINA ROME Referrals: MOHIT TORRES MD [ACTIVE STAFF] - Follow up as needed
[2018-06-11 20:50] LABS: VENOUS BLOOD BASE EXCESS 4.9 mmol/L; VENOUS BLOOD HCO3 30.3 mmol/L (20-32); VENOUS BLOOD PCO2 47.4 mmHg (35-63); VENOUS BLOOD PH 7.42 (7.30-7.42)
--- NOTE | 2018-06-11 23:18 | RADIOLOGY REPORT (SQ) ---
EXAM DESCRIPTION: [facility]: CT CHEST WITHOUT IV CONTRAST CLINICAL HISTORY: 72 years Female; large right pleural effusion TECHNIQUE: CT of the chest without contrast All CT scans at this facility use dose modulation, iterative reconstruction, and/or weight based dosing when appropriate to reduce radiation dose to as low as reasonably achievable. COMPARISON: 12/21/2017 FINDINGS: Chest: Lungs: Left lung is hyperinflated with scattered lucencies typical for emphysema. 7 mm airspace nodular density in the left apex is again noted. No new left pulmonary nodules. There is persistent dense consolidation of the right lower lobe. Fluid/debris is seen in the right mainstem bronchus and its branches. There is only partial aeration of the right upper lobe. This is significantly worse than the prior exam. A right pleural effusion is approximately 1.5 cm thick, increased since prior exam. No right pneumothorax. Mediastinum: Right IJ port is in place, tip in the SVC. There is rightward mediastinal shift, as on prior exam. Extensive atherosclerotic changes are again noted. No significant pericardial effusion. Bones: Sclerosis of the T10 body is again noted, unchanged. No acute bone findings. Hyperdense material in the gallbladder is suspicious for layering gallstones. IMPRESSION: 1. Worsening consolidation of the right lung, with aeration of only a small portion of the right upper lobe. Fluid/debris in the right mainstem bronchus and distal bronchi suggests an acute bronchopneumonia, superimposed on the chronic consolidation and atelectasis of the right lower lobe seen on prior exam. 2. Right pleural effusion is larger, 1.5 cm AP thickness 3. Left lung remains clear, with changes consistent with emphysema. 4. 7 mm left apical nodule is unchanged. 5. Sclerotic lesion of T10, suspicious for metastatic disease, has not changed.
[2018-06-12] MEDS ORDERED: AZITHROMYCIN INJ 500 MG VIAL IV ONE ×2 (00:06→01:20)
[2018-06-12] MEDS ORDERED: MORPHINE SULFATE 10 MG/ML INJ IV ONE ×3 (02:12→07:56)
[2018-06-12] MEDS ORDERED: LEVALBUTEROL HCL NEB 1.25 MG/3 ML AMPUL NEB ONE (06:39)
[2018-06-12 08:15] VITALS: BP 110/73
--- NOTE | 2018-06-12 23:43 | EKG REPORT ---
SEVERITY:- ABNORMAL ECG - SINUS TACHYCARDIA CONSIDER LEFT VENTRICULAR HYPERTROPHY : Confirmed by: Dejah Ruano 12-Jun-2018 23:42:42
== END 2018-06-12 08:10 | disposition short-term general hospital (02) ==
LOC: ER 19:31
DX: J18.9 Pneumonia, unspecified organism (principal); J91.8 Pleural effusion in other conditions classified elsewhere; C34.91 Malignant neoplasm of unspecified part of right bronchus or lung; J98.11 Atelectasis; Z90.2 Acquired absence of lung [part of]; R07.9 Chest pain, unspecified; R06.02 Shortness of breath; R05 Cough; R11.2 Nausea with vomiting, unspecified; I10 Essential (primary) hypertension; E11.9 Type 2 diabetes mellitus without complications; R00.0 Tachycardia, unspecified; R09.02 Hypoxemia
CPT/HCPCS: 93005; 36415; 87040; 82553; 82550; 85025; 80053; 84484; 82803; 71045; 71250; 93010; J2270 ×2; A9270; J3370; J0456; J3490 ×2; J0692

== ENCOUNTER → 2018-08-05 | Outpatient (CLI) | payer MEDICARE ==
--- NOTE | 2018-08-05 15:20 | RADIOLOGY REPORT (SQ) ---
EXAM DESCRIPTION: CT CHEST WITH COMPLETED DATE/TIME: 08/05/2018 2:43 pm REASON FOR STUDY: C34.31 MALIGNANT NEOPLASM OF LOWER LOBE, RIGHT BRONCHUS OR LUNG C34.31 MALIGNANT NEOPLASM OF LOWER LOBE, RIGHT BRONCHUS OR L COMPARISON: 06/11/2018, 05/24/2018, and 03/14/2018. TECHNIQUE: CT scan of the chest performed using helical scanning technique with dynamic intravenous contrast injection. Images reviewed with lung, soft tissue and bone windows. Reconstructed coronal and sagittal MPR and MIP images reviewed. All images stored on PACS. All CT scanners at this facility use dose modulation, iterative reconstruction, and/or weight based d osing when appropriate to reduce radiation dose to as low as reasonably achievable (ALARA). [facility]: Dose Right [facility]: CareDose [facility]: Dose Right [facility]: Teradose 4D [facility]: Wami CONTRAST TYPE AND DOSE: 70 mL Omnipaque 350- low osmolar. RENAL FUNCTION: Creatinine 0.6. RADIATION DOSE: . LIMITATIONS: None. FINDINGS: LUNGS AND PLEURA: Chronic emphysematous changes. Improved aeration in the right upper lob e. Persistent dense consolidation of the right lower lobe with endobronchial lesions, probably mucou s plugs. Small right pleural effusion unchanged. The spiculated mass in the left upper lobe has inc reased in size. Current measurement is 11 mm with prior measurement of 7.6 mm. There is a small nod ule in the superior segment of the left lower lobe (axial series 6, image 24) which has increased in size. Current measurement 4 mm with prior measurement of 3 mm. There is a new nodule in the left hugh ng base adjacent to the diaphragm (axial series 6, image 96). This measures 9.4 mm. HILAR AND MEDIASTINAL STRUCTURES: No identified masses or abnormal nodes. HEART AND VASCULAR STRUCTURES: No aneurysm or dissection. No central pulmonary emboli. No pericardi al effusion. HARDWARE: Vascular port. UPPER ABDOMEN: No significant findings. Limited exam. THYROID AND OTHER SOFT TISSUES: No masses. No adenopathy. BONES: Dense sclerotic lesion in the body of T10. OTHER: No other significant finding. IMPRESSION: 1. INTERVAL PROGRESSION OF PULMONARY NODULES IN THE LEFT LUNG DETAILED ABOVE. 2. CHRONIC VOLUME LOSS IN THE RIGHT LUNG. IMPROVED AERATION IN THE RIGHT UPPER LOBE. PERSISTENT DEN SE CONSOLIDATION OF THE RIGHT LOWER LOBE WITH PROBABLE MUCOUS PLUGS. 3. SMALL RIGHT PLEURAL EFFUSION, UNCHANGED. 4. STABLE SCLEROTIC LESION IN THE BODY OF T10. 5. CHRONIC EMPHYSEMATOUS CHANGES. TECHNICAL DOCUMENTATION: JOB ID: [id number] Quality ID # [id number]: Final reports with documentation of one or more dose reduction techniques (e.g., Au tomated exposure control, adjustment of the mA and/or kV according to patient size, use of iterative reconstruction technique) 2010 [employer]- All Rights Reserved Reading location - IP/workstation name: [email or web address]
--- NOTE | 2018-08-05 15:28 | RADIOLOGY REPORT (SQ) ---
EXAM DESCRIPTION: CT ABD/PELVIS WITH IV ONLY COMPLETED DATE/TIME: 08/05/2018 2:44 pm REASON FOR STUDY: C34.31 MALIGNANT NEOPLASM OF LOWER LOBE, RIGHT BRONCHUS OR LUNG C34.31 MALIGNANT NEOPLASM OF LOWER LOBE, RIGHT BRONCHUS OR L COMPARISON: 05/24/2018 and 03/14/2018. TECHNIQUE: CT scan of the abdomen and pelvis performed using helical scanning technique with dynamic intravenous contrast injection. No oral contrast. Images reviewed with lung, soft tissue, and bone windows. Reconstructed coronal and sagittal MPR images reviewed. Delayed images for evaluation of the urinary system also acquired. All images stored on PACS. All CT scanners at this facility use dose modulation, iterative reconstruction, and/or weight based d osing when appropriate to reduce radiation dose to as low as reasonably achievable (ALARA). [facility]: Dose Right [facility]: CareDose [facility]: Dose Right [facility]: Teradose 4D [facility]: [employer]Evidence CONTRAST TYPE AND DOSE: contrast/concentration: Isovue 350.00 mg/ml; Total Contrast Delivered: 70.0 ml; Total Saline Delivered: 65.0 ml RENAL FUNCTION: Creatinine 0.6. RADIATION DOSE: CT Rad equipment meets quality standard of care and radiation dose reduction techniq ues were employed. CTDIvol: 5.1 - 6.7 mGy. DLP: 886 mGy-cm.. LIMITATIONS: None. FINDINGS: LOWER CHEST: See separate report of the CT of the chest. LIVER: Normal size. No masses. No dilated ducts. SPLEEN: Normal size. No focal lesions. PANCREAS: No masses. No significant calcifications. No adjacent inflammation or peripancreatic fluid collections. Pancreatic duct not dilated. GALLBLADDER: No identified stones by CT criteria. No inflammatory changes to suggest cholecystitis. ADRENAL GLANDS: Stable left adrenal nodule. RIGHT KIDNEY AND URETER: No solid masses. No significant calcifications. No hydronephrosis or hyd roureter. LEFT KIDNEY AND URETER: No solid masses. No significant calcifications. No hydronephrosis or hydr oureter. AORTA AND VESSELS: No aneurysm. No dissection. Renal arteries, SMA, celiac without stenosis. RETROPERITONEUM: No retroperitoneal adenopathy, hemorrhage or masses. BOWEL AND PERITONEAL CAVITY: No masses or inflammatory changes. No free fluid or peritoneal masses. APPENDIX: Normal. PELVIS: No mass. No free fluid. Normal bladder. ABDOMINAL WALL: No masses. No hernias. BONES: Degenerative changes in the lumbar spine. OTHER: No other significant finding. IMPRESSION: STABLE APPEARANCE. STABLE NODULE IN THE LEFT ADRENAL GLAND. NO OTHER SIGNIFICANT OR AC TE-MOAK FINDING IN THE ABDOMEN OR PELVIS ON CT SCAN WITH IV CONTRAST. TECHNICAL DOCUMENTATION: JOB ID: [id number] Quality ID # [id number]: Final reports with documentation of one or more dose reduction techniques (e.g., Au tomated exposure control, adjustment of the mA and/or kV according to patient size, use of iterative reconstruction technique) 2010 [employer]- All Rights Reserved Reading location - IP/workstation name: [email or web address]-
== END ==
LOC: RAD 14:03
PROVIDERS: ATTEND Internal Medicine
DX: C34.31 Malignant neoplasm of lower lobe, right bronchus or lung (principal); E27.8 Other specified disorders of adrenal gland
CPT/HCPCS: 71260; 74177; 82565

== ENCOUNTER → 2018-10-25 | Outpatient (CLI) | payer MEDICARE ==
--- NOTE | 2018-10-25 16:27 | RADIOLOGY REPORT (SQ) ---
EXAM DESCRIPTION: CT CHEST WITH; CT ABD/PELVIS WITH IV ONLY COMPLETED DATE/TIME: 10/25/2018 3:56 pm REASON FOR STUDY: C34.31 MALIGNANT NEOPLASM OF LOWER LOBE, RIGHT BRONCHUS OR LUNG C34.31 MALIGNANT NEOPLASM OF LOWER LOBE, RIGHT BRONCHUS OR L CONTRAST TYPE AND DOSE: contrast/concentration: Isovue 350.00 mg/ml; Total Contrast Delivered: 72.7 ml; Total Saline Delivered: 70.0 ml RENAL FUNCTION: Creatinine 0.7 COMPARISON: None. TECHNIQUE: CT scan of the chest performed using helical scanning technique with dynamic intravenous contrast injection. Images reviewed with lung, soft tissue and bone windows. Reconstructed coronal a nd sagittal MPR images reviewed. All images stored on PACS. All CT scanners at this facility use dose modulation, iterative reconstruction, and/or weight based d osing when appropriate to reduce radiation dose to as low as reasonably achievable (ALARA). [facility]: Dose Right [facility]: CareDose [facility]: Dose Right [facility]: Teradose 4D [facility]: Easel RADIATION DOSE: CT Rad equipment meets quality standard of care and radiation dose reduction techniq ues were employed. CTDIvol: 4.6 - 6.4 mGy. DLP: 844 mGy-cm. . LIMITATIONS: None. FINDINGS: AXILLAE: No adenopathy. CHEST WALL: No masses. No subcutaneous air. LUNGS: Persistent consolidation in the right upper lobe posteriorly. This is significantly improved from prior study. Small residual right effusion. Left upper lobe spiculated nodule is slightly smal ler size measured at 9.6 mm compared to approximately 11 mm on prior study. Stable 4.1 mm nodule in the superior segment of the left lower lobe best demonstrated on series 6, image 27. Stable subtle g round-glass nodule on series 6, image 52. This measures 3.8 mm in greatest diameter. Bilateral emph ysematous changes are stable. PLEURA: Small right effusion as above. THYROID: The left lobe appears normal the right appears to been removed. HILAR AND MEDIASTINAL STRUCTURES: Persistent fullness in the subcarinal region stable in appearance. AORTA AND GREAT VESSELS: Atherosclerotic change. No aneurysmal dilatation. PULMONARY ARTERIES: No identified pulmonary emboli. Study not optimized for the pulmonary arteries. HEART: No pericardial effusion. HARDWARE AND LIFELINES: Wrefrc-D-Rlwk is in place. BONES: Stable sclerotic lesion in the body of T10. OTHER: No other significant finding. IMPRESSION: 1. Improved aeration in the right lung when compared to prior study. Stable chronic emp hysematous changes. 2. Small left-sided pulmonary nodules are improved or stable in appearance when compared to previous chest CT. 3. Stable T10 sclerotic lesion. COMPARISON: None. RADIATION DOSE: CT Rad equipment meets quality standard of care and radiation dose reduction techniq ues were employed. CTDIvol: 4.6 - 6.4 mGy. DLP: 844 mGy-cm. mGy. TECHNIQUE: CT scan of the abdomen and pelvis performed with intravenous and oral contrast using dominique nette scanning technique with dynamic intravenous contrast injection. Images reviewed with lung, soft tissue and bone windows. Reconstructed coronal and sagittal MPR images reviewed. Delayed images for evaluation of the urinary system also acquired and evaluated. All images stored on PACS. All CT scanners at this facility use dose modulation, iterative reconstruction, and/or weight based d osing when appropriate to reduce radiation dose to as low as reasonably achievable (ALARA). [facility]: Dose Right [facility]: SureCare [facility]: Dose Right [facility]: Teradose 4D [facility]: Easel FINDINGS: LIVER: Normal size. No masses. No dilated ducts. SPLEEN: Normal size. No focal lesions. PANCREAS: No masses. No significant calcifications. No adjacent inflammation or peripancreatic flui d collections. Pancreatic duct not dilated. GALLBLADDER: No identified stones by CT criteria. No inflammatory changes to suggest cholecystitis. ADRENAL GLANDS: Stable bilateral adrenal lesions left greater than right. The left renal lesion sue ures 3.0 cm. This may be slightly larger when compared to prior study or may be secondary to slight difference in angulation of the gantry. RIGHT KIDNEY AND URETER: No solid masses. No significant calcifications. No hydronephrosis or hyd roureter. LEFT KIDNEY AND URETER: No solid masses. No significant calcifications. No hydronephrosis or hydr oureter. Prominent extrarenal pelvis on the left. AORTA AND VESSELS: The aorta demonstrates atherosclerotic change. No aneurysmal dilatation. RETROPERITONEUM: No retroperitoneal adenopathy, hemorrhage or masses. LARGE AND SMALL BOWEL: No dilatation. No masses. No wall thickening. Moderate constipation. APPENDIX: Normal. ABDOMINAL WALL: No hernias. PERITONEAL CAVITY: No free air. No free fluid. No peritoneal implants or masses. PELVIS: No mass or free fluid. Normal bladder. BONES: No significant or acute findings. OTHER: No other significant finding. IMPRESSION: 1. The left adrenal mass may be slightly larger in size as described. Largest diameter on today's exam is 3.0 cm. Stable fullness in the right adrenal gland. 2. Mild prominence of the left renal pelvis on today's study. This appears to be and extrarenal pel vis no obvious ureteral dilatation. 3. Constipation. TECHNICAL DOCUMENTATION: JOB ID: [id number] Quality ID # 436: Final reports with documentation of one or more dose reduction techniques (e.g., Au tomated exposure control, adjustment of the mA and/or kV according to patient size, use of iterative reconstruction technique) 2010 [employer]- All Rights Reserved Reading location - IP/workstation name: [email or web address]
== END ==
LOC: RAD 14:30
PROVIDERS: ATTEND Physician Assistant Medical
DX: C34.31 Malignant neoplasm of lower lobe, right bronchus or lung (principal); R91.8 Other nonspecific abnormal finding of lung field
CPT/HCPCS: 71260; 74177; 82565

== ENCOUNTER 2018-10-29 19:59 | Emergency (ER) | payer MEDICARE ==
[2018-10-29] MEDS ORDERED: ASPIRIN 81 MG TABLET, CHEWABLE PO ONE (20:20)
--- NOTE | 2018-10-29 20:23 | ER Document Report ---
ED Medical Screen (RME) - General Chief Complaint: Shortness Of Breath Stated Complaint: SHORTNESS OF BREATH Time Seen by Provider: 10/29/18 20:14 Primary Care Provider: JILLIAN TOWNSEND PA-C [Primary Care Provider] - Follow up as needed Notes: Patient presents complaining of shortness of breath for the past 2 days with chest pain that started today. Patient also reports some nausea. Patient denies any fever. Patient is presently being treated for lung cancer and reports that she does have a history of partial collapse of the right lower lobe. hx: COPD, lung cancer, hypertension, diabetes I have greeted and performed a rapid initial assessment of this patient. A comprehensive ED assessment and evaluation of the patient, analysis of test results and completion of the medical decision making process will be conducted by additional ED providers. TRAVEL OUTSIDE OF THE [place] IN LAST 30 DAYS: No - Related Data Allergies/Adverse Reactions: nickel [Nickel] Adverse Reaction (Severe, Verified 04/21/16 17:57) RASH Past Medical History - Social History Frequency of alcohol use: None Drug Abuse: None - Past Medical History Cardiac Medical History: Reports: Hx Hypercholesterolemia, Hx Hypertension Pulmonary Medical History: Reports: Hx Bronchitis, Hx COPD, Hx Pneumonia Endocrine Medical History: Reports: Hx Diabetes Mellitus Type 2 Renal/ Medical History: Denies: Hx Peritoneal Dialysis Malignancy Medical History: Reports: Hx Lung Cancer - R lower lobe GI Medical History: Reports: Hx Diverticulitis, Hx Gastroesophageal Reflux Disease, Hx Hiatal Hernia, Hx Pancreatitis, Hx Colonoscopy, Hx Endoscopic Retrograde Cholangio, Hx Endoscopy Musculoskeltal Medical History: Reports Hx Arthritis - GENERALIZED, Reports Hx Musculoskeletal Deformity, Reports Hx Musculoskeletal Trauma Psychiatric Medical History: Reports: Hx Anxiety Denies: Hx Depression Past Surgical History: Reports: Hx Cardiac Catheterization - Patient denies CAD seen, cath was related to the L subclavian artery stent., Hx Cardiac Surgery - subclavian stent, Hx Hysterectomy, Hx Nose Surgery - Nasal septal straightening when sinus surgery was performed, Hx Thyroid Surgery - Thyroid nodule resected, Hx Vascular Surgery - Left subclavian artery stent. Denies: Hx Pacemaker - Immunizations Immunizations up to date: Yes Hx Diphtheria, Pertussis, Tetanus Vaccination: Yes - 11/29/2006 Physical Exam - Vital signs Vitals: Temp Pulse Resp BP Pulse Ox 98.9 F 104 H 20 135/74 H 98 10/29/18 20:09 10/29/18 20:09 10/29/18 20:09 10/29/18 20:09 10/29/18 20:09 - General Notes: Absent breath sounds right lower lobe, rhonchorous breath sounds in remainder of the lung laurent Course - Vital Signs Vital signs: Temp Pulse Resp BP Pulse Ox 98.9 F 104 H 20 135/74 H 98 10/29/18 20:09 10/29/18 20:09 10/29/18 20:09 10/29/18 20:09 10/29/18 20:09 Doctor's Discharge - Discharge Referrals: JILLIAN TOWNSEND PA-C [Primary Care Provider] - Follow up as needed
--- NOTE | 2018-10-29 21:04 | RADIOLOGY REPORT (SQ) ---
EXAM DESCRIPTION: XR CHEST 2 VIEWS COMPLETED DATE/TME: 10/29/2018 20:21 CLINICAL HISTORY: 72 years, Female, cp, sob, abs breath sounds RLL COMPARISON: None. NUMBER OF VIEWS: TECHNIQUE: LIMITATIONS: None. FINDINGS: There is a small right pleural effusion. Atelectasis or infiltrate at the right lung base cannot be excluded. There is elevation of the right hemidiaphragm. No evidence of acute infiltrate in the remainder of the lungs. The heart and mediastinum are unremarkable. There is a right-sided Port-A-Cath with its tip in the superior vena cava. There are surgical clips in the lower right neck. IMPRESSION: Small right pleural effusion. Atelectasis or infiltrate at the right lung base cannot be excluded. Elevated right hemidiaphragm. copyright 2010 [email or web address]- All Rights Reserved
--- NOTE | 2018-10-29 21:07 | EKG REPORT ---
SEVERITY:- OTHERWISE NORMAL ECG - SINUS TACHYCARDIA POOR R WAVE PROGRESSION ANTERIOR LEADS. : Confirmed by: Tejas Ray MD 29-Oct-2018 21:07:12
[2018-10-29] MEDS ORDERED: IPRATROPIUM/ALBUTEROL 0.5-2.5 MG/3 ML AMPUL NEB ONE (21:43)
[2018-10-29 22:04] LABS: ABSOLUTE EOSINOPHILS # (AUTO) 0.1 10^3/uL (0.0-0.6); ABSOLUTE LYMPHOCYTES (AUTO) 1.4 10^3/uL (0.5-4.7); ABSOLUTE MONOCYTES (AUTO) 0.2 10^3/uL (0.1-1.4); ABSOLUTE NEUT (AUTO) 5.7 10^3/uL (1.7-8.2); BASOPHILS % (AUTO) 0.3 % (0-2); EOSINOPHILS % (AUTO) 1.5 % (0-6); HEMATOCRIT 34.1 % (36.0-47.0); HEMOGLOBIN 11.4 g/dL (12.0-15.5); LYMPHOCYTES % (AUTO) 18.6 % (13-45); MEAN CORPUSCULAR HEMOGLOBIN 31.6 pg (27.0-33.4); MEAN CORPUSCULAR HGB CONC 33.4 g/dL (32.0-36.0); MEAN CORPUSCULAR VOLUME 95 fl (80-97); MONOCYTES % (AUTO) 2.8 % (3-13); PLATELET COUNT 477 10^3/uL (150-450); RED CELL DISTRIBUTION WIDTH 17.4 % (11.5-14.0); SEGMENTED NEUTROPHILS % (AUTO) 76.8 % (42-78); TOTAL CELLS COUNTED % (AUTO) 100 %; WHITE BLOOD COUNT 7.4 10^3/uL (4.0-10.5)
[2018-10-29 22:26] LABS: NT PRO BNP 221 pg/mL (5-900); TROPONIN I < 0.012 ng/mL
[2018-10-29 22:31] LABS: ALBUMIN 3.5 g/dL (3.5-5.0); ALKALINE PHOSPHATASE 88 U/L (38-126); ASPARTATE AMINO TRANSFERASE 16 U/L (14-36); BILIRUBIN,DIRECT 0.3 mg/dL (0.0-0.4); BILIRUBIN,TOTAL 0.3 mg/dL (0.2-1.3); BLOOD UREA NITROGEN 14 mg/dL (7-20); CALCIUM 9.1 mg/dL (8.4-10.2); GLUCOSE 130 mg/dL (75-110); POTASSIUM 4.2 mmol/L (3.6-5.0); TOTAL PROTEIN 5.7 g/dL (6.3-8.2)
[2018-10-29 22:36] LABS: ANION GAP 6 (5-19); CARBON DIOXIDE 33 mmol/L (22-30); CHLORIDE 98 mmol/L (98-107)
[2018-10-29] MEDS ORDERED: ONDANSETRON HCL INJ/PF 4 MG/2 ML SDV IV ONE (23:12)
[2018-10-29] MEDS ORDERED: FENTANYL CITRATE INJ/PF 100 MCG/2 ML AMPUL IV ONE (23:13)
[2018-10-29 23:55] LABS: APPEARANCE,URINE CLEAR; BILIRUBIN,URINE NEGATIVE (NEGATIVE); COLOR,URINE STRAW; GLUCOSE, URINE NEGATIVE (NEGATIVE); KETONES,URINE NEGATIVE (NEGATIVE); LEUKOCYTE ESTERASE,URINE NEGATIVE (NEGATIVE); NITRITE,URINE NEGATIVE (NEGATIVE); PROTEIN,URINE NEGATIVE (NEGATIVE); URINE SPECIFIC GRAVITY 1.005; UROBILINOGEN,URINE NEGATIVE mg/dL (<2.0)
[2018-10-30] MEDS ORDERED: METOPROLOL TARTRATE 50 MG TABLET PO ONE (00:18)
--- NOTE | 2018-10-30 00:50 | RADIOLOGY REPORT (SQ) ---
EXAM DESCRIPTION: CT CHEST ANGIOGRAPHY WITHOUT THEN WITH IV CONTRAST COMPLETED DATE/TME: 10/29/2018 21:43 CLINICAL HISTORY: 72 years Female, hx of lung cancer c/o SOB. creat 0.71 Comparison: 06/11/2018. CR, same day. Technique: IV contrast. Coronal and sagittal reformat. 3d reconstruction. This exam was performed according to our departmental dose-optimization program, which includes automated exposure control, adjustment of the mA and/or kV according to patient size and/or use of iterative reconstruction technique.[facility]: Dose Right [facility]: CareDose [facility]: Dose Right [facility]: Teradose 4D [facility]: HOSTING LIMITATIONS: None Findings: Moderate consolidative mass of the right infrahilar lower lobe consistent with history of lung cancer. Interval increase. 0.6 cm spiculated nodule of the left upper lobe. Moderate rightward cardiac shift. 1.5 cm right adrenal enlargement with punctate calcification. Moderate diffuse sclerosis of the left paracentral T10 vertebral body. Coronary arterial calcification/stent. Atherosclerotic vascular disease. Elevation of the right hemidiaphragm. Right thyroidectomy clips. Heterogeneity of the liver partially imaged. Right jugular central line tip at the SVC. Likely benign renal cyst(s), not definitively characterized. Bilateral perinephric fat stranding, nonspecific. Emphysematous hyperinflation. Atelectasis/scar. No pulmonary embolus. No right ventricular strain. Inferior neck, axillae, mediastinum, airway, lymphatics, heart, vasculature, upper abdomen, and musculoskeleton appear otherwise unremarkable. Impression: 1. Moderate consolidative mass of the right infrahilar lower lobe , 0.6 cm spiculated nodule in the left upper lobe, 1.5 cm right adrenal enlargement, T10 vertebral sclerosis, heterogeneous liver consistent with history of lung cancer. Interval worsening. 2. No evidence of pulmonary embolus.
[2018-10-30] MEDS ORDERED: METHYLPREDNISOLONE INJ 125 MG/2 ML SDV IV ONE (01:44)
--- NOTE | 2018-10-30 02:02 | ER Document Report ---
ED Respiratory Problem - General Chief Complaint: Shortness Of Breath Stated Complaint: SHORTNESS OF BREATH Time Seen by Provider: 10/29/18 20:14 Primary Care Provider: JILLIAN TOWNSEND PA-C [Primary Care Provider] - Follow up as needed Notes: RMCade note: Patient presents complaining of shortness of breath for the past 2 days with chest pain that started today. Patient also reports some nausea. Patient denies any fever. Patient is presently being treated for lung cancer and reports that she does have a history of partial collapse of the right lower lobe. hx: COPD, lung cancer, hypertension, diabetes MY HPI: Patient does state she has lung cancer is currently being treated with chemotherapy by oncologist Dr. Torres. States she started yesterday afternoon with some generalized shortness of breath. Patient states that shortness of has continued and then today she developed a tightness in the center of her chest. States this tightness increases when she coughs or takes a deep breath. Patient is also complaining about a generalized cough and congestion. Patient states "I always have a cough." Patient voices that she continues to smoke cigarettes on a daily basis. Patient's denying any fevers. Patient denies any history of coagulopathies. States she has been taking her albuterol twice in the last 24 hours. Patient is on oxygen 2 L/min all the time. TRAVEL OUTSIDE OF THE [place] IN LAST 30 DAYS: No - Related Data Allergies/Adverse Reactions: nickel [Nickel] Adverse Reaction (Severe, Verified 04/21/16 17:57) RASH Past Medical History - General Information source: Patient - Social History Smoking Status: Current Every Day Smoker Frequency of alcohol use: None Drug Abuse: None Family History: Reviewed & Not Pertinent, Arthritis, CAD, CVA, DM, Hyperlipidemia, Hypertension, Malignancy, Thyroid Disfunction Patient has suicidal ideation: No Patient has homicidal ideation: No - Past Medical History Cardiac Medical History: Reports: Hx Hypercholesterolemia, Hx Hypertension Pulmonary Medical History: Reports: Hx Bronchitis, Hx COPD, Hx Pneumonia Endocrine Medical History: Reports: Hx Diabetes Mellitus Type 2 Renal/ Medical History: Denies: Hx Peritoneal Dialysis Malignancy Medical History: Reports: Hx Lung Cancer - R lower lobe GI Medical History: Reports: Hx Diverticulitis, Hx Gastroesophageal Reflux Disease, Hx Hiatal Hernia, Hx Pancreatitis, Hx Colonoscopy, Hx Endoscopic Retrograde Cholangio, Hx Endoscopy Musculoskeletal Medical History: Reports Hx Arthritis - GENERALIZED, Reports Hx Musculoskeletal Deformity, Reports Hx Musculoskeletal Trauma Psychiatric Medical History: Reports: Hx Anxiety Denies: Hx Depression Past Surgical History: Reports: Hx Cardiac Catheterization - Patient denies CAD seen, cath was related to the L subclavian artery stent., Hx Cardiac Surgery - subclavian stent, Hx Hysterectomy, Hx Nose Surgery - Nasal septal straightening when sinus surgery was performed, Hx Thyroid Surgery - Thyroid nodule resected, Hx Vascular Surgery - Left subclavian artery stent. Denies: Hx Pacemaker - Immunizations Immunizations up to date: Yes Hx Diphtheria, Pertussis, Tetanus Vaccination: Yes - 11/29/2006 Hx Pneumococcal Vaccination: 03/01/12 Review of Systems - Review of Systems Constitutional: denies: Fever EENT: See HPI Cardiovascular: See HPI Respiratory: See HPI Gastrointestinal: No symptoms reported Genitourinary: No symptoms reported Female Genitourinary: No symptoms reported Musculoskeletal: No symptoms reported Skin: No symptoms reported Hematologic/Lymphatic: No symptoms reported Neurological/Psychological: No symptoms reported Physical Exam - Vital signs Vitals: Temp Pulse Resp BP Pulse Ox 98.9 F 104 H 20 135/74 H 98 10/29/18 20:09 10/29/18 20:09 10/29/18 20:09 10/29/18 20:09 10/29/18 20:09 - Notes Notes: GENERAL: Alert, interacts well. HEAD: Normocephalic, atraumatic. EYES: Pupils equal, round, and reactive to light. Extraocular movements intact. ENT: Oral mucosa moist, tongue midline. NECK: Full range of motion. Supple. Trachea midline. LUNGS: Diminished to auscultation bilateral bases, expiratory wheezes bilateral apices, no discernible rales, or rhonchi. Minor tachypnea intermittent coughing noted HEART: Tachycardic rate and rhythm. No murmur ABDOMEN: Soft, non-tender. Non-distended. Bowel sounds present in all 4 quadrants. EXTREMITIES: Moves all 4 extremities spontaneously. No edema, normal radial and dorsalis pedis pulses bilaterally. No cyanosis. BACK: no cervical, thoracic, lumbar midline tenderness. No saddle anesthesia, normal distal neurovascular exam. NEUROLOGICAL: Alert and oriented x3. Normal speech. cranial nerves II through XII grossly intact PSYCH: Normal affect, normal mood. SKIN: Warm, dry, normal turgor. No rashes or lesions noted. Course - Re-evaluation Re-evalutation: 10/30/18 01:57 Laboratory 10/29/18 10/29/18 10/29/18 21:35 21:35 21:35 WBC 7.4 RBC 3.60 L Hgb 11.4 L Hct 34.1 L MCV 95 MCH 31.6 MCHC 33.4 RDW 17.4 H Plt Count 477 H Lymph % (Auto) 18.6 [place] % (Auto) 2.8 L Eos % (Auto) 1.5 Baso % (Auto) 0.3 Absolute Neuts (auto) 5.7 Absolute Lymphs (auto) 1.4 Absolute Monos (auto) 0.2 Absolute Eos (auto) 0.1 Absolute Basos (auto) 0.0 Seg Neutrophils % 76.8 Sodium 136.7 L Potassium 4.2 Chloride 98 Carbon Dioxide 33 H Anion Gap 6 BUN 14 Creatinine 0.71 Est GFR ( Amer) > 60 Est GFR (MDRD) Non-Af > 60 Glucose 130 H Calcium 9.1 Total Bilirubin 0.3 Direct Bilirubin 0.3 Neonat Total Bilirubin Not Reportable Neonat Direct Bilirubin Not Reportable Neonat Indirect Bili Not Reportable AST 16 ALT 21 Alkaline Phosphatase 88 Troponin I < 0.012 NT-Pro-B Natriuret Pep 221 Total Protein 5.7 L Albumin 3.5 Lipase 114.2 Urine Color Urine Appearance Urine pH Ur Specific [place] Urine Protein Urine Glucose (UA) Urine Ketones Urine Blood Urine Nitrite Urine Bilirubin Urine Urobilinogen Ur Leukocyte Esterase Urine WBC (Auto) Urine RBC (Auto) Squamous Epi Cells Auto Urine Mucus (Auto) Urine Ascorbic Acid 10/29/18 23:39 WBC RBC Hgb Hct MCV MCH MCHC RDW Plt Count Lymph % (Auto) [place] % (Auto) Eos % (Auto) Baso % (Auto) Absolute Neuts (auto) Absolute Lymphs (auto) Absolute Monos (auto) Absolute Eos (auto) Absolute Basos (auto) Seg Neutrophils % Sodium Potassium Chloride Carbon Dioxide Anion Gap BUN Creatinine Est GFR ( Amer) Est GFR (MDRD) Non-Af Glucose Calcium Total Bilirubin Direct Bilirubin Neonat Total Bilirubin Neonat Direct Bilirubin Neonat Indirect Bili AST ALT Alkaline Phosphatase Troponin I NT-Pro-B Natriuret Pep Total Protein Albumin Lipase Urine Color STRAW Urine Appearance CLEAR Urine pH 9.0 Ur Specific [place] 1.005 Urine Protein NEGATIVE Urine Glucose (UA) NEGATIVE Urine Ketones NEGATIVE Urine Blood NEGATIVE Urine Nitrite NEGATIVE Urine Bilirubin NEGATIVE Urine Urobilinogen NEGATIVE Ur Leukocyte Esterase NEGATIVE Urine WBC (Auto) 1 Urine RBC (Auto) 0 Squamous Epi Cells Auto 1 Urine Mucus (Auto) RARE Urine Ascorbic Acid NEGATIVE Chest X-Ray 10/29/18 20:21 IMPRESSION: Small right pleural effusion. Atelectasis or infiltrate at the right lung base cannot be excluded. Elevated right hemidiaphragm. copyright 2010 [employer]- All Rights Reserved Patient was noted to be tachycardic at today's visit. States she typically takes metoprolol 50 mg. Metoprolol was administered to the patient. Last heart rate noted by myself was 102. Upon reassessment patient is sleeping in no apparent distress. She is not tachypneic no intercostal muscle use. Patient is easily arousable to verbal stimuli. Patient states her breathing feels a lot better and she no longer has any chest discomfort. Ambulated pulse oxygenation remained stable around 96%. Patient voices that she still smokes cigarettes and has been using her albuterol twice a 24-hour timeframe. I have discussed with her use of albuterol every 4 hours as well as home prednisone. I discussed close follow-up with primary care provider and oncology. At this time will discharge with return precautions and follow-up recommendations. Verbal discharge instructions given a the bedside and opportunity for questions given. Medication warnings reviewed. Patient is in agreement with this plan and has verbalized understanding of return precautions and the need for primary care follow-up in the next 24-72 hours. This medical record was dictated with voice recognizing software. There may be grammatical, syntax errors that are unintended. 10/30/18 02:01 - Vital Signs Vital signs: Temp Pulse Resp BP Pulse Ox 98.9 F 102 H 14 110/60 95 10/29/18 20:09 10/30/18 01:51 10/30/18 01:01 10/30/18 01:01 10/30/18 01:01 - Laboratory Result Diagrams: 10/29/18 21:35 10/29/18 21:35 Laboratory results interpreted by me: 10/29/18 10/29/18 21:35 21:35 RBC 3.60 L Hgb 11.4 L Hct 34.1 L RDW 17.4 H Plt Count 477 H [place] % (Auto) 2.8 L Sodium 136.7 L Carbon Dioxide 33 H Glucose 130 H Total Protein 5.7 L Discharge - Discharge Clinical Impression: Shortness of breath COPD (chronic obstructive pulmonary disease) Qualifiers: COPD type: unspecified COPD Qualified Code(s): J44.9 - Chronic obstructive pulmonary disease, unspecified Lung cancer Qualifiers: Laterality: right Lung location: unspecified part of lung Qualified Code(s): C34.91 - Malignant neoplasm of unspecified part of right bronchus or lung Condition: Stable Disposition: HOME, SELF-CARE Instructions: Chronic Obstructive Lung Disease ([facility]) Additional Instructions: As we discussed you have been seen and treated in the emergency department for your respiratory distress. Please make sure you are using your albuterol treatments every 4 hours for the next 3 days. Please also make sure you are taking steroids as prescribed. Please follow-up with your primary care provider and oncologist in the next 24 to 48 hours. Return to the emergency room for any further concerns. Prescriptions: Prednisone [Deltasone 20 mg Tablet] 3 tab PO DAILY 5 Days tablet Referrals: JILLIAN TOWNSEND PA-C [Primary Care Provider] - Follow up as needed
[2018-10-30 02:27] VITALS: BP 162/98
== END 2018-10-30 02:26 | disposition home or self-care (01) ==
LOC: ER 19:59
DX: C34.91 Malignant neoplasm of unspecified part of right bronchus or lung (principal); R06.02 Shortness of breath; J44.9 Chronic obstructive pulmonary disease, unspecified; R11.0 Nausea; I10 Essential (primary) hypertension; E11.9 Type 2 diabetes mellitus without complications; Z99.81 Dependence on supplemental oxygen
CPT/HCPCS: 93005; 36591; 94640; 99285; 96374; 96375; 36415; 83690; 85025; 80053; 81001; 84484; 83880; 71046; 71275; 93010; J3010; J2930; A9270 ×2; J2405; J1642; J7620

== ENCOUNTER → 2018-12-07 | Outpatient (CLI) | payer MEDICARE | LOC: RAD 15:27 | PROVIDERS: ATTEND Internal Medicine | DX: C34.31 Malignant neoplasm of lower lobe, right bronchus or lung (principal); C79.51 Secondary malignant neoplasm of bone | CPT/HCPCS: 82565 ==

== ENCOUNTER 2018-12-25 11:31 | Observation (INO) | payer MEDICARE ==
[2018-12-25] MEDS ORDERED: ONDANSETRON HCL INJ/PF 4 MG/2 ML SDV IV ONE (11:54)
[2018-12-25] MEDS ORDERED: HYDROMORPHONE HCL INJ/PF 2 MG/ML AMPULE IV ONE (11:54)
[2018-12-25] MEDS ORDERED: LEVALBUTEROL HCL NEB 1.25 MG/3 ML AMPUL NEB ONE (11:55)
--- NOTE | 2018-12-25 11:57 | ER Document Report ---
ED Medical Screen (RME) - General Chief Complaint: Shortness Of Breath Stated Complaint: BACK PAIN/SHORTNESS OF BREATH Time Seen by Provider: 12/25/18 11:46 Primary Care Provider: MOHIT BARRETO MD [Primary Care Provider] - Follow up as needed Information source: Patient, Relative Notes: Patient presents complaining of upper back pain with shortness of breath. Patient states she does have lung cancer and typically has chronic upper back pain due to the cancer although the pain seems to be worse today. Patient denies any fever or chest pain. Patient does complain of some nausea. Patient did take her morphine 30 mg this morning at 10 AM without any improvement of her symptoms. I have greeted and performed a rapid initial assessment of this patient. A comprehensive ED assessment and evaluation of the patient, analysis of test results and completion of the medical decision making process will be conducted by additional ED providers. TRAVEL OUTSIDE OF THE [place] IN LAST 30 DAYS: No - Related Data Allergies/Adverse Reactions: nickel [Nickel] Adverse Reaction (Severe, Verified 04/21/16 17:57) RASH Past Medical History - Social History Frequency of alcohol use: None Drug Abuse: None - Past Medical History Cardiac Medical History: Reports: Hx Hypercholesterolemia, Hx Hypertension Pulmonary Medical History: Reports: Hx Bronchitis, Hx COPD, Hx Pneumonia Endocrine Medical History: Reports: Hx Diabetes Mellitus Type 2 Renal/ Medical History: Denies: Hx Peritoneal Dialysis Malignancy Medical History: Reports: Hx Lung Cancer - R lower lobe GI Medical History: Reports: Hx Diverticulitis, Hx Gastroesophageal Reflux Disease, Hx Hiatal Hernia, Hx Pancreatitis, Hx Colonoscopy, Hx Endoscopic Retrograde Cholangio, Hx Endoscopy Musculoskeltal Medical History: Reports Hx Arthritis - GENERALIZED, Reports Hx Musculoskeletal Deformity, Reports Hx Musculoskeletal Trauma Psychiatric Medical History: Reports: Hx Anxiety Denies: Hx Depression Past Surgical History: Reports: Hx Cardiac Catheterization - Patient denies CAD seen, cath was related to the L subclavian artery stent., Hx Cardiac Surgery - subclavian stent, Hx Hysterectomy, Hx Nose Surgery - Nasal septal straightening when sinus surgery was performed, Hx Thyroid Surgery - Thyroid nodule resected, Hx Vascular Surgery - Left subclavian artery stent. Denies: Hx Pacemaker - Immunizations Immunizations up to date: Yes Hx Diphtheria, Pertussis, Tetanus Vaccination: Yes - 11/29/2006 Physical Exam - Vital signs Vitals: Temp Resp BP Pulse Ox 98.2 F 22 H 121/57 L 97 12/25/18 11:45 12/25/18 11:45 12/25/18 11:45 12/25/18 11:45 - Respiratory Respiratory status: Tachypnea Chest status: Pain with cough Breath sounds: Nonproductive cough, Rhonchi, Wheezing Course - Vital Signs Vital signs: Temp Pulse Resp BP Pulse Ox 98.2 F 22 H 121/57 L 97 12/25/18 11:45 12/25/18 11:45 12/25/18 11:45 12/25/18 11:45 Doctor's Discharge - Discharge Referrals: MOHIT BARRETO MD [Primary Care Provider] - Follow up as needed
--- NOTE | 2018-12-25 12:20 | RADIOLOGY REPORT (SQ) ---
EXAM DESCRIPTION: CHEST 2 VIEWS COMPLETED DATE/TIME: 12/25/2018 12:09 pm REASON FOR STUDY: back pain, cough, lung ca COMPARISON: [id number] EXAM PARAMETERS: NUMBER OF VIEWS: two views TECHNIQUE: Digital Frontal and Lateral radiographic views of the chest acquired. RADIATION DOSE: NA LIMITATIONS: none FINDINGS: LUNGS AND PLEURA: Chronic right lung changes are stable. No pneumothorax. No acute opaci ties. MEDIASTINUM AND HILAR STRUCTURES: No masses or contour abnormalities. HEART AND VASCULAR STRUCTURES: Heart normal size. No evidence for failure. BONES: No acute findings. HARDWARE: Venous access catheter. OTHER: No other significant finding. IMPRESSION: Chronic changes in the right lung. No acute findings. TECHNICAL DOCUMENTATION: JOB ID: [id number] [employer]- All Rights Reserved Reading location - IP/workstation name: [email or web address]
[2018-12-25 12:35] LABS: ARTERIAL BLOOD BASE EXCESS 6.7 mmol/L; ARTERIAL BLOOD H2CO3 1.82 mmol/L (1.05-1.35); ARTERIAL BLOOD HCO3 34.2 mmol/L (20-24); ARTERIAL BLOOD O2 SATURATION 93.5 % (94-98); ARTERIAL BLOOD PCO2 60.6 mmHg (35-45); ARTERIAL BLOOD PH 7.37 (7.35-7.45); ARTERIAL BLOOD PO2 71.3 mmHg (80-100)
[2018-12-25 12:37] LABS: ARTERIAL BLOOD FIO2 2L
[2018-12-25 12:42] LABS: ABSOLUTE BASOPHILS # (AUTO) 0.1 10^3/uL (0.0-0.2); ABSOLUTE EOSINOPHILS # (AUTO) 0.1 10^3/uL (0.0-0.6); ABSOLUTE LYMPHOCYTES (AUTO) 1.3 10^3/uL (0.5-4.7); ABSOLUTE MONOCYTES (AUTO) 0.7 10^3/uL (0.1-1.4); ABSOLUTE NEUT (AUTO) 4.2 10^3/uL (1.7-8.2); BASOPHILS % (AUTO) 0.8 % (0-2); EOSINOPHILS % (AUTO) 1.8 % (0-6); HEMATOCRIT 34.2 % (36.0-47.0); HEMOGLOBIN 11.5 g/dL (12.0-15.5); LYMPHOCYTES % (AUTO) 20.5 % (13-45); MEAN CORPUSCULAR HEMOGLOBIN 31.4 pg (27.0-33.4); MEAN CORPUSCULAR HGB CONC 33.7 g/dL (32.0-36.0); MEAN CORPUSCULAR VOLUME 93 fl (80-97); MONOCYTES % (AUTO) 11.1 % (3-13); PLATELET COUNT 560 10^3/uL (150-450); RED BLOOD COUNT 3.66 10^6/uL (3.72-5.28); RED CELL DISTRIBUTION WIDTH 17.1 % (11.5-14.0); SEGMENTED NEUTROPHILS % (AUTO) 65.8 % (42-78); TOTAL CELLS COUNTED % (AUTO) 100 %; WHITE BLOOD COUNT 6.3 10^3/uL (4.0-10.5)
[2018-12-25 12:52] LABS: ALBUMIN 3.5 g/dL (3.5-5.0); ALKALINE PHOSPHATASE 81 U/L (38-126); ANION GAP 6 (5-19); ASPARTATE AMINO TRANSFERASE 15 U/L (14-36); BILIRUBIN,DIRECT 0.1 mg/dL (0.0-0.4); BILIRUBIN,TOTAL 0.2 mg/dL (0.2-1.3); BLOOD UREA NITROGEN 14 mg/dL (7-20); CALCIUM 9.4 mg/dL (8.4-10.2); CARBON DIOXIDE 36 mmol/L (22-30); CHLORIDE 96 mmol/L (98-107); GLUCOSE 98 mg/dL (75-110); POTASSIUM 4.4 mmol/L (3.6-5.0); TOTAL PROTEIN 5.9 g/dL (6.3-8.2)
[2018-12-25] MEDS ORDERED: MORPHINE SULFATE 10 MG/ML INJ IV ONE (13:27)
--- NOTE | 2018-12-25 14:00 | ER Document Report ---
Entered by ALESSANDRA PANTOJA SCRIBE 12/25/18 1327 Acting as scribe for:JUANI MINA MD ED Respiratory Problem - General Chief Complaint: Shortness Of Breath Stated Complaint: BACK PAIN/SHORTNESS OF BREATH Time Seen by Provider: 12/25/18 11:46 Notes: 73-year-old female patient with a history of lung cancer on chemo immunotherapy complaining of shortness of breath and left upper back pain. She does have a lung cancer. She is normally on 2 L oxygen nasal cannula with pulse ox is 96% at home. This morning her pulse ox was 84% on 2 L. She reports a productive cough with a small amount of sputum with some yellow specks in it. This is worse than her baseline cough. She does smoke 1 pack/day. She is having pain in her left upper back which is worse than baseline. She takes oxycodone 30 mg every 6 hours, and recently had her morphine increased from 15 mg to 30 mg every 8 hours. She states that is still not controlling her pain in her upper back. She does have a known T10 metastatic lesion. EMS brought the patient in on 3 L nasal cannula, and gave her a total of 100 mcg of fentanyl without helping her pain at all. The patient was seen here on 10/29/2018 with nearly identical complaints of the shortness of breath and back pain. She had a CTA chest done at that time but did not show any pulmonary embolus. It did show right infrahilar lobe mass with interval increase. It showed a spiculated nodule left upper lobe. There was a right adrenal enlargement. And heterogeneous liver consistent with the history of lung cancer. TRAVEL OUTSIDE OF THE [place] IN LAST 30 DAYS: No - Related Data Allergies/Adverse Reactions: nickel [Nickel] Adverse Reaction (Severe, Verified 04/21/16 17:57) RASH Past Medical History - General Information source: Patient, Relative - Social History Smoking Status: Current Every Day Smoker Cigarette use (# per day): Yes Chew tobacco use (# tins/day): No Smoking Education Provided: No Frequency of alcohol use: None Drug Abuse: None Lives with: Family Family History: Reviewed & Not Pertinent, Arthritis, CAD, CVA, DM, Hyperlipidemia, Hypertension, Malignancy, Thyroid Disfunction Patient has suicidal ideation: No Patient has homicidal ideation: No - Past Medical History Cardiac Medical History: Reports: Hx Hypercholesterolemia, Hx Hypertension Pulmonary Medical History: Reports: Hx Bronchitis, Hx COPD, Hx Pneumonia Endocrine Medical History: Reports: Hx Diabetes Mellitus Type 2 Malignancy Medical History: Reports: Hx Lung Cancer - R lower lobe GI Medical History: Reports: Hx Diverticulitis, Hx Gastroesophageal Reflux D isease, Hx Hiatal Hernia, Hx Pancreatitis, Hx Colonoscopy, Hx Endoscopic Retrograde Cholangio, Hx Endoscopy Musculoskeletal Medical History: Reports Hx Arthritis - GENERALIZED, Reports Hx Musculoskeletal Deformity, Reports Hx Musculoskeletal Trauma Psychiatric Medical History: Reports: Hx Anxiety Past Surgical History: Reports: Hx Cardiac Catheterization - Patient denies CAD seen, cath was related to the L subclavian artery stent., Hx Hysterectomy, Hx Nose Surgery - Nasal septal straightening when sinus surgery was performed, Hx Thyroid Surgery - Thyroid nodule resected, Hx Vascular Surgery - Left subclavian artery stent, Other - Partial right lower lobe resection in 2006 - Immunizations Immunizations up to date: Yes Hx Diphtheria, Pertussis, Tetanus Vaccination: Yes - 11/29/2006 Hx Pneumococcal Vaccination: 03/01/12 Review of Systems - Review of Systems Constitutional: No symptoms reported EENT: No symptoms reported Cardiovascular: No symptoms reported Respiratory: See HPI, Cough, Short of breath Gastrointestinal: No symptoms reported Genitourinary: No symptoms reported Female Genitourinary: No symptoms reported Musculoskeletal: See HPI, Back pain Skin: No symptoms reported Hematologic/Lymphatic: No symptoms reported Neurological/Psychological: No symptoms reported -: Yes All other systems reviewed and negative Physical Exam - Vital signs Vitals: Temp Resp BP Pulse Ox 98.2 F 22 H 121/57 L 97 12/25/18 11:45 12/25/18 11:45 12/25/18 11:45 12/25/18 11:45 - Notes Notes: Physical Exam: General: Alert, appears chronically ill. HEENT: Normocephalic. Atraumatic. PERRL. Extraocular movements intact. Oropharynx clear. Neck: Supple. Non-tender. Respiratory: Mild respiratory distress. Wheezing and rhonchi bilaterally increased with a cough. Decreased breath sounds at the right base. Cardiovascular: Regular rate and rhythm. Abdominal: Normal Inspection. Non-tender. No distension. Normal Bowel Sounds. Back: No gross abnormalities. Extremities: Moves all four extremities. Upper extremities: Normal inspection. Normal ROM. Lower extremities: Normal inspection. No edema. Normal ROM. Neurological: Normal cognition. AAOx4. Normal speech. Psychological: Normal affect. Normal Mood. Skin: Warm. Dry. Normal color Course - Vital Signs Vital signs: Temp Pulse Resp BP Pulse Ox 98.2 F 12 112/64 95 12/25/18 11:45 12/25/18 15:01 12/25/18 15:00 12/25/18 15:01 - Laboratory Result Diagrams: 12/25/18 12:22 12/25/18 12:22 Laboratory results interpreted by me: 12/25/18 12/25/18 12/25/18 12:22 12:22 12:22 RBC 3.66 L Hgb 11.5 L Hct 34.2 L RDW 17.1 H Plt Count 560 H Carbonic Acid 1.82 H ABG pCO2 60.6 H ABG pO2 71.3 L ABG HCO3 34.2 H ABG Total CO2 36.0 H ABG O2 Saturation 93.5 L Chloride 96 L Carbon Dioxide 36 H Total Protein 5.9 L - Diagnostic Test Radiology reviewed: Image reviewed, Reports reviewed - Chest x-ray shows the chronic changes in the right lung related to the patient's lung cancer with no acute changes. - EKG Interpretation by Me EKG shows normal: Sinus rhythm, [place], Intervals, QRS Complexes, ST-T Waves Rate: Normal - 95 Rhythm: NSR - Consults Dr. Estrella Time consulted: 15:00 Consulted provider: will come to ER Critical Care Note - Critical Care Note Total time excluding time spent on procedures (mins): 35 Discharge - Discharge Clinical Impression: COPD exacerbation, Acute and chronic respiratory failure with hypoxia, Tobacco dependence, Carbon dioxide retention Lung cancer Qualifiers: Laterality: right Lung location: lower lobe of lung Qualified Code(s): C34.31 - Malignant neoplasm of lower lobe, right bronchus or lung Condition: Fair Disposition: ADMITTED OBSERVATION Admitting Provider: Sameer (Hospitalist) Unit Admitted: Medical Floor I personally performed the services described in the documentation, reviewed and edited the documentation which was dictated to the scribe in my presence, and it accurately records my words and actions.
[2018-12-25] MEDS ORDERED: IPRATROPIUM/ALBUTEROL 0.5-2.5 MG/3 ML AMPUL NEB ONE (14:04)
[2018-12-25] MEDS ORDERED: METHYLPREDNISOLONE INJ 125 MG/2 ML SDV IV ONE (14:05)
[2018-12-25] MEDS: MAGNESIUM SULFATE/D5W 1 GM/100 ML RTUPB IV SCH ×2 (14:17→14:50)
--- NOTE | 2018-12-25 14:43 | EKG REPORT ---
SEVERITY:- NORMAL ECG - SINUS RHYTHM : Confirmed by: Latesha Elmore MD 25-Dec-2018 14:42:45
[2018-12-25] MEDS ORDERED: NORMAL SALINE 1000 ML 1,000 ML IV ONE (14:59)
[2018-12-25] MEDS ORDERED: ONDANSETRON HCL INJ/PF 4 MG/2 ML SDV IV PRN (16:11)
[2018-12-25] MEDS ORDERED: PROMETHAZINE HCL 25 MG TABLET PO PRN (16:11)
[2018-12-25] MEDS ORDERED: MORPHINE SULFATE SR 15 MG TABLET PO SCH (16:15)
[2018-12-25] MEDS ORDERED: GLUCAGON,HUMAN RECOMB 1 MG INJ IM PRN (16:39)
[2018-12-25] MEDS ORDERED: DEXTROSE 40% GEL 15 GM TUBE PO PRN ×2 (16:39)
[2018-12-25] MEDS ORDERED: DEXTROSE 50%-WATER 25 GM/50 ML DISP.SYRIN IV PRN ×2 (16:39)
--- NOTE | 2018-12-25 16:39 | PDOC H&P ---
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 Patient states that back pain got worse today and localizes it to her left left side over her rib. States that the pain was more intense than usual. Also states that she is noted increased shortness of breath, increase cough with increased sputum production over the past 2 to 3 days. Family at bedside also confirms that she has been rattling a little more in her upper airway than usual. Patient denies any fevers chills or sick contacts. Patient states her last chemotherapy was 2 weeks ago and that she usually gets chemo for 2 weeks and then takes a one-week break in between. Patient states she has been planned for radiation. Past Medical History Cardiac Medical History: Reports: Hyperlipidema, Hypertension Pulmonary Medical History: Reports: Bronchitis, Chronic Obstructive Pulmonary Disease (COPD), Pneumonia Endocrine Medical History: Reports: Diabetes Mellitus Type 2 Malignancy Medical History: Reports: Lung Cancer - R lower lobe GI Medical History: Reports: Diverticulitis, Gastroesophageal Reflux Disease, Hiatal Hernia Musculoskeltal Medical History: Reports: Arthritis - GENERALIZED Psychiatric Medical History: Denies: Depression Hematology: Denies: Anemia Past Surgical History Past Surgical History: Reports: Cardiac Catheterization - Patient denies CAD seen, cath was related to the L subclavian artery stent., Hysterectomy, Vascular Surgery - Left subclavian artery stent, Other - Partial right lower lobe resection in 2006 Denies: Pacemaker Social History Lives with: Family Smoking Status: Current Every Day Smoker Frequency of Alcohol Use: None Hx Recreational Drug Use: Yes Drugs: None Hx Prescription Drug Abuse: No - Advance Directive Resuscitation Status: Full Code Family History Family History: Reviewed & Not Pertinent, Arthritis, CAD, CVA, DM, Hyperlipidemia, Hypertension, Malignancy, Thyroid Disfunction Parental Family History Reviewed: Yes Children Family History Reviewed: NA Sibling(s) Family History Reviewed.: NA Medication/Allergy Home Medications: Folic Acid [Folvite 1 mg Tablet] 1 mg PO DAILY 12/20/17 Metformin HCl [Glucophage] 1,000 mg PO BIDBS 12/20/17 Metoprolol Tartrate [Lopressor 50 mg Tablet] 50 mg PO Q12 12/20/17 Nifedipine [Nifedipine ER] 90 mg PO DAILY 12/20/17 Ondansetron HCl [Zofran 4 mg Tablet] 4 mg PO Q8HP PRN 12/20/17 Oxycodone HCl [Oxy-Ir 5 mg Tablet] 30 mg PO Q6HP PRN 12/20/17 Pantoprazole Sodium [Protonix] 40 mg PO BID 12/20/17 Levalbuterol HCl [Xopenex Neb 0.63 mg/3 ml Ampul] 0.63 mg NEB RTQ3HP PRN #20 [email or web address] 04/21/18 Prednisone [Deltasone 20 mg Tablet] 3 tab PO DAILY 5 Days tablet 10/30/18 Fluticasone/Umeclidin/Vilanter [Trelegy 100-62.5-25 Mcg Ellipta 14 Dose/Dpi] 1 inh IH DAILY 12/25/18 Morphine Sulfate [Morphine Sulfate ER] 30 mg PO Q8HP PRN 12/25/18 Promethazine HCl [Phenergan 25 mg Tablet] 25 mg PO Q6HP PRN 12/25/18 Allergies/Adverse Reactions: nickel [Nickel] Adverse Reaction (Severe, Verified 04/21/16 17:57) RASH Review of Systems Constitutional: PRESENT: fatigue. ABSENT: fever(s) Eyes: ABSENT: visual disturbances Nose, Mouth, and Throat: ABSENT: sore throat Cardiovascular: ABSENT: chest pain, orthropnea Respiratory: PRESENT: as per HPI, cough, dyspnea, sputum Gastrointestinal: PRESENT: constipation. ABSENT: abdominal pain, diarrhea Genitourinary: ABSENT: difficulty urinating Musculoskeletal: PRESENT: back pain Integumentary: ABSENT: diaphoresis Neurological: ABSENT: confusion Psychiatric: ABSENT: hallucinations Physical Exam Vital Signs: Temp Pulse Resp BP Pulse Ox 98.2 F 12 112/64 95 12/25/18 11:45 12/25/18 15:01 12/25/18 15:00 12/25/18 15:01 Intake & Output 12/24/18 12/25/18 12/26/18 06:59 06:59 06:59 Intake Total 200 Balance 200 Weight 56.82 kg General appearance: PRESENT: no acute distress, thin Eye exam: PRESENT: EOMI Mouth exam: PRESENT: dry mucosa Neck exam: ABSENT: JVD Respiratory exam: PRESENT: rhonchi - History rhonchi in all laurent appears to be mostly upper airway induced, wheezes - Significant expiratory wheezes in both lung laurent Cardiovascular exam: PRESENT: RRR, +S1, +S2 Vascular exam: ABSENT: pallor GI/Abdominal exam: PRESENT: normal bowel sounds, soft. ABSENT: tenderness Rectal exam: PRESENT: deferred Extremities exam: ABSENT: pedal edema Psychiatric exam: PRESENT: other - Very irritable Results Laboratory Results: 12/25/18 12:22 12/25/18 12:22 12/25/18 12/25/18 12/25/18 12:22 12:22 12:22 WBC 6.3 RBC 3.66 L Hgb 11.5 L Hct 34.2 L MCV 93 MCH 31.4 MCHC 33.7 RDW 17.1 H Plt Count 560 H Seg Neutrophils % 65.8 Carbonic Acid 1.82 H HCO3/H2CO3 Ratio 18:1 ABG pH 7.37 ABG pCO2 60.6 H ABG pO2 71.3 L ABG HCO3 34.2 H ABG O2 Saturation 93.5 L ABG Base Excess 6.7 FiO2 2L Sodium 137.7 Potassium 4.4 Chloride 96 L Carbon Dioxide 36 H Anion Gap 6 BUN 14 Creatinine 0.66 Est GFR ( Amer) > 60 Glucose 98 Calcium 9.4 Magnesium 2.0 Total Bilirubin 0.2 AST 15 Alkaline Phosphatase 81 Total Protein 5.9 L Albumin 3.5 12/25/18 12:22 Troponin I < 0.012 Impressions: Chest X-Ray 12/25/18 11:53 IMPRESSION: Chronic changes in the right lung. No acute findings. Assessment and Plan - Diagnosis (1) COPD with acute exacerbation Is this a current diagnosis for this admission?: Yes Plan: Chest x-ray showing chronic findings without new infiltrates Placed on standing nebs every 6 hours, steroids and azithromycin Continue with trelegy (2) Metastatic lung cancer (metastasis from lung to other site) Is this a current diagnosis for this admission?: Yes Plan: Follows with Dr. Jackson (3) Pain due to malignant neoplasm metastatic to bone Is this a current diagnosis for this admission?: Yes Plan: We will increase sustained-release morphine to 45 mg every 8 Continue oxycodone IR 30 mg every 4 as needed Cautioned about increasing pain meds excessively so as not to suppress respiratory drive Dr. Torres consulted (4) Diabetes mellitus type 2 in nonobese Is this a current diagnosis for this admission?: Yes Plan: Continue with metformin, Accu-Cheks, insulin sliding scale, diabetic diet (5) Hypertension Is this a current diagnosis for this admission?: Yes Plan: Continue nifedipine and metoprolol - Time Time Spent with patient: 35 or more minutes
[2018-12-25] MEDS ORDERED: AZITHROMYCIN 250 MG TABLET PO ONE (17:00)
[2018-12-25] MEDS: LIDOCAINE 5% (700 MG) TRANSDERMAL ADH..PATCH TP SCH (17:12)
[2018-12-25] MEDS: METFORMIN HCL 500 MG TABLET PO SCH (17:13)
[2018-12-25] MEDS: MORPHINE SULFATE SR 15 MG TABLET PO SCH (17:13)
[2018-12-25] MEDS: PANTOPRAZOLE SODIUM 40 MG TABLET.DR PO SCH (17:14)
[2018-12-25] MEDS ORDERED: INFLUENZA QUAD (6MOS+) 2019-20 VAC 0.5 ML SYR IM ONE (18:25)
[2018-12-25] MEDS: IPRATROPIUM/ALBUTEROL 0.5-2.5 MG/3 ML AMPUL NEB SCH (20:04)
[2018-12-25] MEDS: METOPROLOL TARTRATE 50 MG TABLET PO SCH (21:16)
[2018-12-25] MEDS: INSULIN LISPRO 100 UNIT/ML 3 ML VIAL SUBCUT SCH (21:17)
[2018-12-25] MEDS ORDERED: LACTULOSE SYRUP 20 GM/30 ML UDCUP PO ONE (22:15)
[2018-12-26] MEDS: IPRATROPIUM/ALBUTEROL 0.5-2.5 MG/3 ML AMPUL NEB SCH ×4 (02:16→19:59)
[2018-12-26 05:15] LABS: HEMATOCRIT 33.2 % (36.0-47.0); HEMOGLOBIN 11.2 g/dL (12.0-15.5); MEAN CORPUSCULAR HEMOGLOBIN 31.4 pg (27.0-33.4); MEAN CORPUSCULAR HGB CONC 33.6 g/dL (32.0-36.0); MEAN CORPUSCULAR VOLUME 93 fl (80-97); PLATELET COUNT 553 10^3/uL (150-450); RED BLOOD COUNT 3.55 10^6/uL (3.72-5.28); RED CELL DISTRIBUTION WIDTH 16.5 % (11.5-14.0); WHITE BLOOD COUNT 5.8 10^3/uL (4.0-10.5)
[2018-12-26 05:32] LABS: BLOOD UREA NITROGEN 11 mg/dL (7-20); CALCIUM 8.7 mg/dL (8.4-10.2); GLUCOSE 98 mg/dL (75-110); PHOSPHORUS 4.6 mg/dL (2.5-4.5); POTASSIUM 4.7 mmol/L (3.6-5.0)
[2018-12-26 05:37] LABS: CARBON DIOXIDE 35 mmol/L (22-30); CHLORIDE 97 mmol/L (98-107)
[2018-12-26 05:40] LABS: ANION GAP 4 (5-19)
[2018-12-26] MEDS: MORPHINE SULFATE SR 15 MG TABLET PO SCH ×3 (05:48→21:28)
[2018-12-26] MEDS: INSULIN LISPRO 100 UNIT/ML 3 ML VIAL SUBCUT SCH ×4 (08:21→21:29)
--- NOTE | 2018-12-26 08:31 | PDOC CONSULTATION ---
Consultation Consult Date: 12/26/18 Attending physician:: RAGINI VEGA Provider Consulted: MOHIT BARRETO Consult reason:: Patient with stage IV lung cancer on chemotherapy with COPD exacerbation, respiratory failure History of Present Illness Admission Date/PCP: 12/25/18 16:08 MOHIT BARRETO MD History of Present Illness: GOKUL SALAZAR is a 73 year old female now with almost 4-1/2-year history of stage IV lung cancer, she has been on a variety of therapies and is currently on fourth line chemotherapy and actually has done well with and most recent imaging shows improvement in disease. However, she does have known bone metastasis especially in the T11 area as well as the left rib and is being planned for radiation however was unable to lay flat on the table without pain so is awaiting pain management for consideration of kyphoplasty as an outpatient to be able to address the T11 area and stabilize it to be able to get radiation. About 48 to 72 hours prior to admission she began experiencing increasing shortness of breath, fatigue, consistent with COPD exacerbation she presented to the ED, and thus far has been treated for COPD exacerbation Past Medical History Cardiac Medical History: Reports: Hyperlipidema, Hypertension Pulmonary Medical History: Reports: Bronchitis, Chronic Obstructive Pulmonary Disease (COPD), Pneumonia Endocrine Medical History: Reports: Diabetes Mellitus Type 2 Malignancy Medical History: Reports: Lung Cancer - R lower lobe GI Medical History: Reports: Diverticulitis, Gastroesophageal Reflux Disease, Hiatal Hernia Musculoskeltal Medical History: Reports: Arthritis Psychiatric Medical History: Denies: Depression Hematology: Denies: Anemia Past Surgical History Past Surgical History: Reports: Cardiac Catheterization - Patient denies CAD seen, cath was related to the L subclavian artery stent., Hysterectomy, Vascular Surgery - Left subclavian artery stent, Other - Partial right lower lobe resection in 2006 Denies: Pacemaker Social History Lives with: Family Smoking Status: Current Every Day Smoker Frequency of Alcohol Use: None Hx Recreational Drug Use: Yes Drugs: None Hx Prescription Drug Abuse: No - Advance Directive Resuscitation Status: Full Code Family History Family History: Reviewed & Not Pertinent, Arthritis, CAD, CVA, DM, Hyperlipidemia, Hypertension, Malignancy, Thyroid Disfunction Parental Family History Reviewed: Yes Children Family History Reviewed: Yes Sibling(s) Family History Reviewed.: Yes Medication/Allergy Allergies/Adverse Reactions: nickel [Nickel] Adverse Reaction (Severe, Verified 04/21/16 17:57) RASH Review of Systems Constitutional: ABSENT: chills, fever(s), headache(s), weight gain, weight loss Eyes: ABSENT: visual disturbances Ears: ABSENT: hearing changes Cardiovascular: ABSENT: chest pain, dyspnea on exertion, edema, orthropnea, palpitations Respiratory: ABSENT: cough, hemoptysis Gastrointestinal: ABSENT: abdominal pain, constipation, diarrhea, hematemesis, hematochezia, nausea, vomiting Genitourinary: ABSENT: dysuria, hematuria Musculoskeletal: ABSENT: joint swelling Integumentary: ABSENT: rash, wounds Neurological: ABSENT: abnormal gait, abnormal speech, confusion, dizziness, focal weakness, syncope Psychiatric: ABSENT: anxiety, depression, homidical ideation, suicidal ideation Endocrine: ABSENT: cold intolerance, heat intolerance, polydipsia, polyuria Hematologic/Lymphatic: ABSENT: easy bleeding, easy bruising Physical Exam Vital Signs: Temp Pulse Resp BP Pulse Ox 97.4 F 78 15 105/60 95 12/25/18 23:32 12/26/18 02:16 12/26/18 02:16 12/25/18 23:32 12/26/18 02:16 Intake & Output 12/25/18 12/26/18 12/27/18 06:59 06:59 06:59 Intake Total 1200 Balance 1200 Weight 56.2 kg General appearance: PRESENT: no acute distress, well-developed, well-nourished Head exam: PRESENT: atraumatic, normocephalic Eye exam: PRESENT: conjunctiva pink, EOMI, PERRLA. ABSENT: scleral icterus Ear exam: PRESENT: normal external ear exam Mouth exam: PRESENT: moist, tongue midline Neck exam: ABSENT: carotid bruit, JVD, lymphadenopathy, thyromegaly Respiratory exam: PRESENT: clear to auscultation harish. ABSENT: rales, rhonchi, wheezes Cardiovascular exam: PRESENT: RRR. ABSENT: diastolic murmur, rubs, systolic murmur Pulses: PRESENT: normal dorsalis pedis pul Vascular exam: PRESENT: normal capillary refill GI/Abdominal exam: PRESENT: normal bowel sounds, soft. ABSENT: distended, guarding, mass, organolmegaly, rebound, tenderness Rectal exam: PRESENT: deferred Extremities exam: PRESENT: full ROM. ABSENT: calf tenderness, clubbing, pedal edema Neurological exam: PRESENT: alert, awake, oriented to person, oriented to place, oriented to time, oriented to situation, CN II-XII grossly intact. ABSENT: motor sensory deficit Psychiatric exam: PRESENT: appropriate affect, normal mood. ABSENT: homicidal ideation, suicidal ideation Skin exam: PRESENT: dry, intact, warm. ABSENT: cyanosis, rash Results Laboratory Results: 12/26/18 04:36 12/26/18 04:36 12/25/18 12/25/18 12/25/18 12:22 12:22 12:22 WBC 6.3 RBC 3.66 L Hgb 11.5 L Hct 34.2 L MCV 93 MCH 31.4 MCHC 33.7 RDW 17.1 H Plt Count 560 H Seg Neutrophils % 65.8 Carbonic Acid 1.82 H HCO3/H2CO3 Ratio 18:1 ABG pH 7.37 ABG pCO2 60.6 H ABG pO2 71.3 L ABG HCO3 34.2 H ABG O2 Saturation 93.5 L ABG Base Excess 6.7 FiO2 2L Sodium 137.7 Potassium 4.4 Chloride 96 L Carbon Dioxide 36 H Anion Gap 6 BUN 14 Creatinine 0.66 Est GFR ( Amer) > 60 Glucose 98 Calcium 9.4 Phosphorus Magnesium 2.0 Total Bilirubin 0.2 AST 15 Alkaline Phosphatase 81 Total Protein 5.9 L Albumin 3.5 12/26/18 12/26/18 04:36 04:36 WBC 5.8 RBC 3.55 L Hgb 11.2 L Hct 33.2 L MCV 93 MCH 31.4 MCHC 33.6 RDW 16.5 H Plt Count 553 H Seg Neutrophils % Carbonic Acid HCO3/H2CO3 Ratio ABG pH ABG pCO2 ABG pO2 ABG HCO3 ABG O2 Saturation ABG Base Excess FiO2 Sodium 136.1 L Potassium 4.7 Chloride 97 L Carbon Dioxide 35 H Anion Gap 4 L BUN 11 Creatinine 0.46 L Est GFR ( Amer) > 60 Glucose 98 Calcium 8.7 Phosphorus 4.6 H Magnesium 2.2 Total Bilirubin AST Alkaline Phosphatase Total Protein Albumin 12/25/18 12:22 Troponin I < 0.012 Impressions: Chest X-Ray 12/25/18 11:53 IMPRESSION: Chronic changes in the right lung. No acute findings. Assessment & Plan - Diagnosis (1) COPD with acute exacerbation Is this a current diagnosis for this admission?: Yes Plan: COPD exacerbation, continue with O2 as well as IV steroids, nebulizer treatments. She will need another 24 to 48 hours and to improve her lung st atus. (2) Metastatic lung cancer (metastasis from lung to other site) Qualifiers: Laterality: right Qualified Code(s): C34.91 - Malignant neoplasm of unspecified part of right bronchus or lung Is this a current diagnosis for this admission?: Yes Plan: We will plan on continued chemotherapy as an outpatient (3) Pain due to malignant neoplasm metastatic to bone Is this a current diagnosis for this admission?: Yes Plan: Continue with current pain regimen, we will optimize it as much as possible while admitted - Time Time Spent: Greater than 70 Minutes - Inpatient Certification Based on my medical assessment, after consideration of the patient's comorbidities, presenting symptoms, or acuity I expect that the services needed warrant INPATIENT care.: Yes I certify that my determination is in accordance with my understanding of Medicare's requirements for reasonable and necessary INPATIENT services [42 CFR 412.3e].: Yes Medical Necessity: Need For Continuous Telemetry Monitoring, Risk of Complication if Not Cared For in Hospital
[2018-12-26] MEDS: NIFEDIPINE 30 MG TAB.ER.24 PO SCH (09:54)
[2018-12-26] MEDS: METFORMIN HCL 500 MG TABLET PO SCH ×2 (09:54→17:13)
[2018-12-26] MEDS: METOPROLOL TARTRATE 50 MG TABLET PO SCH ×2 (09:54→21:29)
[2018-12-26] MEDS: LIDOCAINE 5% (700 MG) TRANSDERMAL ADH..PATCH TP SCH (09:54)
[2018-12-26] MEDS: ENOXAPARIN SODIUM INJ 40 MG/0.4 ML DISP.SYRIN SUBCUT SCH (09:55)
[2018-12-26] MEDS: AZITHROMYCIN 250 MG TABLET PO SCH (09:55)
[2018-12-26] MEDS: FOLIC ACID 1 MG TABLET PO SCH (09:55)
[2018-12-26] MEDS: PANTOPRAZOLE SODIUM 40 MG TABLET.DR PO SCH ×2 (09:55→17:13)
[2018-12-26] MEDS: OXYCODONE HCL IR 5 MG TABLET PO PRN ×2 (09:56→17:15)
[2018-12-26] MEDS ORDERED: NIFEDIPINE 10 MG CAPSULE PO SCH (10:00)
[2018-12-26] MEDS ORDERED: POLYETHYLENE GLYCOL 3350 POWDER 17 GM/1 PACKET PO PRN (12:23)
--- NOTE | 2018-12-26 12:28 | PDOC PROGRESS REPORT ---
Subjective Progress Note for:: 12/26/18 Subjective:: Patient states that she is doing better today. Breathing a lot better. Pain better controlled also in her back. Denies any chest pain. Minimal tightness. Reason For Visit: COPD EXACERBATION Physical Exam Vital Signs: Temp Pulse Resp BP Pulse Ox 97.5 F 87 18 151/75 H 94 12/26/18 07:39 12/26/18 08:40 12/26/18 08:40 12/26/18 07:39 12/26/18 08:40 Intake & Output 12/25/18 12/26/18 12/27/18 06:59 06:59 06:59 Intake Total 1200 480 Balance 1200 480 Weight 56.2 kg General appearance: PRESENT: no acute distress, cooperative, thin Head exam: PRESENT: normocephalic Eye exam: PRESENT: EOMI Neck exam: ABSENT: JVD, tracheal deviation Respiratory exam: PRESENT: wheezes - Still has expiratory wheezing but better compared to yesterday Cardiovascular exam: PRESENT: RRR, +S1, +S2 GI/Abdominal exam: PRESENT: normal bowel sounds, soft. ABSENT: tenderness Rectal exam: PRESENT: deferred Extremities exam: ABSENT: pedal edema Results Laboratory Results: 12/26/18 04:36 12/26/18 04:36 12/25/18 12/25/18 12/25/18 12:22 12:22 12:22 WBC 6.3 RBC 3.66 L Hgb 11.5 L Hct 34.2 L MCV 93 MCH 31.4 MCHC 33.7 RDW 17.1 H Plt Count 560 H Seg Neutrophils % 65.8 Carbonic Acid 1.82 H HCO3/H2CO3 Ratio 18:1 ABG pH 7.37 ABG pCO2 60.6 H ABG pO2 71.3 L ABG HCO3 34.2 H ABG O2 Saturation 93.5 L ABG Base Excess 6.7 FiO2 2L Sodium 137.7 Potassium 4.4 Chloride 96 L Carbon Dioxide 36 H Anion Gap 6 BUN 14 Creatinine 0.66 Est GFR ( Amer) > 60 Glucose 98 Calcium 9.4 Phosphorus Magnesium 2.0 Total Bilirubin 0.2 AST 15 Alkaline Phosphatase 81 Total Protein 5.9 L Albumin 3.5 12/26/18 12/26/18 04:36 04:36 WBC 5.8 RBC 3.55 L Hgb 11.2 L Hct 33.2 L MCV 93 MCH 31.4 MCHC 33.6 RDW 16.5 H Plt Count 553 H Seg Neutrophils % Carbonic Acid HCO3/H2CO3 Ratio ABG pH ABG pCO2 ABG pO2 ABG HCO3 ABG O2 Saturation ABG Base Excess FiO2 Sodium 136.1 L Potassium 4.7 Chloride 97 L Carbon Dioxide 35 H Anion Gap 4 L BUN 11 Creatinine 0.46 L Est GFR ( Amer) > 60 Glucose 98 Calcium 8.7 Phosphorus 4.6 H Magnesium 2.2 Total Bilirubin AST Alkaline Phosphatase Total Protein Albumin 12/25/18 12:22 Troponin I < 0.012 Impressions: Chest X-Ray 12/25/18 11:53 IMPRESSION: Chronic changes in the right lung. No acute findings. Assessment and Plan - Diagnosis (1) COPD with acute exacerbation Is this a current diagnosis for this admission?: Yes Plan: Chest x-ray showing chronic findings without new infiltrates standing nebs every 6 hours, steroids and azithromycin Continue with trelegy (2) Metastatic lung cancer (metastasis from lung to other site) Qualifiers: Laterality: right Qualified Code(s): C34.91 - Malignant neoplasm of unspecified part of right bronchus or lung Is this a current diagnosis for this admission?: Yes Plan: Follows with Dr. Jackson (3) Pain due to malignant neoplasm metastatic to bone Is this a current diagnosis for this admission?: Yes Plan: Increase sustained-release morphine to 45 mg every 8 Continue oxycodone IR 30 mg every 4 as needed Cautioned about increasing pain meds excessively so as not to suppress respiratory drive Dr. Torres consulted. Recommendations appreciated Bowel regimen (4) Diabetes mellitus type 2 in nonobese Is this a current diagnosis for this admission?: Yes Plan: Continue with metformin, Accu-Cheks, insulin sliding scale, diabetic diet (5) Hypertension Is this a current diagnosis for this admission?: Yes Plan: Continue nifedipine and metoprolol - Time Time Spent with patient: 15-24 minutes
[2018-12-26] MEDS ORDERED: ONDANSETRON HCL INJ/PF 4 MG/2 ML SDV IV PRN (14:30)
[2018-12-26] MEDS: FLUTICASONE/UMECLIDIN/VILANTER 100-62.5-25 MCG/DOSE IH SCH (14:30)
[2018-12-26] MEDS: METHYLPREDNISOLONE INJ 40 MG/1 ML SDV IV SCH (21:27)
[2018-12-26] MEDS: PHARMACY COMMUNICATION ORDER MC SCH (21:30)
[2018-12-26] MEDS: PROMETHAZINE HCL 25 MG TABLET PO PRN (23:59)
[2018-12-27] MEDS: IPRATROPIUM/ALBUTEROL 0.5-2.5 MG/3 ML AMPUL NEB SCH ×4 (02:40→19:47)
[2018-12-27 06:02] LABS: BLOOD UREA NITROGEN 11 mg/dL (7-20); CALCIUM 8.9 mg/dL (8.4-10.2); CARBON DIOXIDE 36 mmol/L (22-30); GLUCOSE 155 mg/dL (75-110); POTASSIUM 5.1 mmol/L (3.6-5.0)
[2018-12-27 06:08] LABS: CHLORIDE 97 mmol/L (98-107)
[2018-12-27 06:17] LABS: ANION GAP 4 (5-19)
[2018-12-27] MEDS: MORPHINE SULFATE SR 15 MG TABLET PO SCH ×3 (06:39→22:41)
--- NOTE | 2018-12-27 08:03 | PDOC PROGRESS REPORT ---
Subjective Progress Note for:: 12/27/18 Subjective:: Patient seems to be doing better this morning, she feels ready for discharge. Reason For Visit: COPD EXACERBATION Physical Exam Vital Signs: Temp Pulse Resp BP Pulse Ox 98.1 F 97 18 131/57 H 95 12/26/18 20:19 12/27/18 02:32 12/27/18 02:32 12/26/18 20:19 12/27/18 06:08 Intake & Output 12/26/18 12/27/18 12/28/18 06:59 06:59 06:59 Intake Total 1200 960 Balance 1200 960 Weight 56.2 kg 56.8 kg General appearance: PRESENT: no acute distress, well-developed, well-nourished Head exam: PRESENT: atraumatic, normocephalic Eye exam: PRESENT: conjunctiva pink, EOMI, PERRLA. ABSENT: scleral icterus Ear exam: PRESENT: normal external ear exam Mouth exam: PRESENT: moist, tongue midline Neck exam: ABSENT: carotid bruit, JVD, lymphadenopathy, thyromegaly Respiratory exam: PRESENT: clear to auscultation harish. ABSENT: rales, rhonchi, wheezes Cardiovascular exam: PRESENT: RRR. ABSENT: diastolic murmur, rubs, systolic murmur Pulses: PRESENT: normal dorsalis pedis pul Vascular exam: PRESENT: normal capillary refill GI/Abdominal exam: PRESENT: normal bowel sounds, soft. ABSENT: distended, guarding, mass, organolmegaly, rebound, tenderness Rectal exam: PRESENT: deferred Extremities exam: PRESENT: full ROM. ABSENT: calf tenderness, clubbing, pedal edema Neurological exam: PRESENT: alert, awake, oriented to person, oriented to place, oriented to time, oriented to situation, CN II-XII grossly intact. ABSENT: motor sensory deficit Psychiatric exam: PRESENT: appropriate affect, normal mood. ABSENT: homicidal ideation, suicidal ideation Skin exam: PRESENT: dry, intact, warm. ABSENT: cyanosis, rash Results Laboratory Results: 12/26/18 04:36 12/27/18 05:14 12/27/18 05:14 Sodium 137.1 Potassium 5.1 H Chloride 97 L Carbon Dioxide 36 H Anion Gap 4 L BUN 11 Creatinine 0.51 L Est GFR ( Amer) > 60 Glucose 155 H Calcium 8.9 12/25/18 12:22 Troponin I < 0.012 Impressions: Chest X-Ray 12/25/18 11:53 IMPRESSION: Chronic changes in the right lung. No acute findings. Assessment & Plan - Diagnosis (1) COPD with acute exacerbation Is this a current diagnosis for this admission?: Yes Plan: Improved, I believe patient would benefit from a steroid taper as an outpatient, would also benefit from oral antibiotic for a few days (2) Metastatic lung cancer (metastasis from lung to other site) Qualifiers: Laterality: right Qualified Code(s): C34.91 - Malignant neoplasm of unspecified part of right bronchus or lung Is this a current diagnosis for this admission?: Yes Plan: He has follow-up in our office for treatment next week (3) Pain due to malignant neoplasm metastatic to bone Is this a current diagnosis for this admission?: Yes Plan: She should have oral pain medication at home - Time Time Spent with patient: 35 or more minutes
[2018-12-27] MEDS: INSULIN LISPRO 100 UNIT/ML 3 ML VIAL SUBCUT SCH ×4 (09:18→22:49)
[2018-12-27] MEDS: METHYLPREDNISOLONE INJ 40 MG/1 ML SDV IV SCH ×2 (09:40→22:51)
[2018-12-27] MEDS: ENOXAPARIN SODIUM INJ 40 MG/0.4 ML DISP.SYRIN SUBCUT SCH (09:40)
[2018-12-27] MEDS: PANTOPRAZOLE SODIUM 40 MG TABLET.DR PO SCH ×2 (09:41→17:28)
[2018-12-27] MEDS: FOLIC ACID 1 MG TABLET PO SCH (09:41)
[2018-12-27] MEDS: METOPROLOL TARTRATE 50 MG TABLET PO SCH ×2 (09:41→22:51)
[2018-12-27] MEDS: FLUTICASONE/UMECLIDIN/VILANTER 100-62.5-25 MCG/DOSE IH SCH (09:41)
[2018-12-27] MEDS: NIFEDIPINE 30 MG TAB.ER.24 PO SCH (09:41)
[2018-12-27] MEDS: AZITHROMYCIN 250 MG TABLET PO SCH (09:41)
[2018-12-27] MEDS: METFORMIN HCL 500 MG TABLET PO SCH ×2 (09:42→17:28)
[2018-12-27] MEDS: DOCUSATE SODIUM 100 MG CAPSULE PO SCH (09:42)
[2018-12-27] MEDS: LIDOCAINE 5% (700 MG) TRANSDERMAL ADH..PATCH TP SCH (09:42)
[2018-12-27] MEDS: OXYCODONE HCL IR 5 MG TABLET PO PRN ×2 (09:53→17:26)
[2018-12-27] MEDS: PROMETHAZINE HCL 25 MG TABLET PO PRN (09:53)
--- NOTE | 2018-12-27 13:09 | PDOC PROGRESS REPORT ---
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 Patient states that back pain got worse today and localizes it to her left left side over her rib. States that the pain was more intense than usual. Also states that she is noted increased shortness of breath, increase cough with increased sputum production over the past 2 to 3 days. Family at bedside also confirms that she has been rattling a little more in her upper airway than usual. Patient denies any fevers chills or sick contacts. Patient states her last chemotherapy was 2 weeks ago and that she usually gets chemo for 2 weeks and then takes a one-week break in between. Patient states she has been planned for radiation. 12/27/2017. No acute events overnight. Patient comfortably sitting in bed in no apparent distress, supplemental oxygen 4 L. Denies any fever, chills, nausea, vomiting, diarrhea, constipation or any urinary symptoms. Complaining of chronic lower back pain. Patient was going to be discharged home today how ever still needs 4 L of oxygen dropped into the 90s upon ambulation. Possible discharge tomorrow. Reason For Visit: COPD EXACERBATION Physical Exam Vital Signs: Temp Pulse Resp BP Pulse Ox 98.3 F 89 18 127/74 H 90 L 12/27/18 07:36 12/27/18 07:56 12/27/18 07:56 12/27/18 07:36 12/27/18 07:56 Intake & Output 12/26/18 12/27/18 12/28/18 06:59 06:59 06:59 Intake Total 1200 960 Balance 1200 960 Weight 56.2 kg 56.8 kg General appearance: PRESENT: no acute distress, well-developed, well-nourished Head exam: PRESENT: atraumatic, normocephalic Respiratory exam: PRESENT: clear to auscultation harish. ABSENT: rales, rhonchi, wheezes Cardiovascular exam: PRESENT: RRR. ABSENT: diastolic murmur, rubs, systolic murmur GI/Abdominal exam: PRESENT: normal bowel sounds, soft. ABSENT: distended, guarding, mass, organolmegaly, rebound, tenderness Neurological exam: PRESENT: alert, awake, oriented to person, oriented to place, oriented to time, oriented to situation, CN II-XII grossly intact. ABSENT: motor sensory deficit Results Laboratory Results: 12/26/18 04:36 12/27/18 05:14 12/27/18 05:14 Sodium 137.1 Potassium 5.1 H Chloride 97 L Carbon Dioxide 36 H Anion Gap 4 L BUN 11 Creatinine 0.51 L Est GFR ( Amer) > 60 Glucose 155 H Calcium 8.9 12/25/18 12:22 Troponin I < 0.012 Impressions: Chest X-Ray 12/25/18 11:53 IMPRESSION: Chronic changes in the right lung. No acute findings. Assessment and Plan - Diagnosis (1) Acute and chronic respiratory failure with hypoxia Is this a current diagnosis for this admission?: Yes Plan: Improving. Most likely to COPD exacerbation. 12/25/2018. ABG: pH 7.37, PCO2 60.6, PO2 71.3, FiO2 2 L. SPO2 70789. Continue DuoNeb's, pulmonary toileting, supplemental oxygen, BiPAP, IV steroids, empiric IV antibiotics. (2) COPD with acute exacerbation Is this a current diagnosis for this admission?: Yes Plan: On home O2 2 L/min. Plan as per #1. (3) Metastatic lung cancer (metastasis from lung to other site) Qualifiers: Laterality: right Qualified Code(s): C34.91 - Malignant neoplasm of unspecified part of right bronchus or lung Is this a current diagnosis for this admission?: Yes Plan: Follows with Dr. Jackson (4) Pain due to malignant neoplasm metastatic to bone Is this a current diagnosis for this admission?: Yes Plan: Increase sustained-release morphine to 45 mg every 8 Continue oxycodone IR 30 mg every 4 as needed Patient has a referral by Dr. Diaz to see pain management after discharge. (5) Diabetes mellitus type 2 in nonobese Is this a current diagnosis for this admission?: Yes Plan: Continue with metformin, Accu-Cheks, insulin sliding scale, diabetic diet (6) Hypertension Is this a current diagnosis for this admission?: Yes Plan: Euvolemic, normotensive. Continue current meds. Adjust meds as needed. Outpatient PCP follow-up.
[2018-12-27] MEDS: PHARMACY COMMUNICATION ORDER MC SCH (22:51)
[2018-12-28] MEDS: IPRATROPIUM/ALBUTEROL 0.5-2.5 MG/3 ML AMPUL NEB SCH ×4 (02:00→19:54)
[2018-12-28] MEDS: MORPHINE SULFATE SR 15 MG TABLET PO SCH ×2 (05:25→14:55)
[2018-12-28 07:51] LABS: POTASSIUM 5.2 mmol/L (3.6-5.0)
[2018-12-28] MEDS: INSULIN LISPRO 100 UNIT/ML 3 ML VIAL SUBCUT SCH ×4 (07:57→22:46)
--- NOTE | 2018-12-28 08:08 | Progress Note ---
Provider Note Provider Note: Pt desat on 4L yesterday, so hospitalist team felt another few days of IV steroids may be needed to get her back to baseline, will follow peripherally while here, pt has f/u next week w/ us
[2018-12-28] MEDS ORDERED: ALPRAZOLAM 0.25 MG TABLET PO PRN (08:28)
[2018-12-28] MEDS: FOLIC ACID 1 MG TABLET PO SCH (09:55)
[2018-12-28] MEDS: DOCUSATE SODIUM 100 MG CAPSULE PO SCH (09:55)
[2018-12-28] MEDS: AZITHROMYCIN 250 MG TABLET PO SCH (09:56)
[2018-12-28] MEDS: NIFEDIPINE 30 MG TAB.ER.24 PO SCH (09:56)
[2018-12-28] MEDS: METOPROLOL TARTRATE 50 MG TABLET PO SCH ×2 (09:57→22:50)
[2018-12-28] MEDS: METFORMIN HCL 500 MG TABLET PO SCH ×2 (09:57→18:25)
[2018-12-28] MEDS: PANTOPRAZOLE SODIUM 40 MG TABLET.DR PO SCH ×2 (09:57→18:25)
[2018-12-28] MEDS: LIDOCAINE 5% (700 MG) TRANSDERMAL ADH..PATCH TP SCH (09:57)
[2018-12-28] MEDS: ENOXAPARIN SODIUM INJ 40 MG/0.4 ML DISP.SYRIN SUBCUT SCH (09:58)
[2018-12-28] MEDS: FLUTICASONE/UMECLIDIN/VILANTER 100-62.5-25 MCG/DOSE IH SCH (09:59)
[2018-12-28] MEDS: METHYLPREDNISOLONE INJ 40 MG/1 ML SDV IV SCH ×2 (10:05→22:47)
[2018-12-28] MEDS: OXYCODONE HCL IR 5 MG TABLET PO PRN ×2 (10:20→20:31)
[2018-12-28] MEDS ORDERED: HYDRALAZINE HCL INJ/PF 20 MG/1 ML SDV IV PRN (13:49)
--- NOTE | 2018-12-28 13:53 | PDOC PROGRESS REPORT ---
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 Patient states that back pain got worse today and localizes it to her left left side over her rib. States that the pain was more intense than usual. Also states that she is noted increased shortness of breath, increase cough with increased sputum production over the past 2 to 3 days. Family at bedside also confirms that she has been rattling a little more in her upper airway than usual. Patient denies any fevers chills or sick contacts. Patient states her last chemotherapy was 2 weeks ago and that she usually gets chemo for 2 weeks and then takes a one-week break in between. Patient states she has been planned for radiation. 12/27/2017. No acute events overnight. Patient comfortably sitting in bed in no apparent distress, supplemental oxygen 4 L. Denies any fever, chills, nausea, vomiting, diarrhea, constipation or any urinary symptoms. Complaining of chronic lower back pain. Patient was going to be discharged home today how ever still needs 4 L of oxygen dropped into the 90s upon ambulation. Possible discharge tomorrow. 12/28/2018. No acute events overnight. Patient comfortably resting in bed in no apparent distress. On supplemental oxygen. Denies any fever, chills, nausea, vomiting, diarrhea, constipation or any urinary symptoms. Patient still on 35% FiO2 and lung examination are positive for extensive crackles and wheezing. We will give another day and possibly discharge tomorrow. Reason For Visit: COPD EXACERBATION Physical Exam Vital Signs: Temp Pulse Resp BP Pulse Ox 98.5 F 77 16 165/77 H 98 12/28/18 11:16 12/28/18 11:16 12/28/18 11:16 12/28/18 11:16 12/28/18 11:16 Intake & Output 12/27/18 12/28/18 12/29/18 06:59 06:59 06:59 Intake Total 960 1600 1058 Balance 960 1600 1058 Weight 56.8 kg 55.9 kg General appearance: PRESENT: no acute distress, well-developed, well-nourished Respiratory exam: PRESENT: crackles, wheezes. ABSENT: rales, rhonchi Cardiovascular exam: PRESENT: RRR. ABSENT: diastolic murmur, rubs, systolic murmur GI/Abdominal exam: PRESENT: normal bowel sounds, soft. ABSENT: distended, guarding, mass, organolmegaly, rebound, tenderness Extremities exam: PRESENT: full ROM. ABSENT: calf tenderness, clubbing, pedal edema Neurological exam: PRESENT: alert, awake, oriented to person, oriented to place, oriented to time, oriented to situation, CN II-XII grossly intact. ABSENT: motor sensory deficit Results Laboratory Results: 12/26/18 04:36 12/28/18 06:46 12/28/18 06:46 Potassium 5.2 H Magnesium 1.8 12/25/18 12:22 Troponin I < 0.012 Impressions: Chest X-Ray 12/25/18 11:53 IMPRESSION: Chronic changes in the right lung. No acute findings. Assessment and Plan - Diagnosis (1) Acute and chronic respiratory failure with hypoxia Is this a current diagnosis for this admission?: Yes Plan: Improving. Most likely to COPD exacerbation. 12/25/2018. ABG: pH 7.37, PCO2 60.6, PO2 71.3, FiO2 2 L. SPO2 83284. Continue DuoNeb's, pulmonary toileting, supplemental oxygen, BiPAP, IV steroids, empiric IV antibiotics. (2) COPD with acute exacerbation Is this a current diagnosis for this admission?: Yes Plan: On home O2 2 L/min. Plan as per #1. (3) Metastatic lung cancer (metastasis from lung to other site) Qualifiers: Laterality: right Qualified Code(s): C34.91 - Malignant neoplasm of unspecified part of right bronchus or lung Is this a current diagnosis for this admission?: Yes Plan: Follows with Dr. Jackson (4) Pain due to malignant neoplasm metastatic to bone Is this a current diagnosis for this admission?: Yes Plan: Increase sustained-release morphine to 45 mg every 8 Continue oxycodone IR 30 mg every 4 as needed Patient has a referral by Dr. De to see pain management after discharge. (5) Diabetes mellitus type 2 in nonobese Is this a current diagnosis for this admission?: Yes Plan: Continue with metformin, Accu-Cheks, insulin sliding scale, diabetic diet (6) Hypertension Is this a current diagnosis for this admission?: Yes Plan: Euvolemic, normotensive. Continue current meds. Adjust meds as needed. Outpatient PCP follow-up.
[2018-12-28] MEDS ORDERED: SODIUM POLYSTYRENE SULFONATE 15 GM/60 ML PO ONE ×2 (15:00→19:30)
[2018-12-28] MEDS: PROMETHAZINE HCL 25 MG TABLET PO PRN (20:31)
[2018-12-28] MEDS ORDERED: OXYCODONE HCL SR 10 MG TABLET PO SCH (22:00)
[2018-12-28] MEDS: MORPHINE SULFATE SR 30 MG TABLET PO SCH (22:48)
[2018-12-28] MEDS: PHARMACY COMMUNICATION ORDER MC SCH (22:49)
[2018-12-29] MEDS: IPRATROPIUM/ALBUTEROL 0.5-2.5 MG/3 ML AMPUL NEB SCH ×3 (02:00→13:58)
[2018-12-29] MEDS: OXYCODONE HCL IR 5 MG TABLET PO PRN ×3 (04:46→16:27)
[2018-12-29] MEDS: MORPHINE SULFATE SR 30 MG TABLET PO SCH ×2 (05:32→14:29)
[2018-12-29] MEDS: INSULIN LISPRO 100 UNIT/ML 3 ML VIAL SUBCUT SCH ×3 (08:34→16:48)
[2018-12-29] MEDS: METFORMIN HCL 500 MG TABLET PO SCH (09:54)
[2018-12-29] MEDS: ENOXAPARIN SODIUM INJ 40 MG/0.4 ML DISP.SYRIN SUBCUT SCH (09:54)
[2018-12-29] MEDS: METHYLPREDNISOLONE INJ 40 MG/1 ML SDV IV SCH (09:54)
[2018-12-29] MEDS: METOPROLOL TARTRATE 50 MG TABLET PO SCH (09:55)
[2018-12-29] MEDS: PANTOPRAZOLE SODIUM 40 MG TABLET.DR PO SCH (09:55)
[2018-12-29] MEDS: NIFEDIPINE 30 MG TAB.ER.24 PO SCH (09:55)
[2018-12-29] MEDS: FOLIC ACID 1 MG TABLET PO SCH (09:55)
[2018-12-29] MEDS: DOCUSATE SODIUM 100 MG CAPSULE PO SCH (09:55)
[2018-12-29] MEDS: AZITHROMYCIN 250 MG TABLET PO SCH (09:55)
[2018-12-29] MEDS: FLUTICASONE/UMECLIDIN/VILANTER 100-62.5-25 MCG/DOSE IH SCH (09:56)
[2018-12-29] MEDS: LIDOCAINE 5% (700 MG) TRANSDERMAL ADH..PATCH TP SCH (09:57)
[2018-12-29] MEDS ORDERED: LUBIPROSTONE 8 MCG CAPSULE PO ONE (11:00)
[2018-12-29] MEDS ORDERED: LEVOFLOXACIN 500 MG TABLET PO ONE (13:00)
[2018-12-29 15:28] VITALS: BP 110/61
--- NOTE | 2018-12-29 17:06 | PDOC DISCHARGE SUMMARY ---
Impression - Admit/DC Date/PCP Admission Date/Primary Care Provider: 12/25/18 16:08 MOHIT TORRES MD Discharge Date: 12/29/18 - Discharge Diagnosis (1) Acute and chronic respiratory failure with hypoxia Is this a current diagnosis for this admission?: Yes (2) COPD with acute exacerbation Is this a current diagnosis for this admission?: Yes (3) Metastatic lung cancer (metastasis from lung to other site) Is this a current diagnosis for this admission?: Yes (4) Pain due to malignant neoplasm metastatic to bone Is this a current diagnosis for this admission?: Yes (5) Diabetes mellitus type 2 in nonobese Is this a current diagnosis for this admission?: Yes (6) Hypertension Is this a current diagnosis for this admission?: Yes - Additional Information Resuscitation Status: Full Code Discharge Diet: As Tolerated Discharge Activity: Activity As Tolerated Referrals: [facility] [Other] MOHIT TORRES MD [Primary Care Provider] - 01/04/19 11:30 am (PATIENT HAS A PREVIOUSLY SCHEDULED APPT.) Prescriptions: Prednisone [Deltasone 20 mg Tablet] 40 mg PO DAILY 3 Days #3 tablet Levofloxacin [Levaquin 500 mg Tablet] 500 mg PO DAILY 3 Days #3 tablet Home Medications: Albuterol Sulfate [Proair HFA Inhalation Aerosol 8.5 gm MDI] 2 puff IH QAMP PRN 12/26/18 Fluticasone/Umeclidin/Vilanter [Trelegy 100-62.5-25 Mcg Ellipta 14 Dose/Dpi] 1 puff IH DAILY 12/26/18 Folic Acid [Folvite 1 mg Tablet] 1 mg PO DAILY 12/26/18 Levalbuterol HCl [Xopenex Neb 1.25 mg/3 ml Ampul] 3 ml NEB RTQ8 12/26/18 Metformin HCl [Glucophage] 1,000 mg PO BIDBS 12/26/18 Metoprolol Tartrate [Lopressor 50 mg Tablet] 50 mg PO Q12 12/26/18 Morphine Sulfate [Morphine Sulfate ER] 30 mg PO Q8 12/26/18 Nifedipine [Nifedipine ER] 90 mg PO DAILY 12/26/18 Ondansetron HCl [Zofran 4 mg Tablet] 4 mg PO Q8HP PRN 12/26/18 Oxycodone HCl [Oxy-Ir 5 mg Tablet] 30 mg PO Q4HP PRN 12/26/18 Pantoprazole Sodium [Protonix [address] Tablet] 40 mg PO BID 12/26/18 Prednisone 10 mg PO DAILY 12/26/18 Promethazine HCl [Phenergan 25 mg Tablet] 25 mg PO Q6HP PRN 12/26/18 Levofloxacin [Levaquin 500 mg Tablet] 500 mg PO DAILY 3 Days #3 tablet 12/29/18 Prednisone [Deltasone 20 mg Tablet] 40 mg PO DAILY 3 Days #3 tablet 12/29/18 History of Present Illiness History of Present Illness: GOKUL SALAZAR is a 73 year old female with a history of COPD on 2 L home oxygen, 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 Patient states that back pain got worse today and localizes it to her left left side over her rib. States that the pain was more intense than usual. Also states that she is noted increased shortness of breath, increase cough with increased sputum production over the past 2 to 3 days. Family at bedside also confirms that she has been rattling a little more in her upper airway than usual. Patient denies any fevers chills or sick contacts. Patient states her last chemotherapy was 2 weeks ago and that she usually gets chemo for 2 weeks and then takes a one-week break in between. Patient states she has been planned for radiation. Hospital Course Hospital Course: (1) Acute and chronic respiratory failure with hypoxia Improved. Back to baseline. SPO2 within normal limits on 2 L nasal cannula. Most likely to COPD exacerbation. 12/25/2018. ABG: pH 7.37, PCO2 60.6, PO2 71.3, FiO2 2 L. Was a started on DuoNeb's, pulmonary toileting, supplemental oxygen, BiPAP, IV steroids, empiric IV antibiotics. Discharge on prednisone 40 mg for another 3 days, levofloxacin for another 3 days, and to restart home meds. (2) COPD with acute exacerbation On home O2 2 L/min. Plan as per #1. (3) Metastatic lung cancer (metastasis from lung to other site) Follows with Dr. Jackson Follow-up with Dr. Torres arranged. (4) Pain due to malignant neoplasm metastatic to bone Increase sustained-release morphine to 45 mg every 8 Continue oxycodone IR 30 mg every 4 as needed Patient has a referral by Dr. De to see pain management after discharge. (5) Diabetes mellitus type 2 in nonobese Continue with metformin, Accu-Cheks, insulin sliding scale, diabetic diet (6) Hypertension Euvolemic, normotensive. Continued current meds. Restarted home meds upon discharge. Outpatient PCP follow-up. Physical Exam Vital Signs: Temp Pulse Resp BP Pulse Ox 98.1 F 91 18 110/61 93 12/29/18 15:26 12/29/18 15:26 12/29/18 15:26 12/29/18 15:26 12/29/18 15:26 Intake & Output 12/28/18 12/29/18 12/30/18 06:59 06:59 06:59 Intake Total 1600 1618 Balance 1600 1618 Weight 55.9 kg 56.2 kg Results Laboratory Results: WBC 5.8 10^3/uL (4.0-10.5) 12/26/18 04:36 RBC 3.55 10^6/uL (3.72-5.28) L 12/26/18 04:36 Hgb 11.2 g/dL (12.0-15.5) L 12/26/18 04:36 Hct 33.2 % (36.0-47.0) L 12/26/18 04:36 MCV 93 fl (80-97) 12/26/18 04:36 MCH 31.4 pg (27.0-33.4) 12/26/18 04:36 MCHC 33.6 g/dL (32.0-36.0) 12/26/18 04:36 RDW 16.5 % (11.5-14.0) H 12/26/18 04:36 Plt Count 553 10^3/uL (150-450) H 12/26/18 04:36 Lymph % (Auto) 20.5 % (13-45) 12/25/18 12:22 [place] % (Auto) 11.1 % (3-13) 12/25/18 12:22 Eos % (Auto) 1.8 % (0-6) 12/25/18 12:22 Baso % (Auto) 0.8 % (0-2) 12/25/18 12:22 Absolute Neuts (auto) 4.2 10^uL (1.7-8.2) 12/25/18 12:22 Absolute Lymphs (auto) 1.3 10^3/uL (0.5-4.7) 12/25/18 12:22 Absolute Monos (auto) 0.7 10^3/uL (0.1-1.4) 12/25/18 12:22 Absolute Eos (auto) 0.1 10^3/uL (0.0-0.6) 12/25/18 12:22 Absolute Basos (auto) 0.1 10^3/uL (0.0-0.2) 12/25/18 12:22 Seg Neutrophils % 65.8 % (42-78) 12/25/18 12:22 Carbonic Acid 1.82 mmol/L (1.05-1.35) H 12/25/18 12:22 HCO3/H2CO3 Ratio 18:1 12/25/18 12:22 ABG pH 7.37 (7.35-7.45) 12/25/18 12:22 ABG pCO2 60.6 mmHg (35-45) H 12/25/18 12:22 ABG pO2 71.3 mmHg (80-100) L 12/25/18 12:22 ABG HCO3 34.2 mmol/L (20-24) H 12/25/18 12:22 ABG Total CO2 36.0 mmol/L (21-25) H 12/25/18 12:22 ABG O2 Saturation 93.5 % (94-98) L 12/25/18 12:22 ABG Base Excess 6.7 mmol/L 12/25/18 12:22 FiO2 2L 12/25/18 12:22 Sodium 137.1 mmol/L (137-145) 12/27/18 05:14 Potassium 4.8 mmol/L (3.6-5.0) 12/29/18 04:16 Chloride 97 mmol/L (98-107) L 12/27/18 05:14 Carbon Dioxide 36 mmol/L (22-30) H 12/27/18 05:14 Anion Gap 4 (5-19) L 12/27/18 05:14 BUN 11 mg/dL (7-20) 12/27/18 05:14 Creatinine 0.51 mg/dL (0.52-1.25) L 12/27/18 05:14 Est GFR ( Amer) > 60 (>60) 12/27/18 05:14 Est GFR (MDRD) Non-Af > 60 (>60) 12/27/18 05:14 Glucose 155 mg/dL (75-110) H 12/27/18 05:14 POC Glucose 104 mg/dL (70-110) 12/29/18 11:58 Calcium 8.9 mg/dL (8.4-10.2) 12/27/18 05:14 Phosphorus 4.6 mg/dL (2.5-4.5) H 12/26/18 04:36 Magnesium 1.8 mg/dL (1.6-2.3) 12/28/18 06:46 Total Bilirubin 0.2 mg/dL (0.2-1.3) 12/25/18 12:22 Direct Bilirubin 0.1 mg/dL (0.0-0.4) 12/25/18 12:22 Neonat Total Bilirubin Not Reportable 12/25/18 12:22 Neonat Direct Bilirubin Not Reportable 12/25/18 12:22 Neonat Indirect Bili Not Reportable 12/25/18 12:22 AST 15 U/L (14-36) 12/25/18 12:22 ALT 12 U/L (<35) 12/25/18 12:22 Alkaline Phosphatase 81 U/L (38-126) 12/25/18 12:22 Troponin I < 0.012 ng/mL 12/25/18 12:22 Total Protein 5.9 g/dL (6.3-8.2) L 12/25/18 12:22 Albumin 3.5 g/dL (3.5-5.0) 12/25/18 12:22 12/25/18 12:22 Troponin I < 0.012 Impressions: Chest X-Ray 12/25/18 11:53 IMPRESSION: Chronic changes in the right lung. No acute findings. Stroke Is this a Stroke Patient?: No Acute Heart Failure - Is this a Heart Failure Patient?: No
== END 2018-12-29 17:20 | disposition home health service (06) ==
LOC: ER 11:31 → EH 16:08 → 5 17:53
PROVIDERS: ADMIT Internal Medicine; ATTEND Internal Medicine
DX: J96.21 Acute and chronic respiratory failure with hypoxia (principal); J44.1 Chronic obstructive pulmonary disease with (acute) exacerbation; C34.91 Malignant neoplasm of unspecified part of right bronchus or lung; C79.51 Secondary malignant neoplasm of bone; G89.3 Neoplasm related pain (acute) (chronic); E11.9 Type 2 diabetes mellitus without complications; I10 Essential (primary) hypertension; K59.00 Constipation, unspecified; R45.4 Irritability and anger; F17.210 Nicotine dependence, cigarettes, uncomplicated; M19.90 Unspecified osteoarthritis, unspecified site; G89.29 Other chronic pain; M54.5 Low back pain; E27.8 Other specified disorders of adrenal gland; Z79.899 Other long term (current) drug therapy; Z79.84 Long term (current) use of oral hypoglycemic drugs; Z99.81 Dependence on supplemental oxygen; Z90.2 Acquired absence of lung [part of]; Z95.5 Presence of coronary angioplasty implant and graft
CPT/HCPCS: 93005; 94640 ×7; 99285; 96361; 96375; 96365; 36415 ×5; 82962 ×5; 82803; 83735 ×3; 84100; 84132 ×2; 85025; 85027; 80048 ×2; 80053; 84484; 71046; 93010; 97116; 97161; 97535 ×2; 97165; G0378 ×6; A9270 ×62; J2920 ×4; J2930; J2270; J1650 ×4; J1170; J3475; J3490 ×6; J2405 ×3; J7030; J1815; J7620

== ENCOUNTER → 2019-01-23 | Outpatient (CLI) | payer MEDICARE, OTHER ==
--- NOTE | 2019-01-23 18:43 | RADIOLOGY REPORT (SQ) ---
EXAM DESCRIPTION: CT CHEST WITH COMPLETED DATE/TIME: 01/23/2019 4:28 pm REASON FOR STUDY: C34.31 MALIGNANT NEOPLASM OF LOWER LOBE, RIGHT BRONCHUS OR LUNG C34.31 MALIGNANT NEOPLASM OF LOWER LOBE, RIGHT BRONCHUS OR L COMPARISON: 10/29/2018 TECHNIQUE: CT scan of the chest performed using helical scanning technique with dynamic intravenous contrast injection. Images reviewed with lung, soft tissue and bone windows. Reconstructed coronal and sagittal MPR and MIP images reviewed. All images stored on PACS. All CT scanners at this facility use dose modulation, iterative reconstruction, and/or weight based d osing when appropriate to reduce radiation dose to as low as reasonably achievable (ALARA). [facility]: Dose Right [facility]: CareDose [facility]: Dose Right [facility]: Teradose 4D [facility]: [employer] CONTRAST TYPE AND DOSE: 63 mL Omnipaque 350- low osmolar. RENAL FUNCTION: BUN 11 creatinine 0.51 RADIATION DOSE: CT Rad equipment meets quality standard of care and radiation dose reduction techniq ues were employed. CTDIvol: 4.5 - 4.8 mGy. DLP: 700 mGy-cm. . LIMITATIONS: None. FINDINGS: LUNGS AND PLEURA: Reduced volume in the right hemithorax. Centrilobular emphysema. There is dense, confluent opacification in the right lower lobe at the diaphragm. This is more extensive. 8.2 mm slightly spiculated nodule in the left upper lobe is larger. HILAR AND MEDIASTINAL STRUCTURES: There is a 2 cm precarinal node that is larger. HEART AND VASCULAR STRUCTURES: No aneurysm or dissection. No central pulmonary emboli. Coronary ath erosclerosis. HARDWARE: None in the chest. UPPER ABDOMEN: There is a partially calcified 15 mm right adrenal nodule that is stable. THYROID AND OTHER SOFT TISSUES: No masses. No adenopathy. BONES: There is significant sclerosis in the T10 vertebra. This was present previously. OTHER: No other significant finding. IMPRESSION: Centrilobular emphysema. Reduced volume in the right lung. Dense opacification in the right lower lobe has increased since the prior study. A small left upper lobe pulmonary nodule has i ncreased slightly since the prior study. There is a precarinal lymph node that is larger. There is a stable small right adrenal nodule. There is fairly dense sclerosis in the T10 vertebral body that could represent metastatic disease. TECHNICAL DOCUMENTATION: JOB ID: [id number] Quality ID # [id number]: Final reports with documentation of one or more dose reduction techniques (e.g., Au tomated exposure control, adjustment of the mA and/or kV according to patient size, use of iterative reconstruction technique) 2010 [employer]- All Rights Reserved Reading location - IP/workstation name: [email or web address]
--- NOTE | 2019-01-24 10:15 | RADIOLOGY REPORT (SQ) ---
EXAM DESCRIPTION: CT ABD/PELVIS WITH IV ONLY COMPLETED DATE/TIME: 01/23/2019 4:28 pm REASON FOR STUDY: C34.31 MALIGNANT NEOPLASM OF LOWER LOBE, RIGHT BRONCHUS OR LUNG C34.31 MALIGNANT NEOPLASM OF LOWER LOBE, RIGHT BRONCHUS OR L COMPARISON: 10/25/2018 TECHNIQUE: CT scan of the abdomen and pelvis performed using helical scanning technique with dynamic intravenous contrast injection. No oral contrast. Images reviewed with lung, soft tissue, and bone windows. Reconstructed coronal and sagittal MPR images reviewed. Delayed images for evaluation of the urinary system also acquired. All images stored on PACS. All CT scanners at this facility use dose modulation, iterative reconstruction, and/or weight based d osing when appropriate to reduce radiation dose to as low as reasonably achievable (ALARA). [facility]: Dose Right [facility]: CareDose [facility]: Dose Right [facility]: Teradose 4D [facility]: [employer] CONTRAST TYPE AND DOSE: contrast/concentration: Isovue 350.00 mg/ml; Total Contrast Delivered: 63.0 ml; Total Saline Delivered: 66.0 ml RENAL FUNCTION: 0.5 CREATININE RADIATION DOSE: . LIMITATIONS: None. FINDINGS: LOWER CHEST: See separate report of the CT of the chest. LIVER: Normal size. No masses. No dilated ducts. SPLEEN: Normal size. No focal lesions. PANCREAS: No masses. No significant calcifications. No adjacent inflammation or peripancreatic fluid collections. Pancreatic duct not dilated. GALLBLADDER: Possible small gallstones. No inflammatory change. ADRENAL GLANDS: Stable left adrenal nodule measuring up to 2.7 cm on today's exam. Unchanged appeara nce of the right adrenal gland measuring up to 1.9 x 1.4 cm. RIGHT KIDNEY AND URETER: No solid masses. No significant calcifications. No hydronephrosis or hyd roureter. LEFT KIDNEY AND URETER: No solid masses. Stable lower pole cystic lesion. No significant calcificat ions. Fullness of the extrarenal pelvis. No caliceal or ureteral dilation. AORTA AND VESSELS: Extensive aortoiliac atherosclerosis. No aneurysm. Celiac, SMA are widely patent . Atherosclerosis of the bilateral renal origins. Extensive iliac atherosclerosis. RETROPERITONEUM: No discrete adenopathy. No hemorrhage or mass. BOWEL AND PERITONEAL CAVITY: No focal bowel wall thickening. No evidence of intestinal obstruction. Formed stool throughout the colon. Small hiatal hernia. APPENDIX: Normal. PELVIS: Mildly distended urinary bladder. No pelvic adenopathy or free fluid. ABDOMINAL WALL: No masses. No hernias. BONES: No acute bony abnormality. No discrete lytic or blastic osseous lesions. Multilevel thoracol umbar spondylosis. OTHER: No other significant finding. IMPRESSION: 1. Stable bilateral adrenal lesions as above. No evidence of new intra-abdominal/ pelv ic metastatic disease. 2. No evidence of acute intra-abdominal/pelvic process. 3. Moderate formed stool throughout the colon. TECHNICAL DOCUMENTATION: JOB ID: [id number] Quality ID # [id number]: Final reports with documentation of one or more dose reduction techniques (e.g., Au tomated exposure control, adjustment of the mA and/or kV according to patient size, use of iterative reconstruction technique) 2010 [employer]- All Rights Reserved Reading location - IP/workstation name: [email or web address]
== END ==
LOC: RAD 15:01
PROVIDERS: ATTEND Internal Medicine
DX: C34.31 Malignant neoplasm of lower lobe, right bronchus or lung (principal)
CPT/HCPCS: 71260; 74177

== ENCOUNTER 2019-01-25 13:08 | Inpatient (IN) | payer MEDICARE ==
[2019-01-25] MEDS ORDERED: IPRATROPIUM/ALBUTEROL 0.5-2.5 MG/3 ML AMPUL NEB ONE (13:18)
--- NOTE | 2019-01-25 13:20 | ER Document Report ---
ED Medical Screen (RME) - General Chief Complaint: Breathing Difficulty Stated Complaint: TROUBLE BREATHING Time Seen by Provider: 01/25/19 13:15 Primary Care Provider: MOHIT BARRETO MD [Primary Care Provider] - Follow up as needed Mode of Arrival: Wheelchair Information source: Patient Notes: Patient presents from her oncologist office with concerns about a COPD exacerbation and need for admission. Patient with increased shortness of breath and decreased oxygen saturation. Patient denies any fever. Patient is currently being treated for stage IV lung cancer. I have greeted and performed a rapid initial assessment of this patient. A comprehensive ED assessment and evaluation of the patient, analysis of test results and completion of the medical decision making process will be conducted by additional ED providers. TRAVEL OUTSIDE OF THE [place] IN LAST 30 DAYS: No - Related Data Allergies/Adverse Reactions: nickel [Nickel] Adverse Reaction (Severe, Verified 04/21/16 17:57) RASH Past Medical History - Past Medical History Cardiac Medical History: Reports: Hx Hypercholesterolemia, Hx Hypertension Pulmonary Medical History: Reports: Hx Bronchitis, Hx COPD, Hx Pneumonia Endocrine Medical History: Reports: Hx Diabetes Mellitus Type 2 Renal/ Medical History: Denies: Hx Peritoneal Dialysis Malignancy Medical History: Reports: Hx Lung Cancer - R lower lobe GI Medical History: Reports: Hx Diverticulitis, Hx Gastroesophageal Reflux Disease, Hx Hiatal Hernia, Hx Pancreatitis, Hx Colonoscopy, Hx Endoscopic Retrograde Cholangio, Hx Endoscopy Musculoskeltal Medical History: Reports Hx Arthritis, Reports Hx Musculoskeletal Deformity, Reports Hx Musculoskeletal Trauma Psychiatric Medical History: Reports: Hx Anxiety Denies: Hx Depression Past Surgical History: Reports: Hx Cardiac Catheterization - Patient denies CAD seen, cath was related to the L subclavian artery stent., Hx Cardiac Surgery - subclavian stent, Hx Hysterectomy, Hx Nose Surgery - Nasal septal straightening when sinus surgery was performed, Hx Thyroid Surgery - Thyroid nodule resected, Hx Vascular Surgery - Left subclavian artery stent, Other - Partial right lower lobe resection in 2006. Denies: Hx Pacemaker - Immunizations Immunizations up to date: Yes Hx Diphtheria, Pertussis, Tetanus Vaccination: Yes - 11/29/2006 Physical Exam - Vital signs Vitals: Temp Pulse Resp BP Pulse Ox 97.8 F 83 16 129/55 H 89 L 01/25/19 13:12 01/25/19 13:12 01/25/19 13:12 01/25/19 13:12 01/25/19 13:12 - Respiratory Respiratory status: Tachypnea Breath sounds: Productive cough, Rales, Rhonchi Course - Vital Signs Vital signs: Temp Pulse Resp BP Pulse Ox 97.8 F 83 16 129/55 H 89 L 01/25/19 13:12 01/25/19 13:12 01/25/19 13:12 01/25/19 13:12 01/25/19 13:12 Doctor's Discharge - Discharge Referrals: MOHIT BARRETO MD [Primary Care Provider] - Follow up as needed
[2019-01-25 14:13] LABS: ABSOLUTE EOSINOPHILS # (AUTO) 0.1 10^3/uL (0.0-0.6); ABSOLUTE LYMPHOCYTES (AUTO) 1.2 10^3/uL (0.5-4.7); ABSOLUTE MONOCYTES (AUTO) 0.6 10^3/uL (0.1-1.4); ABSOLUTE NEUT (AUTO) 5.1 10^3/uL (1.7-8.2); BASOPHILS % (AUTO) 0.2 % (0-2); HEMATOCRIT 33.6 % (36.0-47.0); HEMOGLOBIN 11.3 g/dL (12.0-15.5); LYMPHOCYTES % (AUTO) 17.5 % (13-45); MEAN CORPUSCULAR HEMOGLOBIN 30.9 pg (27.0-33.4); MEAN CORPUSCULAR HGB CONC 33.7 g/dL (32.0-36.0); MEAN CORPUSCULAR VOLUME 92 fl (80-97); PLATELET COUNT 736 10^3/uL (150-450); RED BLOOD COUNT 3.66 10^6/uL (3.72-5.28); RED CELL DISTRIBUTION WIDTH 15.9 % (11.5-14.0); SEGMENTED NEUTROPHILS % (AUTO) 73.3 % (42-78); TOTAL CELLS COUNTED % (AUTO) 100 %
--- NOTE | 2019-01-25 14:21 | ER Document Report ---
Entered by ALESSANDRA PANTOJA SCRIBE 01/25/19 1402 Acting as scribe for:JUANI MINA MD ED Respiratory Problem - General Chief Complaint: Breathing Difficulty Stated Complaint: TROUBLE BREATHING Time Seen by Provider: 01/25/19 13:15 Primary Care Provider: MOHIT BARRETO MD [ACTIVE STAFF] - Follow up as needed Mode of Arrival: Wheelchair Information source: Patient Notes: This 73-year-old female patient presents to the emergency department today for complaints of difficulty breathing with a productive cough for the last 3 days. 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 Patient states she is chronically on 3 L of home oxygen but over the last 3 days her breathing has become much worse. Patient has tried at home nebulizer treatments which "worked for a little bit". Patient also complains of constipation stating that she is on opiods and she states nothing [id number] works for her. Patient does mention she received something the last time she was here at the hospital for opioid induced constipation which helped her tremendously(Amitiza). The patient was seen in the oncologist office today, where she was found to have an O2 sat of 82-84% on 2 L nasal cannula. She is normally on 3 L at home accor ding to the family. She was started on a 10-day course of Augmentin 875 mg twice daily on 01/17/2019 for a sinus infection. She has had a poor appetite due to her constipation causing abdominal discomfort and has lost about 13 pounds in the past 2 weeks. She did have a contrasted CT scan of the chest and abdomen on 01/23/2019. Pertinent PMHx/PSHx: Lung cancer with metastasis to bone, COPD - additional PMHx/PSHx not pertinent to this visit as recorded. Oncologist: Dr. Levy TRAVEL OUTSIDE OF THE [place] IN LAST 30 DAYS: No - Related Data Allergies/Adverse Reactions: nickel [Nickel] Adverse Reaction (Severe, Verified 01/25/19 13:21) RASH Past Medical History - General Information source: Patient - Social History Smoking Status: Current Every Day Smoker Cigarette use (# per day): Yes Chew tobacco use (# tins/day): No Frequency of alcohol use: None Drug Abuse: None Lives with: Family Family History: Reviewed & Not Pertinent, Arthritis, CAD, CVA, DM, Hyperlipide laila, Hypertension, Malignancy, Thyroid Disfunction Patient has suicidal ideation: No Patient has homicidal ideation: No - Past Medical History Cardiac Medical History: Reports: Hx Hypercholesterolemia, Hx Hypertension Pulmonary Medical History: Reports: Hx Bronchitis, Hx COPD, Hx Pneumonia Endocrine Medical History: Reports: Hx Diabetes Mellitus Type 2 Malignancy Medical History: Reports: Hx Lung Cancer - R lower lobe. Stage IV with mets to bone GI Medical History: Reports: Hx Diverticulitis, Hx Gastroesophageal Reflux Disease, Hx Hiatal Hernia, Hx Pancreatitis, Hx Colonoscopy, Hx Endoscopic Retrograde Cholangio, Hx Endoscopy Musculoskeletal Medical History: Reports Hx Arthritis, Reports Hx Musculoskeletal Deformity, Reports Hx Musculoskeletal Trauma Psychiatric Medical History: Reports: Hx Anxiety Past Surgical History: Reports: Hx Cardiac Catheterization - Patient denies CAD seen, cath was related to the L subclavian artery stent., Hx Cardiac Surgery - subclavian stent, Hx Hysterectomy, Hx Nose Surgery - Nasal septal straightening when sinus surgery was performed, Hx Thyroid Surgery - Thyroid nodule resected, Hx Vascular Surgery - Left subclavian artery stent, Other - Partial right lower lobe resection in 2006 - Immunizations Immunizations up to date: Yes Hx Diphtheria, Pertussis, Tetanus Vaccination: Yes - 11/29/2006 Hx Pneumococcal Vaccination: 03/01/12 Review of Systems - Review of Systems Constitutional: No symptoms reported EENT: No symptoms reported Cardiovascular: No symptoms reported Respiratory: See HPI, Cough, Short of breath, Sputum, Wheezing Gastrointestinal: See HPI, Constipation Genitourinary: No symptoms reported Female Genitourinary: No symptoms reported Musculoskeletal: No symptoms reported Skin: No symptoms reported Hematologic/Lymphatic: No symptoms reported Neurological/Psychological: No symptoms reported -: Yes All other systems reviewed and negative Physical Exam - Vital signs Vitals: Temp Pulse Resp BP Pulse Ox 97.8 F 83 16 129/55 H 89 L 01/25/19 13:12 01/25/19 13:12 01/25/19 13:12 01/25/19 13:12 01/25/19 13:12 - Notes Notes: Physical Exam: General: Alert, chronically ill-appearing. HEENT: Normocephalic. Atraumatic. PERRL. Extraocular movements intact. Oropharynx clear. Neck: Supple. Non-tender. Respiratory: Mild respiratory distress. Rhonchi with mild wheezing bilaterally. Rattling sounding cough. Cardiovascular: Regular rate and rhythm. Abdominal: Normal Inspection. Non-tender. No distension. Normal Bowel Sounds. Back: No gross abnormalities. Extremities: Moves all four extremities. Upper extremities: Normal inspection. Normal ROM. Lower extremities: Normal inspection. No edema. Normal ROM. Neurological: Normal cognition. AAOx4. Normal speech. Psychological: Normal affect. Normal Mood. Skin: Warm. Dry. Normal color. Course - Re-evaluation Re-evalutation: 01/25/19 16:07 I did discuss the case with Dr. Levy. - Vital Signs Vital signs: Temp Pulse Resp BP Pulse Ox 97.8 F 83 14 104/60 100 01/25/19 13:12 01/25/19 13:12 01/25/19 16:01 01/25/19 16:00 01/25/19 16:01 - Laboratory Result Diagrams: 01/25/19 13:46 01/25/19 13:46 Laboratory results interpreted by me: 01/25/19 01/25/19 01/25/19 13:46 13:46 14:26 RBC 3.66 L Hgb 11.3 L Hct 33.6 L RDW 15.9 H Plt Count 736 H Carbonic Acid 1.62 H ABG pCO2 53.8 H ABG pO2 78.2 L ABG HCO3 32.6 H ABG Total CO2 34.2 H Sodium 135.8 L Chloride 92 L Carbon Dioxide 35 H Creatinine 0.43 L Glucose 137 H Creatine Kinase < 20 L Total Protein 6.2 L - Diagnostic Test Radiology reviewed: Image reviewed, Reports reviewed - Chronic right lower lobe collapse, trace right pleural fluid. No acute findings. - EKG Interpretation by Or EKG shows normal: Sinus rhythm, [place], Intervals, QRS Complexes, ST-T Waves Rate: Normal - 81 Rhythm: NSR - Consults KIMBERLY Aguilar Time consulted: 16:31 Consulted provider: will come to ER Critical Care Note - Critical Care Note Total time excluding time spent on procedures (mins): 35 Discharge - Discharge Clinical Impression: COPD with acute exacerbation, Hypoxemia, Weight loss Metastatic lung cancer (metastasis from lung to other site) Qualifiers: Laterality: right Qualified Code(s): C34.91 - Malignant neoplasm of unspecified part of right bronchus or lung Constipation Qualifiers: Constipation type: drug induced constipation Qualified Code(s): K59.03 - Drug induced constipation Condition: Stable Disposition: ADMITTED INPATIENT Admitting Provider: Fred (Hospitalist) Unit Admitted: Medical Floor Referrals: MOHIT BARRETO MD [ACTIVE STAFF] - Follow up as needed Scribe Attestation: 01/25/19 14:22 I personally performed the services described in the documentation, reviewed and edited the documentation which was dictated to the scribe in my presence, and it accurately records my words and actions. I personally performed the services described in the documentation, reviewed and edited the documentation which was dictated to the scribe in my presence, and it accurately records my words and actions.
--- NOTE | 2019-01-25 14:25 | RADIOLOGY REPORT (SQ) ---
EXAM DESCRIPTION: CHEST SINGLE VIEW COMPLETED DATE/TIME: 01/25/2019 2:07 pm REASON FOR STUDY: Hypoxia, lung cancer, COPD COMPARISON: CT chest 01/23/2019, 10/29/2018 Chest films 12/25/2018, 04/20/2018, 12/20/2017, 04/21/2016 EXAM PARAMETERS: NUMBER OF VIEWS: One view. TECHNIQUE: Single frontal radiographic view of the chest acquired. RADIATION DOSE: NA LIMITATIONS: None. FINDINGS: LUNGS AND PLEURA: Chronic collapse of the right lower lobe is present. Trace right pleura l fluid may be present. This is similar compared to 12/25/2018, and CT chest 01/23/2019 Left lung well inflated and grossly clear. No left pleural effusion. No right or left pneumothorax MEDIASTINUM AND HILAR STRUCTURES: No masses. Contour normal. HEART AND VASCULAR STRUCTURES: Heart normal in size. Normal vasculature. BONES: No acute findings. HARDWARE: Right-sided permanent central line tip superior vena cava. Clips post resection right lobe thyroid OTHER: No other significant finding. IMPRESSION: No acute findings. Chronic right lower lobe collapse. Trace right pleural fluid TECHNICAL DOCUMENTATION: JOB ID: [id number]- All Rights Reserved Reading location - IP/workstation name: [email or web address]
[2019-01-25 14:35] LABS: ALBUMIN 3.5 g/dL (3.5-5.0); ALKALINE PHOSPHATASE 110 U/L (38-126); ANION GAP 9 (5-19); ASPARTATE AMINO TRANSFERASE 14 U/L (14-36); BILIRUBIN,DIRECT 0.2 mg/dL (0.0-0.4); BILIRUBIN,TOTAL 0.4 mg/dL (0.2-1.3); BLOOD UREA NITROGEN 7 mg/dL (7-20); CALCIUM 9.4 mg/dL (8.4-10.2); CARBON DIOXIDE 35 mmol/L (22-30); CHLORIDE 92 mmol/L (98-107); CREATINE KINASE < 20 U/L (30-135); GLUCOSE 137 mg/dL (75-110); POTASSIUM 4.6 mmol/L (3.6-5.0); TOTAL PROTEIN 6.2 g/dL (6.3-8.2)
[2019-01-25 14:48] LABS: ARTERIAL BLOOD BASE EXCESS 6.7 mmol/L; ARTERIAL BLOOD H2CO3 1.62 mmol/L (1.05-1.35); ARTERIAL BLOOD HCO3 32.6 mmol/L (20-24); ARTERIAL BLOOD O2 SATURATION 95.3 % (94-98); ARTERIAL BLOOD PCO2 53.8 mmHg (35-45); ARTERIAL BLOOD PO2 78.2 mmHg (80-100); ARTERIAL BLOOD TOTAL CO2 34.2 mmol/L (21-25)
[2019-01-25 14:53] LABS: ARTERIAL BLOOD FIO2 4L
[2019-01-25] MEDS ORDERED: METHYLPREDNISOLONE INJ 125 MG/2 ML SDV IV ONE (16:19)
[2019-01-25] MEDS ORDERED: ALBUTEROL SULFATE 0.083% NEB 2.5 MG/3 ML AMPUL NEB ONE (16:22)
[2019-01-25] MEDS ORDERED: MORPHINE SULFATE 10 MG/ML INJ IV ONE (17:04)
[2019-01-25] MEDS ORDERED: MAGNESIUM HYDROXIDE SUSP 30 ML UDCUP PO PRN (17:14)
[2019-01-25] MEDS ORDERED: NORMAL SALINE 1000 ML 1,000 ML IV PRN (17:14)
[2019-01-25] MEDS ORDERED: OXYCODONE-ACETAMINOPHEN 5-325 MG TABLET PO PRN (17:14)
[2019-01-25] MEDS ORDERED: DEXTROSE 50%-WATER 25 GM/50 ML DISP.SYRIN IV PRN ×2 (17:28)
[2019-01-25] MEDS ORDERED: DEXTROSE 40% GEL 15 GM TUBE PO PRN ×2 (17:28)
[2019-01-25] MEDS ORDERED: GLUCAGON,HUMAN RECOMB 1 MG INJ IM PRN (17:28)
[2019-01-25] MEDS ORDERED: OXYCODONE HCL IR 5 MG TABLET PO PRN (17:29)
[2019-01-25] MEDS ORDERED: DOCUSATE SODIUM 100 MG CAPSULE PO SCH (18:00)
--- NOTE | 2019-01-25 18:26 | PDOC H&P ---
History of Present Illness Admission Date/PCP: 01/25/19 16:48 DARLIN CHAVEZ PA-C History of Present Illness: GOKUL SALAZAR is a 73 year old female comes into the emergency room with hypoxia secondary to COPD exacerbation. Patient was just in the hospital on 12/25 and discharged on 12/28 prednisone and Levaquin. He was then treated by her local provider with Augmentin sinusitis finishing her prescription on the Patient states that for the last 2 to 3 days she has been more short of breath again. She was seen by her oncologist director phone for shortness of breath and found to have an O2 sat of 82 to 84% on 2 L nasal cannula. States this was due to walking in from the parking lot to the office. States that she normally uses 3 L of oxygen at home and her baseline O2 sat is usually 92/93. Patient denies fever or chills.. She is white count is normal at 7000. Patient's chest x-ray shows no acute findings but she does have a chronic right lower lobe collapse Patient will admitted for COPD exacerbation. Start IV antibiotics but these may be canceled pending cultures Past Medical History Cardiac Medical History: Reports: Hyperlipidema, Hypertension Pulmonary Medical History: Reports: Bronchitis, Chronic Obstructive Pulmonary Disease (COPD), Pneumonia Endocrine Medical History: Reports: Diabetes Mellitus Type 2 Malignancy Medical History: Reports: Lung Cancer - R lower lobe. Stage IV with mets to bone GI Medical History: Reports: Diverticulitis, Gastroesophageal Reflux Disease, Hiatal Hernia Musculoskeltal Medical History: Reports: Arthritis Psychiatric Medical History: Denies: Depression Hematology: Denies: Anemia Past Surgical History Past Surgical History: Reports: Cardiac Catheterization - Patient denies CAD seen, cath was related to the L subclavian artery stent., Hysterectomy, Vascular Surgery - Left subclavian artery stent, Other - Partial right lower lobe resection in 2006 Denies: Pacemaker Social History Lives with: Family Smoking Status: Current Every Day Smoker Electronic Cigarette use?: No Frequency of Alcohol Use: None Hx Recreational Drug Use: Yes Drugs: None Hx Prescription Drug Abuse: No - Advance Directive Resuscitation Status: Do Not Intubate Family History Family History: Reviewed & Not Pertinent, Arthritis, CAD, CVA, DM, Hyperlipidemia, Hypertension, Malignancy, Thyroid Disfunction Parental Family History Reviewed: No Children Family History Reviewed: No Sibling(s) Family History Reviewed.: No Medication/Allergy Home Medications: Albuterol Sulfate [Proair HFA Inhalation Aerosol 8.5 gm MDI] 2 puff IH QAMP PRN 12/26/18 Fluticasone/Umeclidin/Vilanter [Trelegy 100-62.5-25 Mcg Ellipta 14 Dose/Dpi] 1 puff IH DAILY 12/26/18 Folic Acid [Folvite 1 mg Tablet] 1 mg PO DAILY 12/26/18 Levalbuterol HCl [Xopenex Neb 1.25 mg/3 ml Ampul] 3 ml NEB RTQ8 12/26/18 Metformin HCl [Glucophage] 1,000 mg PO BIDBS 12/26/18 Metoprolol Tartrate [Lopressor 50 mg Tablet] 50 mg PO Q12 12/26/18 Morphine Sulfate [Morphine Sulfate ER] 30 mg PO Q8 12/26/18 Nifedipine [Nifedipine ER] 90 mg PO DAILY 12/26/18 Ondansetron HCl [Zofran 4 mg Tablet] 4 mg PO Q8HP PRN 12/26/18 Oxycodone HCl [Oxy-Ir 5 mg Tablet] 30 mg PO Q4HP PRN 12/26/18 Pantoprazole Sodium [Protonix [address] Tablet] 40 mg PO BID 12/26/18 Prednisone 10 mg PO DAILY 12/26/18 Promethazine HCl [Phenergan 25 mg Tablet] 25 mg PO Q6HP PRN 12/26/18 Levofloxacin [Levaquin 500 mg Tablet] 500 mg PO DAILY 3 Days #3 tablet 12/29/18 Prednisone [Deltasone 20 mg Tablet] 40 mg PO DAILY 3 Days #3 tablet 12/29/18 Allergies/Adverse Reactions: nickel [Nickel] Adverse Reaction (Severe, Verified 01/25/19 13:21) RASH Review of Systems Constitutional: PRESENT: weakness Cardiovascular: PRESENT: dyspnea on exertion Respiratory: PRESENT: dyspnea Neurological: ABSENT: abnormal gait, abnormal speech, confusion, dizziness, focal weakness, syncope Psychiatric: ABSENT: anxiety, depression, homidical ideation, suicidal ideation Physical Exam Vital Signs: Temp Pulse Resp BP Pulse Ox 97.8 F 83 14 141/70 H 97 01/25/19 13:12 01/25/19 13:12 01/25/19 17:00 01/25/19 17:00 01/25/19 17:00 Intake & Output 01/24/19 01/25/19 01/26/19 06:59 06:59 06:59 Weight 53.524 kg General appearance: PRESENT: mild distress Respiratory exam: PRESENT: rhonchi, wheezes Cardiovascular exam: PRESENT: RRR. ABSENT: diastolic murmur, rubs, systolic murmur Neurological exam: PRESENT: alert, awake, oriented to person, oriented to place, oriented to time, oriented to situation, CN II-XII grossly intact. ABSENT: motor sensory deficit Psychiatric exam: PRESENT: appropriate affect, normal mood. ABSENT: homicidal ideation, suicidal ideation Results Laboratory Results: 01/25/19 13:46 01/25/19 13:46 01/25/19 01/25/19 01/25/19 13:46 13:46 14:26 WBC 7.0 RBC 3.66 L Hgb 11.3 L Hct 33.6 L MCV 92 MCH 30.9 MCHC 33.7 RDW 15.9 H Plt Count 736 H Seg Neutrophils % 73.3 Carbonic Acid 1.62 H HCO3/H2CO3 Ratio 20:1 ABG pH 7.40 ABG pCO2 53.8 H ABG pO2 78.2 L ABG HCO3 32.6 H ABG O2 Saturation 95.3 ABG Base Excess 6.7 FiO2 4L Sodium 135.8 L Potassium 4.6 Chloride 92 L Carbon Dioxide 35 H Anion Gap 9 BUN 7 Creatinine 0.43 L Est GFR ( Amer) > 60 Glucose 137 H Calcium 9.4 Total Bilirubin 0.4 AST 14 Alkaline Phosphatase 110 Total Protein 6.2 L Albumin 3.5 01/25/19 01/25/19 13:46 13:46 Creatine Kinase < 20 L Troponin I < 0.012 Impressions: Chest X-Ray 01/25/19 13:51 IMPRESSION: No acute findings. Chronic right lower lobe collapse. Trace right pleural fluid Assessment and Plan - Diagnosis (1) COPD with acute exacerbation Is this a current diagnosis for this admission?: Yes (2) Constipation Qualifiers: Constipation type: drug induced constipation Qualified Code(s): K59.03 - Drug induced constipation Is this a current diagnosis for this admission?: Yes (3) Hypoxemia Is this a current diagnosis for this admission?: Yes (4) Metastatic lung cancer (metastasis from lung to other site) Qualifiers: Laterality: right Qualified Code(s): C34.91 - Malignant neoplasm of unspecified part of right bronchus or lung Is this a current diagnosis for this admission?: Yes (5) Diabetes mellitus type 2 in nonobese Is this a current diagnosis for this admission?: Yes (6) Hypertension Is this a current diagnosis for this admission?: Yes (7) Pain due to malignant neoplasm metastatic to bone Is this a current diagnosis for this admission?: Yes (8) Tobacco dependence Is this a current diagnosis for this admission?: Yes - Plan Summary Summary: 01/25/2019 Will be admitted for COPD exacerbation. Start coverage with IV antibiotics as well as IV steroids, nebulizer treatments. Antibiotics may be stopped in the next several days pending sputum cultures and blood cultures - Time Time Spent with patient: 35 or more minutes
[2019-01-25 18:50] LABS: INTERNATIONAL RATION (INR) 1.06; PROTHROMBIN TIME 13.8 SEC (11.4-15.4)
[2019-01-25] MEDS: ACETAMINOPHEN 325 MG TABLET PO PRN (19:36)
[2019-01-25] MEDS: MORPHINE SULFATE SR 30 MG TABLET PO PRN ×2 (19:37→23:37)
[2019-01-25] MEDS: IPRATROPIUM/ALBUTEROL 0.5-2.5 MG/3 ML AMPUL NEB SCH (20:23)
[2019-01-25] MEDS: ENOXAPARIN SODIUM INJ 40 MG/0.4 ML DISP.SYRIN SUBCUT SCH (21:01)
[2019-01-25] MEDS: CEFEPIME 1 GM/D5W RTU 1 GM/50 ML RTUPB IV SCH (21:16)
[2019-01-25] MEDS: FAMOTIDINE 20 MG TABLET PO SCH (21:17)
[2019-01-25] MEDS: METHYLPREDNISOLONE INJ 40 MG/1 ML SDV IV SCH (21:17)
[2019-01-25] MEDS: INSULIN LISPRO 100 UNIT/ML 3 ML VIAL SUBCUT SCH (21:17)
[2019-01-25] MEDS: LUBIPROSTONE 24 MCG CAPSULE PO SCH (21:17)
[2019-01-25 21:40] LABS: APPEARANCE,URINE CLEAR; BILIRUBIN,URINE NEGATIVE (NEGATIVE); COLOR,URINE STRAW; GLUCOSE, URINE >=500 mg/dL (NEGATIVE); KETONES,URINE TRACE mg/dL (NEGATIVE); LEUKOCYTE ESTERASE,URINE NEGATIVE (NEGATIVE); NITRITE,URINE NEGATIVE (NEGATIVE); PROTEIN,URINE NEGATIVE (NEGATIVE); URINE SPECIFIC GRAVITY 1.005; UROBILINOGEN,URINE NEGATIVE mg/dL (<2.0)
--- NOTE | 2019-01-25 23:40 | EKG REPORT ---
SEVERITY:- NORMAL ECG - SINUS RHYTHM : Confirmed by: Dejah Ruano 25-Jan-2019 23:39:39
[2019-01-26] MEDS: CEFEPIME 1 GM/D5W RTU 1 GM/50 ML RTUPB IV SCH ×3 (06:04→21:20)
[2019-01-26] MEDS: MORPHINE SULFATE SR 30 MG TABLET PO PRN ×4 (06:04→20:10)
[2019-01-26] MEDS: METHYLPREDNISOLONE INJ 40 MG/1 ML SDV IV SCH ×3 (06:04→21:21)
[2019-01-26 06:32] LABS: ANION GAP 5 (5-19); BLOOD UREA NITROGEN 9 mg/dL (7-20); CALCIUM 8.8 mg/dL (8.4-10.2); CARBON DIOXIDE 36 mmol/L (22-30); CHLORIDE 96 mmol/L (98-107); GLUCOSE 150 mg/dL (75-110); POTASSIUM 5.2 mmol/L (3.6-5.0)
[2019-01-26 07:05] LABS: HEMATOCRIT 30.3 % (36.0-47.0); HEMOGLOBIN 10.2 g/dL (12.0-15.5); MEAN CORPUSCULAR HEMOGLOBIN 30.5 pg (27.0-33.4); MEAN CORPUSCULAR HGB CONC 33.6 g/dL (32.0-36.0); MEAN CORPUSCULAR VOLUME 91 fl (80-97); PLATELET COUNT 721 10^3/uL (150-450); RED BLOOD COUNT 3.33 10^6/uL (3.72-5.28); RED CELL DISTRIBUTION WIDTH 16.4 % (11.5-14.0); WHITE BLOOD COUNT 5.9 10^3/uL (4.0-10.5)
[2019-01-26 07:12] LABS: ABSOLUTE LYMPHOCYTES# (MANUAL) 0.8 10^3/uL (0.5-4.7); ABSOLUTE MONOCYTES # (MANUAL) 0.6 10^3/uL (0.1-1.4); BAND NEUTROPHILS % (MANUAL) 1 % (3-5); BASOPHILS % (MANUAL) 0 % (0-2); EOSINOPHILS % (MANUAL) 0 % (0-6); LYMPHOCYTES % (MANUAL) 14 % (13-45); MONOCYTES % (MANUAL) 10 % (3-13); SEGMENTED NEUTROPHILS % (MAN) 75 % (42-78); TOTAL CELLS COUNTED 100
[2019-01-26 07:13] LABS: POLYCHROMASIA SLIGHT; TOXIC GRANULATION 1+
[2019-01-26 07:14] LABS: ANISOCYTOSIS SLIGHT; BURR CELLS SLIGHT; OVALOCYTES SLIGHT; PLATELET COMMENT INCREASED; POIKILOCYTOSIS SLIGHT
[2019-01-26] MEDS: IPRATROPIUM/ALBUTEROL 0.5-2.5 MG/3 ML AMPUL NEB SCH ×4 (07:28→19:36)
[2019-01-26] MEDS: INSULIN LISPRO 100 UNIT/ML 3 ML VIAL SUBCUT SCH ×4 (09:12→21:21)
[2019-01-26] MEDS: LUBIPROSTONE 24 MCG CAPSULE PO SCH ×2 (09:13→21:20)
[2019-01-26] MEDS: FAMOTIDINE 20 MG TABLET PO SCH ×2 (09:13→21:20)
[2019-01-26] MEDS: AZITHROMYCIN 250 MG TABLET PO SCH (09:13)
[2019-01-26] MEDS: ACETAMINOPHEN 325 MG TABLET PO PRN ×2 (09:14→14:05)
[2019-01-26] MEDS: ENOXAPARIN SODIUM INJ 40 MG/0.4 ML DISP.SYRIN SUBCUT SCH (09:15)
--- NOTE | 2019-01-26 09:21 | PDOC PROGRESS REPORT ---
Subjective Progress Note for:: 01/26/19 Reason For Visit: COPD EXACERBATION, LUNG CANCER,METS TO THE SPINE 01/26/2019 Recent states that she is much improved, less shortness of breath today Physical Exam Vital Signs: Temp Pulse Resp BP Pulse Ox 98.1 F 87 16 125/66 100 01/26/19 08:17 01/26/19 08:17 01/26/19 08:17 01/26/19 08:17 01/26/19 08:17 Intake & Output 01/25/19 01/26/19 01/27/19 06:59 06:59 06:59 Intake Total 550 Balance 550 Weight 53.2 kg General appearance: PRESENT: mild distress, other - She is speaking in full sentences Respiratory exam: PRESENT: wheezes - Less wheezing today, moving much more air today Cardiovascular exam: PRESENT: RRR. ABSENT: diastolic murmur, rubs, systolic murmur Neurological exam: PRESENT: alert, awake, oriented to person, oriented to place, oriented to time, oriented to situation, CN II-XII grossly intact. ABSENT: motor sensory deficit Psychiatric exam: PRESENT: appropriate affect, normal mood, other - Patient's only complaint is constipation which is a chronic problem. ABSENT: homicidal ideation, suicidal ideation Results Laboratory Results: 01/26/19 06:00 01/26/19 06:00 01/25/19 01/25/19 01/25/19 13:46 13:46 14:26 WBC 7.0 RBC 3.66 L Hgb 11.3 L Hct 33.6 L MCV 92 MCH 30.9 MCHC 33.7 RDW 15.9 H Plt Count 736 H Seg Neutrophils % 73.3 Carbonic Acid 1.62 H HCO3/H2CO3 Ratio 20:1 ABG pH 7.40 ABG pCO2 53.8 H ABG pO2 78.2 L ABG HCO3 32.6 H ABG O2 Saturation 95.3 ABG Base Excess 6.7 FiO2 4L Sodium 135.8 L Potassium 4.6 Chloride 92 L Carbon Dioxide 35 H Anion Gap 9 BUN 7 Creatinine 0.43 L Est GFR ( Amer) > 60 Glucose 137 H Calcium 9.4 Magnesium Total Bilirubin 0.4 AST 14 Alkaline Phosphatase 110 Total Protein 6.2 L Albumin 3.5 Urine Color Urine Appearance Urine pH Ur Specific Counselor Urine Protein Urine Glucose (UA) Urine Ketones Urine Blood Urine Nitrite Ur Leukocyte Esterase Urine WBC (Auto) Urine RBC (Auto) 01/25/19 01/26/19 01/26/19 21:22 06:00 06:00 WBC 5.9 RBC 3.33 L Hgb 10.2 L Hct 30.3 L MCV 91 MCH 30.5 MCHC 33.6 RDW 16.4 H Plt Count 721 H Seg Neutrophils % Not Reportable Carbonic Acid HCO3/H2CO3 Ratio ABG pH ABG pCO2 ABG pO2 ABG HCO3 ABG O2 Saturation ABG Base Excess FiO2 Sodium 136.5 L Potassium 5.2 H Chloride 96 L Carbon Dioxide 36 H Anion Gap 5 BUN 9 Creatinine 0.53 Est GFR ( Amer) > 60 Glucose 150 H Calcium 8.8 Magnesium 2.1 Total Bilirubin AST Alkaline Phosphatase Total Protein Albumin Urine Color STRAW Urine Appearance CLEAR Urine pH 8.0 Ur Specific Counselor 1.005 Urine Protein NEGATIVE Urine Glucose (UA) >=500 H Urine Ketones TRACE H Urine Blood NEGATIVE Urine Nitrite NEGATIVE Ur Leukocyte Esterase NEGATIVE Urine WBC (Auto) 1 Urine RBC (Auto) 1 01/25/19 01/25/19 01/25/19 13:46 13:46 13:46 Creatine Kinase < 20 L Troponin I < 0.012 NT-Pro-B Natriuret Pep 293 H Impressions: Chest X-Ray 01/25/19 13:51 IMPRESSION: No acute findings. Chronic right lower lobe collapse. Trace right pleural fluid Assessment and Plan - Diagnosis (1) COPD with acute exacerbation Is this a current diagnosis for this admission?: Yes (2) Constipation Qualifiers: Constipation type: drug induced constipation Qualified Code(s): K59.03 - Drug induced constipation Is this a current diagnosis for this admission?: Yes (3) Hypoxemia Is this a current diagnosis for this admission?: Yes (4) Metastatic lung cancer (metastasis from lung to other site) Qualifiers: Laterality: right Qualified Code(s): C34.91 - Malignant neoplasm of unspecified part of right bronchus or lung Is this a current diagnosis for this admission?: Yes (5) Diabetes mellitus type 2 in nonobese Is this a current diagnosis for this admission?: Yes (6) Hypertension Is this a current diagnosis for this admission?: Yes (7) Pain due to malignant neoplasm metastatic to bone Is this a current diagnosis for this admission?: Yes (8) Tobacco dependence Is this a current diagnosis for this admission?: Yes - Plan Summary Summary: 01/25/2019 Will be admitted for COPD exacerbation. Start coverage with IV antibiotics as well as IV steroids, nebulizer treatments. Antibiotics may be stopped in the next several days pending sputum cultures and blood cultures 01/26/2019 His O2 sat is 100% on 3 L nasal cannula. Is what patient uses at home, she appears to be at her baseline blood pressure normal ,she is afebrile White count is 5.9 Potassium is slightly high at 5.2 BNP is basically normal at 293 Currently on Zithromax p.o., Maxipime IV, and Solu-Medrol IV Will order fleets enema as well as MiraLAX and magnesium citrate - Time Time Spent with patient: 25-34 minutes
[2019-01-26] MEDS ORDERED: (PENDING PHARMACY ID) (Nifedipine [Nifedipine Er] 90 MG) PO SCH (10:00)
[2019-01-26] MEDS ORDERED: (PENDING PHARMACY ID) (Metformin Hcl [Metformin Hcl] 1,000 MG) PO SCH (10:00)
[2019-01-26] MEDS: NIFEDIPINE 30 MG TAB.ER.24 PO SCH (10:08)
[2019-01-26] MEDS: METOPROLOL TARTRATE 50 MG TABLET PO SCH (10:09)
[2019-01-26] MEDS: FOLIC ACID 1 MG TABLET PO SCH (10:09)
[2019-01-26] MEDS: POLYETHYLENE GLYCOL 3350 POWDER 17 GM/1 PACKET PO SCH (10:14)
[2019-01-26] MEDS: NA PHOS,M-B/NA PHOS,DI-BA (ADULT) 133 ML ENEMA PR SCH (10:14)
--- NOTE | 2019-01-26 10:51 | PDOC CONSULTATION ---
Consultation Consult Date: 01/26/19 Provider Consulted: ASHLY KONG Consult reason:: Hematology/Oncology consultation was requested for patient with cancer who was admitted for dyspnea. History of Present Illness Admission Date/PCP: 01/25/19 16:48 DARLIN CHAVEZ PA-C History of Present Illness: GOKUL SALAZAR is a 73 year old female who was diagnosed with 2006 with lung cancer. Initially an early stage. However in 07/2014 she was found to have metastatic disease, stage IV. Since that time, she has had a variety of treatments. Most recently she has been receiving single agent Gemzar and has had stable disease with this regimen. She presented to the office yesterday after a course of Augmentin for URI. Her breathing was much more labored, her O2 sats were worse than baseline, and patient and family were greatly concerned that she should be started on IV antibiotics. Today, she states that she is feeling much better than yesterday. Her breathing has improved. She was finally able to have a BM after an enema this morning. She is not eating much. Mild back pain, no worse than usual. Past Medical History Cardiac Medical History: Reports: Hyperlipidema, Hypertension Pulmonary Medical History: Reports: Bronchitis, Chronic Obstructive Pulmonary Disease (COPD), Pneumonia Endocrine Medical History: Reports: Diabetes Mellitus Type 2 Malignancy Medical History: Reports: Lung Cancer - R lower lobe. Stage IV with mets to bone GI Medical History: Reports: Diverticulitis, Gastroesophageal Reflux Disease, Hiatal Hernia Musculoskeltal Medical History: Reports: Arthritis Psychiatric Medical History: Denies: Depression Hematology: Denies: Anemia Past Surgical History Past Surgical History: Reports: Cardiac Catheterization - Patient denies CAD seen, cath was related to the L subclavian artery stent., Hysterectomy, Vascular Surgery - Left subclavian artery stent, Other - Partial right lower lobe resection in 2006 Denies: Pacemaker Social History Lives with: Family Smoking Status: Current Every Day Smoker Cigarettes Packs Per Day: 1 Electronic Cigarette use?: No Number of Years Smokin Last Time Smoked: Today 11:00 Frequency of Alcohol Use: None Hx Recreational Drug Use: Yes Drugs: None Hx Prescription Drug Abuse: No - Advance Directive Resuscitation Status: Do Not Intubate Family History Family History: Reviewed & Not Pertinent, Arthritis, CAD, CVA, DM, Hy perlipidemia, Hypertension, Malignancy, Thyroid Disfunction Parental Family History Reviewed: Yes Children Family History Reviewed: Yes Sibling(s) Family History Reviewed.: No Medication/Allergy Home Medications: Albuterol Sulfate [Proair HFA Inhalation Aerosol 8.5 gm MDI] 400 puff IH QAMP PRN 01/25/19 Fluticasone/Umeclidin/Vilanter [Trelegy 100-62.5-25 Mcg Ellipta 14 Dose/Dpi] 1 puff IH DAILY 01/25/19 Folic Acid 1 mg PO DAILY 01/25/19 Levalbuterol HCl [Xopenex Neb 1.25 mg/3 ml Ampul] 1.25 mg NEB RTQ8 01/25/19 Metformin HCl 1,000 mg PO BID 01/25/19 Metoprolol Tartrate [Lopressor 50 mg Tablet] 50 mg PO DAILY 01/25/19 Nifedipine [Nifedipine ER] 90 mg PO DAILY 01/25/19 Ondansetron [Zofran Odt 4 mg Tablet] 4 mg PO Q8HP PRN 01/25/19 Oxycodone HCl [Oxy-Ir 5 mg Tablet] 30 mg PO Q4HP PRN 01/25/19 Pantoprazole Sodium [Protonix [address] Tablet] 40 mg PO BID 01/25/19 Prednisone 10 mg PO DAILY 01/25/19 Promethazine HCl [Phenergan 25 mg Tablet] 25 mg PO Q6HP PRN 01/25/19 Allergies/Adverse Reactions: nickel [Nickel] Adverse Reaction (Severe, Verified 01/25/19 13:21) RASH Review of Systems Constitutional: ABSENT: fever(s), headache(s) Eyes: ABSENT: visual disturbances Ears: ABSENT: hearing changes Nose, Mouth, and Throat: ABSENT: sore throat Respiratory: PRESENT: dyspnea Gastrointestinal: PRESENT: constipation Genitourinary: ABSENT: dysuria Musculoskeletal: PRESENT: back pain Integumentary: ABSENT: rash Neurological: PRESENT: weakness. ABSENT: confusion Hematologic/Lymphatic: ABSENT: easy bleeding Physical Exam Vital Signs: Temp Pulse Resp BP Pulse Ox 98.1 F 87 16 125/66 100 01/26/19 08:17 01/26/19 08:17 01/26/19 08:17 01/26/19 08:17 01/26/19 08:17 Intake & Output 11/27/19 11/28/19 11/29/19 06:59 06:59 06:59 Intake Total 550 Balance 550 Weight 53.2 kg General appearance: PRESENT: mild distress, thin Head exam: PRESENT: normocephalic Eye exam: PRESENT: EOMI Mouth exam: PRESENT: tongue midline Neck exam: ABSENT: lymphadenopathy, tenderness Respiratory exam: PRESENT: other - Decreased breath sounds, but improved air movement on the left. Some wheezing now heard. Cardiovascular exam: PRESENT: RRR GI/Abdominal exam: PRESENT: soft. ABSENT: tenderness Extremities exam: ABSENT: pedal edema Musculoskeletal exam: PRESENT: ambulatory, normal inspection Neurological exam: PRESENT: alert, awake Psychiatric exam: PRESENT: appropriate affect Skin exam: PRESENT: normal color Results Laboratory Results: 01/26/19 06:00 01/26/19 06:00 01/25/19 01/25/19 01/25/19 13:46 13:46 14:26 WBC 7.0 RBC 3.66 L Hgb 11.3 L Hct 33.6 L MCV 92 MCH 30.9 MCHC 33.7 RDW 15.9 H Plt Count 736 H Seg Neutrophils % 73.3 Carbonic Acid 1.62 H HCO3/H2CO3 Ratio 20:1 ABG pH 7.40 ABG pCO2 53.8 H ABG pO2 78.2 L ABG HCO3 32.6 H ABG O2 Saturation 95.3 ABG Base Excess 6.7 FiO2 4L Sodium 135.8 L Potassium 4.6 Chloride 92 L Carbon Dioxide 35 H Anion Gap 9 BUN 7 Creatinine 0.43 L Est GFR ( Amer) > 60 Glucose 137 H Calcium 9.4 Magnesium Total Bilirubin 0.4 AST 14 Alkaline Phosphatase 110 Total Protein 6.2 L Albumin 3.5 Urine Color Urine Appearance Urine pH Ur Specific Bradford Urine Protein Urine Glucose (UA) Urine Ketones Urine Blood Urine Nitrite Ur Leukocyte Esterase Urine WBC (Auto) Urine RBC (Auto) 01/25/19 01/26/19 01/26/19 21:22 06:00 06:00 WBC 5.9 RBC 3.33 L Hgb 10.2 L Hct 30.3 L MCV 91 MCH 30.5 MCHC 33.6 RDW 16.4 H Plt Count 721 H Seg Neutrophils % Not Reportable Carbonic Acid HCO3/H2CO3 Ratio ABG pH ABG pCO2 ABG pO2 ABG HCO3 ABG O2 Saturation ABG Base Excess FiO2 Sodium 136.5 L Potassium 5.2 H Chloride 96 L Carbon Dioxide 36 H Anion Gap 5 BUN 9 Creatinine 0.53 Est GFR ( Amer) > 60 Glucose 150 H Calcium 8.8 Magnesium 2.1 Total Bilirubin AST Alkaline Phosphatase Total Protein Albumin Urine Color STRAW Urine Appearance CLEAR Urine pH 8.0 Ur Specific Bradford 1.005 Urine Protein NEGATIVE Urine Glucose (UA) >=500 H Urine Ketones TRACE H Urine Blood NEGATIVE Urine Nitrite NEGATIVE Ur Leukocyte Esterase NEGATIVE Urine WBC (Auto) 1 Urine RBC (Auto) 1 01/25/19 01/25/19 01/25/19 13:46 13:46 13:46 Creatine Kinase < 20 L Troponin I < 0.012 NT-Pro-B Natriuret Pep 293 H Impressions: Chest X-Ray 01/25/19 13:51 IMPRESSION: No acute findings. Chronic right lower lobe collapse. Trace right pleural fluid Status: Image reviewed by me Assessment & Plan - Diagnosis (1) COPD with acute exacerbation Is this a current diagnosis for this admission?: Yes Plan: Current treatments appear to be working. These should continue. (2) Metastatic lung cancer (metastasis from lung to other site) Qualifiers: Laterality: right Qualified Code(s): C34.91 - Malignant neoplasm of unspecified part of right bronchus or lung Is this a current diagnosis for this admission?: Yes Plan: Treatment on hold during hospitalization. Blood counts are stable. - Plan Summary Plan Summary: Good results from enema.
[2019-01-26] MEDS: FLUTICASONE/UMECLIDIN/VILANTER 100-62.5-25 MCG/DOSE IH SCH (11:56)
[2019-01-26] MEDS: PROMETHAZINE HCL INJ 25 MG/1 ML VIAL IV PRN ×2 (15:38→20:52)
[2019-01-26] MEDS: METFORMIN HCL 500 MG TABLET PO SCH (16:27)
[2019-01-27] MEDS: METHYLPREDNISOLONE INJ 40 MG/1 ML SDV IV SCH ×3 (05:46→21:06)
[2019-01-27] MEDS: CEFEPIME 1 GM/D5W RTU 1 GM/50 ML RTUPB IV SCH ×3 (05:46→21:06)
[2019-01-27] MEDS: MORPHINE SULFATE SR 30 MG TABLET PO PRN ×3 (05:48→14:21)
[2019-01-27] MEDS: IPRATROPIUM/ALBUTEROL 0.5-2.5 MG/3 ML AMPUL NEB SCH ×4 (07:47→19:55)
[2019-01-27] MEDS: INSULIN LISPRO 100 UNIT/ML 3 ML VIAL SUBCUT SCH ×4 (10:00→21:09)
[2019-01-27] MEDS: POLYETHYLENE GLYCOL 3350 POWDER 17 GM/1 PACKET PO SCH (10:02)
[2019-01-27] MEDS: FLUTICASONE/UMECLIDIN/VILANTER 100-62.5-25 MCG/DOSE IH SCH (10:02)
[2019-01-27] MEDS: METFORMIN HCL 500 MG TABLET PO SCH ×2 (10:03→17:21)
[2019-01-27] MEDS: ACETAMINOPHEN 325 MG TABLET PO PRN ×2 (10:04→17:20)
[2019-01-27] MEDS: AZITHROMYCIN 250 MG TABLET PO SCH (10:05)
[2019-01-27] MEDS: FAMOTIDINE 20 MG TABLET PO SCH ×2 (10:05→21:07)
[2019-01-27] MEDS: FOLIC ACID 1 MG TABLET PO SCH (10:05)
[2019-01-27] MEDS: LUBIPROSTONE 24 MCG CAPSULE PO SCH ×2 (10:06→21:07)
[2019-01-27] MEDS: METOPROLOL TARTRATE 50 MG TABLET PO SCH (10:06)
[2019-01-27] MEDS: NIFEDIPINE 30 MG TAB.ER.24 PO SCH (10:06)
[2019-01-27] MEDS: ENOXAPARIN SODIUM INJ 40 MG/0.4 ML DISP.SYRIN SUBCUT SCH (10:09)
[2019-01-27] MEDS: NA PHOS,M-B/NA PHOS,DI-BA (ADULT) 133 ML ENEMA PR SCH (12:50)
--- NOTE | 2019-01-27 13:13 | PDOC PROGRESS REPORT ---
Subjective Progress Note for:: 01/27/19 Reason For Visit: COPD EXACERBATION, LUNG CANCER,METS TO THE SPINE 01/27/2018 Patient admitted for COPD exacerbation and constipation secondary to chronic narcotics. Patient has malignancy with metastatic disease to the bone Physical Exam Vital Signs: Temp Pulse Resp BP Pulse Ox 98.7 F 72 16 126/63 H 93 01/26/19 23:41 01/27/19 11:32 01/27/19 11:32 01/26/19 23:41 01/27/19 11:32 Intake & Output 01/26/19 01/27/19 01/28/19 06:59 06:59 06:59 Intake Total 550 1870 Balance 550 1870 Weight 53.2 kg 54.3 kg General appearance: PRESENT: no acute distress, mild distress, other - Still short of breath but less than yesterday Respiratory exam: PRESENT: decreased breath sounds, rhonchi, wheezes Cardiovascular exam: PRESENT: RRR. ABSENT: diastolic murmur, rubs, systolic murmur Neurological exam: PRESENT: alert, awake, oriented to person, oriented to place, oriented to time, oriented to situation, CN II-XII grossly intact. ABSENT: motor sensory deficit Psychiatric exam: PRESENT: appropriate affect, normal mood. ABSENT: homicidal ideation, suicidal ideation Results Laboratory Results: 01/26/19 06:00 01/26/19 06:00 01/26/19 10:15 Sputum Gram Stain - Final 01/25/19 01/25/19 01/25/19 13:46 13:46 13:46 Creatine Kinase < 20 L Troponin I < 0.012 NT-Pro-B Natriuret Pep 293 H Impressions: Chest X-Ray 01/25/19 13:51 IMPRESSION: No acute findings. Chronic right lower lobe collapse. Trace right pleural fluid Assessment and Plan - Diagnosis (1) COPD with acute exacerbation Is this a current diagnosis for this admission?: Yes (2) Constipation Qualifiers: Constipation type: drug induced constipation Qualified Code(s): K59.03 - Drug induced constipation Is this a current diagnosis for this admission?: Yes (3) Hypoxemia Is this a current diagnosis for this admission?: Yes (4) Metastatic lung cancer (metastasis from lung to other site) Qualifiers: Laterality: right Qualified Code(s): C34.91 - Malignant neoplasm of unspecified part of right bronchus or lung Is this a current diagnosis for this admission?: Yes (5) Diabetes mellitus type 2 in nonobese Is this a current diagnosis for this admission?: Yes (6) Hypertension Is this a current diagnosis for this admission?: Yes (7) Pain due to malignant neoplasm metastatic to bone Is this a current diagnosis for this admission?: Yes (8) Tobacco dependence Is this a current diagnosis for this admission?: Yes - Plan Summary Summary: 01/25/2019 Will be admitted for COPD exacerbation. Start coverage with IV antibiotics as well as IV steroids, nebulizer treatments. Antibiotics may be stopped in the next several days pending sputum cultures and blood cultures 01/26/2019 Her O2 sat is 100% on 3 L nasal cannula. This is what patient uses at home, she appears to be at her baseline blood pressure normal ,she is afebrile White count is 5.9 Potassium is slightly high at 5.2 BNP is basically normal at 293 Currently on Zithromax p.o., Maxipime IV, and Solu-Medrol IV Will order fleets enema as well as MiraLAX and magnesium citrate 01/27/2019 Vital signs are still stable her oxygen saturations between 98-100% on 4 L. Appears to be 93% on 3 L which is what she uses at home We will recheck her labs in the morning She does not need another fleets enema at this time of her we will continue the scheduled daily MiraLAX well as Amitiza every 12 hours Patient is growing out gram-negative rods in her sputum culture Currently she is on day #3 of IV cefepime and p.o. Zithromax Continue Solu-Medrol every 8 hours Appreciate oncology's note - Time Time Spent with patient: 25-34 minutes
[2019-01-27] MEDS ORDERED: IPRATROPIUM/ALBUTEROL 0.5-2.5 MG/3 ML AMPUL NEB PRN (14:55)
[2019-01-27] MEDS: LORAZEPAM 0.5 MG TABLET PO PRN (15:09)
[2019-01-27] MEDS: OXYCODONE HCL IR 5 MG TABLET PO PRN (21:09)
[2019-01-28] MEDS: OXYCODONE HCL IR 5 MG TABLET PO PRN ×3 (04:59→19:59)
[2019-01-28] MEDS ORDERED: OXYCODONE HCL IR 5 MG TABLET ONE (05:01)
[2019-01-28] MEDS: CEFEPIME 1 GM/D5W RTU 1 GM/50 ML RTUPB IV SCH ×3 (05:02→21:05)
[2019-01-28] MEDS: METHYLPREDNISOLONE INJ 40 MG/1 ML SDV IV SCH ×3 (05:02→21:04)
[2019-01-28 05:35] LABS: HEMATOCRIT 33.1 % (36.0-47.0); HEMOGLOBIN 11.1 g/dL (12.0-15.5); MEAN CORPUSCULAR HEMOGLOBIN 30.8 pg (27.0-33.4); MEAN CORPUSCULAR HGB CONC 33.6 g/dL (32.0-36.0); MEAN CORPUSCULAR VOLUME 92 fl (80-97); PLATELET COUNT 868 10^3/uL (150-450); RED BLOOD COUNT 3.62 10^6/uL (3.72-5.28); RED CELL DISTRIBUTION WIDTH 16.8 % (11.5-14.0); WHITE BLOOD COUNT 9.9 10^3/uL (4.0-10.5)
[2019-01-28 05:56] LABS: SEGMENTED NEUTROPHILS % (MAN) 79 % (42-78); TOTAL CELLS COUNTED 100
[2019-01-28 05:57] LABS: ABSOLUTE LYMPHOCYTES# (MANUAL) 0.8 10^3/uL (0.5-4.7); ABSOLUTE MONOCYTES # (MANUAL) 0.2 10^3/uL (0.1-1.4); ANISOCYTOSIS 1+; BASOPHILS % (MANUAL) 0 % (0-2); EOSINOPHILS % (MANUAL) 0 % (0-6); LYMPHOCYTES % (MANUAL) 8 % (13-45); MONOCYTES % (MANUAL) 2 % (3-13); PLATELET COMMENT INCREASED; POLYCHROMASIA 1+
[2019-01-28 05:58] LABS: ANION GAP 8 (5-19); BLOOD UREA NITROGEN 16 mg/dL (7-20); CALCIUM 9.5 mg/dL (8.4-10.2); CARBON DIOXIDE 32 mmol/L (22-30); CHLORIDE 97 mmol/L (98-107); GLUCOSE 153 mg/dL (75-110)
[2019-01-28] MEDS: METFORMIN HCL 500 MG TABLET PO SCH ×2 (08:06→17:36)
[2019-01-28] MEDS: IPRATROPIUM/ALBUTEROL 0.5-2.5 MG/3 ML AMPUL NEB SCH ×4 (08:06→20:31)
[2019-01-28] MEDS: INSULIN LISPRO 100 UNIT/ML 3 ML VIAL SUBCUT SCH ×4 (08:06→21:05)
[2019-01-28] MEDS: LORAZEPAM 0.5 MG TABLET PO PRN (08:50)
[2019-01-28] MEDS: FOLIC ACID 1 MG TABLET PO SCH (09:08)
[2019-01-28] MEDS: NIFEDIPINE 30 MG TAB.ER.24 PO SCH (09:08)
[2019-01-28] MEDS: AZITHROMYCIN 250 MG TABLET PO SCH (09:08)
[2019-01-28] MEDS: FAMOTIDINE 20 MG TABLET PO SCH ×2 (09:08→21:05)
[2019-01-28] MEDS: LUBIPROSTONE 24 MCG CAPSULE PO SCH ×2 (09:08→21:05)
[2019-01-28] MEDS: POLYETHYLENE GLYCOL 3350 POWDER 17 GM/1 PACKET PO SCH (09:08)
[2019-01-28] MEDS: METOPROLOL TARTRATE 50 MG TABLET PO SCH (09:08)
[2019-01-28] MEDS: ENOXAPARIN SODIUM INJ 40 MG/0.4 ML DISP.SYRIN SUBCUT SCH (09:09)
[2019-01-28] MEDS: FLUTICASONE/UMECLIDIN/VILANTER 100-62.5-25 MCG/DOSE IH SCH (09:10)
--- NOTE | 2019-01-28 09:35 | PDOC PROGRESS REPORT ---
Subjective Progress Note for:: 01/28/19 Reason For Visit: COPD EXACERBATION, LUNG CANCER,METS TO THE SPINE 01/28/2019 She is O2 sat is between 93 and 100% on 2 L nasal cannula. Patient COPD exacerbation is getting better Physical Exam Vital Signs: Temp Pulse Resp BP Pulse Ox 98.0 F 98 20 156/70 H 93 01/28/19 07:00 01/28/19 08:06 01/28/19 08:06 01/28/19 07:00 01/28/19 08:06 Intake & Output 01/27/19 01/28/19 01/29/19 06:59 06:59 06:59 Intake Total 1870 1280 Balance 1870 1280 Weight 54.3 kg 56.2 kg General appearance: PRESENT: no acute distress, other - Patient reports that her bowels are back to "normal" for her Respiratory exam: PRESENT: wheezes Cardiovascular exam: PRESENT: RRR. ABSENT: diastolic murmur, rubs, systolic murmur Neurological exam: PRESENT: alert, awake, oriented to person, oriented to place, oriented to time, oriented to situation, CN II-XII grossly intact. ABSENT: motor sensory deficit Psychiatric exam: PRESENT: appropriate affect, normal mood. ABSENT: homicidal ideation, suicidal ideation Results Laboratory Results: 01/28/19 05:00 01/28/19 05:00 01/28/19 01/28/19 05:00 05:00 WBC 9.9 RBC 3.62 L Hgb 11.1 L Hct 33.1 L MCV 92 MCH 30.8 MCHC 33.6 RDW 16.8 H Plt Count 868 H Seg Neutrophils % Not Reportable Sodium 136.6 L Potassium 5.0 Chloride 97 L Carbon Dioxide 32 H Anion Gap 8 BUN 16 Creatinine 0.52 Est GFR ( Amer) > 60 Glucose 153 H Calcium 9.5 01/26/19 10:15 Sputum Gram Stain - Final 01/26/19 10:15 Sputum Sputum Culture - Final Pseudomonas Aeruginosa Normal Alisia Absent 01/25/19 01/25/19 01/25/19 13:46 13:46 13:46 Creatine Kinase < 20 L Troponin I < 0.012 NT-Pro-B Natriuret Pep 293 H Impressions: Chest X-Ray 01/25/19 13:51 IMPRESSION: No acute findings. Chronic right lower lobe collapse. Trace right pleural fluid Assessment and Plan - Diagnosis (1) COPD with acute exacerbation Is this a current diagnosis for this admission?: Yes (2) Constipation Qualifiers: Constipation type: drug induced constipation Qualified Code(s): K59.03 - Drug induced constipation Is this a current diagnosis for this admission?: Yes (3) Hypoxemia Is this a current diagnosis for this admission?: Yes (4) Metastatic lung cancer (metastasis from lung to other site) Qualifiers: Laterality: right Qualified Code(s): C34.91 - Malignant neoplasm of unspecified part of right bronchus or lung Is this a current diagnosis for this admission?: Yes (5) Diabetes mellitus type 2 in nonobese Is this a current diagnosis for this admission?: Yes (6) Hypertension Is this a current diagnosis for this admission?: Yes (7) Pain due to malignant neoplasm metastatic to bone Is this a current diagnosis for this admission?: Yes (8) Tobacco dependence Is this a current diagnosis for this admission?: Yes - Plan Summary Summary: 01/25/2019 Will be admitted for COPD exacerbation. Start coverage with IV antibiotics as well as IV steroids, nebulizer treatments. Antibiotics may be stopped in the next several days pending sputum cultures and blood cultures 01/26/2019 Her O2 sat is 100% on 3 L nasal cannula. This is what patient uses at home, she appears to be at her baseline blood pressure normal ,she is afebrile White count is 5.9 Potassium is slightly high at 5.2 BNP is basically normal at 293 Currently on Zithromax p.o., Maxipime IV, and Solu-Medrol IV Will order fleets enema as well as MiraLAX and magnesium citrate 01/27/2019 Vital signs are still stable her oxygen saturations between 98-100% on 4 L. Appears to be 93% on 3 L which is what she uses at home We will recheck her labs in the morning She does not need another fleets enema at this time of her we will continue the scheduled daily MiraLAX well as Amitiza every 12 hours Patient is growing out gram-negative rods in her sputum culture Currently she is on day #3 of IV cefepime and p.o. Zithromax Continue Solu-Medrol every 8 hours Appreciate oncology's note 01/28/2019 Patient is vital signs are stable her saturations are being well maintained on 2 L cannula which is what she uses at home Sputum is growing out Pseudomonas but it is sensitive to Maxipime that she is on currently. she is also on p.o. Zithromax Continue the MiraLAX daily as well as the Amitiza for her bowels She has Ativan ordered as needed for anxiety Patient and family seems satisfied with her progress Anticipate 2-3 more days of hospitalization - Time Time Spent with patient: 25-34 minutes
[2019-01-28] MEDS: PROMETHAZINE HCL INJ 25 MG/1 ML VIAL IV PRN (10:39)
--- NOTE | 2019-01-28 16:12 | PDOC PROGRESS REPORT ---
Subjective Progress Note for:: 01/28/19 Subjective:: Patient still with some pain, but breathing continues to slowly improve. No new complaints. Anxious to go home, but agrees with hospitalist that a few more days may be beneficial. Reason For Visit: COPD EXACERBATION, LUNG CANCER,METS TO THE SPINE Physical Exam Vital Signs: Temp Pulse Resp BP Pulse Ox 97.8 F 95 18 149/74 H 95 01/28/19 11:00 01/28/19 15:35 01/28/19 15:35 01/28/19 11:00 01/28/19 15:35 Intake & Output 01/27/19 01/28/19 01/29/19 06:59 06:59 06:59 Intake Total 1870 1280 120 Balance 1870 1280 120 Weight 54.3 kg 56.2 kg General appearance: PRESENT: thin Head exam: PRESENT: normocephalic Respiratory exam: PRESENT: other - Much more air movement with wheezes and crackles. Overall improved. Extremities exam: ABSENT: pedal edema Neurological exam: PRESENT: alert, awake Psychiatric exam: PRESENT: appropriate affect Skin exam: PRESENT: normal color Results Laboratory Results: 01/28/19 05:00 01/28/19 05:00 01/28/19 01/28/19 05:00 05:00 WBC 9.9 RBC 3.62 L Hgb 11.1 L Hct 33.1 L MCV 92 MCH 30.8 MCHC 33.6 RDW 16.8 H Plt Count 868 H Seg Neutrophils % Not Reportable Sodium 136.6 L Potassium 5.0 Chloride 97 L Carbon Dioxide 32 H Anion Gap 8 BUN 16 Creatinine 0.52 Est GFR ( Amer) > 60 Glucose 153 H Calcium 9.5 01/26/19 10:15 Sputum Gram Stain - Final 01/26/19 10:15 Sputum Sputum Culture - Final Pseudomonas Aeruginosa Normal Alisia Absent 01/25/19 01/25/19 01/25/19 13:46 13:46 13:46 Creatine Kinase < 20 L Troponin I < 0.012 NT-Pro-B Natriuret Pep 293 H Impressions: Chest X-Ray 01/25/19 13:51 IMPRESSION: No acute findings. Chronic right lower lobe collapse. Trace right pleural fluid Assessment & Plan - Diagnosis (1) COPD with acute exacerbation Is this a current diagnosis for this admission?: Yes Plan: Improving with current treatment. (2) Metastatic lung cancer (metastasis from lung to other site) Qualifiers: Laterality: right Qualified Code(s): C34.91 - Malignant neoplasm of unspecified part of right bronchus or lung Is this a current diagnosis for this admission?: Yes Plan: All cancer treatment currently on hold. Please call me with any concerns. OK with discharge in a few days, when appropriate, and she will continue to follow with Dr. Torres in the office. - Time Time Spent with patient: 15-24 minutes
[2019-01-28] MEDS: NA PHOS,M-B/NA PHOS,DI-BA (ADULT) 133 ML ENEMA PR SCH (16:55)
[2019-01-29] MEDS: OXYCODONE HCL IR 5 MG TABLET PO PRN ×6 (01:42→23:59)
[2019-01-29] MEDS: CEFEPIME 1 GM/D5W RTU 1 GM/50 ML RTUPB IV SCH (05:11)
[2019-01-29] MEDS: METHYLPREDNISOLONE INJ 40 MG/1 ML SDV IV SCH ×3 (05:11→22:47)
[2019-01-29] MEDS: PROMETHAZINE HCL INJ 25 MG/1 ML VIAL IV PRN ×2 (06:14→11:40)
[2019-01-29] MEDS: IPRATROPIUM/ALBUTEROL 0.5-2.5 MG/3 ML AMPUL NEB SCH ×4 (08:13→19:36)
[2019-01-29] MEDS: METFORMIN HCL 500 MG TABLET PO SCH ×2 (08:32→15:35)
[2019-01-29] MEDS: INSULIN LISPRO 100 UNIT/ML 3 ML VIAL SUBCUT SCH ×4 (08:32→22:53)
[2019-01-29] MEDS: FAMOTIDINE 20 MG TABLET PO SCH ×2 (09:29→22:47)
[2019-01-29] MEDS: FOLIC ACID 1 MG TABLET PO SCH (09:29)
[2019-01-29] MEDS: LUBIPROSTONE 24 MCG CAPSULE PO SCH ×2 (09:29→22:47)
[2019-01-29] MEDS: METOPROLOL TARTRATE 50 MG TABLET PO SCH (09:29)
[2019-01-29] MEDS: POLYETHYLENE GLYCOL 3350 POWDER 17 GM/1 PACKET PO SCH (09:29)
[2019-01-29] MEDS: LEVOFLOXACIN 500 MG TABLET PO SCH (09:29)
[2019-01-29] MEDS: NIFEDIPINE 30 MG TAB.ER.24 PO SCH (09:29)
[2019-01-29] MEDS: FLUTICASONE/UMECLIDIN/VILANTER 100-62.5-25 MCG/DOSE IH SCH (09:30)
[2019-01-29] MEDS: ENOXAPARIN SODIUM INJ 40 MG/0.4 ML DISP.SYRIN SUBCUT SCH (09:30)
--- NOTE | 2019-01-29 12:40 | PDOC PROGRESS REPORT ---
Subjective Progress Note for:: 01/29/19 Reason For Visit: COPD EXACERBATION, LUNG CANCER,METS TO THE SPINE 01/29/2019 She is improving from her COPD exacerbation Physical Exam Vital Signs: Temp Pulse Resp BP Pulse Ox 98.7 F 96 16 158/78 H 95 01/29/19 11:33 01/29/19 12:18 01/29/19 12:18 01/29/19 11:33 01/29/19 12:18 Intake & Output 01/28/19 01/29/19 01/30/19 06:59 06:59 06:59 Intake Total 1280 1989 Balance 1280 1989 Weight 56.2 kg 54.9 kg General appearance: PRESENT: no acute distress Respiratory exam: PRESENT: wheezes, other - Improved breath sounds Cardiovascular exam: PRESENT: RRR. ABSENT: diastolic murmur, rubs, systolic murmur Neurological exam: PRESENT: alert, awake, oriented to person, oriented to place, oriented to time, oriented to situation, CN II-XII grossly intact. ABSENT: motor sensory deficit Psychiatric exam: PRESENT: appropriate affect, normal mood. ABSENT: homicidal ideation, suicidal ideation Results Laboratory Results: 01/28/19 05:00 01/28/19 05:00 01/25/19 01/25/19 01/25/19 13:46 13:46 13:46 Creatine Kinase < 20 L Troponin I < 0.012 NT-Pro-B Natriuret Pep 293 H Impressions: Chest X-Ray 01/25/19 13:51 IMPRESSION: No acute findings. Chronic right lower lobe collapse. Trace right pleural fluid Assessment and Plan - Diagnosis (1) COPD with acute exacerbation Is this a current diagnosis for this admission?: Yes (2) Constipation Qualifiers: Constipation type: drug induced constipation Qualified Code(s): K59.03 - Drug induced constipation Is this a current diagnosis for this admission?: Yes (3) Hypoxemia Is this a current diagnosis for this admission?: Yes (4) Metastatic lung cancer (metastasis from lung to other site) Qualifiers: Laterality: right Qualified Code(s): C34.91 - Malignant neoplasm of unspecified part of right bronchus or lung Is this a current diagnosis for this admission?: Yes (5) Diabetes mellitus type 2 in nonobese Is this a current diagnosis for this admission?: Yes (6) Hypertension Is this a current diagnosis for this admission?: Yes (7) Pain due to malignant neoplasm metastatic to bone Is this a current diagnosis for this admission?: Yes (8) Tobacco dependence Is this a current diagnosis for this admission?: Yes - Plan Summary Summary: 01/25/2019 Will be admitted for COPD exacerbation. Start coverage with IV antibiotics as well as IV steroids, nebulizer treatments. Antibiotics may be stopped in the next several days pending sputum cultures and blood cultures 01/26/2019 Her O2 sat is 100% on 3 L nasal cannula. This is what patient uses at home, she appears to be at her baseline blood pressure normal ,she is afebrile White count is 5.9 Potassium is slightly high at 5.2 BNP is basically normal at 293 Currently on Zithromax p.o., Maxipime IV, and Solu-Medrol IV Will order fleets enema as well as MiraLAX and magnesium citrate 01/27/2019 Vital signs are still stable her oxygen saturations between 98-100% on 4 L. Appears to be 93% on 3 L which is what she uses at home We will recheck her labs in the morning She does not need another fleets enema at this time of her we will continue the scheduled daily MiraLAX well as Amitiza every 12 hours Patient is growing out gram-negative rods in her sputum culture Currently she is on day #3 of IV cefepime and p.o. Zithromax Continue Solu-Medrol every 8 hours Appreciate oncology's note 01/28/2019 Patient is vital signs are stable her saturations are being well maintained on 2 L cannula which is what she uses at home Sputum is growing out Pseudomonas but it is sensitive to Maxipime that she is on currently. she is also on p.o. Zithromax Continue the MiraLAX daily as well as the Amitiza for her bowels She has Ativan ordered as needed for anxiety Patient and family seems satisfied with her progress Anticipate 2-3 more days of hospitalization 01/29/2019 O2 sat between 93 and 96% on 3 L nasal cannula. This patient's baseline Sputum is growing out Klebsiella Cultures are negative so far Calcium slightly high at 5.00 I have DC'd the cefepime and Zithromax and instead switch her to p.o. Levaquin 500 mg daily for her positive sputum She remains afebrile and has a normal white count - Time Time Spent with patient: 25-34 minutes
[2019-01-29] MEDS: NA PHOS,M-B/NA PHOS,DI-BA (ADULT) 133 ML ENEMA PR SCH (17:39)
[2019-01-29] MEDS: LORAZEPAM 0.5 MG TABLET PO PRN (22:53)
[2019-01-30] MEDS: METHYLPREDNISOLONE INJ 40 MG/1 ML SDV IV SCH ×3 (06:05→21:29)
[2019-01-30] MEDS: OXYCODONE HCL IR 5 MG TABLET PO PRN ×3 (06:06→21:38)
[2019-01-30] MEDS: IPRATROPIUM/ALBUTEROL 0.5-2.5 MG/3 ML AMPUL NEB SCH ×4 (07:52→19:52)
[2019-01-30] MEDS ORDERED: LORAZEPAM INJ 2 MG/1 ML VIAL IV PRN ×2 (08:30→08:39)
--- NOTE | 2019-01-30 08:47 | PDOC PROGRESS REPORT ---
Subjective Progress Note for:: 01/30/19 Subjective:: Today had a long discussion with imaging results, unfortunately in my view there seems to be progressive disease. Consolidation in opacification is worse, probably because of increasing size of the postobstructive component. Mediastinal adenopathy slightly worse as well. Still, other than the breathing, or other major issue seems to be the mid thoracic pain consistent with the bone metastasis in that area. She has not been comfortable enough to be able to unde rgo radiation or to undergo even an MRI. We will try and get an MRI done while inpatient with IV pain medications and IV anxiolytics to see if there is some instrumentation to the thoracic spine metastasis, may be something like kyphoplasty. Reason For Visit: COPD EXACERBATION, LUNG CANCER,METS TO THE SPINE Physical Exam Vital Signs: Temp Pulse Resp BP Pulse Ox 98 F 96 16 151/72 H 97 01/30/19 08:00 01/30/19 08:00 01/30/19 08:00 01/30/19 08:00 01/30/19 08:00 Intake & Output 01/29/19 01/30/19 01/31/19 06:59 06:59 06:59 Intake Total 1989 900 Balance 1989 900 Weight 54.9 kg 53.5 kg General appearance: PRESENT: no acute distress, well-developed, well-nourished Head exam: PRESENT: atraumatic, normocephalic Eye exam: PRESENT: conjunctiva pink, EOMI, PERRLA. ABSENT: scleral icterus Ear exam: PRESENT: normal external ear exam Mouth exam: PRESENT: moist, tongue midline Neck exam: ABSENT: carotid bruit, JVD, lymphadenopathy, thyromegaly Respiratory exam: PRESENT: clear to auscultation harish. ABSENT: rales, rhonchi, wheezes Cardiovascular exam: PRESENT: RRR. ABSENT: diastolic murmur, rubs, systolic murmur Pulses: PRESENT: normal dorsalis pedis pul Vascular exam: PRESENT: normal capillary refill GI/Abdominal exam: PRESENT: normal bowel sounds, soft. ABSENT: distended, guarding, mass, organolmegaly, rebound, tenderness Rectal exam: PRESENT: deferred Extremities exam: PRESENT: full ROM. ABSENT: calf tenderness, clubbing, pedal edema Neurological exam: PRESENT: alert, awake, oriented to person, oriented to place, oriented to time, oriented to situation, CN II-XII grossly intact. ABSENT: motor sensory deficit Psychiatric exam: PRESENT: appropriate affect, normal mood. ABSENT: homicidal ideation, suicidal ideation Skin exam: PRESENT: dry, intact, warm. ABSENT: cyanosis, rash Results Laboratory Results: 01/28/19 05:00 01/28/19 05:00 01/25/19 01/25/19 01/25/19 13:46 13:46 13:46 Creatine Kinase < 20 L Troponin I < 0.012 NT-Pro-B Natriuret Pep 293 H Impressions: Chest X-Ray 01/25/19 13:51 IMPRESSION: No acute findings. Chronic right lower lobe collapse. Trace right pleural fluid Assessment & Plan - Diagnosis (1) Metastatic lung cancer (metastasis from lung to other site) Qualifiers: Laterality: right Qualified Code(s): C34.91 - Malignant neoplasm of unspecified part of right bronchus or lung Is this a current diagnosis for this admission?: Yes Plan: Progressive disease, we will discontinue current chemotherapy, we will initiate next line therapy as an outpatient. (2) Bone metastases Is this a current diagnosis for this admission?: Yes Plan: This is the cause of severe pain for her, plan for MRI of the spine today to see if any intervention can be done. We will premed her with IV Dilaudid plus IV Ativan. - Time Time Spent with patient: 35 or more minutes - Inpatient Certification Based on my medical assessment, after consideration of the patient's comorbidities, presenting symptoms, or acuity I expect that the services needed warrant INPATIENT care.: Yes I certify that my determination is in accordance with my understanding of Medicare's requirements for reasonable and necessary INPATIENT services [42 CFR 412.3e].: Yes Medical Necessity: Risk of Complication if Not Cared For in Hospital
[2019-01-30] MEDS: FLUTICASONE/UMECLIDIN/VILANTER 100-62.5-25 MCG/DOSE IH SCH (09:44)
[2019-01-30] MEDS: LUBIPROSTONE 24 MCG CAPSULE PO SCH ×2 (09:45→21:29)
[2019-01-30] MEDS: LORAZEPAM 0.5 MG TABLET PO PRN (09:45)
[2019-01-30] MEDS: METFORMIN HCL 500 MG TABLET PO SCH ×2 (09:45→18:21)
[2019-01-30] MEDS: LEVOFLOXACIN 500 MG TABLET PO SCH (09:45)
[2019-01-30] MEDS: FAMOTIDINE 20 MG TABLET PO SCH ×2 (09:45→21:29)
[2019-01-30] MEDS: FOLIC ACID 1 MG TABLET PO SCH (09:45)
[2019-01-30] MEDS: NIFEDIPINE 30 MG TAB.ER.24 PO SCH (09:45)
[2019-01-30] MEDS: METOPROLOL TARTRATE 50 MG TABLET PO SCH (09:45)
[2019-01-30] MEDS: INSULIN LISPRO 100 UNIT/ML 3 ML VIAL SUBCUT SCH ×4 (09:49→21:29)
[2019-01-30] MEDS: ENOXAPARIN SODIUM INJ 40 MG/0.4 ML DISP.SYRIN SUBCUT SCH (09:50)
[2019-01-30] MEDS: POLYETHYLENE GLYCOL 3350 POWDER 17 GM/1 PACKET PO SCH (09:50)
[2019-01-30] MEDS: HYDROMORPHONE HCL INJ/PF 2 MG/ML AMPULE IV PRN ×2 (14:03→14:55)
[2019-01-30 14:52] LABS: BAND NEUTROPHILS % (MANUAL) 11 % (3-5)
--- NOTE | 2019-01-30 15:55 | RADIOLOGY REPORT (SQ) ---
EXAM DESCRIPTION: MRI LUMBAR SPINE WITHOUT COMPLETED DATE/TIME: 01/30/2019 3:24 pm REASON FOR STUDY: BONE METS COMPARISON: CT chest abdomen pelvis 01/23/2019 CT chest 10/29/2018 CT chest abdomen pelvis 10/25/2018 TECHNIQUE: Sagittal imaging includes T1, T2 sequences. Coronal T2/HASTE imaging. LIMITATIONS: Patient was unable to cooperate for the exam despite IV pain medication FINDINGS: Field of views from T11 through S4. T10 sclerotic metastatic lesion intervertebral body a nd left pedicle seen on CT exam 01/23/2019 is not in the field of view. T12 through L5 vertebral bodies are intact. No compression deformity. Disc space loss of height at L3-4 with sclerotic vertebral body endplate change. Benign hemangiomas in the L3 and L4 vertebral cher dies. Diffuse decreased T2 weighted intervertebral disc signal. High-grade disc space loss of height at L3 -4 and L5-S1. The T12-L1 level is unremarkable. At L1-2, L2-3, mild posterior disc bulging and mild facet and ligament hypertrophy is present without central or foraminal stenosis. At L3-4, and L4-5 borderline central canal narrowing and mild bilateral foraminal narrowing results f rom disc bulge and facet hypertrophy. At L5-S1, borderline central canal narrowing and moderate bilateral foraminal narrowing from facet an d uncovertebral hypertrophy is present IMPRESSION: Patient unable to cooperate with a full lumbar spine exam due to pain. No lumbar metast atic disease is present. T10 vertebral body with sclerotic metastatic lesion is outside the field of view of today's MRI exam. TECHNICAL DOCUMENTATION: JOB ID: [id number] [employer]- All Rights Reserved Reading location - IP/workstation name: [email or web address]
[2019-01-30] MEDS: NA PHOS,M-B/NA PHOS,DI-BA (ADULT) 133 ML ENEMA PR SCH (18:10)
[2019-01-31] MEDS: OXYCODONE HCL IR 5 MG TABLET PO PRN ×3 (04:05→19:02)
[2019-01-31] MEDS ORDERED: LORAZEPAM INJ 2 MG/1 ML VIAL IV PRN (05:00)
[2019-01-31] MEDS ORDERED: HYDROMORPHONE HCL INJ/PF 2 MG/ML AMPULE IV PRN (05:00)
[2019-01-31] MEDS: METHYLPREDNISOLONE INJ 40 MG/1 ML SDV IV SCH (05:58)
[2019-01-31] MEDS: IPRATROPIUM/ALBUTEROL 0.5-2.5 MG/3 ML AMPUL NEB SCH ×2 (07:56→20:37)
[2019-01-31] MEDS: INSULIN LISPRO 100 UNIT/ML 3 ML VIAL SUBCUT SCH ×3 (08:06→16:18)
[2019-01-31] MEDS: METFORMIN HCL 500 MG TABLET PO SCH ×2 (08:15→15:27)
--- NOTE | 2019-01-31 08:29 | PDOC PROGRESS REPORT ---
Subjective Progress Note for:: 01/31/19 Subjective:: Patient was able to tolerate the lumbar spine MRI with medication but unfortunately started having severe pain when they were going to start the thoracic MRI, therefore could not get done. We have ordered it for today. Reason For Visit: COPD EXACERBATION, LUNG CANCER,METS TO THE SPINE Physical Exam Vital Signs: Temp Pulse Resp BP Pulse Ox 97.7 F 111 H 16 120/55 L 93 01/31/19 08:00 01/31/19 08:00 01/31/19 08:00 01/31/19 08:00 01/31/19 08:00 Intake & Output 01/30/19 01/31/19 02/01/19 06:59 06:59 06:59 Intake Total 900 748 Balance 900 748 Weight 53.5 kg 55.5 kg General appearance: PRESENT: no acute distress, well-developed, well-nourished Head exam: PRESENT: atraumatic, normocephalic Eye exam: PRESENT: conjunctiva pink, EOMI, PERRLA. ABSENT: scleral icterus Ear exam: PRESENT: normal external ear exam Mouth exam: PRESENT: moist, tongue midline Neck exam: ABSENT: carotid bruit, JVD, lymphadenopathy, thyromegaly Respiratory exam: PRESENT: clear to auscultation harish. ABSENT: rales, rhonchi, wheezes Cardiovascular exam: PRESENT: RRR. ABSENT: diastolic murmur, rubs, systolic murmur Pulses: PRESENT: normal dorsalis pedis pul Vascular exam: PRESENT: normal capillary refill GI/Abdominal exam: PRESENT: normal bowel sounds, soft. ABSENT: distended, guarding, mass, organolmegaly, rebound, tenderness Rectal exam: PRESENT: deferred Extremities exam: PRESENT: full ROM. ABSENT: calf tenderness, clubbing, pedal edema Neurological exam: PRESENT: alert, awake, oriented to person, oriented to place, oriented to time, oriented to situation, CN II-XII grossly intact. ABSENT: motor sensory deficit Psychiatric exam: PRESENT: appropriate affect, normal mood. ABSENT: homicidal ideation, suicidal ideation Skin exam: PRESENT: dry, intact, warm. ABSENT: cyanosis, rash Results Laboratory Results: 01/28/19 05:00 01/28/19 05:00 01/25/19 14:36 Blood Blood Culture - Final NO GROWTH IN 5 DAYS 01/25/19 13:46 Blood Blood Culture - Final NO GROWTH IN 5 DAYS 01/25/19 01/25/19 01/25/19 13:46 13:46 13:46 Creatine Kinase < 20 L Troponin I < 0.012 NT-Pro-B Natriuret Pep 293 H Impressions: Chest X-Ray 01/25/19 13:51 IMPRESSION: No acute findings. Chronic right lower lobe collapse. Trace right pleural fluid Lumbar Spine MRI 01/30/19 00:00 IMPRESSION: Patient unable to cooperate with a full lumbar spine exam due to pain. No lumbar metastatic disease is present. T10 vertebral body with sclerotic metastatic lesion is outside the field of view of today's MRI exam. Assessment & Plan - Diagnosis (1) Metastatic lung cancer (metastasis from lung to other site) Qualifiers: Laterality: right Qualified Code(s): C34.91 - Malignant neoplasm of unspecified part of right bronchus or lung Is this a current diagnosis for this admission?: Yes Plan: Plan for MRI of the thoracic spine today, premeds will be given prior to that. (2) Bone metastases Is this a current diagnosis for this admission?: Yes Plan: Plan as above - Time Time Spent with patient: 35 or more minutes
[2019-01-31] MEDS: ENOXAPARIN SODIUM INJ 40 MG/0.4 ML DISP.SYRIN SUBCUT SCH (09:38)
[2019-01-31] MEDS: FAMOTIDINE 20 MG TABLET PO SCH ×2 (09:39→21:03)
[2019-01-31] MEDS: NIFEDIPINE 30 MG TAB.ER.24 PO SCH (09:39)
[2019-01-31] MEDS: METOPROLOL TARTRATE 50 MG TABLET PO SCH (09:39)
[2019-01-31] MEDS: LEVOFLOXACIN 500 MG TABLET PO SCH (09:39)
[2019-01-31] MEDS: FOLIC ACID 1 MG TABLET PO SCH (09:39)
[2019-01-31] MEDS: LUBIPROSTONE 24 MCG CAPSULE PO SCH ×2 (09:39→21:06)
[2019-01-31] MEDS: FLUTICASONE/UMECLIDIN/VILANTER 100-62.5-25 MCG/DOSE IH SCH (09:40)
[2019-01-31] MEDS: POLYETHYLENE GLYCOL 3350 POWDER 17 GM/1 PACKET PO SCH (09:43)
[2019-01-31] MEDS: NA PHOS,M-B/NA PHOS,DI-BA (ADULT) 133 ML ENEMA PR SCH (09:43)
[2019-01-31] MEDS: PROMETHAZINE HCL INJ 25 MG/1 ML VIAL IV PRN ×2 (11:28→21:03)
--- NOTE | 2019-01-31 11:38 | PDOC PROGRESS REPORT ---
Subjective Progress Note for:: 01/31/19 Subjective:: Patient still having cough. Still experiencing significant pain in her left low back. Denies fever chills. Denies any worsening in her breathing. Reason For Visit: COPD EXACERBATION, LUNG CANCER,METS TO THE SPINE Physical Exam Vital Signs: Temp Pulse Resp BP Pulse Ox 97.7 F 111 H 16 120/55 L 93 01/31/19 08:00 01/31/19 08:00 01/31/19 08:00 01/31/19 08:00 01/31/19 08:00 Intake & Output 01/30/19 01/31/19 02/01/19 06:59 06:59 06:59 Intake Total 900 748 Balance 900 748 Weight 53.5 kg 55.5 kg General appearance: PRESENT: no acute distress, cooperative, thin Neck exam: ABSENT: JVD Respiratory exam: PRESENT: clear to auscultation harish, prolonged expiratory phas, symmetrical, unlabored. ABSENT: tachypnea, wheezes Cardiovascular exam: PRESENT: +S1, +S2, tachycardia. ABSENT: systolic murmur GI/Abdominal exam: PRESENT: normal bowel sounds. ABSENT: distended, firm, guarding, soft, tenderness Extremities exam: ABSENT: pedal edema Neurological exam: PRESENT: alert, awake, oriented to person, oriented to place, oriented to time, oriented to situation Results Laboratory Results: 01/28/19 05:00 01/28/19 05:00 01/25/19 14:36 Blood Blood Culture - Final NO GROWTH IN 5 DAYS 01/25/19 13:46 Blood Blood Culture - Final NO GROWTH IN 5 DAYS 01/25/19 01/25/19 01/25/19 13:46 13:46 13:46 Creatine Kinase < 20 L Troponin I < 0.012 NT-Pro-B Natriuret Pep 293 H Impressions: Chest X-Ray 01/25/19 13:51 IMPRESSION: No acute findings. Chronic right lower lobe collapse. Trace right pleural fluid Lumbar Spine MRI 01/30/19 00:00 IMPRESSION: Patient unable to cooperate with a full lumbar spine exam due to pain. No lumbar metastatic disease is present. T10 vertebral body with sclerotic metastatic lesion is outside the field of view of today's MRI exam. Assessment and Plan - Diagnosis (1) COPD with acute exacerbation Is this a current diagnosis for this admission?: Yes Plan: -Improved -Continue with nebulizer treatments and O2 supplementation to maintain SPO2 88 to 92% -Discontinue steroids -Continue trelegy (2) Pain due to malignant neoplasm metastatic to bone Is this a current diagnosis for this admission?: Yes Plan: -Patient was only able to tolerate lumbar MRI yesterday and got too anxious to allow for the thoracic MRI to be done. -Lumbar MRI did not chicken picker the T10 lesion. -Patient scheduled for thoracic MRI today to evaluate lesion and to see if kyphoplasty will be needed -Pain control with narcotics being managed by oncology. (3) Acute bacterial bronchitis Is this a current diagnosis for this admission?: Yes Plan: -Pseudomonas bronchitis -Levaquin for 5 days (4) Constipation Qualifiers: Constipation type: drug induced constipation Qualified Code(s): K59.03 - Drug induced constipation Is this a current diagnosis for this admission?: Yes Plan: -Secondary to heavy necessary narcotic use for pain control. -Patient reports large bowel movements yesterday -Given improvement in constipation, will now discontinue Fleet enemas. -Maintain on daily MiraLAX. Start docusate-senna twice daily. (5) Hypoxemia Is this a current diagnosis for this admission?: Yes Plan: Chronic continue O2 supplementation (6) Metastatic lung cancer (metastasis from lung to other site) Qualifiers: Laterality: right Qualified Code(s): C34.91 - Malignant neoplasm of unspecified part of right bronchus or lung Is this a current diagnosis for this admission?: Yes (7) Diabetes mellitus type 2 in nonobese Is this a current diagnosis for this admission?: Yes (8) Tobacco dependence Is this a current diagnosis for this admission?: Yes - Time Time Spent with patient: 15-24 minutes
[2019-01-31 13:08] LABS: PATH REVIEW PATHOLOGIST REVIEWED
--- NOTE | 2019-01-31 16:22 | RADIOLOGY REPORT (SQ) ---
EXAM DESCRIPTION: MRI THORACIC SPINE WITHOUT COMPLETED DATE/TIME: 01/31/2019 2:58 pm REASON FOR STUDY: re-evaluate bone METS COMPARISON: CT chest dated 01/23/2019 TECHNIQUE: Sagittal and Axial imaging includes T1, T2, STIR and gradient echo sequences. LIMITATIONS: Due to patient's pain they could not complete the examination. The study is also limit ed by patient motion. FINDINGS: LOCALIZER: No worrisome findings. ALIGNMENT: Normal. VERTEBRAE: Intact. BONE MARROW: Marrow replacement at T10. The vertebral body demonstrates diminished signal on T1 and T2 weighted sequences consistent with sclerosis. HARDWARE: None in the spine. CORD: Normal in size and signal intensity. SOFT TISSUES: No soft tissue masses. THORACIC DISCS T1-T12: No significant spinal stenosis or exit foraminal stenosis. LOWER CERVICAL: Incompletely imaged. No significant spinal stenosis or exit foraminal stenosis. UPPER LUMBAR: Incompletely imaged. No significant spinal stenosis or exit foraminal stenosis. OTHER: No other significant finding. IMPRESSION: Limited study. Sclerotic lesion at T10. No additional findings. TECHNICAL DOCUMENTATION: JOB ID: [id number] [employer]- All Rights Reserved Reading location - IP/workstation name: [email or web address]
[2019-01-31] MEDS: SENNOSIDES/DOCUSATE 8.6-50 MG 1 EACH TABLET PO SCH (17:38)
[2019-02-01] MEDS: INSULIN LISPRO 100 UNIT/ML 3 ML VIAL SUBCUT SCH ×5 (01:50→21:35)
[2019-02-01] MEDS: OXYCODONE HCL IR 5 MG TABLET PO PRN ×4 (03:26→20:22)
[2019-02-01] MEDS: IPRATROPIUM/ALBUTEROL 0.5-2.5 MG/3 ML AMPUL NEB SCH ×2 (08:02→20:32)
--- NOTE | 2019-02-01 08:32 | PDOC PROGRESS REPORT ---
Subjective Progress Note for:: 02/01/19 Subjective:: Patient was able to get through thoracic MRI yesterday, I had a long discussion with the patient as well as Dr. Rosa of pain management. He notes that he will review the MRI today, and see the patient today. Reason For Visit: COPD EXACERBATION, LUNG CANCER,METS TO THE SPINE Physical Exam Vital Signs: Temp Pulse Resp BP Pulse Ox 97.6 F 96 18 110/62 94 02/01/19 04:29 02/01/19 08:03 02/01/19 08:03 02/01/19 04:29 02/01/19 08:03 Intake & Output 01/31/19 02/01/19 02/02/19 06:59 06:59 06:59 Intake Total 748 866 Output Total 0 Balance 748 866 Weight 55.5 kg 54.7 kg General appearance: PRESENT: no acute distress, well-developed, well-nourished Head exam: PRESENT: atraumatic, normocephalic Eye exam: PRESENT: conjunctiva pink, EOMI, PERRLA. ABSENT: scleral icterus Ear exam: PRESENT: normal external ear exam Mouth exam: PRESENT: moist, tongue midline Neck exam: ABSENT: carotid bruit, JVD, lymphadenopathy, thyromegaly Respiratory exam: PRESENT: clear to auscultation harish. ABSENT: rales, rhonchi, wheezes Cardiovascular exam: PRESENT: RRR. ABSENT: diastolic murmur, rubs, systolic murmur Pulses: PRESENT: normal dorsalis pedis pul Vascular exam: PRESENT: normal capillary refill GI/Abdominal exam: PRESENT: normal bowel sounds, soft. ABSENT: distended, guarding, mass, organolmegaly, rebound, tenderness Rectal exam: PRESENT: deferred Extremities exam: PRESENT: full ROM. ABSENT: calf tenderness, clubbing, pedal edema Neurological exam: PRESENT: alert, awake, oriented to person, oriented to place, oriented to time, oriented to situation, CN II-XII grossly intact. ABSENT: motor sensory deficit Psychiatric exam: PRESENT: appropriate affect, normal mood. ABSENT: homicidal ideation, suicidal ideation Skin exam: PRESENT: dry, intact, warm. ABSENT: cyanosis, rash Results Laboratory Results: 01/28/19 05:00 01/28/19 05:00 01/25/19 01/25/19 01/25/19 13:46 13:46 13:46 Creatine Kinase < 20 L Troponin I < 0.012 NT-Pro-B Natriuret Pep 293 H Impressions: Chest X-Ray 01/25/19 13:51 IMPRESSION: No acute findings. Chronic right lower lobe collapse. Trace right pleural fluid Lumbar Spine MRI 01/30/19 00:00 IMPRESSION: Patient unable to cooperate with a full lumbar spine exam due to pain. No lumbar metastatic disease is present. T10 vertebral body with sclerotic metastatic lesion is outside the field of view of today's MRI exam. Thoracic Spine MRI 01/31/19 00:00 IMPRESSION: Limited study. Sclerotic lesion at T10. No additional findings. Status: Image reviewed by me Assessment & Plan - Diagnosis (1) Metastatic lung cancer (metastasis from lung to other site) Qualifiers: Laterality: right Qualified Code(s): C34.91 - Malignant neoplasm of unspecified part of right bronchus or lung Is this a current diagnosis for this admission?: Yes Plan: Plan for evaluation by Dr. Rosa of pain management for consideration of osteo-cool procedure, this would be a single procedure that could provide bone stability as well as pain relief, also control of the cancer. Her major issue reducing quality of life is pain in the back. So this may help her. We also had a meliton discussion about next steps of care and patient understands her prognosis. (2) Bone metastases Is this a current diagnosis for this admission?: Yes Plan: Plan as above - Time Time Spent with patient: 35 or more minutes
[2019-02-01] MEDS: LUBIPROSTONE 24 MCG CAPSULE PO SCH ×2 (09:01→21:35)
[2019-02-01] MEDS: FAMOTIDINE 20 MG TABLET PO SCH ×2 (09:01→21:35)
[2019-02-01] MEDS: METOPROLOL TARTRATE 50 MG TABLET PO SCH (09:01)
[2019-02-01] MEDS: NIFEDIPINE 30 MG TAB.ER.24 PO SCH (09:01)
[2019-02-01] MEDS: FOLIC ACID 1 MG TABLET PO SCH (09:01)
[2019-02-01] MEDS: METFORMIN HCL 500 MG TABLET PO SCH ×2 (09:01→15:07)
[2019-02-01] MEDS: LEVOFLOXACIN 500 MG TABLET PO SCH (09:02)
[2019-02-01] MEDS: FLUTICASONE/UMECLIDIN/VILANTER 100-62.5-25 MCG/DOSE IH SCH (09:02)
[2019-02-01] MEDS: ENOXAPARIN SODIUM INJ 40 MG/0.4 ML DISP.SYRIN SUBCUT SCH (09:02)
[2019-02-01] MEDS: SENNOSIDES/DOCUSATE 8.6-50 MG 1 EACH TABLET PO SCH (09:03)
[2019-02-01] MEDS: POLYETHYLENE GLYCOL 3350 POWDER 17 GM/1 PACKET PO SCH (09:03)
[2019-02-01] MEDS: MORPHINE SULFATE SR 30 MG TABLET PO PRN ×2 (11:50→15:50)
[2019-02-01] MEDS ORDERED: POLYETHYLENE GLYCOL 3350 POWDER 17 GM/1 PACKET PO PRN (13:24)
--- NOTE | 2019-02-01 13:30 | PDOC PROGRESS REPORT ---
Subjective Progress Note for:: 02/01/19 Subjective:: Patient states the pain feels better in the back. Had an episode of loose stools today. States that she feels a little bit short of breath when she ambulates but was able to ambulate appropriately without much help by herself yesterday in the hallway. Reason For Visit: COPD EXACERBATION, LUNG CANCER,METS TO THE SPINE Physical Exam Vital Signs: Temp Pulse Resp BP Pulse Ox 98.5 F 78 17 123/60 99 02/01/19 12:21 02/01/19 12:21 02/01/19 12:21 02/01/19 12:21 02/01/19 12:21 Intake & Output 01/31/19 02/01/19 02/02/19 06:59 06:59 06:59 Intake Total 748 866 Output Total 0 Balance 748 866 Weight 55.5 kg 54.7 kg General appearance: PRESENT: no acute distress, cooperative Neck exam: ABSENT: JVD Respiratory exam: PRESENT: symmetrical, unlabored, wheezes. ABSENT: tachypnea Cardiovascular exam: PRESENT: RRR, +S1, +S2. ABSENT: tachycardia GI/Abdominal exam: PRESENT: normal bowel sounds, soft. ABSENT: rebound, rigid, tenderness Musculoskeletal exam: PRESENT: full ROM, tenderness - in mid back Neurological exam: PRESENT: alert, awake, oriented to person, oriented to place Results Laboratory Results: 01/28/19 05:00 01/28/19 05:00 01/25/19 01/25/19 01/25/19 13:46 13:46 13:46 Creatine Kinase < 20 L Troponin I < 0.012 NT-Pro-B Natriuret Pep 293 H Impressions: Chest X-Ray 01/25/19 13:51 IMPRESSION: No acute findings. Chronic right lower lobe collapse. Trace right pleural fluid Lumbar Spine MRI 01/30/19 00:00 IMPRESSION: Patient unable to cooperate with a full lumbar spine exam due to pain. No lumbar metastatic disease is present. T10 vertebral body with sclerotic metastatic lesion is outside the field of view of today's MRI exam. Thoracic Spine MRI 01/31/19 00:00 IMPRESSION: Limited study. Sclerotic lesion at T10. No additional findings. Assessment and Plan - Diagnosis (1) COPD with acute exacerbation Is this a current diagnosis for this admission?: Yes Plan: -Improved -Continue with nebulizer treatments and O2 supplementation to maintain SPO2 88 to 92% -Discontinued IV steroids -Continue trelegy (2) Pain due to malignant neoplasm metastatic to bone Is this a current diagnosis for this admission?: Yes Plan: -Thoracic MRI revealing T10 lesion but without significant spinal stenosis -Dr. Rosa has been consulted for pain management techniques to see if osteo- cool is an appropriate option. -Pain control with narcotics being managed by oncology. (3) Acute bacterial bronchitis Is this a current diagnosis for this admission?: Yes Plan: -Pseudomonas bronchitis -Levaquin for 5 days (4) Constipation Qualifiers: Constipation type: drug induced constipation Qualified Code(s): K59.03 - Drug induced constipation Is this a current diagnosis for this admission?: Yes Plan: -Initially present secondary to heavy necessary narcotic use for pain control. -Now having loose stools today after having been on bowel regimen and an enema 2 days ago. Instructed nurse to hold laxatives for today. -We will resume docusate-senna twice daily and change MiraLAX to as needed once bouts of diarrhea resolve. (5) Hypoxemia Is this a current diagnosis for this admission?: Yes Plan: Chronic continue O2 supplementation (6) Metastatic lung cancer (metastasis from lung to other site) Qualifiers: Laterality: right Qualified Code(s): C34.91 - Malignant neoplasm of unspec ified part of right bronchus or lung Is this a current diagnosis for this admission?: Yes Plan: Oncology following (7) Diabetes mellitus type 2 in nonobese Is this a current diagnosis for this admission?: Yes Plan: Acceptable range while inpatient. Continue with metformin. (8) Tobacco dependence Is this a current diagnosis for this admission?: Yes (9) Long-term current use of steroids Is this a current diagnosis for this admission?: Yes Plan: Patient was noted to have been on prednisone 10 mg daily while outpatient to admission. It is unclear how long exactly. Thus I will place patient on 5 mg prednisone every 12 hours and taper gradually to avoid adrenal insufficiency.
[2019-02-01] MEDS: LORAZEPAM 0.5 MG TABLET PO PRN (15:07)
[2019-02-01] MEDS: PREDNISONE 5 MG TABLET PO SCH (21:35)
[2019-02-02] MEDS: OXYCODONE HCL IR 5 MG TABLET PO PRN ×4 (06:57→20:05)
[2019-02-02 07:17] LABS: BLOOD UREA NITROGEN 19 mg/dL (7-20); CALCIUM 9.1 mg/dL (8.4-10.2); CHLORIDE 98 mmol/L (98-107); GLUCOSE 89 mg/dL (75-110); POTASSIUM 4.8 mmol/L (3.6-5.0)
[2019-02-02 07:34] LABS: CARBON DIOXIDE 34 mmol/L (22-30)
[2019-02-02 07:45] LABS: ANION GAP 4 (5-19)
[2019-02-02] MEDS: IPRATROPIUM/ALBUTEROL 0.5-2.5 MG/3 ML AMPUL NEB SCH ×2 (07:45→20:41)
--- NOTE | 2019-02-02 08:05 | PDOC PROGRESS REPORT ---
Subjective Progress Note for:: 02/02/19 Subjective:: No acute events overnight, patient is getting better. Dr. Rosa did see patient and she tells me the procedure is planned for tomorrow. Reason For Visit: COPD EXACERBATION, LUNG CANCER,METS TO THE SPINE Physical Exam Vital Signs: Temp Pulse Resp BP Pulse Ox 98.7 F 100 16 103/62 94 02/02/19 08:00 02/02/19 08:00 02/02/19 08:00 02/02/19 08:00 02/02/19 08:00 Intake & Output 02/01/19 02/02/19 02/03/19 06:59 06:59 06:59 Intake Total 866 622 Output Total 0 Balance 866 622 Weight 54.7 kg 52.6 kg General appearance: PRESENT: no acute distress, well-developed, well-nourished Head exam: PRESENT: atraumatic, normocephalic Eye exam: PRESENT: conjunctiva pink, EOMI, PERRLA. ABSENT: scleral icterus Ear exam: PRESENT: normal external ear exam Mouth exam: PRESENT: moist, tongue midline Neck exam: ABSENT: carotid bruit, JVD, lymphadenopathy, thyromegaly Respiratory exam: PRESENT: clear to auscultation harish. ABSENT: rales, rhonchi, wheezes Cardiovascular exam: PRESENT: RRR. ABSENT: diastolic murmur, rubs, systolic murmur Pulses: PRESENT: normal dorsalis pedis pul Vascular exam: PRESENT: normal capillary refill GI/Abdominal exam: PRESENT: normal bowel sounds, soft. ABSENT: distended, guarding, mass, organolmegaly, rebound, tenderness Rectal exam: PRESENT: deferred Extremities exam: PRESENT: full ROM. ABSENT: calf tenderness, clubbing, pedal edema Neurological exam: PRESENT: alert, awake, oriented to person, oriented to place, oriented to time, oriented to situation, CN II-XII grossly intact. ABSENT: motor sensory deficit Psychiatric exam: PRESENT: appropriate affect, normal mood. ABSENT: homicidal ideation, suicidal ideation Skin exam: PRESENT: dry, intact, warm. ABSENT: cyanosis, rash Results Laboratory Results: 01/28/19 05:00 02/02/19 06:49 02/02/19 06:49 Sodium 136.3 L Potassium 4.8 Chloride 98 Carbon Dioxide 34 H Anion Gap 4 L BUN 19 Creatinine 0.57 Est GFR ( Amer) > 60 Glucose 89 Calcium 9.1 01/25/19 01/25/19 01/25/19 13:46 13:46 13:46 Creatine Kinase < 20 L Troponin I < 0.012 NT-Pro-B Natriuret Pep 293 H Impressions: Chest X-Ray 01/25/19 13:51 IMPRESSION: No acute findings. Chronic right lower lobe collapse. Trace right pleural fluid Lumbar Spine MRI 01/30/19 00:00 IMPRESSION: Patient unable to cooperate with a full lumbar spine exam due to pain. No lumbar metastatic disease is present. T10 vertebral body with sclerotic metastatic lesion is outside the field of view of today's MRI exam. Thoracic Spine MRI 01/31/19 00:00 IMPRESSION: Limited study. Sclerotic lesion at T10. No additional findings. Assessment & Plan - Diagnosis (1) Metastatic lung cancer (metastasis from lung to other site) Qualifiers: Laterality: right Qualified Code(s): C34.91 - Malignant neoplasm of unspecified part of right bronchus or lung Is this a current diagnosis for this admission?: Yes Plan: Plan for osteo-cool procedure tomorrow to T10 area, otherwise, we will plan to initiate therapy as an outpatient (2) Bone metastases Is this a current diagnosis for this admission?: Yes Plan: Plan to proceed with procedure as noted above - Time Time Spent with patient: 15-24 minutes
[2019-02-02] MEDS: ACETAMINOPHEN 325 MG TABLET PO PRN (09:16)
[2019-02-02] MEDS: METFORMIN HCL 500 MG TABLET PO SCH ×2 (09:16→16:07)
[2019-02-02] MEDS: INSULIN LISPRO 100 UNIT/ML 3 ML VIAL SUBCUT SCH ×4 (09:18→21:23)
[2019-02-02] MEDS: FAMOTIDINE 20 MG TABLET PO SCH ×2 (09:34→21:22)
[2019-02-02] MEDS: NIFEDIPINE 30 MG TAB.ER.24 PO SCH (09:34)
[2019-02-02] MEDS: FOLIC ACID 1 MG TABLET PO SCH (09:35)
[2019-02-02] MEDS: METOPROLOL TARTRATE 50 MG TABLET PO SCH (09:35)
[2019-02-02] MEDS: LEVOFLOXACIN 500 MG TABLET PO SCH (09:35)
[2019-02-02] MEDS: PREDNISONE 5 MG TABLET PO SCH ×2 (09:35→21:22)
[2019-02-02] MEDS: LUBIPROSTONE 24 MCG CAPSULE PO SCH ×2 (09:39→21:22)
[2019-02-02] MEDS: PROMETHAZINE HCL 25 MG TABLET PO PRN (09:45)
[2019-02-02] MEDS: ENOXAPARIN SODIUM INJ 40 MG/0.4 ML DISP.SYRIN SUBCUT SCH (10:50)
[2019-02-02] MEDS: FLUTICASONE/UMECLIDIN/VILANTER 100-62.5-25 MCG/DOSE IH SCH (10:52)
--- NOTE | 2019-02-02 13:40 | PDOC PROGRESS REPORT ---
Subjective Progress Note for:: 02/02/19 Subjective:: Patient has no complaints today. Breathing is at baseline. Still having back pain but it has worsened. States that she was seen by Dr. Rosa who is planning for procedure tomorrow. Reason For Visit: COPD EXACERBATION, LUNG CANCER,METS TO THE SPINE Physical Exam Vital Signs: Temp Pulse Resp BP Pulse Ox 98.0 F 97 20 119/61 98 02/02/19 11:24 02/02/19 11:24 02/02/19 11:24 02/02/19 11:24 02/02/19 11:24 Intake & Output 02/01/19 02/02/19 02/03/19 06:59 06:59 06:59 Intake Total 866 622 480 Output Total 0 Balance 866 622 480 Weight 54.7 kg 52.6 kg General appearance: PRESENT: no acute distress Neck exam: ABSENT: JVD Respiratory exam: PRESENT: prolonged expiratory phas, unlabored. ABSENT: tachypnea Cardiovascular exam: PRESENT: +S1, +S2 Neurological exam: PRESENT: alert, awake Results Laboratory Results: 01/28/19 05:00 02/02/19 06:49 02/02/19 06:49 Sodium 136.3 L Potassium 4.8 Chloride 98 Carbon Dioxide 34 H Anion Gap 4 L BUN 19 Creatinine 0.57 Est GFR ( Amer) > 60 Glucose 89 Calcium 9.1 01/25/19 01/25/19 01/25/19 13:46 13:46 13:46 Creatine Kinase < 20 L Troponin I < 0.012 NT-Pro-B Natriuret Pep 293 H Impressions: Chest X-Ray 01/25/19 13:51 IMPRESSION: No acute findings. Chronic right lower lobe collapse. Trace right pleural fluid Lumbar Spine MRI 01/30/19 00:00 IMPRESSION: Patient unable to cooperate with a full lumbar spine exam due to pain. No lumbar metastatic disease is present. T10 vertebral body with sclerotic metastatic lesion is outside the field of view of today's MRI exam. Thoracic Spine MRI 01/31/19 00:00 IMPRESSION: Limited study. Sclerotic lesion at T10. No additional findings. Assessment and Plan - Diagnosis (1) COPD with acute exacerbation Is this a current diagnosis for this admission?: Yes Plan: -Improved -Continue with nebulizer treatments and O2 supplementation to maintain SPO2 88 to 92% -Discontinued IV steroids -Continue trelegy (2) Pain due to malignant neoplasm metastatic to bone Is this a current diagnosis for this admission?: Yes Plan: -Thoracic MRI revealing T10 lesion but without significant spinal stenosis -Dr. Rosa planning for procedure tomorrow. -Pain control with narcotics being managed by oncology. (3) Acute bacterial bronchitis Is this a current diagnosis for this admission?: Yes Plan: -Pseudomonas bronchitis -Levaquin for 2 more days (4) Constipation Qualifiers: Constipation type: drug induced constipation Qualified Code(s): K59.03 - Drug induced constipation Is this a current diagnosis for this admission?: Yes Plan: -Initially present secondary to heavy necessary narcotic use for pain control. -We will resume docusate-senna twice daily and change MiraLAX to as needed once bouts of diarrhea resolve. (5) Hypoxemia Is this a current diagnosis for this admission?: Yes Plan: Chronic continue O2 supplementation (6) Metastatic lung cancer (metastasis from lung to other site) Qualifiers: Laterality: right Qualified Code(s): C34.91 - Malignant neoplasm of unspecified part of right bronchus or lung Is this a current diagnosis for this admission?: Yes Plan: Oncology following (7) Diabetes mellitus type 2 in nonobese Is this a current diagnosis for this admission?: Yes Plan: Acceptable range while inpatient. Continue with metformin. (8) Tobacco dependence Is this a current diagnosis for this admission?: Yes (9) Long-term current use of steroids Is this a current diagnosis for this admission?: Yes Plan: Patient was noted to have been on prednisone 10 mg daily while outpatient to admission. It is unclear how long exactly. Thus I placed patient on 5 mg prednisone every 12 hours and taper gradually to avoid adrenal insufficiency. - Time Time Spent with patient: Less than 15 minutes
[2019-02-02] MEDS: MORPHINE SULFATE SR 30 MG TABLET PO PRN (23:27)
[2019-02-03] MEDS ORDERED: CEFAZOLIN SODIUM 1 GM in DEXTROSE 5%-WATER 50 ML IV PRN (05:00)
[2019-02-03] MEDS: MORPHINE SULFATE SR 30 MG TABLET PO PRN ×2 (05:20→17:11)
[2019-02-03] MEDS: PROMETHAZINE HCL INJ 25 MG/1 ML VIAL IV PRN ×2 (06:34→19:56)
[2019-02-03] MEDS: IPRATROPIUM/ALBUTEROL 0.5-2.5 MG/3 ML AMPUL NEB SCH ×2 (07:42→19:39)
--- NOTE | 2019-02-03 08:19 | PDOC PROGRESS REPORT ---
Subjective Progress Note for:: 02/03/19 Subjective:: Patient is doing okay, procedures planned for 9 AM Reason For Visit: COPD EXACERBATION, LUNG CANCER,METS TO THE SPINE Physical Exam Vital Signs: Temp Pulse Resp BP Pulse Ox 98.8 F 80 18 110/54 L 99 02/03/19 00:00 02/03/19 07:43 02/03/19 07:43 02/03/19 00:00 02/03/19 07:43 Intake & Output 02/02/19 02/03/19 02/04/19 06:59 06:59 06:59 Intake Total 622 1180 Balance 622 1180 Weight 52.6 kg 53.7 kg General appearance: PRESENT: no acute distress, well-developed, well-nourished Head exam: PRESENT: atraumatic, normocephalic Eye exam: PRESENT: conjunctiva pink, EOMI, PERRLA. ABSENT: scleral icterus Ear exam: PRESENT: normal external ear exam Mouth exam: PRESENT: moist, tongue midline Neck exam: ABSENT: carotid bruit, JVD, lymphadenopathy, thyromegaly Respiratory exam: PRESENT: clear to auscultation harish. ABSENT: rales, rhonchi, wheezes Cardiovascular exam: PRESENT: RRR. ABSENT: diastolic murmur, rubs, systolic murmur Pulses: PRESENT: normal dorsalis pedis pul Vascular exam: PRESENT: normal capillary refill GI/Abdominal exam: PRESENT: normal bowel sounds, soft. ABSENT: distended, guarding, mass, organolmegaly, rebound, tenderness Rectal exam: PRESENT: deferred Extremities exam: PRESENT: full ROM. ABSENT: calf tenderness, clubbing, pedal edema Neurological exam: PRESENT: alert, awake, oriented to person, oriented to place, oriented to time, oriented to situation, CN II-XII grossly intact. ABSENT: motor sensory deficit Psychiatric exam: PRESENT: appropriate affect, normal mood. ABSENT: homicidal ideation, suicidal ideation Skin exam: PRESENT: dry, intact, warm. ABSENT: cyanosis, rash Results Laboratory Results: 01/28/19 05:00 02/02/19 06:49 01/25/19 01/25/19 01/25/19 13:46 13:46 13:46 Creatine Kinase < 20 L Troponin I < 0.012 NT-Pro-B Natriuret Pep 293 H Impressions: Chest X-Ray 01/25/19 13:51 IMPRESSION: No acute findings. Chronic right lower lobe collapse. Trace right pleural fluid Lumbar Spine MRI 01/30/19 00:00 IMPRESSION: Patient unable to cooperate with a full lumbar spine exam due to pain. No lumbar metastatic disease is present. T10 vertebral body with sclerotic metastatic lesion is outside the field of view of today's MRI exam. Thoracic Spine MRI 01/31/19 00:00 IMPRESSION: Limited study. Sclerotic lesion at T10. No additional findings. Assessment & Plan - Diagnosis (1) Metastatic lung cancer (metastasis from lung to other site) Qualifiers: Laterality: right Qualified Code(s): C34.91 - Malignant neoplasm of unspec ified part of right bronchus or lung Is this a current diagnosis for this admission?: Yes Plan: Procedure planned this morning, plan to continue outpatient chemotherapy (2) Bone metastases Is this a current diagnosis for this admission?: Yes Plan: Continue with current plan - Time Time Spent with patient: 15-24 minutes
[2019-02-03] MEDS ORDERED: ONDANSETRON HCL INJ/PF 4 MG/2 ML SDV ONE (08:46)
[2019-02-03] MEDS ORDERED: FENTANYL CITRATE INJ/PF 100 MCG/2 ML AMPUL ONE (08:46)
[2019-02-03] MEDS ORDERED: PROPOFOL INJ 200 MG/20 ML VIAL IV ONE (08:47)
[2019-02-03] MEDS: METFORMIN HCL 500 MG TABLET PO SCH ×2 (08:59→17:08)
[2019-02-03] MEDS ORDERED: LIDOCAINE 1% INJ-PF (10 MG/ML) 30 ML SDV ONE (09:00)
[2019-02-03] MEDS ORDERED: SODIUM BICARBONATE 4.2% INJ (2.5 MEQ/5 ML) VIAL ONE (09:00)
[2019-02-03] MEDS: INSULIN LISPRO 100 UNIT/ML 3 ML VIAL SUBCUT SCH ×4 (09:06→22:00)
[2019-02-03] MEDS: PREDNISONE 5 MG TABLET PO SCH ×2 (09:07→21:32)
[2019-02-03] MEDS: LUBIPROSTONE 24 MCG CAPSULE PO SCH ×2 (09:07→21:32)
[2019-02-03] MEDS: FOLIC ACID 1 MG TABLET PO SCH (09:07)
[2019-02-03] MEDS: ENOXAPARIN SODIUM INJ 40 MG/0.4 ML DISP.SYRIN SUBCUT SCH (09:08)
[2019-02-03] MEDS: LEVOFLOXACIN 500 MG TABLET PO SCH (09:08)
[2019-02-03] MEDS: METOPROLOL TARTRATE 50 MG TABLET PO SCH (09:08)
[2019-02-03] MEDS: FLUTICASONE/UMECLIDIN/VILANTER 100-62.5-25 MCG/DOSE IH SCH (09:09)
[2019-02-03] MEDS: NIFEDIPINE 30 MG TAB.ER.24 PO SCH (09:09)
[2019-02-03] MEDS: FAMOTIDINE 20 MG TABLET PO SCH ×2 (09:09→21:32)
[2019-02-03] MEDS ORDERED: CEFAZOLIN INJ 1 GM VIAL ONE (09:17)
[2019-02-03] MEDS ORDERED: MEPERIDINE HCL/PF INJ 25 MG/1 ML DISP.SYRIN IV PRN (09:47)
[2019-02-03] MEDS ORDERED: FENTANYL CITRATE INJ/PF 100 MCG/2 ML AMPUL IV PRN ×3 (09:47)
[2019-02-03] MEDS ORDERED: MORPHINE SULFATE 10 MG/ML INJ IV PRN (09:47)
[2019-02-03] MEDS ORDERED: PROMETHAZINE HCL INJ 25 MG/1 ML VIAL IV PRN (09:47)
--- NOTE | 2019-02-03 10:50 | Operative Report ---
Operative Report DATE OF SURGERY: 02/03/19 PREOPERATIVE DIAGNOSIS: T10 compression fracture secondary to metastatic disease POSTOPERATIVE DIAGNOSIS: Same OPERATION: T10 osteochondral osteo-kyphoplasty using bilateral para pedicular approach under fluoroscopic guidance with tumor ablation and restorative kyphoplasty treatment SURGEON: KENNY PRICE ANESTHESIA: LMAC TISSUE REMOVED OR ALTERED: Vertebral body osseous material COMPLICATIONS: None ESTIMATED BLOOD LOSS: 5 mL's PROCEDURE: Obtaining informed consent advised and patient of the risk and benefits patient was taken to the operating room placed comfortably in the prone position. Comfort was assessed visually and verbally. MAC anesthesia was administered after monitors were applied. She was then prepped with chlorhexidine x2 allowed appropriate drying time then draped in usual customary fashion. Right plantar foot fluoroscopic views were obtained compared to CT imaging the T10 vertebral body was identified by counting from L1 superiorly as well as the notable sclerosis being within the T10 vertebral body entrance site beginning on the right. Particular region was identified on the skin. This was anesthetized with 1% lidocaine with bicarb. The cutaneous tissue and periosteal tissue down to the pedicle at T10 on the right was anesthetized as well for total volume approximately 4 cc of local anesthetic. Small incision was made in the skin and expressed trocar was advanced into the vertebral body with multiple views taken in the AP and lateral positions to assure safe and appropriate proper placement of the trocar. Once within the vertebral body itself the drill was advanced and removed and advanced and removed stylette was then placed this procedure was then repeated on the on the left with satisfactory results once both wires and vertebral bodies were manipulated appropriately some millimeter RF probes were then placed. These were connected impedances were checked and found to be satisfactory RF lesioning Osteocut therapy was then initiated for approximately 7-1/2 6 minutes. Once this was completed the probes were removed 10 mm balloons were then inserted in the both sides and inflated there was notable resistance to the sclerotic nature of the bone. Decision was made to use thin cement to facilitate spreading within the trabeculae of the region. Began on the right satisfactorily with approximately 1.6 cc of cement injected. Was then performed on the left again with approximately 1.6 cc of cement material injected. Was allowed to harden. 1 additional note upon removing and completion of the RF lesioning itself the left side underwent a left retraction lesion procedure for approximately 30 minutes as well to satisfactorily affect the tumor going into the left pedicle. Once completed the region was cleansed sterile dressings were applied patient was then taken to the PACU for further postoperative care and monitoring.
[2019-02-03] MEDS ORDERED: ESMOLOL HCL INJ/PF 100 MG/10 ML SDV IV ONE (10:52)
[2019-02-03] MEDS ORDERED: DIPHENHYDRAMINE HCL 50 MG/ML VIAL ONE (10:52)
[2019-02-03] MEDS ORDERED: LORAZEPAM INJ 2 MG/1 ML VIAL ONE (11:15)
[2019-02-03] MEDS ORDERED: METOPROLOL TARTRATE PF/INJ 5 MG/5 ML SDV IV ONE (11:15)
--- NOTE | 2019-02-03 13:09 | EKG REPORT ---
SEVERITY:- OTHERWISE NORMAL ECG - SINUS TACHYCARDIA : Confirmed by: Latesha Elmore MD 03-Feb-2019 13:08:32
--- NOTE | 2019-02-03 15:30 | RADIOLOGY REPORT (SQ) ---
EXAM DESCRIPTION: NO CHG FLUORO; T SPINE AP/LAT COMPLETED DATE/TIME: 02/03/2019 3:05 pm REASON FOR STUDY: KYPHOPLASTY ASST WITH FLUORO IN OR COMPARISON: None. FLUOROSCOPY TIME: 3.2 minutes Multiple images saved to PACS. TECHNIQUE: Intra-operative images acquired during surgical procedure to evaluate progress. NUMBER OF IMAGES: Multiple LIMITATIONS: None. FINDINGS: Multiple intraoperative fluoroscopic images demonstrate evidence of kyphoplasty. Please s ee operative report for detailed description. IMPRESSION: IMAGE(S) OBTAINED DURING PROCEDURE. COMMENT: Quality ID [id number]: Final reports for procedures using fluoroscopy that document radiation exp osure indices, or exposure time and number of fluorographic images (if radiation exposure indices are not available) Please consult full operative report of the attending physician for description of the procedure. TECHNICAL DOCUMENTATION: JOB ID: [id number] [employer]- All Rights Reserved Reading location - IP/workstation name: [email or web address]
--- NOTE | 2019-02-03 15:30 | RADIOLOGY REPORT (SQ) ---
EXAM DESCRIPTION: NO CHG FLUORO; T SPINE AP/LAT COMPLETED DATE/TIME: 02/03/2019 3:05 pm REASON FOR STUDY: KYPHOPLASTY ASST WITH FLUORO IN OR COMPARISON: None. FLUOROSCOPY TIME: 3.2 minutes Multiple images saved to PACS. TECHNIQUE: Intra-operative images acquired during surgical procedure to evaluate progress. NUMBER OF IMAGES: Multiple LIMITATIONS: None. FINDINGS: Multiple intraoperative fluoroscopic images demonstrate evidence of kyphoplasty. Please s ee operative report for detailed description. IMPRESSION: IMAGE(S) OBTAINED DURING PROCEDURE. COMMENT: Quality ID [id number]: Final reports for procedures using fluoroscopy that document radiation exp osure indices, or exposure time and number of fluorographic images (if radiation exposure indices are not available) Please consult full operative report of the attending physician for description of the procedure. TECHNICAL DOCUMENTATION: JOB ID: [id number] [employer]- All Rights Reserved Reading location - IP/workstation name: [email or web address]
--- NOTE | 2019-02-03 18:15 | PDOC PROGRESS REPORT ---
Subjective Progress Note for:: 02/03/19 Subjective:: She had kyphoplasty today to help with pain. Otherwise no changes. Reason For Visit: COPD EXACERBATION, LUNG CANCER,METS TO THE SPINE Physical Exam Vital Signs: Temp Pulse Resp BP Pulse Ox 98.5 F 102 H 12 116/80 10 L 02/03/19 11:59 02/03/19 11:59 02/03/19 11:59 02/03/19 11:59 02/03/19 11:59 Intake & Output 02/02/19 02/03/19 02/04/19 06:59 06:59 06:59 Intake Total 622 1180 1050 Balance 622 1180 1050 Weight 52.6 kg 53.7 kg General appearance: PRESENT: no acute distress, cooperative Neck exam: ABSENT: JVD Respiratory exam: PRESENT: clear to auscultation harish Cardiovascular exam: PRESENT: +S1, +S2 GI/Abdominal exam: ABSENT: distended Neurological exam: PRESENT: alert, awake Results Laboratory Results: 01/28/19 05:00 02/02/19 06:49 01/25/19 01/25/19 01/25/19 13:46 13:46 13:46 Creatine Kinase < 20 L Troponin I < 0.012 NT-Pro-B Natriuret Pep 293 H Impressions: Chest X-Ray 01/25/19 13:51 IMPRESSION: No acute findings. Chronic right lower lobe collapse. Trace right pleural fluid Lumbar Spine MRI 01/30/19 00:00 IMPRESSION: Patient unable to cooperate with a full lumbar spine exam due to pain. No lumbar metastatic disease is present. T10 vertebral body with sclerotic metastatic lesion is outside the field of view of today's MRI exam. Thoracic Spine MRI 01/31/19 00:00 IMPRESSION: Limited study. Sclerotic lesion at T10. No additional findings. Fluoroscopy 02/03/19 00:00 IMPRESSION: IMAGE(S) OBTAINED DURING PROCEDURE. Thoracic Spine X-Ray 02/03/19 00:00 IMPRESSION: IMAGE(S) OBTAINED DURING PROCEDURE. Assessment and Plan - Diagnosis (1) COPD with acute exacerbation Is this a current diagnosis for this admission?: Yes Plan: -Resolved -Continue with nebulizer treatments and O2 supplementation to maintain SPO2 88 to 92% -Continue trelegy (2) Pain due to malignant neoplasm metastatic to bone Is this a current diagnosis for this admission?: Yes Plan: -Thoracic MRI revealing T10 lesion -Dr. Rosa performed T10 osteochondral osteo-kyphoplasty with tumor ablation and restorative kyphoplasty today. Hopefully this helps with the pain. -Pain control with narcotics being managed by oncology. (3) Acute bacterial bronchitis Is this a current diagnosis for this admission?: Yes Plan: -Pseudomonas bronchitis -Levaquin for 1 more days (4) Constipation Qualifiers: Constipation type: drug induced constipation Qualified Code(s): K59.03 - Drug induced constipation Is this a current diagnosis for this admission?: Yes Plan: -Initially present secondary to heavy necessary narcotic use for pain control. -docusate-senna twice daily and MiraLAX to as needed . (5) Hypoxemia Is this a current diagnosis for this admission?: Yes Plan: Chronic continue O2 supplementation (6) Metastatic lung cancer (metastasis from lung to other site) Qualifiers: Laterality: right Qualified Code(s): C34.91 - Malignant neoplasm of unspecified part of right bronchus or lung Is this a current diagnosis for this admission?: Yes Plan: Oncology following (7) Diabetes mellitus type 2 in nonobese Is this a current diagnosis for this admission?: Yes Plan: Acceptable range while inpatient. Continue with metformin. (8) Tobacco dependence Is this a current diagnosis for this admission?: Yes (9) Long-term current use of steroids Is this a current diagnosis for this admission?: Yes Plan: Patient was noted to have been on prednisone 10 mg daily while outpatient to admission. It is unclear how long exactly. Thus I placed patient on 5 mg prednisone every 12 hours and taper gradually to avoid adrenal insufficiency.
[2019-02-03] MEDS: OXYCODONE HCL IR 5 MG TABLET PO PRN (19:56)
[2019-02-04] MEDS: OXYCODONE HCL IR 5 MG TABLET PO PRN ×2 (02:23→09:33)
[2019-02-04] MEDS: MORPHINE SULFATE SR 30 MG TABLET PO PRN ×2 (03:36→13:03)
[2019-02-04 06:36] LABS: ABSOLUTE BASOPHILS # (AUTO) 0.1 10^3/uL (0.0-0.2); ABSOLUTE LYMPHOCYTES (AUTO) 1.3 10^3/uL (0.5-4.7); ABSOLUTE NEUT (AUTO) 10.4 10^3/uL (1.7-8.2); BASOPHILS % (AUTO) 0.7 % (0-2); EOSINOPHILS % (AUTO) 0.2 % (0-6); HEMATOCRIT 35.1 % (36.0-47.0); HEMOGLOBIN 11.4 g/dL (12.0-15.5); LYMPHOCYTES % (AUTO) 10.4 % (13-45); MEAN CORPUSCULAR HEMOGLOBIN 29.4 pg (27.0-33.4); MEAN CORPUSCULAR HGB CONC 32.3 g/dL (32.0-36.0); MEAN CORPUSCULAR VOLUME 91 fl (80-97); MONOCYTES % (AUTO) 7.5 % (3-13); PLATELET COUNT 361 10^3/uL (150-450); RED BLOOD COUNT 3.86 10^6/uL (3.72-5.28); RED CELL DISTRIBUTION WIDTH 16.3 % (11.5-14.0); SEGMENTED NEUTROPHILS % (AUTO) 81.2 % (42-78); TOTAL CELLS COUNTED % (AUTO) 100 %; WHITE BLOOD COUNT 12.8 10^3/uL (4.0-10.5)
[2019-02-04 06:53] LABS: ANION GAP 7 (5-19); BLOOD UREA NITROGEN 12 mg/dL (7-20); CALCIUM 8.5 mg/dL (8.4-10.2); CARBON DIOXIDE 33 mmol/L (22-30); CHLORIDE 96 mmol/L (98-107); GLUCOSE 88 mg/dL (75-110); POTASSIUM 4.5 mmol/L (3.6-5.0)
[2019-02-04] MEDS: METFORMIN HCL 500 MG TABLET PO SCH (07:51)
[2019-02-04] MEDS: INSULIN LISPRO 100 UNIT/ML 3 ML VIAL SUBCUT SCH ×2 (07:57→13:19)
[2019-02-04] MEDS: FLUTICASONE/UMECLIDIN/VILANTER 100-62.5-25 MCG/DOSE IH SCH (09:22)
[2019-02-04] MEDS: ENOXAPARIN SODIUM INJ 40 MG/0.4 ML DISP.SYRIN SUBCUT SCH (09:25)
[2019-02-04] MEDS: LEVOFLOXACIN 500 MG TABLET PO SCH (09:27)
[2019-02-04] MEDS: FAMOTIDINE 20 MG TABLET PO SCH (09:28)
[2019-02-04] MEDS: PREDNISONE 5 MG TABLET PO SCH (09:28)
[2019-02-04] MEDS: LUBIPROSTONE 24 MCG CAPSULE PO SCH (09:28)
[2019-02-04] MEDS: METOPROLOL TARTRATE 50 MG TABLET PO SCH (09:28)
[2019-02-04] MEDS: NIFEDIPINE 30 MG TAB.ER.24 PO SCH (09:29)
[2019-02-04] MEDS: FOLIC ACID 1 MG TABLET PO SCH (09:29)
[2019-02-04] MEDS: IPRATROPIUM/ALBUTEROL 0.5-2.5 MG/3 ML AMPUL NEB SCH (09:37)
--- NOTE | 2019-02-04 12:13 | PDOC DISCHARGE SUMMARY ---
Impression - Admit/DC Date/PCP Admission Date/Primary Care Provider: 01/25/19 16:48 DARLIN CHAVEZ PA-C Discharge Date: 02/04/19 - Discharge Diagnosis (1) COPD with acute exacerbation Is this a current diagnosis for this admission?: Yes (2) Pain due to malignant neoplasm metastatic to bone Is this a current diagnosis for this admission?: Yes (3) Acute bacterial bronchitis Is this a current diagnosis for this admission?: Yes (4) Constipation Is this a current diagnosis for this admission?: Yes (5) Hypoxemia Is this a current diagnosis for this admission?: Yes (6) Metastatic lung cancer (metastasis from lung to other site) Is this a current diagnosis for this admission?: Yes (7) Diabetes mellitus type 2 in nonobese Is this a current diagnosis for this admission?: Yes (8) Tobacco dependence Is this a current diagnosis for this admission?: Yes (9) Long-term current use of steroids Is this a current diagnosis for this admission?: Yes (10) Hypertension Is this a current diagnosis for this admission?: Yes - Assessment Summary: Patient was admitted for treatment of COPD exacerbation. At the time, patient had no leukocytosis. Chest x-ray showed no evidence of pneumonia or pulmonary edema but did show chronic findings of right lower lobe collapse. Patient was brought in for treatment with standing nebulizers and steroids. Sputum cultures were performed which revealed Pseudomonas. Patient was thus treated for acute Pseudomonas bacterial bronchitis with 7 days of Levaquin which was completed while patient was inpatient. During patient stay, she also experienced constip ation secondary to heavy narcotic use which later resolved after receiving enemas and bowel regimen. Dr. Torres also followed patient to help control her pain from neoplastic malignancy. In the means to control her pain, MRI was done which revealed T10 lesion with some degenerative changes. Dr. Price with pain management was consulted for evaluation. He subsequently performed a T10 osteochondral osteo-kyphoplasty with tumor ablation and restorative kyphoplasty. The hope is that this helps control patient's pain more adequately so that she does not require such heavy doses of narcotics. Patient is in stable conditions being discharged home on prednisone slow taper of 2.5 mg twice a day for 3 more days before stopping giving that she has been on steroids for quite some time now for COPD flares, Xopenex nebulizer and albuterol inhaler as needed, trelegy, incentive spirometry, bowel regimen as well as follow-up referrals. Patient is being sent home with palliative care services to follow-up in the outpatient setting. She understands and says she will be reaching out to get it set up. Of note she also has home health set up via [facility]. - Additional Information Resuscitation Status: Full Code Discharge Diet: As Tolerated Discharge Activity: Activity As Tolerated Referrals: DARLIN CHAVEZ PA-C [Primary Care Provider] - (Please call to make an appointment with your primary care provider within 1 week.) MOHIT TORRES MD [ACTIVE STAFF] - (Please call to make appointment for follow-up within 1-2 weeks) KENNY PRICE MD [ACTIVE STAFF] - 02/07/19 (Please call office to verify time of your appointment.) Prescriptions: Prednisone [Deltasone 5 mg Tablet] 2.5 mg PO Q12 3 Days tablet Polyethylene Glycol 3350 [Miralax Powder 17 gm/Packet] 17 gm PO DAILY 15 Days powd.pack Sennosides/Docusate 8.6-50 mg [Senna Plus Tablet] 2 each PO BID #120 tablet Levalbuterol HCl [Xopenex Neb 1.25 mg/3 ml Ampul] 1.25 mg NEB Q8HP PRN #60 ml PRN Reason: Shortness Of Breath Home Medications: Fluticasone/Umeclidin/Vilanter [Trelegy 100-62.5-25 Mcg Ellipta 14 Dose/Dpi] 1 puff IH DAILY 01/25/19 Folic Acid 1 mg PO DAILY 01/25/19 Metformin HCl 1,000 mg PO BID 01/25/19 Metoprolol Tartrate [Lopressor 50 mg Tablet] 50 mg PO DAILY 01/25/19 Nifedipine [Nifedipine ER] 90 mg PO DAILY 01/25/19 Ondansetron [Zofran Odt 4 mg Tablet] 4 mg PO Q8HP PRN 01/25/19 Oxycodone HCl [Oxy-Ir 5 mg Tablet] 30 mg PO Q4HP PRN 01/25/19 Pantoprazole Sodium [Protonix [address] Tablet] 40 mg PO BID 01/25/19 Promethazine HCl [Phenergan 25 mg Tablet] 25 mg PO Q6HP PRN 01/25/19 Albuterol Sulfate [Proair HFA Inhalation Aerosol 8.5 gm MDI] 400 puff IH Q4HP PRN #0 02/04/19 Levalbuterol HCl [Xopenex Neb 1.25 mg/3 ml Ampul] 1.25 mg NEB Q8HP PRN #60 ml 02/04/19 Polyethylene Glycol 3350 [Miralax Powder 17 gm/Packet] 17 gm PO DAILY 15 Days powd.pack 02/04/19 Prednisone [Deltasone 5 mg Tablet] 2.5 mg PO Q12 3 Days tablet 02/04/19 Sennosides/Docusate 8.6-50 mg [Senna Plus Tablet] 2 each PO BID #120 tablet 02/04/19 History of Present Illiness History of Present Illness: GOKUL SALAZAR is a 73 year old female comes into the emergency room with hypoxia secondary to COPD exacerbation. Patient was just in the hospital on 12/25 and discharged on 12/28 prednisone and Levaquin. He was then treated by her local provider with Augmentin sinusitis finishing her prescription on the Patient states that for the last 2 to 3 days she has been more short of breath again. She was seen by her oncologist patient transportation driver for shortness of breath and found to have an O2 sat of 82 to 84% on 2 L nasal cannula. States this was due to walking in from the parking lot to the office. States that she normally uses 3 L of oxygen at home and her baseline O2 sat is usually 92/93. Patient denies fever or chills.. She is white count is normal at 7000. Patient's chest x-ray shows no acute findings but she does have a chronic right lower lobe collapse Patient will admitted for COPD exacerbation. Start IV antibiotics but these may be canceled pending cultures Physical Exam Vital Signs: Temp Pulse Resp BP Pulse Ox 98.5 F 108 H 18 138/73 H 91 L 02/04/19 07:56 02/04/19 09:37 02/04/19 09:37 02/04/19 07:56 02/04/19 09:37 Intake & Output 02/03/19 02/04/19 02/05/19 06:59 06:59 06:59 Intake Total 1180 1810 Balance 1180 1810 Weight 53.7 kg 56.8 kg General appearance: PRESENT: no acute distress, cooperative Eye exam: PRESENT: EOMI Respiratory exam: PRESENT: clear to auscultation harish, rhonchi, symmetrical, unlabored. ABSENT: tachypnea, wheezes Cardiovascular exam: PRESENT: RRR, +S1, +S2. ABSENT: tachycardia GI/Abdominal exam: PRESENT: normal bowel sounds, soft. ABSENT: rebound, rigid, tenderness Musculoskeletal exam: PRESENT: ambulatory, tenderness - in back Neurological exam: PRESENT: alert, awake, oriented to person, oriented to place, oriented to time Results Laboratory Results: WBC 12.8 10^3/uL (4.0-10.5) H 02/04/19 05:25 RBC 3.86 10^6/uL (3.72-5.28) 02/04/19 05:25 Hgb 11.4 g/dL (12.0-15.5) L 02/04/19 05:25 Hct 35.1 % (36.0-47.0) L 02/04/19 05:25 MCV 91 fl (80-97) 02/04/19 05:25 MCH 29.4 pg (27.0-33.4) 02/04/19 05:25 MCHC 32.3 g/dL (32.0-36.0) 02/04/19 05:25 RDW 16.3 % (11.5-14.0) H 02/04/19 05:25 Plt Count 361 10^3/uL (150-450) 02/04/19 05:25 Lymph % (Auto) 10.4 % (13-45) L 02/04/19 05:25 [place] % (Auto) 7.5 % (3-13) 02/04/19 05:25 Eos % (Auto) 0.2 % (0-6) 02/04/19 05:25 Baso % (Auto) 0.7 % (0-2) 02/04/19 05:25 Absolute Neuts (auto) 10.4 10^3/uL (1.7-8.2) H 02/04/19 05:25 Absolute Lymphs (auto) 1.3 10^3/uL (0.5-4.7) 02/04/19 05:25 Absolute Monos (auto) 1.0 10^3/uL (0.1-1.4) 02/04/19 05:25 Absolute Eos (auto) 0.0 10^3/uL (0.0-0.6) 02/04/19 05:25 Absolute Basos (auto) 0.1 10^3/uL (0.0-0.2) 02/04/19 05:25 Total Counted 100 01/28/19 05:00 Seg Neutrophils % 81.2 % (42-78) H 02/04/19 05:25 Seg Neuts % (Manual) 79 % (42-78) H 01/28/19 05:00 Band Neutrophils % 11 % (3-5) H D 01/28/19 05:00 Lymphocytes % (Manual) 8 % (13-45) L 01/28/19 05:00 Monocytes % (Manual) 2 % (3-13) L 01/28/19 05:00 Eosinophils % (Manual) 0 % (0-6) 01/28/19 05:00 Basophils % (Manual) 0 % (0-2) 01/28/19 05:00 Abs Neuts (Manual) 8.9 10^3/uL (1.7-8.2) H 01/28/19 05:00 Abs Lymphs (Manual) 0.8 10^3/uL (0.5-4.7) 01/28/19 05:00 Abs Monocytes (Manual) 0.2 10^3/uL (0.1-1.4) 01/28/19 05:00 Absolute Eos (Manual) 0.0 10^3/uL (0.0-0.6) 01/28/19 05:00 Abs Basophils (Manual) 0.0 10^3/uL (0.0-0.2) 01/28/19 05:00 Toxic Granulation 1+ 01/26/19 06:00 Platelet Comment INCREASED 01/28/19 05:00 Polychromasia 1+ 01/28/19 05:00 Poikilocytosis SLIGHT 01/26/19 06:00 Anisocytosis 1+ 01/28/19 05:00 Ovalocytes SLIGHT 01/26/19 06:00 Maureen Cells SLIGHT 01/26/19 06:00 PT 13.8 SEC (11.4-15.4) 01/25/19 13:46 INR 1.06 01/25/19 13:46 APTT 28.3 SEC (23.5-35.8) 01/26/19 06:50 Carbonic Acid 1.62 mmol/L (1.05-1.35) H 01/25/19 14:26 HCO3/H2CO3 Ratio 20:1 01/25/19 14:26 ABG pH 7.40 (7.35-7.45) 01/25/19 14:26 ABG pCO2 53.8 mmHg (35-45) H 01/25/19 14:26 ABG pO2 78.2 mmHg (80-100) L 01/25/19 14:26 ABG HCO3 32.6 mmol/L (20-24) H 01/25/19 14:26 ABG Total CO2 34.2 mmol/L (21-25) H 01/25/19 14:26 ABG O2 Saturation 95.3 % (94-98) 01/25/19 14:26 ABG Base Excess 6.7 mmol/L 01/25/19 14:26 FiO2 4L 01/25/19 14:26 Sodium 135.8 mmol/L (137-145) L 02/04/19 05:25 Potassium 4.5 mmol/L (3.6-5.0) 02/04/19 05:25 Chloride 96 mmol/L (98-107) L 02/04/19 05:25 Carbon Dioxide 33 mmol/L (22-30) H 02/04/19 05:25 Anion Gap 7 (5-19) 02/04/19 05:25 BUN 12 mg/dL (7-20) 02/04/19 05:25 Creatinine 0.63 mg/dL (0.52-1.25) 02/04/19 05:25 Est GFR ( Amer) > 60 (>60) 02/04/19 05:25 Est GFR (MDRD) Non-Af > 60 (>60) 02/04/19 05:25 Glucose 88 mg/dL (75-110) 02/04/19 05:25 POC Glucose 136 mg/dL (70-110) H 02/04/19 07:56 Calcium 8.5 mg/dL (8.4-10.2) 02/04/19 05:25 Magnesium 2.1 mg/dL (1.6-2.3) 01/26/19 06:00 Total Bilirubin 0.4 mg/dL (0.2-1.3) 01/25/19 13:46 Direct Bilirubin 0.2 mg/dL (0.0-0.4) 01/25/19 13:46 Neonat Total Bilirubin Not Reportable 01/25/19 13:46 Neonat Direct Bilirubin Not Reportable 01/25/19 13:46 Neonat Indirect Bili Not Reportable 01/25/19 13:46 AST 14 U/L (14-36) 01/25/19 13:46 ALT 16 U/L (<35) 01/25/19 13:46 Alkaline Phosphatase 110 U/L (38-126) 01/25/19 13:46 Creatine Kinase < 20 U/L (30-135) L 01/25/19 13:46 Troponin I < 0.012 ng/mL 01/25/19 13:46 NT-Pro-B Natriuret Pep 293 pg/mL (<125) H 01/25/19 13:46 Total Protein 6.2 g/dL (6.3-8.2) L 01/25/19 13:46 Albumin 3.5 g/dL (3.5-5.0) 01/25/19 13:46 Urine Color STRAW 01/25/19 21:22 Urine Appearance CLEAR 01/25/19 21:22 Urine pH 8.0 (5.0-9.0) 01/25/19 21:22 Ur Specific [place] 1.005 01/25/19 21:22 Urine Protein NEGATIVE mg/dL (NEGATIVE) 01/25/19 21:22 Urine Glucose (UA) >=500 mg/dL (NEGATIVE) H 01/25/19 21:22 Urine Ketones TRACE mg/dL (NEGATIVE) H 01/25/19 21:22 Urine Blood NEGATIVE (NEGATIVE) 01/25/19 21:22 Urine Nitrite NEGATIVE (NEGATIVE) 01/25/19 21:22 Urine Bilirubin NEGATIVE (NEGATIVE) 01/25/19 21:22 Urine Urobilinogen NEGATIVE mg/dL (<2.0) 01/25/19 21:22 Ur Leukocyte Esterase NEGATIVE (NEGATIVE) 01/25/19 21:22 Urine WBC (Auto) 1 /HPF 01/25/19 21:22 Urine RBC (Auto) 1 /HPF 01/25/19 21:22 Squamous Epi Cells Auto 1 /HPF 01/25/19 21:22 Urine Mucus (Auto) RARE /LPF 01/25/19 21:22 Urine Ascorbic Acid NEGATIVE (NEGATIVE) 01/25/19 21:22 Slides for Path Review PATHOLOGIST REVIEWED 01/28/19 05:00 01/25/19 01/25/19 13:46 13:46 Troponin I < 0.012 NT-Pro-B Natriuret Pep 293 H Impressions: Chest X-Ray 01/25/19 13:51 IMPRESSION: No acute findings. Chronic right lower lobe collapse. Trace right pleural fluid Lumbar Spine MRI 01/30/19 00:00 IMPRESSION: Patient unable to cooperate with a full lumbar spine exam due to pain. No lumbar metastatic disease is present. T10 vertebral body with sclerotic metastatic lesion is outside the field of view of today's MRI exam. Thoracic Spine MRI 01/31/19 00:00 IMPRESSION: Limited study. Sclerotic lesion at T10. No additional findings. Fluoroscopy 02/03/19 00:00 IMPRESSION: IMAGE(S) OBTAINED DURING PROCEDURE. Thoracic Spine X-Ray 02/03/19 00:00 IMPRESSION: IMAGE(S) OBTAINED DURING PROCEDURE. Plan Time Spent: Less than 30 Minutes Stroke Is this a Stroke Patient?: No Acute Heart Failure - Is this a Heart Failure Patient?: No
[2019-02-04] MEDS: PROMETHAZINE HCL 25 MG TABLET PO PRN (12:18)
[2019-02-04 12:54] VITALS: BP 110/54
== END 2019-02-04 13:30 | disposition home health service (06) | DRG 982 ==
LOC: ER 13:08 → EH 16:48 → 5 19:06
PROVIDERS: ADMIT Hospitalist; ATTEND Hospitalist
PROC: 0R5 Upper Joints, Destruction (ICD-10-PCS; 2019-02-03)
PROC: 0PU43JZ Supplement Thoracic Vertebra with Synthetic Substitute, Percutaneous Approach (ICD-10-PCS; principal; 2019-02-03 09:15)
DX: J44.1 Chronic obstructive pulmonary disease with (acute) exacerbation (principal); C79.51 Secondary malignant neoplasm of bone; J96.11 Chronic respiratory failure with hypoxia; M48.54XA Collapsed vertebra, not elsewhere classified, thoracic region, initial encounter for fracture; C34.31 Malignant neoplasm of lower lobe, right bronchus or lung; J98.19 Other pulmonary collapse; J44.0 Chronic obstructive pulmonary disease with (acute) lower respiratory infection; J20.9 Acute bronchitis, unspecified; K59.03 Drug induced constipation; T40.605A Adverse effect of unspecified narcotics, initial encounter; I10 Essential (primary) hypertension; E78.5 Hyperlipidemia, unspecified; E11.9 Type 2 diabetes mellitus without complications; K21.9 Gastro-esophageal reflux disease without esophagitis; M19.90 Unspecified osteoarthritis, unspecified site; B96.5 Pseudomonas (aeruginosa) (mallei) (pseudomallei) as the cause of diseases classified elsewhere; G89.3 Neoplasm related pain (acute) (chronic); F41.9 Anxiety disorder, unspecified; M54.9 Dorsalgia, unspecified; F17.210 Nicotine dependence, cigarettes, uncomplicated; Z66 Do not resuscitate; K44.9 Diaphragmatic hernia without obstruction or gangrene; Z82.49 Family history of ischemic heart disease and other diseases of the circulatory system; Z82.3 Family history of stroke; Z83.3 Family history of diabetes mellitus; Z79.84 Long term (current) use of oral hypoglycemic drugs; Z79.51 Long term (current) use of inhaled steroids; Z79.899 Other long term (current) drug therapy; Z79.52 Long term (current) use of systemic steroids; Z99.81 Dependence on supplemental oxygen; Z90.2 Acquired absence of lung [part of]
CPT/HCPCS: 1936; 36415; 71045; 71260; 72070; 72146; 72148; 74177; 80048; 80053; 81001; 82550; 82803; 82962; 83735; 83880; 84484; 85025; 85610; 85730; 87040; 87070; 87077; 87186; 87205; 93005; 93010; 94799; 99291; C1713; J0690; J0692; J1170; J1200; J1642; J1650; J1815; J2060; J2270; J2405; J2550; J2704; J2920; J2930; J3010; J3490; J7512; J7620

== ENCOUNTER 2019-04-07 08:55 | Outpatient (CLI) | payer MEDICARE ==
[~2019-04-07 08:55] MED LIST: FERUMOXYTOL (NON-ESRD) 510 MG/NS 100 ML IV PRN; NORMAL SALINE 250 ML IV PRN
[2019-04-07 10:04] VITALS: BP 97/50
== END 2019-04-07 10:44 | disposition home or self-care (01) ==
LOC: II 08:55 → 5TH 08:57 → II 10:44
PROVIDERS: ATTEND Internal Medicine
DX: D50.9 Iron deficiency anemia, unspecified (principal); K90.9 Intestinal malabsorption, unspecified
CPT/HCPCS: 96365; Q0138; J7050; J1642

== ENCOUNTER 2019-04-14 09:04 | Outpatient (CLI) | payer MEDICARE ==
[2019-04-14 09:37] VITALS: BP 136/64
== END 2019-04-14 10:00 | disposition home or self-care (01) ==
LOC: II 09:04 → 5TH 09:07 → II 10:00
PROVIDERS: ATTEND Internal Medicine
DX: D50.9 Iron deficiency anemia, unspecified (principal); K90.9 Intestinal malabsorption, unspecified
CPT/HCPCS: 96365; Q0138; J7050; J1642

== ENCOUNTER → 2019-05-12 | Outpatient (CLI) | payer MEDICARE ==
--- NOTE | 2019-05-12 12:44 | RADIOLOGY REPORT (SQ) ---
EXAM DESCRIPTION: MRI HEAD COMBO COMPLETED DATE/TIME: 05/12/2019 10:13 am REASON FOR STUDY: LUNG CA C34.31 MALIGNANT NEOPLASM OF LOWER LOBE, RIGHT BRONCHUS OR L COMPARISON: 02/11/2014 TECHNIQUE: Multiplanar imaging includes noncontrasted T1, T2, FLAIR, and Diffusion with ADC map seq uences. Contrast enhanced T1 images. Images stored on PACS. CONTRAST TYPE AND DOSE: 10 mL Dotarem. RENAL FUNCTION: Not indicated. ACR Type II contrast agent associated with few, if any, unconfounded cases of NSF LIMITATIONS: None. FINDINGS: ANATOMY: No anomalies. Normal vascular flow voids. Pituitary fossa normal. CSF SPACES: Normal size and contour for patient age. No hemorrhage. CEREBRUM: Scattered areas of increased FLAIR throughout the white matter with distribution suggesting chronic microvascular ischemic change and increased from prior. There are few new areas of abnormal FLAIR signal in and enhancement involving the right occipital lobe and left insula. Abnormal areas of enhancement as listed: Right occipital lobe 9 mm focus (series 12, image 163). Additional cortic al 7 mm right occipital focus (series 12, image 106). Left occipital mesial cortical focus of enhanc ement measuring 9 mm (series 12, image 155). Left insular cortical 7 mm enhancing focus (series 12, image 142). Questionable additional areas within the anterior left temporal lobe (series 10, image 1 0) which is favored to be vascular. Sulci and gyri normal in size and contour. No evidence of hemorr james or extraaxial fluid collection. POSTERIOR FOSSA: No signal alteration. No hemorrhage. No edema, masses or mass effect. Internal audit ory canals, cerebello-pontine angles, mastoids normal. DIFFUSION: Negative for acute or subacute infarction. ORBITS: No masses. Globes normal. PARANASAL SINUSES: No fluid levels. Minimal polypoid mucosal thickening within the maxillary sinuses . Remaining sinuses are well aerated. OTHER: No other significant finding. IMPRESSION: 1. New areas of abnormal FLAIR signal and enhancement involving the right occipital cor xiomara and left insula compatible with intracranial metastatic disease and as detailed above. No signif icant mass effect or midline shift. 2. Nonspecific additional white matter changes, likely sequelae of microangiopathic disease and incr eased from prior. EVIDENCE OF ACUTE STROKE: NO. TECHNICAL DOCUMENTATION: JOB ID: [id number] [employer]- All Rights Reserved Reading location - IP/workstation name: [email or web address]
== END ==
LOC: RAD 08:59
PROVIDERS: ATTEND Physician Assistant Medical
DX: C34.31 Malignant neoplasm of lower lobe, right bronchus or lung (principal)
CPT/HCPCS: 82565; 70553; A9576; J1642

== ENCOUNTER → 2019-05-26 | Outpatient (CLI) | payer MEDICARE ==
--- NOTE | 2019-05-26 15:59 | RADIOLOGY REPORT (SQ) ---
EXAM DESCRIPTION: CT CHEST WITH; CT ABD/PELVIS WITH IV ONLY IMAGES COMPLETED DATE/TIME: 05/26/2019 3:12 pm REASON FOR STUDY: C34.31 MALIGNANT NEOPLASM OF LOWER LOBE, RIGHT BRONCHUS OR LUNG C34.31 MALIGNANT NEOPLASM OF LOWER LOBE, RIGHT BRONCHUS OR L CONTRAST TYPE AND DOSE: contrast/concentration: Isovue 350.00 mg/ml; Total Contrast Delivered: 58.0 ml; Total Saline Delivered: 49.0 ml RENAL FUNCTION: Creatinine 0.5 COMPARISON: None. TECHNIQUE: CT scan of the chest performed using helical scanning technique with dynamic intravenous contrast injection. Images reviewed with lung, soft tissue and bone windows. Reconstructed coronal a nd sagittal MPR images reviewed. All images stored on PACS. All CT scanners at this facility use dose modulation, iterative reconstruction, and/or weight based d osing when appropriate to reduce radiation dose to as low as reasonably achievable (ALARA). [facility]: Dose Right [facility]: CareDose [facility]: Dose Right [facility]: Teradose 4D [facility]: [employer] RADIATION DOSE: CT Rad equipment meets quality standard of care and radiation dose reduction techniq ues were employed. CTDIvol: 4.4 - 4.5 mGy. DLP: 611 mGy-cm. . LIMITATIONS: None. FINDINGS: AXILLAE: No adenopathy. CHEST WALL: No masses. No subcutaneous air. LUNGS: Persistent collapse of the right lower lobe. Left upper lobe spiculated nodule is not signifi cantly changed measuring measured approximately 8 mm. There is a 10.9 mm nodule in the left lower lo be which measured no more than 6.9 mm on prior study. This is best demonstrated on series 2, image 4 7. Stable subpleural nodule in the periphery of the left lower lobe demonstrated on image 45 series 2. The right upper lobe airspace disease previously described has cleared. PLEURA: There is a small right effusion. Stable calcified pleural plaque THYROID: Presumed prior right thyroidectomy. Slight hypertrophy of the left thyroid lobe. HILAR AND MEDIASTINAL STRUCTURES: No identified masses or abnormal nodes. AORTA AND GREAT VESSELS: No aneurysm. No dissection. PULMONARY ARTERIES: No identified pulmonary emboli. Study not optimized for the pulmonary arteries. HEART: No pericardial effusion. HARDWARE AND LIFELINES: Drzhul-Z-Kimu is in place. BONES: Stable dense sclerosis in the body of T10. Prior kyphoplasty at T10. OTHER: No other significant finding. IMPRESSION: Enlarging left lower lobe pulmonary nodule. Metastatic disease is suspected. Right-romeo ed airspace disease has resolved. Dense consolidation in the right base remains. COMPARISON: None. RADIATION DOSE: CT Rad equipment meets quality standard of care and radiation dose reduction techniq ues were employed. CTDIvol: 4.4 - 4.5 mGy. DLP: 611 mGy-cm. mGy. TECHNIQUE: CT scan of the abdomen and pelvis performed with intravenous and oral contrast using dominique nette scanning technique with dynamic intravenous contrast injection. Images reviewed with lung, soft tissue and bone windows. Reconstructed coronal and sagittal MPR images reviewed. Delayed images for evaluation of the urinary system also acquired and evaluated. All images stored on PACS. All CT scanners at this facility use dose modulation, iterative reconstruction, and/or weight based d osing when appropriate to reduce radiation dose to as low as reasonably achievable (ALARA). [facility]: Dose Right [facility]: SureCare [facility]: Dose Right [facility]: Teradose 4D [facility]: [employer] FINDINGS: LIVER: Normal size. No masses. No dilated ducts. SPLEEN: Normal size. No focal lesions. PANCREAS: No masses. No significant calcifications. No adjacent inflammation or peripancreatic flui d collections. Pancreatic duct not dilated. GALLBLADDER: No identified stones by CT criteria. No inflammatory changes to suggest cholecystitis. ADRENAL GLANDS: Stable small bilateral adrenal lesions RIGHT KIDNEY AND URETER: No solid masses. No significant calcifications. No hydronephrosis or hyd roureter. LEFT KIDNEY AND URETER: No solid masses. No significant calcifications. No hydronephrosis. Promi nent extrarenal pelvis. AORTA AND VESSELS: Atherosclerotic change. No aneurysmal dilatation. RETROPERITONEUM: No retroperitoneal adenopathy, hemorrhage or masses. LARGE AND SMALL BOWEL: Moderate amount of stool throughout the colon. No inflammatory changes of bow el wall thickening. APPENDIX: Not visualized. ABDOMINAL WALL: No hernia or masses. PERITONEAL CAVITY: No free air. No free fluid. No peritoneal implants or masses. PELVIS: No mass or free fluid. Normal bladder. BONES: No significant or acute findings. OTHER: No other significant finding. IMPRESSION: Stable CT abdomen and pelvis with small bilateral adrenal lesions. TECHNICAL DOCUMENTATION: JOB ID: [id number] Quality ID # [id number]: Final reports with documentation of one or more dose reduction techniques (e.g., Au tomated exposure control, adjustment of the mA and/or kV according to patient size, use of iterative reconstruction technique) 2010 [employer]- All Rights Reserved Reading location - IP/workstation name: [email or web address]
== END ==
LOC: RAD 14:38
PROVIDERS: ATTEND Physician Assistant Medical
DX: C34.31 Malignant neoplasm of lower lobe, right bronchus or lung (principal)
CPT/HCPCS: 71260; 74177; J1642